=== PATIENT | female | born 1950 | race Caucasian/White ===

== ENCOUNTER 2023-01-13 10:38 | Outpatient (OUT) | payer MEDICARE, OTHER, SELFPAY ==
[2023-01-13 11:03] LABS: Hematocrit 34.3 % (36.0-48.0); Hemoglobin 10.5 g/dL (12.0-16.0); Mean Corpuscular HGB Conc 30.6 g/dL (29.9-35.2); Mean Corpuscular Hemoglobin 28.4 pg (26.7-34.0); Mean Corpuscular Volume 92.7 fL (81.0-99.0); Mean Platelet Volume 10.7 fL (9.5-13.5); Platelet Count 182 10^3/uL (150-450); White Blood Count 7.2 10^3/uL (4.0-11.0)
[2023-01-13 11:05] LABS: Bilirubin Urine NEGATIVE (NEGATIVE); Blood Urine TRACE-I (NEGATIVE); Clarity Urine CLEAR (CLEAR); Color Urine LT. YELLOW (YELLOW); Glucose Urine UA >=1000 mg/dL (NEGATIVE); Ketones Urine NEGATIVE (NEGATIVE); Leukocyte Esterase Urine LARGE (NEGATIVE); Nitrite Urine POSITIVE (NEGATIVE); Protein Urine NEGATIVE (NEG/TRACE); Specific Gravity Urine <=1.005 (1.005-1.025); Urobilinogen Urine 0.2 EU/dL (0.2-1.0); pH Urine 5.5 (5.0-9.0)
[2023-01-13 11:18] LABS: Creatinine Urine Random 23.68 mg/dL (20.00-300.00); Protein Creatinine Ratio Urine 0.79; Total Protein Urine Random 18.8 mg/dL (<=11.9)
[2023-01-13 11:24] LABS: Alanine Aminotransferase 26 U/L (14-59); Albumin Globulin Ratio 0.8; Albumin Level 3.8 g/dL (3.4-5.0); Alkaline Phosphatase 92 U/L (46-116); Anion Gap 10.1; Aspartate Amino Transferase 15 U/L (15-37); Bilirubin Total 0.2 mg/dL (0.2-1.0); Calcium 9.2 mg/dL (8.5-10.1); Carbon Dioxide 24.2 mmol/L (21.0-32.0); Chloride 105 mmol/L (98-107); Estimated GFR (African America 40 (>=60); Estimated GFR (Non-African Ame 33 (>=60); Globulin 4.6 g/dL; Glucose 207 mg/dL (74-106); Magnesium 2.3 mg/dL (1.8-2.4); Phosphorus 3.3 mg/dL (2.6-4.7); Potassium 5.3 mmol/L (3.5-5.1); Sodium 134 mmol/L (136-145); Total Protein 8.4 g/dL (6.4-8.2)
[2023-01-14 12:12] LABS: PTH, Intact 24 pg/mL (15-65)
== END 2023-01-13 10:39 | disposition home or self-care (01) ==
LOC: LAB 10:38
PROVIDERS: PCP Family Medicine; Visit Provider Internal Medicine Nephrology
DX: N18.31 Chronic kidney disease, stage 3a (principal); E11.9 Type 2 diabetes mellitus without complications; E53.8 Deficiency of other specified B group vitamins; E55.9 Vitamin D deficiency, unspecified; E21.3 Hyperparathyroidism, unspecified; E79.0 Hyperuricemia without signs of inflammatory arthritis and tophaceous disease
CPT/HCPCS: 36415; 80053; 81003; 82306; 82570; 82607; 82728; 82746; 83540; 83550; 83735; 83970; 84100; 84156; 84550; 85027

== ENCOUNTER 2023-03-02 12:56 | Outpatient (OUT) | payer MEDICARE, OTHER, SELFPAY ==
[2023-03-02 13:38] LABS: Potassium 6.2 mmol/L (3.5-5.1)
== END 2023-03-02 12:57 | disposition home or self-care (01) ==
LOC: LAB 12:57
PROVIDERS: PCP Family Medicine; Visit Provider Internal Medicine Nephrology
DX: N18.31 Chronic kidney disease, stage 3a (principal)
CPT/HCPCS: 36415; 84132

== ENCOUNTER 2023-05-27 07:57 | Outpatient (OUT) | payer MEDICARE, OTHER, SELFPAY ==
--- OUTSIDE RECORDS SUMMARY | 2023-05-27 08:02 | XMS_ITS | CCD ---
Author Organization [facility] Care Team Providers Care Research And Development Director Name Role Phone Loni Farmer Unavailable Rashid Tracy Jr. Unavailable Tabitha Rizzo Unavailable Baklissets, Aziz Unavailable LONI FARMER Admitting Unavailable LONI FARMER Attending Unavailable DR YARELY MCGUIRE Primary Care Unavailable SCALMOMO, LONI Consulting Unavailable BAKHOUS, AZIZ Admitting Unavailable BAKLISSETS, AZIZ Attending Unavailable DR YARELY MCGUIRE Primary Care Unavailable GABINO CORONADO Consulting Unavailable BAKHOUS, AZIZ Consulting Unavailable BAKHOUS, AZIZ Admitting Unavailable BAKHOUS, AZIZ Attending Unavailable DR YARELY MCGUIRE Primary Care Unavailable BAKHOUS, AZIZ Consulting Unavailable TAINA PARKER Attending Unavailable Yarely Mcguire Attending Unavailable Yarely Mcguire Primary Care Unavailable Yarely Mcguire Admitting Unavailable Allergies Allergy Classification Reported Allergen(s) Allergy Type Date of Onset Reaction(s) Facility (20 sources) Erythromycin Drug Allergy Unknown [facility] Other (20 sources) Penicillin G Drug Allergy 02-26-20 Unknown [facility] (2 sources) Erythromycin Drug Allergy 02-26-20 [facility] (2 sources) Penicillins Drug allergy (disorder) 04-29-19 [facility] (8 sources) metFORMIN Drug Allergy 02-26-20 Unknown [facility] (4 sources) Allergies Reconciled Propensity to adverse reactions Unknown [facility] Other (7 sources) Substance with penicillin structure and antibacterial mechanism of action (substance) Drug allergy Unknown [facility] Other (4 sources) patient allergy list reviewed by nurse or physicia Propensity to adverse reactions 04-06-19 Comment:Done [facility] Other (1 source) Erythromycin Drug Allergy 02-26-20 [facility] (1 source) metFORMIN Drug Allergy 02-26-20 [facility] (1 source) Penicillin Drug Allergy 02-26-20 [facility] (1 source) Penicillins Drug allergy (disorder) 02-26-20 [facility] Medications Current Medications Medication Drug Class(es) Dates Sig (Normalized) Sig (Original) atorvastatin 20 mg oral tablet (20 sources) HMG-CoA Reductase Inhibitor take 1 tablet by mouth once daily Atorvastatin Calcium 20 mg TAKE 1 TABLET BY MOUTH DAILY for 90 Active benzonatate 200 mg oral capsule (3 sources) Non-narcotic Antitussive Start: 02-25-2023 take 1 capsule by mouth every eight hours Benzonatate 200 MG 1 capsule Orally Three times a day for 10 day(s) Feb, Active cholecalciferol 0.025 mg oral tablet (3 sources) Vitamin D take 1 tablet by mouth every twenty-four hours Vitamin D 25 MCG (1000 UT) 1 tablet Orally Once a day Active dapagliflozin 5 mg oral tablet (15 sources) Sodium-Glucose Cotransporter 2 Inhibitor Start: 02-25-2022 take 1 tablet by mouth every twenty-four hours Farxiga 5 MG 1 tablet Orally Once a day for 30 day(s) Feb, Active empagliflozin 10 mg oral tablet (20 sources) Sodium-Glucose Cotransporter 2 Inhibitor Start: 08-21-2020 take 1 tablet by mouth every twenty-four hours Jardiance 10 MG 1 tablet Orally Once a day for 30 day(s) Aug, Active take 1 tablet by shwetha th every twenty-four hours JARDIANCE 25 mg 1 tablet orally daily fo r 90 days PAP- [employer]-- DENIED Active ferrous sulfate 325 mg oral tablet (4 sources) Start: 01-20-2023 take 1 tablet by mouth every twenty-four hours Ferrous Sulfate 325 (65 Fe) MG 1 tablet Orally once a day for 90 days Jan, Active FreeStyle Gill 2 [place] Systm - (20 sources) Start: 02-15-2020 FreeStyle Libr e 2 [place] Systm - as directed Feb, Active FreeStyle Gill 2 Sensor Systm - (13 sources) Start: 02-15-2020 FreeStyle Libr e 2 Sensor Systm - as directed Feb, Active 3 ml insulin degludec 100 unt/ml pen injector (20 sources) Insulin Analog inject 3 [IU] by subcutaneous injection once daily in the morning Tresiba FlexTouch 100 UNIT/ML 3 units Subcutaneous Once a day in the morning PAP- Ewa Nordisk Active inject 4 [IU] by sub cutaneous injection once daily in the morning Tresiba FlexTouch 100 UNIT/ML 4 units Subcutaneous Once a day in the morning PAP- Ewa Nordisk Active inject 8 [IU] by sub cutaneous injection once daily in the morning Tresiba FlexTouch 100 UNIT/ML 8 units Subcutaneous Once a day in the morning [facility] Active lisinopril 10 mg oral tablet (10 sources) Angiotensin Converting Enzyme Inhibitor Start: 07-22-2022 take 1 tablet by mouth every twenty-four hours Lisinopril 10 MG 1 tablet Orally Once a day July, Active 24 hr metFORMIN hydrochloride 500 mg extended release oral tablet (20 sources) Biguanide Start: 08-21-2020 take 2 tablets by mouth every twenty-four hours metFORMIN HCl ER 500 MG 2 tablets Orally Once a day for 30 day(s) Aug, Active metFORMIN HCl ER 500 MG 1 tablet daily Orally Once a day Active metFORMIN HCl ER 500 MG 1 tablet BID with breakfast and dinner Orally BID for 30 days Active Ozempic (1 MG/DOSE) 2 MG/1.5 ML (20 sources) Start: 08-21-2020 Ozempic (1 MG/ DOSE) 2 MG/1.5ML 1 mg Subcutaneous Once a week [facility] Zeer Aug, Active Ozempic (1 MG/DO SE) 2 MG/1.5ML 1 mg Subcutaneous Once a week [facility] Zeer Active 1 mg dose 1.5 ml semaglutide 1.34 mg/ml pen injector (7 sources) Start: 08-21-2020 Ozempic (1 MG/DOSE) 2 MG/1.5ML 1 mg Subcutaneous Once a week [facility] Zeer Aug, Active sulfamethoxazole 800 mg / trimethoprim 160 mg oral tablet (3 sources) Dihydrofolate Reductase Inhibitor Antibacterial, Sulfonamide Antimicrobial Start: 02-25-2023 take 1 tablet by mouth every twelve hours Bactrim DS 800-160 MG 1 tablet Orally Twice a day for 10 day(s) Feb, Active vitamin b12 0.1 mg oral tablet (10 sources) Vitamin B12 take 1 tablet by mouth every twenty-four hours Vitamin B12 100 MCG 1 tablet Orally daily Active take 1 tablet by shwetha th every twenty-four hours Vitamin B12 100 MCG 1 tablet Orally daily Active Vitamin B12 100 MCG (20 sources) take 1 tablet by shwetha th once daily Vitamin B12 100 MCG 1 tablet Orally daily Active Vitamin D 25 MCG (1000 UT) (15 sources) take 1 tablet by shwetha th once daily Vitamin D 25 MCG (1000 UT) 1 tablet Orally Once a day Active Problems Active Problems Problem Classification Problem Date Documented Date Episodic/Chronic Abdominal pain (4 sources) Left upper quadrant pain; Translations: [Left upper quadrant pain] Episodic Administrative/social admission (8 sources) Dietary counseling and surveillance; Translations: [Dietary counseling and surveillance Z71.3] Onset: 11-27-2020 Resolved: 09-24-2021 Episodic Biliary tract disease (4 sources) Cholelithiasis without obstruction; Translations: [Calculus of gallbladder without cholecystitis without obstruction] Episodic Calculus of urinary tract (1 source) Calculus of kidney; Translations: [CALCULUS OF KIDNEY] Onset: 04-27-2022 Episodic Chronic kidney disease (18 sources) Chronic kidney disease stage 3A ; Translations: [Chronic kidney disease, stage 3a] Chronic Deficiency and other anemia (4 sources) Anemia; Translations: [Anemia in chronic kidney disease] Chronic Deficiency and other anemia (1 source) Anemia in chronic kidney disease Chronic Diabetes mellitus with complications (20 sources) Hyperglycemia due to type 2 diabetes mellitus; Translations: [Type 2 diabetes mellitus with hyperglycemia] Onset: 07-23-2014 Resolved: 10-15-2021 Chronic Diabetes mellitus without complication (20 sources) Type 2 diabetes mellitus in nonobese; Translations: [Type 2 diabetes mellitus without complications] Onset: 04-27-2022 Chronic Diseases of white blood cells (4 sources) Monocytosis; Translations: [Monocytosis (symptomatic)] Onset: 10-27-2014 Chronic Disorders of lipid metabolism (20 sources) Hyperlipidemia; Translations: [Hyperlipidemia, unspecified] Onset: 07-22-2016 Resolved: 09-24-2021 Chronic Essential hypertension (20 sources) Hypertensive disorder; Translations: [Essential (primary) hypertension] Onset: 11-27-2020 Resolved: 09-24-2021 Chronic Fluid and electrolyte disorders (1 source) Hyperkalemia Episodic Genitourinary symptoms and ill-defined conditions (9 sources) Proteinuria, unspecified; Translations: [PROTEINURIA UNSPECIFIED] Onset: 03-06-2021 Resolved: 09-24-2021 Episodic Immunizations and screening for infectious disease (5 sources) Encounter for screening for other viral diseases; Translations: [Vaccination given] Onset: 09-07-2021 Resolved: 09-07-2021 Episodic Menopausal disorders (8 sources) Postmenopausal bleeding; Translations: [Postmenopausal bleeding] Onset: 04-06-2014 Chronic Nutritional deficiencies (20 sources) Vitamin D deficiency; Translations: [Vitamin D deficiency, unspecified] Onset: 11-27-2020 Resolved: 09-24-2021 Chronic Nutritional deficiencies (3 sources) Deficiency of other specified B group vitamins; Translations: [DEFICIENCY SPEC B GROUP VITAMINS] Onset: 07-19-2022 Episodic Other aftercare (20 sources) Long-term current use of insulin; Translations: [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 of insulin] Episodic Other aftercare (8 sources) intermediate (current) use of insulin; Translations: [intermediate current use of insulin Z79.4] Onset: 11-27-2020 Resolved: 09-24-2021 Episodic Other endocrine disorders (10 sources) Hyperparathyroidism; Translations: [Hyperparathyroidism, unspecified] Chronic Other endocrine disorders (1 source) Hyperparathyroidism, unspecified Chronic Other injuries and conditions due to external causes (4 sources) History of fall; Translations: [History of falling] Episodic Other liver diseases (20 sources) Steatosis of liver; Translations: [Fatty (change of) liver, not elsewhere classified] Chronic Other non-traumatic joint disorders (4 sources) Other specified joint disorders, right ankle and foot; Translations: [Other specified joint disorders, right ankle and foot] Episodic Other nutritional; endocrine; and metabolic disorders (20 sources) Obesity; Translations: [Obesity, unspecified] Chronic Other nutritional; endocrine; and metabolic disorders (4 sources) Hypercalcemia; Translations: [Hypercalcemia] Onset: 10-15-2017 Chronic Other nutritional; endocrine; and metabolic disorders (1 source) Hyperuricemia without signs of inflammatory arthritis and tophaceous disease Episodic Pancreatic disorders (not diabetes) (4 sources) Acute pancreatitis; Translations: [Biliary acute pancreatitis without necrosis or infection] Episodic Residual codes; unclassified (6 sources) Body mass index (BMI) 24.0-24.9, adult Onset: 06-16-2021 Resolved: 09-24-2021 Episodic Residual codes; unclassified (4 sources) Normal body mass index; Translations: [Body mass index (BMI) 24.0-24.9, adult] Episodic Residual codes; unclassified (4 sources) Postmenopausal state; Translations: [Asymptomatic menopausal state] Episodic Residual codes; unclassified (4 sources) Procedure not done; Translations: [Procedure and treatment not carried out because of patient's decision for unspecified reasons] Episodic Retinal detachments; defects; vascular occlusion; and retinopathy (20 sources) Retinal disorder; 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] Onset: 11-27-2020 Resolved: 09-24-2021 Chronic Urinary tract infections (1 source) Urinary tract infection, site not specified Episodic Past or Other Problems Problem Classification Problem Date Documented Date Episodic/Chronic Chronic kidney disease (8 sources) Chronic kidney disease; Translations: [CHRONIC KIDNEY DISEASE STAGE 3A] Onset: 04-22-2022 Other liver diseases (4 sources) Elevated levels of transaminase & lactic acid dehydrogenase; Translations: [Nonspecific elevation of levels of transaminase or lactic acid dehydrogenase (LDH)] Onset: 10-27-2014 Episodic Other nutritional; endocrine; and metabolic disorders (1 source) Body mass index (BMI) 26.0-26.9, adult; Translations: [BMI 26.0-26.9,adult Z68.26] Onset: 11-27-2020 Resolved: 11-27-2020 Episodic Other nutritional; endocrine; and metabolic disorders (1 source) Body mass index (BMI) 25.0-25.9, adult Onset: 03-06-2021 Resolved: 03-06-2021 Episodic Other screening for suspected conditions (not mental disorders or infectious disease) (4 sources) Mammography abnormal; Translations: [Unspecified abnormal mammogram] Onset: 04-11-2014 Episodic Results Test Name Value Interpretation Reference Range Facility A1C HEMOGLOBINon 12-14-2022 HbA1c (Bld) [Mass fraction] 6.3 % [facility] Other Glucose - FINGER STICKon Glucose [Mass/Vol] 133 mg/dL [facility] Other HbA1c (Bld) [Mass fraction]o n 12-14-2022 A1C HEMOGLOBIN [employer] Other A1C HEMOGLOBINon 09-09-2022 HbA1c (Bld) [Mass fraction] 6.5 % [facility] Other Glucose - FINGER STICKon Glucose [Mass/Vol] 107 mg/dL [facility] Other HbA1c (Bld) [Mass fraction]o n 09-09-2022 A1C HEMOGLOBIN [employer] Other PTH INTACTon 07-17-2022 PTH, Intact 68 pg/mL Critically high 15-65 [facility] Comment on above: Performed By: #### P THINT #### [facility] [address] [address] [address] Tim Moya HEMOGRAM AND PLATELon 2022 Hematocrit (Bld) [Volume fraction] 36.5 % Normal 36.0-48.0 [facility] Comment on above: Performed By: #### H H ####[facility] [address] [address]DrLinda Moya Hemoglobin (Bld) [Mass/Vol] 11.7 g/dL Critically low 12.0-16.0 [facility] Comment on above: Performed By: #### H H ####[facility] [address] [id number] Moya MCH (RBC) [Entitic mass] 28.3 pg Normal 26.7-34.0 [facility] Comment on above: Performed By: #### H H ####[facility] [address] [address]DrLinda Moya MCHC (RBC) [Mass/Vol] 32.1 g/dL Normal 29.9-35.2 [facility] Comment on above: Performed By: #### H H ####[facility] [address] [place], [place] [address]OjLinda Moya MCV (RBC) [Entitic vol] 88.2 fL Normal 81.0-99.0 [facility] Comment on above: Performed By: #### H H ####[facility] [address] [id number] Moya PLT 242 103/ul Normal 150-450 [facility] Comment on above: Performed By: #### H H ####[facility] [address] [id number] Moya RBC 4.14 106/ul Critically low 4.20-5.40 [facility] Comment on above: Performed By: #### H H ####[facility] [address] [id number] Moya WBC 9.2 103/ul Normal 4.0-11.0 [facility] Comment on above: Performed By: #### H H ####[facility] [address] [address]DrLinda Moya MAGNESIUMon 07-16-2022 Magnesium [Mass/Vol] 2.4 mg/dL Normal 1.8-2.4 [facility] Comment on above: Performed By: #### C MP, PHOS, URIC, MG #### [facility] [address] [place], [place] [address] Dr. Tim Moya PHOSPHORUSon 07-16-2022 Phosphate [Mass/Vol] 3.3 mg/dL Normal 2.6-4.7 [facility] Comment on above: Performed By: #### C MP, PHOS, URIC, MG ####[facility] [address] [id number] Moya PROF 14(COMP METB)on 023 Albumin [Mass/Vol] 3.9 g/dL Normal 3.4-5.0 [facility] Comment on above: Performed By: #### C MP, PHOS, URIC, MG ####[facility] [address] [id number]. Tim Moya Albumin/Globulin [Mass ratio] 0.8 {ratio} Normal [facility] Comment on above: Performed By: #### C MP, PHOS, URIC, MG ####[facility] [address] [address]Dr. Tim Moya ALP [Catalytic activity/Vol] 107 U/L Normal 46-116 [facility] Comment on above: Performed By: #### C MP, PHOS, URIC, MG ####[facility] [address] [address]Dr. Tim Moya ALT [Catalytic activity/Vol] 22 U/L Normal 14-59 [facility] Comment on above: Performed By: #### C MP, PHOS, URIC, MG ####[facility] [address] [address]Dr. Angelicavicki Moya Anion gap [Moles/Vol] 12.4 mmol/L Normal [facility] Comment on above: Performed By: #### C MP, PHOS, URIC, MG ####[facility] [address] [place], [place] [address]Dr. Tim Moya AST [Catalytic activity/Vol] 19 U/L Normal 15-37 [facility] Comment on above: Performed By: #### C MP, PHOS, URIC, MG ####[facility] [address] [address]Dr. Angelicavicki Moya Bilirubin [Mass/Vol] 0.2 mg/dL Normal 0.2-1.0 [facility] Comment on above: Performed By: #### C MP, PHOS, URIC, MG ####[facility] [address] [address]Dr. Tim Moya Calcium [Mass/Vol] 8.7 mg/dL Normal 8.5-10.1 [facility] Comment on above: Performed By: #### C MP, PHOS, URIC, MG ####[facility] [address] [address]Dr. Tim Moya Chloride [Moles/Vol] 108 mmol/L Critically high 98-107 [facility] Comment on above: Performed By: #### C MP, PHOS, URIC, MG ####[facility] [address] [address]Dr. Tim Moya CO2 [Moles/Vol] 26.1 mmol/L Normal 21.0-32.0 [facility] Comment on above: Performed By: #### C MP, PHOS, URIC, MG ####[facility] [address] [address]Dr. Tim Moya Creatinine [Mass/Vol] 1.21 mg/dL Critically high 0.55-1.02 [facility] Comment on above: Performed By: #### C MP, PHOS, URIC, MG ####[facility] [address] [address]Dr. Tim Moya EGFR-AF DUTCH 53 mL/min/1.73m2 Critically low >=60 [facility] Comment on above: Performed By: #### C MP, PHOS, URIC, MG ####[facility] [address] [place], [place] [address]Dr. Tim Moya EGFR-NON AF DUTCH 44 mL/min/1.73m2 Critically low >=60 [facility] Comment on above: Performed By: #### C MP, PHOS, URIC, MG ####[facility] [address] [address]Dr. Tim Moya Globulin (S) [Mass/Vol] 4.9 g/dL Normal [facility] Comment on above: Performed By: #### C MP, PHOS, URIC, MG ####[facility] [address] [address]Dr. Tim Moya Glucose [Mass/Vol] 94 mg/dL Normal 74-106 [facility] Comment on above: Performed By: #### C MP, PHOS, URIC, MG ####[facility] [address] [address]Dr. Tim Moya Potassium [Moles/Vol] 4.5 mmol/L Normal 3.5-5.1 [facility] Comment on above: Performed By: #### C MP, PHOS, URIC, MG ####[facility] [address] [address]Dr. Tim Moya Protein [Mass/Vol] 8.8 g/dL Critically high 6.4-8.2 [facility] Comment on above: Performed By: #### C MP, PHOS, URIC, MG ####[facility] [address] [address]Dr. Tim Moya Sodium [Moles/Vol] 142 mmol/L Normal 136-145 [facility] Comment on above: Performed By: #### C MP, PHOS, URIC, MG ####[facility] [address] [address]Dr. Tim Moya Urea nitrogen [Mass/Vol] 20.0 mg/dL Critically high 7.0-18.0 [facility] Comment on above: Performed By: #### C MP, PHOS, URIC, MG ####[facility] [address] [address]Dr. Tim Moya Urea nitrogen/Creatinin e [Mass ratio] 16.5 mg/mg Normal [facility] Comment on above: Performed By: #### C MP, PHOS, URIC, MG ####[facility] [address] [address]Dr. Tim Moya UA RANDOMon 07-16-2022 Bilirubin Ql (U) Negative Normal NEGATIVE [facility] Comment on above: Performed By: #### U A #### [facility] [address] [address] [address] Tim Moya Clarity (U) CLOUDY Abnormal CLEAR [facility] Comment on above: Performed By: #### U A #### [facility] [address] [address] [address] Tim Moya Color (U) YELLOW Normal YELLOW [facility] Comment on above: Performed By: #### U A #### [facility] [address] [address] [address] Tim Moya Glucose Ql (U) 500 mg/dl Abnormal NEGATIVE [facility] Comment on above: Performed By: #### U A #### [facility] [address] [address] [address] Tim Moya Hemoglobin Ql (U) TRACE Abnormal NEGATIVE [facility] Comment on above: Performed By: #### U A #### [facility] [address] [place] [address] Dr. Tim Moya Ketones Ql (U) Negative Normal NEGATIVE [facility] Comment on above: Performed By: #### U A #### [facility] [address] [place] [address] Dr. Tim Moya LEUKOCYTES MODERATE Abnormal NEGATIVE [facility] Comment on above: Performed By: #### U A #### [facility] [address] [place] [address] Dr. Tim Moya Nitrite Ql (U) Negative Normal NEGATIVE [facility] Comment on above: Performed By: #### U A #### [facility] [address] [place] [address] Dr. Tim Moya pH (U) 6.0 [pH] Normal 5-9 [facility] Comment on above: Performed By: #### U A #### [facility] [address] [place] [address] Dr. Tim Moya SPEC GRAVITY 1.010 Normal 1.005-<=1. 025 [facility] Comment on above: Performed By: #### U A #### [facility] [address] [place] [address] Dr. Tim Moya UA PROTEIN Negative Normal NEGATIVE/ TRACE [facility] Comment on above: Performed By: #### U A #### [facility] [address] [place] [address] Dr. Tim Moya Urobilinogen Qn (U) 0.2 {Michael'U}/dL Normal 0.2 - 1.0 [facility] Comment on above: Performed By: #### U A #### [facility] [address] [place] [address] Dr. Tim Moya URIC ACID SERUMon 07-16-2022 Urate [Mass/Vol] 6.6 mg/dL Critically high 2.6-6.0 [facility] Comment on above: Performed By: #### C MP, PHOS, URIC, MG ####[facility] [address] [address]Dr. Tim Moya URINE T PROTEIN CREAT RATIOo n 07-16-2022 Protein (U) [Mass/Vol] 25.1 mg/dL Critically high <=12.0 [facility] Comment on above: Performed By: #### U RTPCR #### [facility] [address] [address] [address] Tim Moya UR PROT CREAT RAT 0.72 Normal [facility] Comment on above: Performed By: #### U RTPCR #### [facility] [address] [address] [address] Tim Moya URINE CREAT 34.83 mg/dL Normal 20.00-300. 00 [facility] Comment on above: Performed By: #### U RTPCR #### [facility] [address] [address] [address] Tim Moya VITAMIN D 25 OHon 07-16-2022 VIT D 25-OH 31.0 ng/mL Normal [facility] Comment on above: Performed By: #### V ITAD #### [facility] [address] [address] [address] Tim Moya VIT D RANGES SEE BELOW Normal [facility] Comment on above: Result Comment: <20 ng/mL Vit D deficient 20 - <30 ng/mL Vit D insufficient 30 - 100 ng/mL Vit D sufficient >100 ng/mL Potential Toxicity Performed By: #### V ITAD #### [facility] [address] [address] [address] Tim Moya US KIDNEYSon 04-22-2022 US KIDNEYS EXAMINATION: US KIDN EYS HISTORY: Chronic kidney disease stage 3a , proteinuria COMPARISON: No relevant comparison available. TECHNIQUE: Ultrasound examination was performed of the kidneys and urinary bladder. FINDINGS: RIGHT KIDNEY: Nonobstructing 4 mm stone within mid body. No evidence of pelvocaliectasis or mass. Normal renal cortical parenchymal echogenicity. Color Doppler demonstrates blood flow within the kidney. Kidney: 10.3 x 4.6 x 4.7 cm. No significant cortical thinning. LEFT KIDNEY: Nonobstructing 5 mm stone within mid body. No evidence of pelvocaliectasis or mass. Normal renal cortical parenchymal echogenicity. Color Doppler demonstrates blood flow within the kidney. Kidney: 9.3 x 5.8 x 6.2 cm. No significant cortical thinning. BLADDER: No visible wall thickening, mass, or calculi. IMPRESSION: 1. Bilateral nonobstructing nephrolithiasis. 2. No appreciable mass, obstructive uropathy, or significant atrophy. Electronically authenticated by: GABINO CORONADO Date: 2022-04-22 09:43 Normal [facility] A1C HEMOGLOBINon 02-25-2022 HbA1c (Bld) [Mass fraction] 7.0 % [employer] Other Glucose - FINGER STICKon Glucose [Mass/Vol] 104 mg/dL [employer] Other HbA1c (Bld) [Mass fraction]o n 02-25-2022 A1C HEMOGLOBIN Located within [facility] [employer] Other INSULIN AUTOANTIBODIESon Insulin Antibodies <5.[address] [facility] Comment on above: Result Comment: This test is also known as insulin autoantibody or IAA. This test was developed and its performance characteristics determined by [employer]. It has not been cleared or approved by the Food and Drug Administration. Reference Range: <5.0 Negative > or = 5.0 Positive Performed By: #### I AA #### [facility] [address] [address] [address] Tim Moya GLUTAMIN ACID DECARBOXYLASE (MICHAEL)on 11-22-2021 MICHAEL-65 <5.0 Normal 0.0-5.0 [facility] Comment on above: Performed By: #### G AD #### [facility] [address] [place] [address] Dr. Tim Moya C-PEPTIDE, SERUMon 2 C-Peptide, Serum 2.1 ng/mL Normal 1.1-4.4 The [facility] Comment on above: Result Comment: C-Pe ptide reference interval is for fasting patients. Performed By: #### C PEPT #### [facility] [address] [place], [place] [address] Dr. Tim Moya VIT D 25-OH LABCORPon 2021 Vitamin D, 25-Hydroxy 24.5 ng/mL Critically low 30.0-100.0 [facility] Comment on above: Result Comment: Ileana min D deficiency has been defined by the [place] of [employer] and an Endocrine Society practice guideline as a level of serum 25-OH vitamin D less than 20 ng/mL (1,2). The Endocrine Society went on to further define vitamin D insufficiency as a level between 21 and 29 ng/mL (2). 1. IOM ([place] of Medicine). 2010. Dietary reference intakes for calcium and D. [place]: The National Academies Press. 2. Yessenia MF, Tavia BROWN, Jacinda PALM, et al. Evaluation, treatment, and prevention of vitamin D deficiency: an Endocrine Society clinical practice guideline. JCEM. 2010; 96(7):1911-30. Performed By: #### V ITADLC #### [facility] [address] [address] [address] Tim Moya PROF 14(COMP METB)on 022 Albumin [Mass/Vol] 3.6 g/dL Normal 3.4-5.0 [facility] Comment on above: Performed By: #### C MP ####[facility] [address] [id number] Moya Albumin/Globulin [Mass ratio] 0.8 {ratio} Normal [facility] Comment on above: Performed By: #### C MP ####[facility] [address] [place], [place] [address]Eg. Tim Moya ALP [Catalytic activity/Vol] 116 U/L Normal 46-116 [facility] Comment on above: Performed By: #### C MP ####[facility] [address] [place], [place] [address]Ki. Tim Moya ALT [Catalytic activity/Vol] 42 U/L Normal 14-59 [facility] Comment on above: Performed By: #### C MP ####[facility] [address] [id number]. Tim Moya Anion gap [Moles/Vol] 10.1 mmol/L Normal [facility] Comment on above: Performed By: #### C MP ####[facility] [address] [address]Dr. Tim Moya AST [Catalytic activity/Vol] 39 U/L Critically high 15-37 [facility] Comment on above: Performed By: #### C MP ####[facility] [address] [address]Dr. Tim Moya Bilirubin [Mass/Vol] 0.2 mg/dL Normal 0.2-1.0 [facility] Comment on above: Performed By: #### C MP ####[facility] [address] [address]Dr. Tim Moya Calcium [Mass/Vol] 9.0 mg/dL Normal 8.5-10.[address] [facility] Comment on above: Performed By: #### C MP ####[facility] [address] [place], [place] [address]Dr. Tim Moya Chloride [Moles/Vol] 108 mmol/L Critically high 98-107 [facility] Comment on above: Performed By: #### C MP ####[facility] [address] [place], [place] [address]Dr. Tim Moya CO2 [Moles/Vol] 27.0 mmol/L Normal 21.0-32.0 [facility] Comment on above: Performed By: #### C MP ####[facility] [address] [address]Dr. Tim Griffin Creatinine [Mass/Vol] 1.01 mg/dL Normal 0.55-1.02 [facility] Comment on above: Performed By: #### C MP ####[facility] [address] [place], [place] [address]Dr. Tim Griffin EGFR-AF DUTCH >60 Normal >=60 [facility] Comment on above: Performed By: #### C MP ####[facility] [address] [place], [place] [id number]. Tim Moya EGFR-NON AF DUTCH 54 mL/min/1.73m2 Critically low >=60 [facility] Comment on above: Performed By: #### C MP ####[facility] [address] [address]Dr. Tim Moya Globulin (S) [Mass/Vol] 4.4 g/dL Normal [facility] Comment on above: Performed By: #### C MP ####[facility] [address] [place], [place] [address]Dr. Tim Moya Glucose [Mass/Vol] 120 mg/dL Critically high 74-106 T [facility] Comment on above: Performed By: #### C MP ####[facility] [address] [place], [place] [address]Dr. Tim Moya Potassium [Moles/Vol] 4.1 mmol/L Normal 3.5-5.1 [facility] Comment on above: Performed By: #### C MP ####[facility] [address] [place], [place] [address]Dr. Tim Moya Protein [Mass/Vol] 8.0 g/dL Normal 6.4-8.[address] [facility] Comment on above: Performed By: #### C MP ####[facility] [address] [place], [place] [address]Dr. Tim Moya Sodium [Moles/Vol] 141 mmol/L Normal 136-[address] [facility] Comment on above: Performed By: #### C MP ####[facility] [address] [place], [place] [address]Dr. Tim Moya Urea nitrogen [Mass/Vol] 20.0 mg/dL Critically high 7.0-18.0 [facility] Comment on above: Performed By: #### C MP ####[facility] [address] [place], [place] [address]Dr. Tim Moya Urea nitrogen/Creatinin e [Mass ratio] 19.8 mg/mg Normal [facility] Comment on above: Performed By: #### C MP ####[facility] [address] [place], [place] [id number] Moya A1C HEMOGLOBINon 09-24-2021 HbA1c (Bld) [Mass fraction] 5.9 % [facility] Other Glucose - FINGER STICKon Glucose [Mass/Vol] 95 mg/dL [facility] Other HbA1c (Bld) [Mass fraction]o n 09-24-2021 A1C HEMOGLOBIN [employer] Other COVID Quick Testingon 2021 Result Negative [facility] Other A1C HEMOGLOBINon 06-16-2021 HbA1c (Bld) [Mass fraction] 6.3 % [facility] Other Glucose - FINGER STICKon Glucose [Mass/Vol] 99 mg/dL [facility] Other HbA1c (Bld) [Mass fraction]o n 06-16-2021 A1C HEMOGLOBIN [employer] Other A1C HEMOGLOBINon 03-06-2021 HbA1c (Bld) [Mass fraction] 5.9 % [facility] Other Glucose - FINGER STICKon Glucose [Mass/Vol] 109 mg/dL [facility] Other HbA1c (Bld) [Mass fraction]o n 03-06-2021 A1C HEMOGLOBIN [employer] Other Ambulatory Clinical Summaryo n 12-02-2020 Ambulatory Clinical Summary {[id number]}CD:6143 68 Normal [facility] General Surgery Office/Clini c Noteon 12-01-2020 General Surgery Office/Clinic Note Chief Complaint post operative follow up HPI Staff 23 day post operative follow up post colonoscopy and EGD with antrum biopsy. Continues with intermittent abdominal pain. This has not worsened or changed since last evaluation. History of Present Illness s/p EGD and colonoscopy for left abdominal pain, dyspepsia; evidence of antral gastritis; redundant colon; symptoms unchanged; bx negative for H pylori; no PPI treatment. Review of Systems ROS - Provider Constitutional: no fever, no sweats, no weight loss. Eyes: no glasses, no blurred vision, no visual loss. ENMT: no dentures, no hoarseness, no swallowing difficulties, no hearing loss, no ear infection(s), no nose bleeds. Cardiovascular: normal blood pressure, no chest pain, regular heartbeat, no heart murmur. Respiratory: no shortness of breath, no cough, no asthma, no wheezing. Gastrointestinal: no nausea, no vomiting, no diarrhea, no constipation, no blood in stool, mild change in bowel habits, mild abdominal pain, no hepatitis. Genitourinary: no kidney stones, no urine infection, no dysuria. Musculoskeletal: no pain, no weakness. Skin: no changing moles, no rash, no skin lumps. Neurologic: no seizures, no epilepsy, no headache. Psychiatric: no emotional or psychiatric problem. Heme/Lymph: no bleeding problems, no anemia, no blood clots, no transfusions. Allergy/Immunologic: no swollen lymph nodes/glands, no IV drug abuse. Other: Additional ROS info: Except as noted in the above Review of Systems and in the History of Present Illness, all other systems have been reviewed and are negative or noncontributory. Physical Exam Vitals & Measurements T: 36.5 ?C (Temporal Artery) Assessment/Plan 1. Abdominal pain, left upper quadrant (R10.12: Left upper quadrant pain) recommend trial of Protonix daily; high fiber diet and daily fiber supplement; call with problems/questions. 2. GERD (gastroesophageal reflux disease) (K21.9: Gastro-esophageal reflux disease without esophagitis) see # 1 Follow-up No qualifying data available Problem List/Past Medical History Ongoing Abdominal pain, left upper quadrant Acute biliary pancreatitis Asymptomatic cholelithiasis Change in bowel habits Diabetes GERD (gastroesophageal reflux disease) Hypercalcemia Hyperlipidemia LUQ pain Nausea & vomiting Historical No qualifying data Procedure/Surgical History Colonoscopy (11/06/2020), EGD - Esophagogastroduodenoscopy (11/06/2020), Breast biopsy and related procedures (2010). Medications atorvastatin 20 mg Tab, Oral, Daily metformin 500 mg ER Tab, Oral, Daily Ozempic 2 mg/1.5 mL (0.25 mg or 0.5 mg dose) subcutaneous solution, SubCutaneous, qWeek Tresiba FlexTouch, SubCutaneous, Daily Allergies erythromycin (Unknown) penicillin (Unknown) Social History Alcohol - Denies Alcohol Use, 10/18/2020 Substance Abuse - Denies Substance Abuse, 10/18/2020 Tobacco - Denies Tobacco Use, 10/17/2020 Never (less than 100 in lifetime) Tobacco Use:., 11/29/2020 Family History Parkinson disease: Sister. Primary malignant neoplasm of female breast: Sister. Primary malignant neoplasm of female genital organ: Sister. Prostate cancer: Mother. Stroke: Father. Immunizations Vaccine Date Status SARS-CoV-2 (COVID-19) mRNA-1273 vaccine 05/29/2020 Recorded SARS-CoV-2 (COVID-19) mRNA-1273 vaccine 05/02/2020 Recorded patient seen 11/29/20 [facility] Comment on above: Result Comment: Elec tronically Signed By: ANDREA PETTY, Rigo Edwards\Date and Time Signed: 12/01/20 21:10 EDT Ambulatory Clinical Summaryo n 11-29-2020 Ambulatory Clinical Summary {[id number]}CD:6143 68 [facility] A1C HEMOGLOBINon 11-27-2020 HbA1c (Bld) [Mass fraction] 6.7 % [facility] Other Glucose - FINGER STICKon Glucose [Mass/Vol] 102 mg/dL [facility] Other HbA1c (Bld) [Mass fraction]o n 11-27-2020 A1C HEMOGLOBIN [employer] Other Outside Colonoscopyon 2020 Outside Colonoscopy [id number]:127 [facility] Pathology Noteon 11-08-2020 Pathology Note [id number]:127 [facility] Lab Reportson 11-05-2020 Lab Reports [id number]:127 Normal [facility] October 23, 2020 YARELY MCGUIRE, [address] [place] [address] Re: CARI CHEN Date of : 1950 Thank you for your referral of Cari Chen who was seen on consultation on October 18, 2020, for left upper quadrant pain with nausea and vomiting. Testing has been planned for further evaluation. I have enclosed my consultation notes for your review. I will be happy to follow Cari should her symptoms persist. Sincerely, Rigo Egan MD General Surgery [facility] Consent for Procedure/Surger yon 10-21-2020 Consent for Procedure/Surgery [id number]:127 [facility] Immunization Recordson 10-21 Immunization Records [id number]#[id number]:127 [facility] Ambulatory Clinical Summaryo n 10-18-2020 Ambulatory Clinical Summary {[id number]}CD:6143 68 Normal [facility] General Surgery Office/Clini c Noteon 10-18-2020 General Surgery Office/Clinic Note HPI Staff New pt., referred by Dr. Mcguire for left upper quadrant pain with nausea and vomiting x 1mt. ?acute biliary pancreatitis . CT ABD 10/12/20, cholelithiasis , labs done History of Present Illness 70 yo female with h/o DMII, hyperlipidemia; referred for acute onset of Left upper quadrant abdominal pain, began overnight when she was sitting up watching TV; had episode of N/V and multiple bouts of watery diarrhea; pain described as sharp, then ache, sore to touch, some radiation around to flank; diarrhea resolved, but pain has been intermittent; with soreness to touch in Left upper quadrant; 1 more episode of N/V a week ago; normal cbc and lipase; ct scan of abd with evidence of large gallstone, no inflammation or ductal dilation; mild retroperitoneal inflammation; personally reviewed, no evidence of pancreatitis; no previous abdominal operations; remote colonoscopy 20 years ago; no h/o asa or NSAID use; no GERD or dysphagia; no wt loss, no blood in stools; intermittent loose stools. no fmhx of GI malignancy or IBD. Review of Systems PHQ Score Initial Depression Screen Score: 0 ROS - Provider Constitutional: no fever, no sweats, no weight loss. Eyes: no glasses, no blurred vision, no visual loss. ENMT: no dentures, no hoarseness, no swallowing difficulties, no hearing loss, no ear infection(s), no nose bleeds. Cardiovascular: normal blood pressure, no chest pain, regular heartbeat, no heart murmur. Respiratory: no shortness of breath, no cough, no asthma, no wheezing. Gastrointestinal: no nausea, no vomiting, no diarrhea, no constipation, no blood in stool, yes change in bowel habits, moderate abdominal pain, no hepatitis. Genitourinary: no kidney stones, no urine infection, no dysuria. Musculoskeletal: no pain, no weakness. Skin: no changing moles, no rash, no skin lumps. Neurologic: no seizures, no epilepsy, no headache. Psychiatric: no emotional or psychiatric problem. Heme/Lymph: no bleeding problems, no anemia, no blood clots, no transfusions. Allergy/Immunologic: no swollen lymph nodes/glands, no IV drug abuse. Other: Additional ROS info: Except as noted in the above Review of Systems and in the History of Present Illness, all other systems have been reviewed and are negative or noncontributory. Physical Exam Vitals & Measurements T: 36.2 ?C (Temporal Artery) HR: 68(Peripheral) RR: 16 BP: 120/62 SpO2: 98% HT: 162.56 cm HT: 162.6 cm WT: 71.21 kg WT: 157.0 kg BMI: 26.95 HEENT: normal conjunctiva, sclera clear, no scleral icterus, EOM intact, PERRLA, oral mucosa moist without lesions. Neck: trachea midline, no mass, symmetric, no thyromegaly or nodules, no adenopathy Respiratory: lungs CTA, respirations non labored. Cardiovascular: regular rate and rhythm, no murmur, no pedal edema or varicosities. Gastrointestinal: soft, non distended, mild tenderness, left upper quadrant, no peritoneal signs; no masses, no palpable hernias, diastasis recti no, no hepatosplenomegaly; normal bs Lymphatic: no cervical adenopathy, Musculoskeletal: normal gait, digits and nails without infection, nodes, cyanosis, clubbing. Skin: no rashes, no lesions, no ulcers, no subcutaneous nodules, induration. Psychiatric/Neuro: oriented to time, place, person, judgement normal, affect appropriate for age, insight intact, no focal deficits. Tests: labs reviewed, x-rays reviewed, review of old records completed, Discussed surgical options, risks, and possible complications with patient. Assessment/Plan 1. Abdominal pain, left upper quadrant (R10.12: Left upper quadrant pain) plan EGD and colonoscopy under anesthesia for further evaluation, informed consent obtained. 2. Change in bowel habits (R19.4: Change in bowel habit) see # 1 3. Nausea & vomiting (R11.2: Nausea with vomiting, unspecified) see # 1 Follow-up No qualifying data available Patient Education Upper Endoscopy, Adult Colonoscopy, Adult Problem List/Past Medical History Ongoing Abdominal pain, left upper quadrant Acute biliary pancreatitis Asymptomatic cholelithiasis Change in bowel habits Diabetes Hypercalcemia Hyperlipidemia LUQ pain Nausea & vomiting Historical No qualifying data Procedure/Surgical History Breast biopsy and related procedures (2010). Medications atorvastatin 20 mg Tab, Oral, Daily metformin 500 mg ER Tab, Oral, Daily Ozempic 2 mg/1.5 mL (0.25 mg or 0.5 mg dose) subcutaneous solution, SubCutaneous, qWeek Tresiba FlexTouch, SubCutaneous, Daily Allergies erythromycin (Unknown) penicillin (Unknown) Social History Alcohol - Denies Alcohol Use, 10/18/2020 Substance Abuse - Denies Substance Abuse, 10/18/2020 Tobacco - Denies Tobacco Use, 10/17/2020 Never (less than 100 in lifetime) Tobacco Use:., 10/18/2020 Family History Parkinson disease: Sister. Primary malignant neoplasm of female breast: Sister. Primary malignant neoplasm of female genital organ: Sister. Prostate cancer: Mother. Stroke: Fath (more content not included)... Normal [facility] Comment on above: Result Comment: Elec tronically Signed By: ANDREA PETTY, Rigo Edwards\Date and Time Signed: 10/18/20 13:50 EDT Physician Referralon 021 Physician Referral [id number]:127 Normal [facility] Vital Signs Date Time Vital Sign Value Performing Clinician Facility 02-25-2023 10:15-0500 Body height 162.56 cm [facility] 02-25-2023 10:15-0500 Body weight 71.93 kg [facility] 02-25-2023 10:15-0500 Diastolic blood pressure 73 mm[Hg] [facility] 02-25-2023 10:15-0500 Systolic blood pressure 120 mm[Hg] [facility] 01-26-2023 11:00-0500 Body height 162.56 cm [facility] 01-26-2023 11:00-0500 Body weight 71.3 kg [facility] 01-26-2023 11:00-0500 Diastolic blood pressure 63 mm[Hg] [facility] 01-26-2023 11:00-0500 Systolic blood pressure 130 mm[Hg] [facility] 01-20-2023 10:20-0500 Body height 162.56 cm [employer] Other [employer] [facility] [employer] Other 01-20-2023 10:20-0500 Body mass index (BMI) [Ratio] 27.5 kg/m2 [employer] Other [employer] Other 01-20-2023 10:20-0500 Body temperature 97.2 [degF] [employer] Other [employer] Other 01-20-2023 10:20-0500 Body weight 72.67 kg [employer] Other [facility] Other 01-20-2023 10:20-0500 Diastolic blood pressure 68 mm[Hg] [employer] Other [employer] Other 01-20-2023 10:20-0500 Respiratory rate 18 /min Homero Kurtz Other [employer] Other 01-20-2023 10:20-0500 SaO2% (BldA) [Mass fraction] 99 % [facility] Ellisons Other [employer] Other 01-20-2023 10:20-0500 Systolic blood pressure 111 mm[Hg] [employer] Other [employer] Other 12-14-2022 09:45-0400 Body height 162.56 cm Loni Scally Other [employer] Other 12-14-2022 09:45-0400 Diastolic blood pressure 67 mm[Hg] Loni Scally Other [employer] Other 12-14-2022 09:45-0400 Respiratory rate 18 /min Loni Scally Other [employer] Other 12-14-2022 09:45-0400 SaO2% (BldA) [Mass fraction] 99 % Loni Scally Other [employer] Other 12-14-2022 09:45-0400 Systolic blood pressure 108 mm[Hg] Loni Scally Other [employer] Other 09-09-2022 10:45-0400 Body height 162.56 cm Loni Scally Other [employer] Other 09-09-2022 10:45-0400 Body mass index (BMI) [Ratio] 26.48 kg/m2 Loni Scally Other [employer] Other 09-09-2022 10:45-0400 Body weight 69.99 kg Loni Scally Other [employer] Other 09-09-2022 10:45-0400 Diastolic blood pressure 68 mm[Hg] Loni Scally Other [employer] Other 09-09-2022 10:45-0400 Respiratory rate 18 /min Loni Scally Other [employer] Other 09-09-2022 10:45-0400 SaO2% (BldA) [Mass fraction] 97 % Loni Scally Other [employer] Other 09-09-2022 10:45-0400 Systolic blood pressure 112 mm[Hg] Loni Scally Other [employer] Other 05-12-2022 13:30-0500 Body height 162.56 cm Loni Scally Other [employer] Other 05-12-2022 13:30-0500 Body mass index (BMI) [Ratio] 26.47 kg/m2 Loni Scally Other [employer] Other 05-12-2022 13:30-0500 Body weight 69.95 kg Loni Scally Other [employer] Other 05-12-2022 13:30-0500 Diastolic blood pressure 74 mm[Hg] Loni Scally Other [employer] Other 05-12-2022 13:30-0500 Respiratory rate 18 /min Loni Scally Other [employer] Other 05-12-2022 13:30-0500 SaO2% (BldA) [Mass fraction] 100 % Loni Scally Other [employer] Other 05-12-2022 13:30-0500 Systolic blood pressure 122 mm[Hg] Loni Scally Other [employer] Other 02-25-2022 12:15-0500 Body height 162.56 cm Loni Scally Other [employer] Other 02-25-2022 12:15-0500 Body mass index (BMI) [Ratio] 26.35 kg/m2 Loni Scally Other [employer] Other 02-25-2022 12:15-0500 Body weight 69.63 kg Loni Scally Other [employer] Other 02-25-2022 12:15-0500 Diastolic blood pressure 66 mm[Hg] Loni Scally Other [employer] Other 02-25-2022 12:15-0500 Respiratory rate 18 /min Loni Scally Other [employer] Other 02-25-2022 12:15-0500 SaO2% (BldA) [Mass fraction] 100 % Loni Scally Other [employer] Other 02-25-2022 12:15-0500 Systolic blood pressure 136 mm[Hg] Loni Scally Other [employer] Other 01-07-2022 14:20-0400 Body height 162.56 cm Azzee Ellisons Other [employer] Other 01-07-2022 14:20-0400 Body mass index (BMI) [Ratio] 25.5 kg/m2 Azzee Ellisons Other [employer] Other 01-07-2022 14:20-0400 Body temperature 96.6 [degF] Homero Ellisons Other [employer] Other 01-07-2022 14:20-0400 Body weight 67.4 kg Homero Ellisons Other [employer] Other 01-07-2022 14:20-0400 Diastolic blood pressure 74 mm[Hg] Azzee Ellisons Other [employer] Other 01-07-2022 14:20-0400 Respiratory rate 18 /min Homero Ellisons Other [employer] Other 01-07-2022 14:20-0400 SaO2% (BldA) [Mass fraction] 99 % [employer] Other [employer] Other 01-07-2022 14:20-0400 Systolic blood pressure 125 mm[Hg] Aziz Bakhous Other [employer] Other 09-24-2021 10:15-0400 Body height 162.56 cm Loni Farmer Other [employer] Other 09-24-2021 10:15-0400 Body mass index (BMI) [Ratio] 24.27 kg/m2 Loni Scally Other [employer] Other 09-24-2021 10:15-0400 Body weight 64.14 kg Loni Scally Other [employer] Other 09-24-2021 10:15-0400 Diastolic blood pressure 66 mm[Hg] Loni Scally Other [employer] Other 09-24-2021 10:15-0400 Respiratory rate 18 /min Loni Scally Other [employer] Other 09-24-2021 10:15-0400 SaO2% (BldA) [Mass fraction] 100 % Loni Scally Other [facility] Other 09-24-2021 10:15-0400 Systolic blood pressure 111 mm[Hg] Loni Scally Other [facility] Other 06-16-2021 10:00-0400 Body height 162.56 cm Loni Scally Other [facility] Other 06-16-2021 10:00-0400 Body mass index (BMI) [Ratio] 24.58 kg/m2 Loni Scally Other [facility] 06-16-2021 10:00-0400 Body weight 64.96 kg Loni Scally Other [facility] 06-16-2021 10:00-0400 Diastolic blood pressure 68 mm[Hg] Loni Scally Other [facility] 06-16-2021 10:00-0400 Respiratory rate 18 /min Loni Scally Other [facility] 06-16-2021 10:00-0400 SaO2% (BldA) [Mass fraction] 100 % Loni Scally Other [facility] 06-16-2021 10:00-0400 Systolic blood pressure 126 mm[Hg] Loni Scally Other [facility] Other 03-06-2021 09:15-0500 Body height 162.56 cm Loni Scally Other [facility] 03-06-2021 09:15-0500 Body mass index (BMI) [Ratio] 25.52 kg/m2 Loni Scally Other [facility] 03-06-2021 09:15-0500 Body weight 67.45 kg Loni Scally Other [facility] 03-06-2021 09:15-0500 Diastolic blood pressure 83 mm[Hg] Loni Scally Other [facility] Other 03-06-2021 09:15-0500 Respiratory rate 18 /min Loni Scally Other [facility] Other 03-06-2021 09:15-0500 SaO2% (BldA) [Mass fraction] 100 % Loni Scally Other [facility] 03-06-2021 09:15-0500 Systolic blood pressure 138 mm[Hg] Loni Scally Other [facility] Other 11-27-2020 09:15-0400 Body height 162.56 cm Loni Scally Other [facility] 11-27-2020 09:15-0400 Body mass index (BMI) [Ratio] 26.38 kg/m2 Loni Scally Other [facility] 11-27-2020 09:15-0400 Body weight 69.72 kg Loni Scally Other [facility] 11-27-2020 09:15-0400 Diastolic blood pressure 76 mm[Hg] Loni Scally Other [facility] Other 11-27-2020 09:15-0400 Respiratory rate 18 /min Loni Scally Other [facility] 11-27-2020 09:15-0400 SaO2% (BldA) [Mass fraction] 99 % Loni Scally Other [facility] 11-27-2020 09:15-0400 Systolic blood pressure 129 mm[Hg] Loni Scally Other [facility] Other Encounters Encounter Date Encounter Type Care Provider Facility Start: 03-30-2023 End: 03-30-2023 ambulatory Loni Scally Other [facility] Other Start: 03-30-2023 Telephone encounter Lonikirk Brand[facility] Start: 03-02-2023 End: 03-02-2023 ambulatory Homero Kurtz Other [facility] Start: 03-02-2023 Telephone encounter Aziz Bakhous [facility] Start: 02-25-2023 End: 02-25-2023 ambulatory Aziz Bakhous Other [facility] Other Start: 02-25-2023 Telephone encounter Aziz Bakhous [facility] Start: 02-25-2023 End: 02-25-2023 Patient encounter procedure [facility] Work Phone: Start: 02-03-2023 End: 02-03-2023 ambulatory TAINA PARKER Not Available Start: 01-26-2023 End: 01-26-2023 Patient encounter procedure [facility] Work Phone: Start: 01-20-2023 End: 01-20-2023 ambulatory Aziz Bakhous Other [facility] Start: 01-20-2023 Office outpatient vi sit 25 minutes Aziz Bakhous [facility] Start: 01-07-2023 End: 01-07-2023 ambulatory Aziz Bakhous Other [facility] Start: 01-07-2023 Telephone encounter Aziz Bakhous [facility] Start: 12-14-2022 (DM) Diabetes [facility] Start: 12-14-2022 End: 12-15-2022 ambulatory Yarely Mcguire [facility] Start: 11-11-2022 End: 11-11-2022 ambulatory Loni Farmer Other [facility] Start: 11-11-2022 Telephone encounter Loni [facility] Start: 09-09-2022 (DM) Diabetes [facility] Start: 09-09-2022 End: 09-09-2022 ambulatory Loni Scally Other [facility] Start: 09-09-2022 Telephone encounter Loni Cathiely [facility] Start: 08-05-2022 End: 08-05-2022 ambulatory Loni Scally Other [facility] Other Start: 08-05-2022 Telephone encounter Loni Scally [facility] Start: 07-16-2022 End: 07-17-[address] [facility] Facility: Start: 05-22-2022 End: 05-22-2022 ambulatory Loni Scally Other [facility] Other Start: 05-22-2022 Telephone encounter Olni Cathiely [facility] Start: 05-12-2022 (DM) Diabetes Loni Scally [facility] Start: 05-12-2022 End: 05-12-2022 ambulatory Loni Scally Other [facility] Start: 05-08-2022 End: 05-08-2022 ambulatory Loni Scally Other [facility] Other Start: 05-08-2022 Telephone encounter Loni Cathiely [facility] Start: 05-07-2022 End: 05-07-2022 ambulatory Loni Scally Other [facility] Other Start: 05-07-2022 Telephone encounter Loni Cathiely [facility] Start: 04-22-2022 End: 04-23-2022 [facility] Start: 02-25-2022 (DM) Diabetes Loni Scally [facility] Start: 02-25-2022 End: 02-25-2022 ambulatory Loni Scally Other [facility] Start: 01-08-2022 End: 01-08-2022 ambulatory Loni Farmer Other [facility] Other Start: 01-08-2022 Telephone encounter Loni Hahn [facility] Start: 01-07-2022 End: 01-07-2022 ambulatory Azzee Ellisons Other [facility] Other Start: 01-07-2022 Office outpatient ne w 30 minutes Aziz Bakhous [facility] Start: 11-20-2021 End: 11-21-2021 ambulatory LONI MARLENY Facility: Start: 10-15-2021 End: 10-15-2021 ambulatory Loni Farmer Other [facility] Other Start: 10-15-2021 Nursing evaluation o f [facility] Start: 09-26-2021 End: 09-26-2021 ambulatory Loni Farmer Other [facility] Other Start: 09-26-2021 Telephone encounter Loni Hahn [facility] Start: 09-24-2021 (DM) [facility] Start: 09-24-2021 End: 09-24-2021 ambulatory Loni Marleny Other [facility] Start: 09-10-2021 End: 09-10-2021 ambulatory Loni Farmer Other [facility] Other Start: 09-10-2021 Telephone encounter Loni Hahn [facility] Start: 09-07-2021 End: 09-07-2021 ambulatory Tabitha Rizzo Other [facility] Other Start: 09-07-2021 Office outpatient vi sit 5 minutes Tabitha Rizzo [facility] Start: 06-24-2021 Adult health examination Loni Farmer Other [facility] Other Start: 06-18-2021 End: 06-18-2021 ambulatory Lonikirk Brandly Other [facility] Other Start: 06-18-2021 Telephone encounter Loni Cathiely [facility] Start: 06-16-2021 (DM) Diabetes Loni Scally [facility] Start: 06-16-2021 End: 06-16-2021 ambulatory Loni Scally Other [facility] Start: 06-16-2021 Telephone encounter Loni Cathiely [facility] Start: 04-21-2021 End: 04-21-2021 ambulatory Loni Scally Other [facility] Other Start: 04-21-2021 Telephone encounter Loni Cathiely [facility] Start: 03-26-2021 End: 03-26-2021 ambulatory Loni Scally Other [facility] Start: 03-26-2021 Telephone encounter Loni Cathiely [facility] Start: 03-06-2021 (DM) Diabetes Loni Scally [facility] Start: 03-06-2021 End: 03-06-2021 ambulatory Loni Scally Other [facility] Start: 12-04-2020 Telephone encounter [facility] Start: 11-27-2020 (DM) Diabetes Loni Scally [facility] Procedures Date Procedure Procedure Detail Performing Clinician Start: 07-25-2015 General examination of patient Loni Farmer Other Start: 04-06-2014 Screening mammography D walt Farmer Other Screening for malign ant neoplasm of breast Loni Farmer Other Immunizations Immunization Date Immunization Notes Care Provider Fa cili 01-22-2020 influenza virus vaccine, split virus (incl. purified surface antigen) Loni Farmer Other [facility] [employer] Other 01-22-2020 influenza virus vaccine, unspecified formulation [facility] 12-15-2018 influenza virus vaccine, split virus (incl. purified surface antigen) Loni Farmer Other [facility] [employer] Other 12-15-2018 influenza virus vaccine, unspecified formulation [facility] 12-15-2018 pneumococcal conjuga te vaccine, 13 valent Loni Farmer Other [facility] Payers Date Payer Category Payer Self-pay [id number] 1958 Medicare [id number] 2.1 [id number] 1958 Unknown [id number]. [id number] 1950 Unknown [id number] 1950 Unknown [id number] [id number] 1950 Unknown [id number] [id number] 1950 Unknown [id number] Unknown [id number] [id number] Social History Date Type Detail Facility Unknown if ever smoked [facility] Other Sex Assigned At Sex Assigned At Bir th [facility] Other Start: 1950 Sex Assigned At Female F [facility] Clinical Notes 10-18-2020 to 02-25-2023 Note Date & Type Note Facility 02-25-2023 Evaluation note Encounter Date Diagnosis Assessment Notes Feb, Chronic kidney disease, stage 3a (ICD-10 - N18.31) [facility] Other 11-15-2023 Evaluation note* Encounter Date Diagnosis Assessment Notes Treatment Notes Treatment Clinical Notes Jan, Chronic kidney disea se, stage 3a (ICD-10 - N18.31) Patient has CKD stage 3b from diabetic nephropathy.SCr increased < 30% with adding lisinopril Pro/Cr still < 1 g/g. Will continue lisinopril Patient at low risk for CKD progression given good control of blood pressure and diabetes I asked the patient to keep hemoglobin A1c below 7% and blood pressure below 130/80 to attenuate chronic kidney disease progression. I asked the patient to avoid NSAIDs and to keep herself well-hydrated Follow-up with the patient in 4 months Jan, Diabetic nephritis (ICD-10 - E11.21) Patient has been diabetic for more than 15 years. Patient has proteinuria. Protein to creatinine ratio 790 mg/g. On lisinopril 10 mg p.o. daily Diabetes seems well controlled. Last hemoglobin A1c below 7%. Patient working with diabetic clinic for blood glucose control Jan, Diabetes mellitus ty pe 2 in nonobese (ICD-10 - E11.9) Patient follows with Loni Farmer and diabetic clinic. Diabetes seems well controlled. On SGLT-2 inhibitor Jan, Vitamin B12 deficien cy (ICD-10 - E53.8) On VB12 supplement. Hgb dropped. Patient has iron deficiency. Will start iron supplement. Will check iron storage with VB12 tand folate levels Jan, Vitamin D deficiency (ICD-10 - E55.9) Continue VD supplement Jan, Hyperparathyroidism (ICD-10 - E21.3) PTH slightly elevated at 70Will continue to monitor iPTH level. no need for active VD Jan, Hyperuricemia (ICD-1 0 - E79.0) UA is slightly elevated . advised low animal protein diet Jan, Anemia in chronic ki dney disease (ICD-10 - D63.1) Hgb 10.5. No need ro GLORIA Jan, Hyperkalemia (ICD-10 - E87.5) K is 5.3. Patient was give a handout of high K food to avoid Jan, Urinary tract infect ion without hematuria, site unspecified (ICD-10 - N39.0) UA showing leukocytosis and + nitrite. No symptoms of UTI. I advised the patient to call my office or her PCP office is she starts to have UTI symptoms. [facility] Other 10-09-2023 Evaluation note* Encounter Date Diagnosis Assessment Notes Treatment Notes Treatment Clinical Notes Dec, Type 2 diabetes mellitus with hyperglycemia (ICD-10 - E11.65) ASSESSMENT: 1. Type 2 diabetes, A1c 6.3%, no meter, no blood glucose characterizations and no descriptions of low blood sugars 2. Continue taking Tresiba 4 u titrate to 3 u based on consistent BG less than 100. She should consider futher titration down if consistent readings under 100. (This was recommended last appt). She will continue Ozempic 1.0 mg subcu weekly. Will increase Farxiga to 10 mg via PAP_ _ unclear if will provide any glycemic control d/t GFR but will provide renal protection. mg p.o. daily. C-Peptide shows insulin production, antibodies neg. Reasonably titrate off of insulin if continued improvement in insulin sensitvity. RTC 3 mos. Dulcelexxl maintain surviellance of glycemia as this could revert to elevations as diabetes changes over time. She has notable weight loss since starting diabetic regime, which has helped significantly. She uses gill and benefits d/t concern for hypoglycemia unawareness. Lowest blood glucose patient can recollect is 80 and she was asymptomatic which is likely appropriate considering reasonable glycemia. It is noted that hypoglycemia unawareness can remit but no evidence anecdotally, we will continue to consider with characterization and CGM review in future. Encouraged labs when done for nephrology B12 at last check was above threshold,follow recommendations of NEPHROLOGY. We discussed AVOIDING NSAIDS. 3. Patient is alert, oriented and receptive to making changes or counseling. Notes: Seen for an assessment of current glucose pattern, changes in treatment plan, counseling and coordination of care related to diabetes, risks, and benefits of treatment, medications, side effects. Given handouts to reinforce concepts reviewed during counseling, see scanned notes. TOPICS REVIEWED: 1. Time was spent reviewing: a. Basic concepts of diabetes, progressive beta cell , concepts of basal/bolus/correctiv e insulin requirements. Basal: The goal is fasting blood glucose of 90-130mg. IF fasting blood glucose starts to run under 100mg 3x's/ week, decrease dose by 10%. Bolus: The goal is to hold the blood glucose level steady meal to meal. If pt. is going to have increased physical activity after a meal, decrease the schedule meal dose prior to the activity by 30-50%. If pt. skips a meal do not take this dose. Correction: The goal is to correct an elevated glucose back into the 100-150mg range b. Nutrition: Concepts of healthy diet, encouraged to decrease saturated fat in diet and increase non-starchy vegetables and fruits in diet. BMI: Pt. needs to select one small change to decrease caloric intake or increase physical activity to help decrease weight. c. Correct treatment of hypoglycemia, carry a glucose source at all times on your person, in vehicles, and at bedside. Can use glucose tablets/4, four ounces of pop or juice equal to 15 G of carbohydrate. Blood glucose should be 100 mg/dl or higher when driving. d. ADA glucose goals for age and medical complexity reviewed e. Patient questions addressed 2. Activity/exercise: Encouraged to start any form of physical activity. Start low level and increase slowly to a minimal goal of 150 minutes/week. Limit activity to what is allowed by other issues such as cardiac, pulmonary or orthopedic restrictions. 3. Standards of care: Reminded to have an annual dilated eye exam, A1C every 3 months, urine testing for microalbumin once/year, check feet daily and report any cuts or sores that do not appear to be healing. 4. Meter: Plan to check blood glucose: Please check blood glucose levels 4 times/day. Back to back meals reveal effectiveness of bolus dosing. The blood glucose data is used to determine insulin doses and confirm symptoms for hypoglycemia and hyperglcyemia. 5. [facility]. Contact office if any issues or concerns with patterns of hypoglycemia, hyperglycemia, or diabetes medication issues. 6. Prescriptions: PAP Farxiga 10 and EWA Tresiba and Ozempic Dec, Vitamin D deficiency (ICD-10 - E55.9) Learning About Vitamin D material was published to portal Dec, Dietary counseling and surveillance (ICD-10 - Z71.3) Learning About Healthy Weight material was published to portal Dec, Hyperlipidemia (ICD-10 - E78.5) Learning About High Cholesterol material was published to portal On Atrovasttin 20mg daily. 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 Discussed signal for worsening retinopathy, she feels retinopathy preceded Ozempic. She continues with retinal specalist [facility] and Dr Parker opthalmology Dec, Hypoglycemia unawareness associated with type 2 diabetes mellitus (ICD-10 - E11.649) Patient relying on continuous glucose monitoring to titrate insulin dosing and d/t relative unawareness of low blood sugars. Research shows that stamina with the current regime may fatigue, as would outcomes and CGM is equitable compaired to disease instability. 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 Dec, Microalbuminuria (ICD-10 - R80.9) Max JARDIANCE dose 25mg daily, good glycemic control and normal blood pressures. Refer to Nephrology for evaluation. January 2022 Dec, BMI 24.0-24.9, adult (ICD-10 - Z68.24) Dec, Other Weight stabl e weight stable at initial loss, this contributes to decrease insulin needs by decreasing insulin resistence. Keep up current efforts and dietary vigilance continued improvement with Ozempic, total weight loss approx 33 lbs since starting Ozempic [facility] Other 07-05-2023 Evaluation note* Encounter Date Diagnosis Assessment Notes Treatment Notes Treatment Clinical Notes Sep, Type 2 diabetes mellitus with hyperglycemia (ICD-10 - E11.65) ASSESSMENT: 1. Type 2 diabetes, A1c 6.5% 2. Taking Tresiba 4 u titrate to 3 u based on consistent BG less than 100. She should consider futher titration down if consistent readings under 100. (This was recommended last appt). She will continue Ozempic 1.0 mg subcu weekly. Will increase Farxiga to 10 mg via PAP-- unclear if will provide any glycemic control d/t GFR but will provide renal protection. mg p.o. daily. C-Peptide shows insulin production, antibodies neg. Reasonably titrate off of insulin if continued improvement in insulin sensitvity. RTC 3 mos. Dulceudl maintain surviellance of glycemia as this could revert to elevations as diabetes changes over time. She has notable weight loss since starting diabetic regime, which has helped significantly She uses gill and benefits d/t concern for hypoglycemia unawareness. Lowest blood glucose patient can recollect is 80 and she was asymptomatic which is likely appropriate considering reasonable glycemia B12 at last check was above threshold,follow recommendations of NEPHROLOGY. We discussed AVOIDING NSAIDS. 3. Patient is alert, oriented and receptive to making changes or counseling. Notes: Seen for an assessment of current glucose pattern, changes in treatment plan, counseling and coordination of care related to diabetes, risks, and benefits of treatment, medications, side effects. Given handouts to reinforce concepts reviewed during counseling, see scanned notes. TOPICS REVIEWED: 1. Time was spent reviewing: a. Basic concepts of diabetes, progressive beta cell , concepts of basal/bolus/correct joavn insulin requirements. Basal: The goal is fasting blood glucose of 90-130mg. IF fasting blood glucose starts to run under 100mg 3x's/ week, decrease dose by 10%. Bolus: The goal is to hold the blood glucose level steady meal to meal. If pt. is going to have increased physical activity after a meal, decrease the schedule meal dose prior to the activity by 30-50%. If pt. skips a meal do not take this dose. Correction: The goal is to correct an elevated glucose back into the 100-150mg range b. Nutrition: Concepts of healthy diet, encouraged to decrease saturated fat in diet and increase non-starchy vegetables and fruits in diet. BMI: Pt. needs to select one small change to decrease caloric intake or increase physical activity to help decrease weight. c. Correct treatment of hypoglycemia, carry a glucose source at all times on your person, in vehicles, and at bedside. Can use glucose tablets/4, four ounces of pop or juice equal to 15 G of carbohydrate. Blood glucose should be 100 mg/dl or higher when driving. d. ADA glucose goals for age and medical complexity reviewed e. Patient questions addressed 2. Activity/exercise: Encouraged to start any form of physical activity. Start low level and increase slowly to a minimal goal of 150 minutes/week. Limit activity to what is allowed by other issues such as cardiac, pulmonary or orthopedic restrictions. 3. Standards of care: Reminded to have an annual dilated eye exam, A1C every 3 months, urine testing for microalbumin once/year, check feet daily and report any cuts or sores that do not appear to be healing. 4. Meter: Plan to check blood glucose: Please check blood glucose levels 4 times/day. Back to back meals reveal effectiveness of bolus dosing. The blood glucose data is used to determine insulin doses and confirm symptoms for hypoglycemia and hyperglcyemia. 5. [facility]. Contact office if any issues or concerns with patterns of hypoglycemia, hyperglycemia, or diabetes medication issues. 6. Prescriptions: PAP Farxiga 10 and EWA Tresiba and Ozempic Sep, Vitamin D deficiency (ICD-10 - E55.9) Learning About Vitamin D material was published to portal Sep, Dietary counseling and surveillance (ICD-10 - Z71.3) Learning About Healthy Weight material was published to portal Sep, Hyperlipidemia (ICD-10 - E78.5) Learning About High Cholesterol material was published to portal On Atrovasttin 20mg daily. LDL at target Sep, HTN (hypertension) (ICD-10 - I10) High Blood Pressure: Care Instructions material was published to portal Well controlled, not on ACEi or ARB-- on and escalated Jardiance to 25 mg daily Sep, oncology nurse navigator current us e of insulin (ICD-10 - Z79.4) Sep, Retinopathy (ICD-10 - H35.00) Again discussed RETINOPATHY and labeling of Ozempic. Discussed signal for worsening retinopathy, she feels retinopathy preceded Ozempic. She continues with retinal specalist [facility] and Dr Parker opthalmology Sep, Hypoglycemia unawareness associated with type 2 diabetes mellitus (ICD-10 - E11.649) Patient relying on continuous glucose monitoring to titrate insulin dosing and d/t relative unawareness of low blood sugars. Research shows that stamina with the current regime may fatigue, as would outcomes and CGM is equitable compaired to disease instability. 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 Sep, Microalbuminuria (ICD-10 - R80.9) Max JARDIANCE dose 25mg daily, good glycemic control and normal blood pressures. Refer to Nephrology for evaluation. January 2022 Sep, BMI 24.0-24.9, adult (ICD-10 - Z68.24) Sep, Other Weight stabl e weight stable at initial loss, this contributes to decrease insulin needs by decreasing insulin resistence. Keep up current efforts and dietary vigilance continued improvement with Ozempic, total weight loss approx 33 lbs since starting Ozempic [facility] Other 03-07-2023 Evaluation note* Encounter Date Diagnosis Assessment Notes Treatment Notes Treatment Clinical Notes May, Type 2 diabetes mellitus with hyperglycemia (ICD-10 - E11.65) 4 weeks samples Jardiance tolerated, bridge to Farxiga PAP. ASSESSMENT: 1550 blood glucose 82 given 4 ozs juice. 1405 blood glucose 93. 1. Type 2 diabetes, predicted hemoglobin A1c 5.9% via gill 2. Improvement in glycemia. Some lows noted. We will decrease her Tresiba to 3 units at the same time of day, fasting sugars are under 103 of 7 days in a week she will decrease by 1 further unit. She has no need for prandial correction or carb coverage. She will continue Ozempic 1.0 mg subcu weekly and Farxiga 5 mg p.o. daily, could consider escalation to 10 mg p.o. daily.. She will return to clinic in 3 months for reassessment or call sooner if she is having any issues C-Peptide shows insulin production, antibodies neg. She uses gill and benefits d/t concern for hypoglycemia unawareness. Lowest blood glucose patient can recollect is 80 and she was asymptomatic which is likely appropriate considering reasonable glycemia B12 at last check was above threshold, encouraged B12 2-3 times per week due to metformin use, vitamin D encouraged minimum of 2000 her national units daily 3. Patient is alert, oriented and receptive to making changes or counseling. Notes: Seen for an assessment of current glucose pattern, changes in treatment plan, counseling and coordination of care related to diabetes, risks, and benefits of treatment, medications, side effects. Given handouts to reinforce concepts reviewed during counseling, see scanned notes. TOPICS REVIEWED: 1. Time was spent reviewing: a. Basic concepts of diabetes, progressive beta cell , concepts of basal/bolus/correc tive insulin requirements. Basal: The goal is fasting blood glucose of 90-130mg. IF fasting blood glucose starts to run under 100mg 3x's/ week, decrease dose by 10%. Bolus: The goal is to hold the blood glucose level steady meal to meal. If pt. is going to have increased physical activity after a meal, decrease the schedule meal dose prior to the activity by 30-50%. If pt. skips a meal do not take this dose. Correction: The goal is to correct an elevated glucose back into the 100-150mg range b. Nutrition: Concepts of healthy diet, encouraged to decrease saturated fat in diet and increase non-starchy vegetables and fruits in diet. BMI: Pt. needs to select one small change to decrease caloric intake or increase physical activity to help decrease weight. c. Correct treatment of hypoglycemia, carry a glucose source at all times on your person, in vehicles, and at bedside. Can use glucose tablets/4, four ounces of pop or juice equal to 15 G of carbohydrate. Blood glucose should be 100 mg/dl or higher when driving. d. ADA glucose goals for age and medical complexity reviewed e. Patient questions addressed 2. Activity/exercise: Encouraged to start any form of physical activity. Start low level and increase slowly to a minimal goal of 150 minutes/week. Limit activity to what is allowed by other issues such as cardiac, pulmonary or orthopedic restrictions. 3. Standards of care: Reminded to have an annual dilated eye exam, A1C every 3 months, urine testing for microalbumin once/year, check feet daily and report any cuts or sores that do not appear to be healing. 4. Meter: Plan to check blood glucose: Please check blood glucose levels 4 times/day. Back to back meals reveal effectiveness of bolus dosing. The blood glucose data is used to determine insulin doses and confirm symptoms for hypoglycemia and hyperglcyemia. 5. [facility] Contact office if any issues or concerns with patterns of hypoglycemia, hyperglycemia, or diabetes medication issues. 6. Prescriptions: None needed today 02/25/2022. May, Vitamin D deficiency (ICD-10 - E55.9) Learning About Vitamin D material was published to portal May, Dietary counseling and surveillance (ICD-10 - Z71.3) Learning About Healthy Weight material was published to portal May, Hyperlipidemia (ICD-10 - E78.5) Learning About High Cholesterol material was published to portal On Atrovasttin 20mg daily. LDL at target May, HTN (hypertension) (ICD-10 - I10) High Blood Pressure: Care Instructions material was published to portal Well controlled, not on ACEi or ARB-- on and escalated Jardiance to 25 mg daily May, intermediate current us e of insulin (ICD-10 - Z79.4) May, Retinopathy (ICD-10 - H35.00) Again discussed RETINOPATHY and labeling of Ozempic. Discussed signal for worsening retinopathy, she feels retinopathy preceded Ozempic. She continues with retinal specalist [facility] and Dr Parker opthalmology May, Hypoglycemia unawareness associated with type 2 diabetes mellitus (ICD-10 - E11.649) Patient relying on continuous glucose monitoring to titrate insulin dosing and d/t relative unawareness of low blood sugars. Research shows that stamina with the current regime may fatigue, as would outcomes and CGM is equitable compaired to disease instability. 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 May, Microalbuminuria (ICD-10 - R80.9) Max JARDIANCE dose 25mg daily, good glycemic control and normal blood pressures. Refer to Nephrology for evaluation. January 2022 May, BMI 24.0-24.9, adult (ICD-10 - Z68.24) May, Other Weight stabl e weight stable at initial loss, this contributes to decrease insulin needs by decreasing insulin resistence. Keep up current efforts and dietary vigilance continued improvement with Ozempic, total weight loss approx 33 lbs since starting Ozempic Shu[facility] Other 12-21-2022 Evaluation note* Encounter Date Diagnosis Assessment Notes Treatment Notes Treatment Clinical Notes Feb, Type 2 diabetes mellitus with hyperglycemia (ICD-10 - E11.65) 4 weeks samples Jardiance tolerated, bridge to Farxiga PAP. ASSESSMENT: 1. Uncontrolled, a Type 2 diabetes with A1c of 7.0_ _ Forgot Libre_ _ reporting BF levels AM fasting 107-117, highest in 150's_ _ unclear if consistent with A1c. She will bring for download when in town. [place] DOWNLOAD AND PRINT FOR GUSTAVO NO NEED TO SEE, pt will expect call from Gustavo S within 48 hours of download 2. Slight worsening glycemia, unable to characterize without blood glucose data. Tresiba currently at 4 units once daily, encouraged increase with parameters to further increase if consistently greater than 150/3 of 7 days. Contrary to this patient may decrease for consistently under 103 of 7 days in a week. She states understanding. I will have better characterization when I see her gill download. Tolerating Ozempic 1 mg. She is receiving patient assistance for this. We did discuss if issues with procurement she can reduce dose by half until supply issues are in better shape and reescalate to last tolerated dose. C-Peptide shows insulin production, antibodies neg. She will continue metformin 500 mg once daily, I have given her samples for 4 weeks of Jardiance to bridge. Sending Farxiga 5 mg to assess cost. If reasonable will fill prescription. If not will pursue patient assistance to see if she qualifies for this after dose toleration we will escalate Farxiga to 10 mg for kidney protection. She had a interim appointment with nephrology, they are doing kidney ultrasound and lab surveillance in 6 months. Recommendations avoid NSAIDs, BP and glycemic control. She uses gill and benefits d/t concern for hypoglycemia unawareness. Lowest blood glucose patient can recollect is 80 and she was asymptomatic which is likely appropriate considering reasonable glycemia B12 at last check was above threshold, encouraged B12 2-3 times per week due to metformin use, vitamin D encouraged minimum of 2000 her national units daily 3. Patient is alert, oriented and receptive to making changes or counseling. Notes: Seen for an assessment of current glucose pattern, changes in treatment plan, counseling and coordination of care related to diabetes, risks, and benefits of treatment, medications, side effects. Given handouts to reinforce concepts reviewed during counseling, see scanned notes. TOPICS REVIEWED: 1. Time was spent reviewing: a. Basic concepts of diabetes, progressive beta cell , concepts of basal/bolus/correcti ve insulin requirements. Basal: The goal is fasting blood glucose of 90-130mg. IF fasting blood glucose starts to run under 100mg 3x's/ week, decrease dose by 10%. Bolus: The goal is to hold the blood glucose level steady meal to meal. If pt. is going to have increased physical activity after a meal, decrease the schedule meal dose prior to the activity by 30-50%. If pt. skips a meal do not take this dose. Correction: The goal is to correct an elevated glucose back into the 100-150mg range b. Nutrition: Concepts of healthy diet, encouraged to decrease saturated fat in diet and increase non-starchy vegetables and fruits in diet. BMI: Pt. needs to select one small change to decrease caloric intake or increase physical activity to help decrease weight. c. Correct treatment of hypoglycemia, carry a glucose source at all times on your person, in vehicles, and at bedside. Can use glucose tablets/4, four ounces of pop or juice equal to 15 G of carbohydrate. Blood glucose should be 100 mg/dl or higher when driving. d. ADA glucose goals for age and medical complexity reviewed e. Patient questions addressed 2. Activity/exercise: Encouraged to start any form of physical activity. Start low level and increase slowly to a minimal goal of 150 minutes/week. Limit activity to what is allowed by other issues such as cardiac, pulmonary or orthopedic restrictions. 3. Standards of care: Reminded to have an annual dilated eye exam, A1C every 3 months, urine testing for microalbumin once/year, check feet daily and report any cuts or sores that do not appear to be healing. 4. Meter: Plan to check blood glucose: Please check blood glucose levels 4 times/day. Back to back meals reveal effectiveness of bolus dosing. The blood glucose data is used to determine insulin doses and confirm symptoms for hypoglycemia and hyperglcyemia. 5. [facility]. Contact office if any issues or concerns with patterns of hypoglycemia, hyperglycemia, or diabetes medication issues. 6. Prescriptions: None needed today 02/25/2022. Feb, Vitamin D deficiency (ICD-10 - E55.9) Learning About Vitamin D material was published to portal Feb, Dietary counseling and surveillance (ICD-10 - Z71.3) Learning About Healthy Weight material was published to portal Feb, Hyperlipidemia (ICD-10 - E78.5) Learning About High Cholesterol material was published to portal On Atrovasttin 20mg daily. 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 Discussed signal for worsening retinopathy, she feels retinopathy preceded Ozempic. She continues with retinal specalist [facility] and Dr Parker opthalmology Feb, Hypoglycemia unawareness associated with type 2 diabetes mellitus (ICD-10 - E11.649) Patient relying on continuous glucose monitoring to titrate insulin dosing and d/t relative unawareness of low blood sugars. Research shows that stamina with the current regime may fatigue, as would outcomes and CGM is equitable compaired to disease instability. 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 Feb, Microalbuminuria (ICD-10 - R80.9) Max JARDIANCE dose 25mg daily, good glycemic control and normal blood pressures. Refer to Nephrology for evaluation. January 2022 Feb, BMI 24.0-24.9, adult (ICD-10 - Z68.24) Feb, Other Weight stabl e weight stable at initial loss, this contributes to decrease insulin needs by decreasing insulin resistence. Keep up current efforts and dietary vigilance continued improvement with Ozempic, total weight loss approx 33 lbs since starting Ozempic [facility] Other 11-03-2022 Evaluation note* Encounter Date Diagnosis Assessment Notes Treatment Notes Treatment Clinical Notes Jan, Diabetes mellitus type 2 in nonobese (ICD-10 - E11.9) Shuame Other 11-02-2022 Evaluation note* Encounter Date Diagnosis Assessment Notes Treatment Notes Treatment Clinical Notes Jan, Chronic kidney disease, stage 3a (ICD-10 - N18.31) Patient has mild CKD from diabetic nephropathy. Last serum creatinine 1.1 mg deciliter and GFR 54. Patient has microalbuminuria Patient at low risk for CKD progression given good control of blood pressure and diabetes I asked the patient to keep hemoglobin A1c below 7% and blood pressure below 130/80 to attenuate chronic kidney disease progression. I asked the patient to avoid NSAIDs and to keep herself well-hydrated Follow-up with the patient in 6 months Jan, Microalbuminuria (ICD-10 - R80.9) Likely from diabetic nephropathy. Albumin to creatinine ratio 64 mg/g. No need for SOFIA or ARB given good control of blood pressure. I will continue to monitor proteinuria and add SOFIA or ARB if follow-up proteinuria more than 500 mg Jan, Diabetes mellitus type 2 in nonobese (ICD-10 - E11.9) Patient follows with Loni Farmer and diabetic clinic. Diabetes seems well controlled.t Jan, Vitamin B12 deficiency (ICD-10 - E53.8) Jan, Vitamin D deficiency (ICD-10 - E55.9) [facility] Other 08-10-2022 Evaluation note* Encounter Date Diagnosis Assessment Notes Treatment Notes Treatment Clinical Notes Oct, Type 2 diabetes mellitus with hyperglycemia (ICD-10 - E11.65) Cari came in today for Evaluation of her Gill CGM Report. EHr report showed 30 % usage. She was encouraged to scan more often. She has been scanning at breakfast and lunch but skipping dinner and bedtime. I asked her to make sure she scans before meals and at bedtime every day. HEr average BG was 112 for the last 2 weeks, 92% in range, 3% low and 5% high. She is currently taking Tresiba 6 units daily, this was reduced to 5 units daily, Metformin, Jardiance and Ozempic, which all stayed the same. 30 minutes were spent evaluating the patient's report and making medication changes by Kwadwo Elizabeth RN, [facility] [place][NOTE 2]. [facility] Other 07-20-2022 Evaluation note* Encounter Date Diagnosis Assessment Notes Treatment Notes Treatment Clinical Notes Sep, Type 2 diabetes mellitus with hyperglycemia (ICD-10 - E11.65) Sample x2 2 mg pens, doses 36 clicks dose 1 mg, sample Tresiba U100 2 pens secondary to PAP issue ASSESSMENT: 1. Uncontrolled, a Type 2 diabetes with A1c of 5.9%_ _ too many low blood sugars 2. Patient with questionable hypoglycemia unawareness. Will reduce Tresiba to 5 u daily with low threshold for reduction. GLP1RA for prandial control (Ozempic) Weight optimized with BMI of 24. BP controlled despite with microalbuminuria, persistent, on max Jardiance. Will continue. We discussed toleration of slightly higer A1c to mitagate low blood sugars. I reduce metformin to 500 mg twice daily due to GFR and low blood sugar. We once again discussed management of low blood sugar. We set reminders on her gill to encourage increased vigilance 3. Patient is alert, oriented and receptive to making changes or counseling. Notes: Seen for an assessment of current glucose pattern, changes in treatment plan, counseling and coordination of care related to diabetes, risks, and benefits of treatment, medications, side effects. Given handouts to reinforce concepts reviewed during counseling, see scanned notes. TOPICS REVIEWED: 1. Time was spent reviewing: a. Basic concepts of diabetes, progressive beta cell , concepts of basal/bolus/correc tive insulin requirements. Basal: The goal is fasting blood glucose of 90-130mg. IF fasting blood glucose starts to run under 100mg 3x's/ week, decrease dose by 10%. Bolus: The goal is to hold the blood glucose level steady meal to meal. If pt. is going to have increased physical activity after a meal, decrease the schedule meal dose prior to the activity by 30-50%. If pt. skips a meal do not take this dose. Correction: The goal is to correct an elevated glucose back into the 100-150mg range b. Nutrition: Concepts of healthy diet, encouraged to decrease saturated fat in diet and increase non-starchy vegetables and fruits in diet. BMI: Pt. needs to select one small change to decrease caloric intake or increase physical activity to help decrease weight. c. Correct treatment of hypoglycemia, carry a glucose source at all times on your person, in vehicles, and at bedside. Can use glucose tablets/4, four ounces of pop or juice equal to 15 G of carbohydrate. Blood glucose should be 100 mg/dl or higher when driving. d. ADA glucose goals for age and medical complexity reviewed e. Patient questions addressed 2. Activity/exercise: Encouraged to start any form of physical activity. Start low level and increase slowly to a minimal goal of 150 minutes/week. Limit activity to what is allowed by other issues such as cardiac, pulmonary or orthopedic restrictions. 3. Standards of care: Reminded to have an annual dilated eye exam, A1C every 3 months, urine testing for microalbumin once/year, check feet daily and report any cuts or sores that do not appear to be healing. 4. Meter: Plan to check blood glucose: Please check blood glucose levels 4 times/day. Back to back meals reveal effectiveness of bolus dosing. The blood glucose data is used to determine insulin doses and confirm symptoms for hypoglycemia and hyperglcyemia. 5. [facility]. Contact office if any issues or concerns with patterns of hypoglycemia, hyperglycemia, or diabetes medication issues. 6. Prescriptions: None needed today 09-24-21 Sep, Vitamin D deficiency (ICD-10 - E55.9) Learning About Vitamin D material was published to portal Sep, Dietary counseling and surveillance (ICD-10 - Z71.3) Learning About Healthy Weight material was published to portal Sep, Hyperlipidemia (ICD-10 - E78.5) Learning About High Cholesterol material was published to portal On Atrovasttin 20mg daily. LDL at target Sep, HTN (hypertension) (ICD-10 - I10) High Blood Pressure: Care Instructions material was published to portal Well controlled, not on ACEi or ARB-- on and escalated Jardiance to 25 mg daily Sep, intermediate current us e of insulin (ICD-10 - Z79.4) Sep, Retinopathy (ICD-10 - H35.00) Again discussed RETINOPATHY and labeling of Ozempic. Discussed signal for worsening retinopathy, she feels retinopathy preceded Ozempic, from time interval withn A1c was 12. She will have conversation with Dr Parker treating her retinopathy. She will continue Ozempic at this time and I feel this is reasonable. She is seeing specialist referred by Keith soon. 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 Research shows that stamina with the current regime may fatigue, as would outcomes and CGM is equitable compaired to disease instability. 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 Sep, Microalbuminuria (ICD-10 - R80.9) Max JARDIANCE dose 25mg daily, good glycemic control and normal blood pressures. Refer to Nephrology for evaluation Sep, BMI 24.0-24.9, adult (ICD-10 - Z68.24) Sep, Other Weight stabl e weight stable at initial loss, this contributes to decrease insulin needs by decreasing insulin resistence. Keep up current efforts and dietary vigilance continued improvement with Ozempic, total weight loss approx 33 lbs since starting Ozempic Shuame Other 07-03-2022 Evaluation note* Encounter Date Diagnosis Assessment Notes Treatment Notes Treatment Clinical Notes Sep, Encounter for screening for other viral diseases (ICD-10 - Z11.59) Shuame Other 04-11-2022 Evaluation note* Encounter Date Diagnosis Assessment Notes Treatment Notes Treatment Clinical Notes Jun, Type 2 diabetes mellitus with hyperglycemia (ICD-10 - E11.65) 4 weeks samples jardiance 25 mg. will pursue patient assistance renewal- Per Gustavo S patient was given 1 apple juice, peanut Butter and crackers for low BS reading , patient rechecked BS with her Gill it was 92, Gustavo S informed ASSESSMENT: 1. Uncontrolled, a Type 2 diabetes with A1c of 6.3% 2. A1C at goal, can tolerate up to 7% with hx hypoglycemia unawareness. Will trial increase jardiance to attempt further insulin reduction. She will continue Tresiba down to 7 u daily, we reviewed trends warranting decrease by 1 u. She can continue Ozempic at 1 mg dose daily, weight loss contributes to decreased insulin resistence. She will have discussion with retinal specialists re: concerns with GLP-1 contribution to retinopathy- without precipitious BG drops, and essential EUGLYCEMIA. We discussed toleration of slightly higer A1c to mitagate low blood sugars. She will continue Tresiba but reduce to 7 u per day. I believe with initation of Jardiance, continued weight loss and Ozempic, she can continue to reduce/ eliminate insulin. I have discouraged from daily titration of LA insulin, titration needs to be based on trend, ie 3/7 days per week BG below 100, can decrease by 1 u. SGLT2 to provide CV/ renal benefit and I believe for this and reduction of insulin needs is valuable avenue. 3. Patient is alert, oriented and receptive to making changes or counseling. Notes: Seen for an assessment of current glucose pattern, changes in treatment plan, counseling and coordination of care related to diabetes, risks, and benefits of treatment, medications, side effects. Given handouts to reinforce concepts reviewed during counseling, see scanned notes. TOPICS REVIEWED: 1. Time was spent reviewing: a. Basic concepts of diabetes, progressive beta cell , concepts of basal/bolus/correc tive insulin requirements. Basal: The goal is fasting blood glucose of 90-130mg. IF fasting blood glucose starts to run under 100mg 3x's/ week, decrease dose by 10%. Bolus: The goal is to hold the blood glucose level steady meal to meal. If pt. is going to have increased physical activity after a meal, decrease the schedule meal dose prior to the activity by 30-50%. If pt. skips a meal do not take this dose. Correction: The goal is to correct an elevated glucose back into the 100-150mg range b. Nutrition: Concepts of healthy diet, encouraged to decrease saturated fat in diet and increase non-starchy vegetables and fruits in diet. BMI: Pt. needs to select one small change to decrease caloric intake or increase physical activity to help decrease weight. c. Correct treatment of hypoglycemia, carry a glucose source at all times on your person, in vehicles, and at bedside. Can use glucose tablets/4, four ounces of pop or juice equal to 15 G of carbohydrate. Blood glucose should be 100 mg/dl or higher when driving. d. ADA glucose goals for age and medical complexity reviewed e. Patient questions addressed 2. Activity/exercise: Encouraged to start any form of physical activity. Start low level and increase slowly to a minimal goal of 150 minutes/week. Limit activity to what is allowed by other issues such as cardiac, pulmonary or orthopedic restrictions. 3. Standards of care: Reminded to have an annual dilated eye exam, A1C every 3 months, urine testing for microalbumin once/year, check feet daily and report any cuts or sores that do not appear to be healing. 4. Meter: Plan to check blood glucose: Please check blood glucose levels 4 times/day. Back to back meals reveal effectiveness of bolus dosing. The blood glucose data is used to determine insulin doses and confirm symptoms for hypoglycemia and hyperglcyemia. 5. [facility]. Contact office if any issues or concerns with patterns of hypoglycemia, hyperglycemia, or diabetes medication issues. 6. Prescriptions: None needed today 06-16-21 Jun, Vitamin D deficiency (ICD-10 - E55.9) Learning About Vitamin D material was published to portal Jun, Dietary counseling and surveillance (ICD-10 - Z71.3) Learning About Healthy Weight material was published to portal Jun, Hyperlipidemia (ICD-10 - E78.5) Learning About High Cholesterol material was published to portal On Atrovasttin 20mg daily. 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 Discussed signal for worsening retinopathy, she feels retinopathy preceded Ozempic, from time interval withn A1c was 12. She will have conversation with Dr Parker treating her retinopathy. She will continue Ozempic at this time and I feel this is reasonable. She is seeing specialist referred by Keith soon. 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 Research shows that stamina with the current regime may fatigue, as would outcomes and CGM is equitable compaired to disease instability. 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 Jun, Microalbuminuria (ICD-10 - R80.9) Sample increased JARDIANCE dose 25mg daily, reeval prior to next visit with [facility] and Metabolic panel Jun, BMI 24.0-24.9, adult (ICD-10 - Z68.24) Jun, Other continues wi th weight loss, this will continue to decrease insulin needs by decreasing insulin resistence. Keep up current efforts and dietary vigilance continued improvement with Ozempic, total weight loss33 lbs since starting Ozempic Shuame Other 01-19-2022 Evaluation note* Encounter Date Diagnosis Assessment Notes Treatment Notes Treatment Clinical Notes Mar, Type 2 diabetes mellitus with hyperglycemia (ICD-10 - E11.65) Shuame Other 12-30-2021 Evaluation note* Encounter Date Diagnosis Assessment Notes Treatment Notes Treatment Clinical Notes Feb, Type 2 diabetes mellitus with hyperglycemia (ICD-10 - E11.65) 4 weeks samples jardiance 25 mg. will pursue patient assistance renewal ASSESSMENT: 1. Uncontrolled, a Type 2 diabetes with A1c of 5.9% 2. A1C at goal, can tolerate up to 6.5 with hx hypoglycemia unawareness. Will trial increase jardiance to attempt further insulin reduction. She will continue Tresiba down to 7 u daily, we revieed trends warranting decrease by 1 u. She can continue Ozempic at 1 mg dose daily, weight loss contributes to decreased insulin resistence. She will have discussion with retinal specialists re: concerns with GLP-1 contribution to retinopathy- without precipitious BG drops, and essential EUGLYCEMIA. We discussed toleration of slighly higer A1c to mitagate low blood sugars. She will continue Tresiba but reduce to 7 u per day. I believe with initation of Jardiance, continued weight loss and Ozempic, she can continue to reduce/ eliminate insulin. I have discouraged from daily titration of LA insulin, titration needs to be based on trend, ie 3/7 days per week BG below 100, can decrease by 1 u. She will continue to manage prandial blood sugars. She is tolerating and should continue Metformin ER 500mg ii daily. She should continue Ozempic 1.0 mg weekly, could consider increasing when new dosing approved. SGLT2 to provide CV/ renal benefit and I believe for this and reduction of insulin needs is valuable avenue. 3. Patient is alert, oriented and receptive to making changes or counseling. Notes: Seen for an assessment of current glucose pattern, changes in treatment plan, counseling and coordination of care related to diabetes, risks, and benefits of treatment, medications, side effects. Given handouts to reinforce concepts reviewed during counseling, see scanned notes. TOPICS REVIEWED: 1. Time was spent reviewing: a. Basic concepts of diabetes, progressive beta cell , concepts of basal/bolus/correc tive insulin requirements. Basal: The goal is fasting blood glucose of 90-130mg. IF fasting blood glucose starts to run under 100mg 3x's/ week, decrease dose by 10%. Bolus: The goal is to hold the blood glucose level steady meal to meal. If pt. is going to have increased physical activity after a meal, decrease the schedule meal dose prior to the activity by 30-50%. If pt. skips a meal do not take this dose. Correction: The goal is to correct an elevated glucose back into the 100-150mg range b. Nutrition: Concepts of healthy diet, encouraged to decrease saturated fat in diet and increase non-starchy vegetables and fruits in diet. BMI: Pt. needs to select one small change to decrease caloric intake or increase physical activity to help decrease weight. c. Correct treatment of hypoglycemia, carry a glucose source at all times on your person, in vehicles, and at bedside. Can use glucose tablets/4, four ounces of pop or juice equal to 15 G of carbohydrate. Blood glucose should be 100 mg/dl or higher when driving. d. ADA glucose goals for age and medical complexity reviewed e. Patient questions addressed 2. Activity/exercise: Encouraged to start any form of physical activity. Start low level and increase slowly to a minimal goal of 150 minutes/week. Limit activity to what is allowed by other issues such as cardiac, pulmonary or orthopedic restrictions. 3. Standards of care: Reminded to have an annual dilated eye exam, A1C every 3 months, urine testing for microalbumin once/year, check feet daily and report any cuts or sores that do not appear to be healing. 4. Meter: Plan to check blood glucose: Please check blood glucose levels 4 times/day. Back to back meals reveal effectiveness of bolus dosing. The blood glucose data is used to determine insulin doses and confirm symptoms for hypoglycemia and hyperglcyemia. 5. [facility] Contact office if any issues or concerns with patterns of hypoglycemia, hyperglycemia, or diabetes medication issues. 6. Prescriptions: None needed at this time per patient 03-06-2021 Feb, Vitamin D deficiency (ICD-10 - E55.9) Learning About Vitamin D material was published to portal Feb, Dietary counseling and surveillance (ICD-10 - Z71.3) Learning About Healthy Weight material was published to portal Feb, Hyperlipidemia (ICD-10 - E78.5) Learning About High Cholesterol material was published to portal On Atrovasttin 20mg daily. LDL at target Feb, HTN (hypertension) (ICD-10 - I10) High Blood Pressure: Care Instructions material was published to portal Well controlled, not on ACEi or ARB-- COULD BE BENEFICIAL, on and escalated Jardiance to 25 mg daily Feb, oncology nurse navigator current us e of insulin (ICD-10 - Z79.4) Feb, Retinopathy (ICD-10 - H35.00) Again discussed RETINOPATHY and labeling of Ozempic. Discussed signal for worsening retinopathy, she feels retinopathy preceded Ozempic, from time interval withn A1c was 12. She will have conversation with Dr Parker treating her retinopathy. She will continue Ozempic at this time and I feel this is reasonable. She is seeing specialist referred by Keith soon. Feb, Hypoglycemia unawareness associated with type 2 diabetes mellitus (ICD-10 - E11.649) Patient relying on continuous glucose monitoring to titrate insulin dosing and d/t relative unawareness of low blood sugars. Research shows that stamina with the current regime may fatigue, as would outcomes and CGM is equitable compaired to disease instability. 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 Feb, BMI 25.0-25.9,adult (ICD-10 - Z68.25) continued improvement with Ozempic, total weight loss33 lbs since starting Ozempic Feb, Microalbuminuria (ICD-10 - R80.9) Sample increased JARDIANCE dose 25mg daily, reeval prior to next visit with [facility] and Metabolic panel Feb, Other continues wi th weight loss, this will continue to decrease insulin needs by decreasing insulin resistence. Keep up current efforts and dietary vigilance Shuame Other 09-22-2021 Evaluation note* Encounter Date Diagnosis Assessment Notes Treatment Notes Treatment Clinical Notes Nov, Type 2 diabetes mellitus with hyperglycemia (ICD-10 - E11.65) ASSESSMENT: 1. Uncontrolled, a Type 2 diabetes with A1c of 6.7% 2. Jardiance cost prohibitive, will initiate BI patient assistance (forms mailed to patient) Blood glucose levels have improved, yet concerns for hypoglycemia unawareness. , According to meter download [id number]: Active 74%, Ave glucose 105, GMI 5.8% Variability 22.9%. Greater than 250 0%, 181-250 1%, 70-180 97%, 54-69 1%, below 54 0%. We discussed toleration of slighly higer A1c to mitagate low blood sugars. She will continue Tresiba but reduce to 7 u per day. I believe with initation of Jardiance, continued weight loss and Ozempic, she can continue to reduce/ eliminate insulin. I have discouraged from daily titration of LA insulin, titration needs to be based on trend, ie 3/7 days per week BG below 100, can decrease by 1 u. She will continue to manage prandial blood sugars. She is tolerating and should continue Metformin ER 500mg ii daily. She should continue Ozempic 1.0 mg weekly, could consider increasing when new dosing approved. We will pursue SGLT2 coverage through patient assistance, this will provide CV/ renal benefit and I believe for this and reduction of insulin needs is valuable avenue. 3. Patient is alert, oriented and receptive to making changes or counseling. Notes: Seen for an assessment of current glucose pattern, changes in treatment plan, counseling and coordination of care related to diabetes, risks, and benefits of treatment, medications, side effects. Given handouts to reinforce concepts reviewed during counseling, see scanned notes. TOPICS REVIEWED: 1. Time was spent reviewing: a. Basic concepts of diabetes, progressive beta cell , concepts of basal/bolus/correc tive insulin requirements. Basal: The goal is fasting blood glucose of 90-130mg. IF fasting blood glucose starts to run under 100mg 3x's/ week, decrease dose by 10%. Bolus: The goal is to hold the blood glucose level steady meal to meal. If pt. is going to have increased physical activity after a meal, decrease the schedule meal dose prior to the activity by 30-50%. If pt. skips a meal do not take this dose. Correction: The goal is to correct an elevated glucose back into the 100-150mg range b. Nutrition: Concepts of healthy diet, encouraged to decrease saturated fat in diet and increase non-starchy vegetables and fruits in diet. BMI: Pt. needs to select one small change to decrease caloric intake or increase physical activity to help decrease weight. c. Correct treatment of hypoglycemia, carry a glucose source at all times on your person, in vehicles, and at bedside. Can use glucose tablets/4, four ounces of pop or juice equal to 15 G of carbohydrate. Blood glucose should be 100 mg/dl or higher when driving. d. ADA glucose goals for age and medical complexity reviewed e. Patient questions addressed 2. Activity/exercise: Encouraged to start any form of physical activity. Start low level and increase slowly to a minimal goal of 150 minutes/week. Limit activity to what is allowed by other issues such as cardiac, pulmonary or orthopedic restrictions. 3. Standards of care: Reminded to have an annual dilated eye exam, A1C every 3 months, urine testing for microalbumin once/year, check feet daily and report any cuts or sores that do not appear to be healing. 4. Meter: Plan to check blood glucose: Please check blood glucose levels 4 times/day. Back to back meals reveal effectiveness of bolus dosing. The blood glucose data is used to determine insulin doses and confirm symptoms for hypoglycemia and hyperglcyemia. 5. [facility]. Contact office if any issues or concerns with patterns of hypoglycemia, hyperglycemia, or diabetes medication issues. 6. Prescriptions: None needed at this time per patient Nov, Vitamin D deficiency (ICD-10 - E55.9) Learning About Vitamin D material was published to portal Nov, Dietary counseling and surveillance (ICD-10 - Z71.3) Learning About Healthy Weight material was published to portal Nov, Hyperlipidemia (ICD-10 - E78.5) Learning About High Cholesterol material was published to portal On Atrovasttin 20mg daily. LDL at target Nov, HTN (hypertension) (ICD-10 - I10) High Blood Pressure: Care Instructions material was published to portal Well controlled, not on ACEi or ARB-- COULD BE BENEFICIAL, Caution if Jardiance, and with hx of baseline low BP. 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 Keep up current efforts and dietary vigilance Nov, Retinopathy (ICD-10 - H35.00) Discussed RETINOPATHY and labeling of Ozempic. Discussed signal for worsening retinopathy, she feels retinopathy preceded Ozempic, from time interval withn A1c was 12. She will have conversation with Dr Parker treating her retinopathy. She will continue Ozempic at this time and I feel this is reasonable Nov, Hypoglycemia unawareness associated with type 2 diabetes mellitus (ICD-10 - E11.649) Patient relying on continuous glucose monitoring to titrate insulin dosing and d/t relative unawareness of low blood sugars. Research shows that stamina with the current regime may fatigue, as would outcomes and CGM is equitable compaired to disease instability. 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 Shuame Other 08-13-2021 NoteGastroenterology Upper Endoscopy, Adult Upper endoscopy is a procedure to look inside the upper GI (gastrointestinal) tract. The upper GI tract is made up of: ? The part of the body that moves food from your mouth to your stomach (esophagus). ? The stomach. ? The first part of your small intestine (duodenum). This procedure is also called esophagogastroduodenoscopy (EGD) or gastroscopy. In this procedure, your health care provider passes a thin, flexible tube (endoscope) through your mouth and down your esophagus into your stomach. A small camera is attached to the end of the tube. Images from the camera appear on a monitor in the exam room. During this procedure, your health care provider may also remove a small piece of tissue to be sent to a lab and examined under a microscope (biopsy). Your health care provider may do an upper endoscopy to diagnose cancers of the upper GI tract. You may also have this procedure to find the cause of other conditions, such as: ? Stomach pain. ? Heartburn. ? Pain or problems when swallowing. ? Nausea and vomiting. ? Stomach bleeding. ? Stomach ulcers. Tell a health care provider about: ? Any allergies you have. ? All medicines you are taking, including vitamins, herbs, eye drops, creams, and mlua-xvn-yrotvtl medicines. ? Any problems you or family members have had with anesthetic medicines. ? Any blood disorders you have. ? Any surgeries you have had. ? Any medical conditions you have. ? Whether you are or may be . What are the risks? Generally, this is a safe procedure. However, problems may occur, including: ? Infection. ? Bleeding. ? Allergic reactions to medicines. ? A tear or hole (perforation) in the esophagus, stomach, or duodenum. What happens before the procedure? Staying hydrated Follow instructions from your health care provider about hydration, which may include: ? Up to 2 hours before the procedure ? you may continue to drink clear liquids, such as water, clear fruit juice, black coffee, and plain tea. Eating and drinking restrictions Follow instructions from your health care provider about eating and drinking, which may include: ? 8 hours before the procedure ? stop eating heavy meals or foods, such as meat, fried foods, or fatty foods. ? 6 hours before the procedure ? stop eating light meals or foods, such as toast or cereal. ? 6 hours before the procedure ? stop drinking milk or drinks that contain milk. ? 2 hours before the procedure ? stop drinking clear liquids. Medicines Ask your health care provider about: ? Changing or stopping your regular medicines. This is especially important if you are taking diabetes medicines or blood thinners. ? Taking medicines such as aspirin and ibuprofen. These medicines can thin your blood. Do not take these medicines unless your health care provider tells you to take them. ? Taking ejlx-ohq-bhglmvm medicines, vitamins, herbs, and supplements. General instructions ? Plan to have someone take you home from the hospital or clinic. ? If you will be going home right after the procedure, plan to have someone with you for 24 hours. ? Ask your health care provider what steps will be taken to help prevent infection. What happens during the procedure? ? An IV will be inserted into one of your veins. ? You may be given one or more of the following: ? A medicine to help you relax (sedative). ? A medicine to numb the throat (local anesthetic). ? You will lie on your left side on an exam table. ? Your health care provider will pass the endoscope through your mouth and down your esophagus. ? Your health care provider will use the scope to check the inside of your esophagus, stomach, and duodenum. Biopsies may be taken. ? The endoscope will be removed. The procedure may vary among health care providers and hospitals. What happens after the procedure? ? Your blood pressure, heart rate, breathing rate, and blood oxygen level will be monitored until you leave the hospital or clinic. ? Do not drive for 24 hours if you were given a sedative during your procedure. ? When your throat is no longer numb, you may be given some fluids to drink. ? It is up to you to get the results of your procedure. Ask your health care provider, or the department that is doing the procedure, when your results will be ready. Summary ? Upper endoscopy is a procedure to look inside the upper GI tract. ? During the procedure, an IV will be inserted into one of your veins. You may be given a medicine to help you relax. ? A medicine will be used to numb your throat. ? The endoscope will be passed through your mouth and down your esophagus. This information is not intended to replace advice given to you by your health care provider. Make sure you discuss any questions you have with your health care provider. Document Released: 02/19/2001 [employer] (more content not included)...[facility] HospitalEvaluation noteNo InformationNortAdvanced Surgical Hospital Informous Other Evaluation noteNo assessment information available [facility] Work Phone: History general Narrative - Reported* Type Description Date Medical History type II diabetes Medical History Retinopathy Surgical History liver biopsy 2003 Surgical History Needle biopsy benign breast lum p 1997 Surgical History D&C Surgical History colonoscopy Hospitalization History See above Hospitalization History [facility] Other History general Narrative - Reported* Type Description Date Medical History type II diabetes Medical History Retinopathy- Diabeti c Macular Edema and Moderate Nonproliferative Diabetic Retinopathy-- [facility] and Dr. Parker Surgical History liver biopsy 2003 Surgical History Needle biopsy benign breast lum p 1997 Surgical History D&C Surgical History colonoscopy Hospitalization History See above Hospitalization History [facility] [employer] Other History general Narrative - Reported* Type Description Date Medical History type II diabetes Medical History Retinopathy- Diabeti c Macular Edema and Moderate Nonproliferative Diabetic Retinopathy-- [facility] and Dr. Parker Surgical History liver biopsy 2003 Surgical History Needle biopsy benign breast lum p 1997 Surgical History D&C Surgical History colonoscopy Surgical History cataract surg. left eye 023 Hospitalization History See above Hospitalization History [facility] [employer] Other History general Narrative - Reported* Type Description Date Medical History type II diabetes Medical History Retinopathy- Diabeti c Macular Edema and Moderate Nonproliferative Diabetic Retinopathy-- [facility] and Dr. Parker Surgical History liver biopsy 2003 Surgical History Needle biopsy benign breast lum p 1997 Surgical History D&C Surgical History colonoscopy Surgical History cataract surg. left eye 023 Surgical History cataract surg. right eye 3 Hospitalization History See above Hospitalization History [facility] Other [facility] general Narrative - Reported* Type Description Date Medical History type II diabetes Medical History Retinopathy- Diabeti c Macular Edema and Moderate Nonproliferative Diabetic Retinopathy-- [facility] and Dr. Parker Medical History Anemia Surgical History liver biopsy 2003 Surgical History Needle biopsy benign breast lum p 1997 Surgical History D&C Surgical History colonoscopy Surgical History cataract surg. left eye 023 Surgical History cataract surg. right eye 3 Hospitalization History See above Hospitalization History [facility] Other Summary Purpose Family History No Family History Records Found Relationship Condition Age at Onset Recorded Date/T vimal brother Diabetes mellitus Unknown father Unknown History of stroke Unknown Not Specified Family history of pancreatic cancer Unkn own Unknown Malignant neoplasm Unknown sister Malignant neoplasm Unknown Advance Directives No Advanced Directives Records Found Advance Directive Response Recorded Date/ Time Advance Directives No February 1:14pm Reason for Referral Reason DUPLICATE persiste nt microalbuminuria, GFR below 60 with reasonable glycemic control. On Jardiance Diagnosis 1 Type 2 diabetes kj itus with hyperglycemia (E11.65) Referral Organization [facility] Referring Provider First Name Loni Referring Provider Last Name Marleny Referring Provider Specialty Nurse Pract itioner Referred Organization [facility] Nephrology Referred Provider More Sylvester Referred Address [address] ,[place], [place],[address] Referred Provider Specialty Nephrology Referral Priority Routine General Notes Artino, Loni 09/06 12:00:46 PM >Per Chasidy Maher send this to Radha Argueat and she will call the patient to schedule Loni Burns 09/25/2021 12:07:04 PM >Sent to the above Radha Argueta 09/26/2021 10:58:29 AM >received today, sent P2P Bernard Arguetaya 09/26/2021 12:00:45 PM >duplicate. closing Reason 01/07/2022 Referra l sent *Dr. Sylvester please: persistent microalbuminuria, normal BP, max SGLT2i Diagnosis 1 Microalbuminuria (R8 0.9) Diagnosis 2 Type 2 diabetes kj itus with hyperglycemia (E11.65) Referral Organization [facility] Referring Provider First Name Loni Referring Provider Last Name Marleny Referring Provider Specialty Nurse Pract itioner Referred Organization [facility] Referred Address [address] ,[place], [place],[address] Referred Provider Specialty Nephrology Referral Priority Routine Referral Appointment Date 2022-01-07 General Notes Loni Burns 09/06 12:00:46 PM >Per Chasidy Maher send this to Radha Argueta and she will call the patient to schedule Loni Burns 09/25/2021 12:07:04 PM >Sent to the ab Bernard Arguetaya 09/26/2021 12:00:26 PM >pt scheduled Chief Complaint and Reason for Visit Chief Complaint Wellness Head Cold, Covid Negative Additional Source Comments INFORMATION SOURCE (unrecogn ized section and content) DATE CREATED AUTHOR 12/02/2020 [facility] DATE CREATED AUTHOR AUTHOR'S ORGANIZ ATION 07/20/2022 [facility] DATE CREATED AUTHOR AUTHOR'S ORGANIZ ATION 02/05/2023 [facility] EPIC DATE CREATED AUTHOR AUTHOR'S ORGANIZ ATION 04/24/2023 [facility] REASON FOR VISIT (unrecogniz ed section and content) DM f/up Dr Tracy transfer, Type 2 IDDMDLC-PATIENT ASSIST NEEDLES, TRESIBA, OZEMPICDM 3 month follow up, DM f/up Dr Tracy transfer, Type 2 IDDMhold DS Jardiance SamplesDS Metformin refillDS [employer] [place]/ Jardiance IncreaseDCS Ewa pap medsDM 3 month follow up, Type 2 IDDM, Will need new Rx written for the increase of Jardiance 25 mg and will fax to Patient Assistance @ [phone] {06-16-21} SE TECOVID TEST FOR TRAVEL, [facility] COVID voluntary/travelDCS Ewa pap medsDM 3 month follow up, Type 2 IDDMCall assist with alarmsLibre download, review logs/medsRENAL MICROALBUMINERIA W/TYPE 2 DIABETESRx for PAP BI/ JardianceNephrology Office NotesDM 3 month follow up, DM 8 week follow up, Type 2 IDDM, Gill 2, FCCC Visit Codes, C-PEP, antibodies, FCCC Visit CodesDS PAP MedicationsDCS PAP3 mos f/u, DM 3 month follow up, DM 8 week follow up, Type 2 IDDM, Gill 2, FCCC Visit Codes, C-PEP, antibodies, FCCC Visit CodesDS RefillDS Ewa PAP meds arrivedDM 3 month f/u, Type 2 IDDM, Gill 2, C-PEP, antibodiesDS Increase Farxiga doseDS PAP Meds3 month Follow up, Type 2 IDDM, Gill 2, C-PEP, antibodiesREFILLRENAL 6 month Follow upClinicalCritical Lab WorkDS PAP Care Teams (unrecognized sec tion and content) Team Status: Active Member Role Status Dates Yarely Mcguire MD Primary Care Provider Active Team Status: Inactive Member Role Status Dates Yarely Mcguire MD Attending Provider Active St art: January 26, 2023 End: January 26, 2023 Team Status: Inactive Member Role Status Dates Yarely Mcguire MD Attending Provider Active St art: February 25, 2023 End: February 25, 2023 Goals (unrecognized section and content) Goals may be documented in a n alternate section FOR RECORDS PERTAINING TO PATIENTS WHO ARE OR HAVE BEEN ENROLLED IN A CHEMICAL DEPENDENCY/SUBSTANCEABUSE PROGRAM, SOME INFORMATION MAY BE OMITTED. This clinical summary was aggregated from multiple sources. Caution should be exercised in using it in the provision of clinical care. This summary normalizes information from multiple sources, and as a consequence, information in this document may materially change the coding, format and clinical context of patient data. In addition, data may be omitted in some cases. CLINICAL DECISIONS SHOULD BE BASED ON THE PRIMARY CLINICAL RECORDS. [facility] [employer] [facility]. provides no warranty or guarantee of the accuracy or completeness of information in this document.
[2023-05-27 13:27] LABS: Cholesterol 176 mg/dL (<=200); HDL Cholesterol 59 mg/dL (40-60); Triglycerides 153 mg/dL (<=150); VLDL CHOLESTEROL 30.6 mg/dL
== END 2023-05-27 07:58 | disposition home or self-care (01) ==
LOC: LAB 07:59
PROVIDERS: PCP Family Medicine
DX: E11.65 Type 2 diabetes mellitus with hyperglycemia (principal); N18.31 Chronic kidney disease, stage 3a
CPT/HCPCS: 36415; 80061

== ENCOUNTER 2023-05-27 08:01 | Outpatient (OUT) | payer MEDICARE, OTHER, SELFPAY ==
--- OUTSIDE RECORDS SUMMARY | 2023-05-27 08:05 | XMS_ITS | CCD ---
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 Name Role Phone Loni Farmer Unavailable Rashid [...] Facility (20 sources) Erythromycin Drug Allergy Unknown FX Aligned Other (20 sources) Penicillin G Drug Allergy 02-26-20 Unknown [facility] (2 sources) Erythromycin Drug Allergy 02-26-20 [facility] (2 sources) Penicillins Drug allergy (disorder) 04-29-19 [facility] (8 sources) metFORMIN Drug Allergy 02-26-20 Unknown [facility] (4 sources) Allergies Reconciled Propensity to adverse reactions Unknown FX Aligned Other (7 sources) Substance with penicillin structure and antibacterial mechanism of action (substance) Drug allergy Unknown [facility] Aligned Other (4 sources) patient allergy list reviewed by nurse or physicia Propensity to adverse reactions 04-06-19 Comment:Done FX Aligned Other (1 source) Erythromycin Drug Allergy 02-26-20 [facility] (1 source) metFORMIN Drug Allergy 02-26-20 [facility] (1 source) Penicillin Drug Allergy 02-26-20 [facility] (1 source) Penicillins Drug allergy (disorder) 02-26-20 [facility] Medications Current Medications Medication Drug Class(es) [...] 90 days Jan, Active FreeStyle Gill [facility] [place] [employer] - (20 sources) Start: 02-15-2020 FreeStyle Libr e 2 [place] [employer] - as directed Feb, Active FreeStyle [...] Subcutaneous Once a day in the morning [facility] Active lisinopril 10 mg oral tablet [...] 1 mg Subcutaneous Once a week [facility] [employer] Aug, Active Ozempic (1 MG/DO SE) 2 MG/1.5ML 1 mg Subcutaneous Once a week [facility] [employer] Active 1 mg dose 1.5 ml semaglutide 1.34 mg/ml pen injector (7 sources) Start: 08-21-2020 Ozempic (1 MG/DOSE) 2 MG/1.5ML 1 mg Subcutaneous Once a week [facility] [employer] Aug, Active sulfamethoxazole 800 mg / trimethoprim [...] sources) Long-term current use of insulin; 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] Episodic Other aftercare (8 sources) jail (current) use of insulin; Translations: [jail current use of insulin Z79.4] Onset: 11-27-2020 [...] 12-14-2022 HbA1c (Bld) [Mass fraction] 6.3 % [employer] Aligned Other Glucose - FINGER STICKon Glucose [Mass/Vol] 133 mg/dL [employer] Other HbA1c (Bld) [Mass fraction]o n 12-14-2022 A1C HEMOGLOBIN [employer] Other A1C HEMOGLOBINon 09-09-2022 HbA1c (Bld) [Mass fraction] 6.5 % [employer] Other Glucose - FINGER STICKon Glucose [Mass/Vol] 107 mg/dL [employer] Other HbA1c (Bld) [Mass fraction]o n 09-09-2022 A1C HEMOGLOBIN [employer] Other PTH INTACTon 07-17-2022 PTH, Intact 68 pg/mL Critically high 15-65 [facility] Comment on above: Performed By: #### P THINT #### [facility] [address] [address] [address] Tim Moya HEMOGRAM AND PLATELon 2022 Hematocrit (Bld) [Volume fraction] 36.5 % Normal 36.0-48.0 [facility] Comment on above: Performed By: #### H H ####[facility] [address] [address]DrLinda Moya Hemoglobin (Bld) [Mass/Vol] 11.7 g/dL Critically low 12.0-16.0 [facility] Comment on above: Performed By: #### H H ####[facility] [address] [id number] Moya MCH (RBC) [Entitic mass] 28.3 pg Normal 26.7-34.0 [facility] Comment on above: Performed By: #### H H ####[facility] [address] [address]DrLinda Moya MCHC (RBC) [Mass/Vol] 32.1 g/dL Normal 29.9-35.2 [facility] Comment on above: Performed By: #### H H ####[facility] [address] [place], [place] [address]DwLinda Moya MCV (RBC) [Entitic vol] 88.2 fL Normal 81.0-99.0 [facility] Comment on above: Performed By: #### H H ####[facility] [address] [id number] Moya PLT 242 103/ul Normal 150-450 [facility] Comment on above: Performed By: #### H H ####[facility] [address] [id number] Moya RBC 4.14 106/ul Critically low 4.20-5.40 [facility] Comment on above: Performed By: #### H H ####[facility] [address] [id number] Moya WBC 9.2 103/ul Normal 4.0-11.0 [facility] Comment on above: Performed By: #### H H ####[facility] [address] [address]DrLinda Moya MAGNESIUMon 07-16-2022 Magnesium [Mass/Vol] 2.4 mg/dL Normal 1.8-2.4 [facility] Comment on above: Performed By: #### C MP, PHOS, URIC, MG #### [facility] [address] [place], [place] [address] Dr. Tim Moya PHOSPHORUSon 07-16-2022 Phosphate [Mass/Vol] 3.3 mg/dL Normal 2.6-4.7 [facility] Comment on above: Performed By: #### C MP, PHOS, URIC, MG ####[facility] [address] [id number] Moya PROF 14(COMP METB)on 023 Albumin [Mass/Vol] 3.9 g/dL Normal 3.4-5.0 [facility] Comment on above: Performed By: #### C MP, PHOS, URIC, MG ####[facility] [address] [id number]. Tim Moya Albumin/Globulin [Mass ratio] 0.8 {ratio} Normal [facility] Comment on above: Performed By: #### C MP, PHOS, URIC, MG ####[facility] [address] [address]Dr. Tim Moya ALP [Catalytic activity/Vol] 107 U/L Normal 46-116 [facility] Comment on above: Performed By: #### C MP, PHOS, URIC, MG ####[facility] [address] [address]Dr. Tim Moya ALT [Catalytic activity/Vol] 22 U/L Normal 14-59 [facility] Comment on above: Performed By: #### C MP, PHOS, URIC, MG ####[facility] [address] [address]Dr. Angelicavicki Moya Anion gap [Moles/Vol] 12.4 mmol/L Normal [facility] Comment on above: Performed By: #### C MP, PHOS, URIC, MG ####[facility] [address] [place], [place] [address]Dr. Tim Moya AST [Catalytic activity/Vol] 19 U/L Normal 15-37 [facility] Comment on above: Performed By: #### C MP, PHOS, URIC, MG ####[facility] [address] [address]Dr. Angelicavicki Moya Bilirubin [Mass/Vol] 0.2 mg/dL Normal 0.2-1.0 [facility] Comment on above: Performed By: #### C MP, PHOS, URIC, MG ####[facility] [address] [address]Dr. Tim Moya Calcium [Mass/Vol] 8.7 mg/dL Normal 8.5-10.1 [facility] Comment on above: Performed By: #### C MP, PHOS, URIC, MG ####[facility] [address] [address]Dr. Tim Moya Chloride [Moles/Vol] 108 mmol/L Critically high 98-107 [facility] Comment on above: Performed By: #### C MP, PHOS, URIC, MG ####[facility] [address] [address]Dr. Tim Moya CO2 [Moles/Vol] 26.1 mmol/L Normal 21.0-32.0 [facility] Comment on above: Performed By: #### C MP, PHOS, URIC, MG ####[facility] [address] [address]Dr. Tim Moya Creatinine [Mass/Vol] 1.21 mg/dL Critically high 0.55-1.02 [facility] Comment on above: Performed By: #### C MP, PHOS, URIC, MG ####[facility] [address] [address]Dr. Tim Moya EGFR-AF CHINESE 53 mL/min/1.73m2 Critically low >=60 [facility] Comment on above: Performed By: #### C MP, PHOS, URIC, MG ####[facility] [address] [place], [place] [address]Dr. Tim Moya EGFR-NON AF CHINESE 44 mL/min/1.73m2 Critically low >=60 [facility] Comment on above: Performed By: #### C MP, PHOS, URIC, MG ####[facility] [address] [address]Dr. Tim Moya Globulin (S) [Mass/Vol] 4.9 g/dL Normal [facility] Comment on above: Performed By: #### C MP, PHOS, URIC, MG ####[facility] [address] [address]Dr. Tim Moya Glucose [Mass/Vol] 94 mg/dL Normal 74-106 [facility] Comment on above: Performed By: #### C MP, PHOS, URIC, MG ####[facility] [address] [address]Dr. Tim Moya Potassium [Moles/Vol] 4.5 mmol/L Normal 3.5-5.1 [facility] Comment on above: Performed By: #### C MP, PHOS, URIC, MG ####[facility] [address] [address]Dr. Tim Moya Protein [Mass/Vol] 8.8 g/dL Critically high 6.4-8.2 [facility] Comment on above: Performed By: #### C MP, PHOS, URIC, MG ####[facility] [address] [address]Dr. Tim Moya Sodium [Moles/Vol] 142 mmol/L Normal 136-145 [facility] Comment on above: Performed By: #### C MP, PHOS, URIC, MG ####[facility] [address] [address]Dr. Tim Moya Urea nitrogen [Mass/Vol] 20.0 mg/dL Critically high 7.0-18.0 [facility] Comment on above: Performed By: #### C MP, PHOS, URIC, MG ####[facility] [address] [address]Dr. Tim Moya Urea nitrogen/Creatinin e [Mass ratio] 16.5 mg/mg Normal [facility] Comment on above: Performed By: #### C MP, PHOS, URIC, MG ####[facility] [address] [address]Dr. Tim Moya UA RANDOMon 07-16-2022 Bilirubin Ql (U) Negative Normal NEGATIVE [facility] Comment on above: Performed By: #### U A #### [facility] [address] [address] [address] Tim Moya Clarity (U) CLOUDY Abnormal CLEAR [facility] Comment on above: Performed By: #### U A #### [facility] [address] [address] [address] Tim Moya Color (U) YELLOW Normal YELLOW [facility] Comment on above: Performed By: #### U A #### [facility] [address] [address] [address] Tim Moya Glucose Ql (U) 500 mg/dl Abnormal NEGATIVE [facility] Comment on above: Performed By: #### U A #### [facility] [address] [address] [address] Tim Moya Hemoglobin Ql (U) TRACE Abnormal NEGATIVE [facility] Comment on above: Performed By: #### U A #### [facility] [address] [place] [address] Dr. Tim Moya Ketones Ql (U) Negative Normal NEGATIVE [facility] Comment on above: Performed By: #### U A #### [facility] [address] [place] [address] Dr. Tim Moya LEUKOCYTES MODERATE Abnormal NEGATIVE [facility] Comment on above: Performed By: #### U A #### [facility] [address] [place] [address] Dr. Tim Moya Nitrite Ql (U) Negative Normal NEGATIVE [facility] Comment on above: Performed By: #### U A #### [facility] [address] [place] [address] Dr. Tim Moya pH (U) 6.0 [pH] Normal 5-9 [facility] Comment on above: Performed By: #### U A #### [facility] [address] [place] [address] Dr. Tim Moya SPEC GRAVITY 1.010 Normal 1.005-<=1. 025 [facility] Comment on above: Performed By: #### U A #### [facility] [address] [place] [address] Dr. Tim Moya UA PROTEIN Negative Normal NEGATIVE/ TRACE [facility] Comment on above: Performed By: #### U A #### [facility] [address] [place] [address] Dr. Tim Moya Urobilinogen Qn (U) 0.2 {Michael'U}/dL Normal 0.2 - 1.0 [facility] Comment on above: Performed By: #### U A #### [facility] [address] [place] [address] Dr. Tim Moya URIC ACID SERUMon 07-16-2022 Urate [Mass/Vol] 6.6 mg/dL Critically high 2.6-6.0 [facility] Comment on above: Performed By: #### C MP, PHOS, URIC, MG ####[facility] [address] [address]Dr. Tim Moya URINE T PROTEIN CREAT RATIOo n 07-16-2022 Protein (U) [Mass/Vol] 25.1 mg/dL Critically high <=12.0 [facility] Comment on above: Performed By: #### U RTPCR #### [facility] [address] [address] [address] Tim Moya UR PROT CREAT RAT 0.72 Normal [facility] Comment on above: Performed By: #### U RTPCR #### [facility] [address] [address] [address] Tim Moya URINE CREAT 34.83 mg/dL Normal 20.00-300. 00 [facility] Comment on above: Performed By: #### U RTPCR #### [facility] [address] [address] [address] Tim Moya VITAMIN D 25 OHon 07-16-2022 VIT D 25-OH 31.0 ng/mL Normal [facility] Comment on above: Performed By: #### V ITAD #### [facility] [address] [address] [address] Tim Moya VIT D RANGES SEE BELOW Normal [facility] Comment on above: Result Comment: <20 ng/mL Vit D deficient 20 - <30 ng/mL Vit D insufficient 30 - 100 ng/mL Vit D sufficient >100 ng/mL Potential Toxicity Performed By: #### V ITAD #### [facility] [address] [address] [address] Tim Moya US KIDNEYSon 04-22-2022 US [...] by: GABINO CORONADO Date: 2022-04-22 09:43 Normal [facility] A1C HEMOGLOBINon 02-25-2022 HbA1c (Bld) [Mass fraction] 7.0 % FX Aligned Other Glucose - FINGER STICKon Glucose [Mass/Vol] 104 mg/dL FX Aligned Other HbA1c (Bld) [Mass fraction]o n 02-25-[address] [facility] [employer] Other INSULIN AUTOANTIBODIESon Insulin Antibodies <5.0 Normal The [facility] Comment on above: Result Comment: This test is also known as insulin autoantibody or IAA. This test was developed and its performance characteristics determined by [employer]. It has not been cleared or approved by the Food and Drug Administration. Reference Range: <5.0 Negative > or = 5.0 Positive Performed By: #### I AA #### [facility] [address] [address] [address] Tim Moya GLUTAMIN ACID DECARBOXYLASE (MICHAEL)on 11-22-2021 MICHAEL-65 <5.0 Normal 0.0-5.0 [facility] Comment on above: Performed By: #### G AD #### [facility] [address] [place] [address] Dr. Tim Moya C-PEPTIDE, SERUMon 2 C-Peptide, Serum 2.1 ng/mL Normal 1.1-4.4 [facility] Comment on above: Result Comment: C-Pe ptide reference interval is for fasting patients. Performed By: #### C PEPT #### [facility] [address], [place] [address] Dr. Tim Moya VIT D 25-OH LABCORPon 2021 Vitamin D, 25-Hydroxy 24.5 ng/mL Critically low 30.0-100.0 [facility] Comment on above: Result Comment: Ileana min D deficiency has been defined by the [place] of Medicine and an Endocrine Society practice guideline as a level of serum 25-OH vitamin D less than 20 ng/mL (1,2). The Endocrine Society went on to further define vitamin D insufficiency as a level between 21 and 29 ng/mL (2). 1. IOM ([place] of Medicine). 2010. Dietary reference intakes for calcium and D. [place]: The National Academies Press. 2. Yessenia MF, Tavia BROWN, Jacinda PALM, et al. Evaluation, treatment, and prevention of vitamin D deficiency: an Endocrine Society clinical practice guideline. JCEM. 2010; 96(7):1911-30. Performed By: #### V ITADLC #### [facility] [address] [address] [address] Tim Moya PROF 14(COMP METB)on 022 Albumin [Mass/Vol] 3.6 g/dL Normal 3.4-5.0 [facility] Comment on above: Performed By: #### C MP ####[facility] [address] [id number] Moya Albumin/Globulin [Mass ratio] 0.8 {ratio} Normal [facility] Comment on above: Performed By: #### C MP ####[facility] [address] [place], [place] [address]Ff. Tim Moya ALP [Catalytic activity/Vol] 116 U/L Normal 46-116 [facility] Comment on above: Performed By: #### C MP ####[facility] [address] [place], [place] [address]Mh. Tim Moya ALT [Catalytic activity/Vol] 42 U/L Normal 14-59 [facility] Comment on above: Performed By: #### C MP ####[facility] [address] [address]Dr. Tim Moya Anion gap [Moles/Vol] 10.1 mmol/L Normal [facility] Comment on above: Performed By: #### C MP ####[facility] [address] [address]Dr. Tim Moya AST [Catalytic activity/Vol] 39 U/L Critically high 15-37 [facility] Comment on above: Performed By: #### C MP ####[facility] [address] [address]Dr. Tim Moya Bilirubin [Mass/Vol] 0.2 mg/dL Normal 0.2-1.0 [facility] Comment on above: Performed By: #### C MP ####[facility] [address] [address]Dr. Tim Moya Calcium [Mass/Vol] 9.0 mg/dL Normal 8.5-10.1 The [facility] Comment on above: Performed By: #### C MP ####[facility] [address] [place], [place] [address]Dr. Tim Moya Chloride [Moles/Vol] 108 mmol/L Critically high 98-107 [facility] Comment on above: Performed By: #### C MP ####[facility] [address] [place], [place] [address]Dr. Tim Moya CO2 [Moles/Vol] 27.0 mmol/L Normal 21.0-32.0 [facility] Comment on above: Performed By: #### C MP ####[facility] [address] [address]Dr. Tim Griffin Creatinine [Mass/Vol] 1.01 mg/dL Normal 0.55-1.02 [facility] Comment on above: Performed By: #### C MP ####[facility] [address] [place], [place] [address]Dr. Tim Griffin EGFR-AF CHINESE >60 Normal >=60 [facility] Comment on above: Performed By: #### C MP ####[facility] [address] [place], [place] [address]Dr. Tim Moya EGFR-NON AF CHINESE 54 mL/min/1.73m2 Critically low >=60 [facility] Comment on above: Performed By: #### C MP ####[facility] [address] [address]Dr. Tim Moya Globulin (S) [Mass/Vol] 4.4 g/dL Normal [facility] Comment on above: Performed By: #### C MP ####[facility] [address] [place], [place] [address]Dr. Tim Moya Glucose [Mass/Vol] 120 mg/dL Critically high 74-106 T [facility] Comment on above: Performed By: #### C MP ####[facility] [address] [place], [place] [address]Dr. Tim Moya Potassium [Moles/Vol] 4.1 mmol/L Normal 3.5-5.1 [facility] Comment on above: Performed By: #### C MP ####[facility] [address] [place], [place] [address]Dr. Tim Moya Protein [Mass/Vol] 8.0 g/dL Normal 6.4-8.2 The [facility] Comment on above: Performed By: #### C MP ####[facility] [address] [place], [place] [address]Dr. Tim Moya Sodium [Moles/Vol] 141 mmol/L Normal 136-145 The [facility] Comment on above: Performed By: #### C MP ####[facility] [address] [place], [place] [address]Dr. Tim Moya Urea nitrogen [Mass/Vol] 20.0 mg/dL Critically high 7.0-18.0 [facility] Comment on above: Performed By: #### C MP ####[facility] [address] [place], [place] [address]Dr. Tim Moya Urea nitrogen/Creatinin e [Mass ratio] 19.8 mg/mg Normal [facility] Comment on above: Performed By: #### C MP ####[facility] [address] [place], [place] [address]DrLinda Moya A1C HEMOGLOBINon 09-24-2021 HbA1c (Bld) [Mass fraction] 5.9 % [employer] Other Glucose - FINGER STICKon Glucose [Mass/Vol] 95 mg/dL [employer] Other HbA1c (Bld) [Mass fraction]o n 09-24-2021 A1C HEMOGLOBIN [employer] Other COVID Quick Testingon 2021 Result Negative [employer] Other A1C HEMOGLOBINon 06-16-2021 HbA1c (Bld) [Mass fraction] 6.3 % [employer] Al[employer] Other Glucose - FINGER STICKon Glucose [Mass/Vol] 99 mg/dL [employer] Other HbA1c (Bld) [Mass fraction]o n 06-16-2021 A1C HEMOGLOBIN [employer] Other A1C HEMOGLOBINon 03-06-2021 HbA1c (Bld) [Mass fraction] 5.9 % [employer] Al[employer] Other Glucose - FINGER STICKon Glucose [Mass/Vol] 109 mg/dL [employer] Other HbA1c (Bld) [Mass fraction]o n 03-06-2021 A1C HEMOGLOBIN [employer] Other Ambulatory Clinical Summaryo n 12-02-2020 Ambulatory Clinical Summary {[id number]}CD:6143 68 Normal [facility] General Surgery Office/Clini c Noteon 12-01-2020 General [...] mRNA-1273 vaccine 05/02/2020 Recorded patient seen 11/29/20 [facility] Comment on above: Result Comment: Elec tronically Signed By: ANDREA PETTY, Rigo Edwards\Date and Time Signed: 12/01/20 21:10 EDT Ambulatory Clinical Summaryo n 11-29-2020 Ambulatory Clinical Summary {[id number]}CD:6143 68 [facility] A1C HEMOGLOBINon 11-27-2020 HbA1c (Bld) [Mass fraction] 6.7 % [employer] Other Glucose - FINGER STICKon Glucose [Mass/Vol] 102 mg/dL [employer] Other HbA1c (Bld) [Mass fraction]o n 11-27-2020 A1C HEMOGLOBIN [employer] Other Outside Colonoscopyon 2020 Outside Colonoscopy [id number]:127 [facility] Pathology Noteon 11-08-2020 Pathology Note [id number]#1.00CD:127 [facility] Lab Reportson 11-05-2020 Lab Reports [id number]#1.00CD:127 Normal [facility] October 23, 2020 YARELY MCGUIRE, [facility] [place] [address] Re: CARI CHEN Date of : 1950 [...] persist. Sincerely, Rigo Egan MD General Surgery [facility] Consent for Procedure/Surger yon 10-21-2020 Consent for Procedure/Surgery [id number]#1.00CD:127 [facility] Immunization Recordson 10-21 Immunization Records [id number]#1.00CD:127 [facility] Ambulatory Clinical Summaryo n 10-18-2020 Ambulatory Clinical Summary {[id number]}CD:6143 68 Normal [facility] General Surgery Office/Clini c Noteon 10-18-2020 General [...] Stroke: Fath (more content not included)... Normal [facility] Comment on above: Result Comment: Elec tronically Signed By: ANDREA PETTY, Rigo Edwards\Date and Time Signed: 10/18/20 13:50 EDT Physician Referralon 021 Physician Referral [id number]:127 Normal [facility] Vital Signs Date Time Vital Sign Value Performing Clinician Facility 02-25-2023 10:15-0500 Body height 162.56 cm [facility] 02-25-2023 10:15-0500 Body weight 71.93 kg [facility] 02-25-2023 10:15-0500 Diastolic blood pressure 73 mm[Hg] [facility] 02-25-2023 10:15-0500 Systolic blood pressure 120 mm[Hg] [facility] 01-26-2023 11:00-0500 Body height 162.56 cm [facility] 01-26-2023 11:00-0500 Body weight 71.3 kg [facility] 01-26-2023 11:00-0500 Diastolic blood pressure 63 mm[Hg] [facility] 01-26-2023 11:00-0500 Systolic blood pressure 130 mm[Hg] [facility] 01-20-2023 10:20-0500 Body height 162.56 cm [facility] [employer] Other [employer] [facility] [employer] Other 01-20-2023 10:20-0500 Body mass index (BMI) [Ratio] 27.5 kg/m2 [employer] Other [employer] Other 01-20-2023 10:20-0500 Body temperature 97.2 [degF] [employer] Other [employer] Other 01-20-2023 10:20-0500 Body weight 72.67 kg [employer] Other [employer] Other 01-20-2023 10:20-0500 Diastolic blood pressure 68 mm[Hg] [employer] Other [employer] Other 01-20-2023 10:20-0500 Respiratory rate 18 /min [facility] [employer] Other [employer] Other 01-20-2023 10:20-0500 SaO2% (BldA) [Mass fraction] 99 % [employer] Other [employer] Other 01-20-2023 10:20-0500 Systolic blood pressure 111 mm[Hg] [employer] Other [employer] Other 12-14-2022 09:45-0400 Body height 162.56 cm Loni Scally Other [employer] Other 12-14-2022 09:45-0400 Diastolic blood pressure 67 mm[Hg] Loni Scally Other [employer] Other 12-14-2022 09:45-0400 Respiratory rate 18 /min Loni Scally Other [employer] Other 12-14-2022 09:45-0400 SaO2% (BldA) [Mass fraction] 99 % Loni Scally Other [facility] Other 12-14-2022 09:45-0400 Systolic blood pressure 108 mm[Hg] Loni Scally Other [facility] Other 09-09-2022 10:45-0400 Body height 162.56 cm Loni Scally Other [facility] Other 09-09-2022 10:45-0400 Body mass index (BMI) [Ratio] 26.48 kg/m2 Loni Scally Other [facility] Other 09-09-2022 10:45-0400 Body weight 69.99 kg Loni Scally Other [facility] Other 09-09-2022 10:45-0400 Diastolic blood pressure 68 mm[Hg] Loni Scally Other [facility] Other 09-09-2022 10:45-0400 Respiratory rate 18 /min Loni Scally Other [facility] Other 09-09-2022 10:45-0400 SaO2% (BldA) [Mass fraction] 97 % Loni Scally Other [facility] Other 09-09-2022 10:45-0400 Systolic blood pressure 112 mm[Hg] Loni Scally Other [facility] Other 05-12-2022 13:30-0500 Body height 162.56 cm Loni Scally Other [facility] Other 05-12-2022 13:30-0500 Body mass index (BMI) [Ratio] 26.47 kg/m2 Loni Scally Other [facility] Other 05-12-2022 13:30-0500 Body weight 69.95 kg Loni Scally Other [facility] Other 05-12-2022 13:30-0500 Diastolic blood pressure 74 mm[Hg] Loni Scally Other [facility] Other 05-12-2022 13:30-0500 Respiratory rate 18 /min Loni Scally Other [facility] Other 05-12-2022 13:30-0500 SaO2% (BldA) [Mass fraction] 100 % Loni Scally Other [facility] Other 05-12-2022 13:30-0500 Systolic blood pressure 122 mm[Hg] Loni Scally Other [facility] Other 02-25-2022 12:15-0500 Body height 162.56 cm Loni Scally Other [facility] Other 02-25-2022 12:15-0500 Body mass index (BMI) [Ratio] 26.35 kg/m2 Loni Scally Other [facility] Other 02-25-2022 12:15-0500 Body weight 69.63 kg Loni Scally Other [facility] Other 02-25-2022 12:15-0500 Diastolic blood pressure 66 mm[Hg] Loni Scally Other [facility] Other 02-25-2022 12:15-0500 Respiratory rate 18 /min Loni Scally Other [facility] Other 02-25-2022 12:15-0500 SaO2% (BldA) [Mass fraction] 100 % Loni Scally Other [facility] Other 02-25-2022 12:15-0500 Systolic blood pressure 136 mm[Hg] Loni Scally Other [facility] Other 01-07-2022 14:20-0400 Body height 162.56 cm Azzee Ellisons Other [facility] Other 01-07-2022 14:20-0400 Body mass index (BMI) [Ratio] 25.5 kg/m2 Azzee Ellisons Other [facility] Other 01-07-2022 14:20-0400 Body temperature 96.6 [degF] Homero Ellisons Other [facility] Other 01-07-2022 14:20-0400 Body weight 67.4 kg Homero Ellisons Other [facility] Other 01-07-2022 14:20-0400 Diastolic blood pressure 74 mm[Hg] Azzee Ellisons Other [facility] Other 01-07-2022 14:20-0400 Respiratory rate 18 /min Homero Ellisons Other [facility] Other 01-07-2022 14:20-0400 SaO2% (BldA) [Mass fraction] 99 % Homero Ellisons Other [facility] Other 01-07-2022 14:20-0400 Systolic blood pressure 125 mm[Hg] Aziz Bakhous Other [facility] Other 09-24-2021 10:15-0400 Body height 162.56 cm Loni Farmer Other [facility] Other 09-24-2021 10:15-0400 Body mass index (BMI) [Ratio] 24.27 kg/m2 Loni Scally Other [facility] Other 09-24-2021 10:15-0400 Body weight 64.14 kg Loni Scally Other [facility] Other 09-24-2021 10:15-0400 Diastolic blood pressure 66 mm[Hg] Loni Scally Other [facility] Other 09-24-2021 10:15-0400 Respiratory rate 18 /min Loni Scally Other [facility] Other 09-24-2021 10:15-0400 SaO2% (BldA) [Mass fraction] 100 % Loni Scally Other [facility] Other 09-24-2021 10:15-0400 Systolic blood pressure 111 mm[Hg] Loni Scally Other [facility] Other 06-16-2021 10:00-0400 Body height 162.56 cm Loni Scally Other [facility] Other 06-16-2021 10:00-0400 Body mass index (BMI) [Ratio] 24.58 kg/m2 Loni Scally Other [facility] Other 06-16-2021 10:00-0400 Body weight 64.96 kg Loni Scally Other [facility] Other 06-16-2021 10:00-0400 Diastolic blood pressure 68 mm[Hg] Loni Scally Other [facility] Other 06-16-2021 10:00-0400 Respiratory rate 18 /min Loni Scally Other [facility] Other 06-16-2021 10:00-0400 SaO2% (BldA) [Mass fraction] 100 % Loni Scally Other [facility] Other 06-16-2021 10:00-0400 Systolic blood pressure 126 mm[Hg] Loni Scally Other [facility] Other 03-06-2021 09:15-0500 Body height 162.56 cm Loni Scally Other [facility] Other 03-06-2021 09:15-0500 Body mass index (BMI) [Ratio] 25.52 kg/m2 Loni Scally Other [facility] Other 03-06-2021 09:15-0500 Body weight 67.45 kg Loni Scally Other [facility] Other 03-06-2021 09:15-0500 Diastolic blood pressure 83 mm[Hg] Loni Scally Other [facility] Other 03-06-2021 09:15-0500 Respiratory rate 18 /min Loni Scally Other [facility] Other 03-06-2021 09:15-0500 SaO2% (BldA) [Mass fraction] 100 % Loni Scally Other [facility] Other 03-06-2021 09:15-0500 Systolic blood pressure 138 mm[Hg] Loni Scally Other [facility] Other 11-27-2020 09:15-0400 Body height 162.56 cm Loni Scally Other [facility] Other 11-27-2020 09:15-0400 Body mass index (BMI) [Ratio] 26.38 kg/m2 Loni Scally Other [facility] Other 11-27-2020 09:15-0400 Body weight 69.72 kg Loni Scally Other [facility] Other 11-27-2020 09:15-0400 Diastolic blood pressure 76 mm[Hg] Loni Scally Other [facility] Other 11-27-2020 09:15-0400 Respiratory rate 18 /min Loni Scally Other [facility] Other 11-27-2020 09:15-0400 SaO2% (BldA) [Mass fraction] 99 % Loni Scally Other [facility] Other 11-27-2020 09:15-0400 Systolic blood pressure 129 mm[Hg] Loni Scally Other [facility] Other Encounters Encounter Date Encounter Type Care Provider Facility Start: 03-30-2023 End: 03-30-2023 ambulatory Loni Scally Other [facility] Other Start: 03-30-2023 Telephone encounter Lon[facility]irk Brand[facility] Start: 03-02-2023 End: 03-02-2023 ambulatory Homero Kurtz Other [facility] Other Start: 03-02-2023 Telephone encounter Aziz Bakhous [facility] Start: 02-25-2023 End: 02-25-2023 ambulatory Aziz Bakhous Other [facility] Other Start: 02-25-2023 Telephone encounter Aziz Bakhous [facility] Start: 02-25-2023 End: 02-25-2023 Patient encounter procedure [facility] [place] Work Phone: Start: 02-03-2023 End: 02-03-2023 ambulatory TAINA PARKER Not Available Start: 01-26-2023 End: 01-26-2023 Patient encounter procedure [facility] [place] Work Phone: Start: 01-20-2023 End: 01-20-2023 ambulatory Aziz Bakhous Other [facility] Other Start: 01-20-2023 Office outpatient vi sit 25 minutes Aziz Bakhous [facility] Start: 01-07-2023 End: 01-07-2023 ambulatory Aziz Bakhous Other [facility] Other Start: 01-07-2023 Telephone encounter Aziz Bakhous [facility] Start: 12-14-2022 (DM) Diabetes Loni [facility] Start: 12-14-2022 End: 12-15-2022 ambulatory Yarely Mcguire [facility] Other Start: 11-11-2022 End: 11-11-2022 ambulatory Loni Farmer Other [facility] Other Start: 11-11-2022 Telephone encounter Loni ma[facility] Start: 09-09-2022 (DM) Diabetes L[facility] Start: 09-09-2022 End: 09-09-2022 ambulatory Loni Scally Other [facility] Other Start: 09-09-2022 Telephone encounter Loni Cathiely [facility] Start: 08-05-2022 End: 08-05-2022 ambulatory Loni Scally Other [facility] Other Start: 08-05-2022 Telephone encounter Loni Scally [facility] Start: 07-16-2022 End: 07-17-2022 ambulatory [facility] Facility: Start: 05-22-2022 End: 05-22-2022 ambulatory Loni Scally Other [facility] Other Start: 05-22-2022 Telephone encounter Loni Cathiely [facility] Start: 05-12-2022 (DM) Diabetes Loni Scally [facility] Start: 05-12-2022 End: 05-12-2022 ambulatory Loni Scally Other [facility] Other Start: 05-08-2022 End: 05-08-2022 ambulatory Loni Scally Other [facility] Other Start: 05-08-2022 Telephone encounter Loni Cathiely [facility] Start: 05-07-2022 End: 05-07-2022 ambulatory Loni Scally Other [facility] Other Start: 05-07-2022 Telephone encounter Loni Cathiely [facility] Start: 04-22-2022 End: 04-23-2022 ambulatory [facility] Facility:[facility] Start: 02-25-2022 (DM) Diabetes Loni Scally [facility] Start: 02-25-2022 End: 02-25-2022 ambulatory Loni Scally Other [facility] Other Start: 01-08-2022 End: 01-08-2022 ambulatory Loni Farmer Other [facility] Other Start: 01-08-2022 Telephone encounter Loni Hahn [facility] Start: 01-07-2022 End: 01-07-2022 ambulatory Azzee Ellisons Other [facility] Other Start: 01-07-2022 Office outpatient ne w 30 minutes Aziz Bakhous [facility] Start: 11-20-2021 End: 11-21-2021 ambulatory LONI MARLENY Facility: Start: 10-15-2021 End: 10-15-2021 ambulatory Loni Farmer Other [facility] Other Start: 10-15-2021 Nursing evaluation o f [facility] Start: 09-26-2021 End: 09-26-2021 ambulatory Loni Farmer Other [facility] Other Start: 09-26-2021 Telephone encounter Loni Hahn [facility] Start: 09-24-2021 (DM) [facility] Start: 09-24-2021 End: 09-24-2021 ambulatory Loni Marleny Other [facility] Other Start: 09-10-2021 End: 09-10-2021 ambulatory Loni Farmer Other [facility] Other Start: 09-10-2021 Telephone encounter Loni Hahn [facility] Start: 09-07-2021 End: 09-07-2021 ambulatory Tabitha Rizzo Other [facility] Other Start: 09-07-2021 Office outpatient vi sit 5 minutes Tabitha Rizzo [facility] Start: 06-24-2021 Adult health examination Loni Farmer Other [facility] Other Start: 06-18-2021 End: 06-18-2021 ambulatory Lonikirk Brandly Other [facility] Other Start: 06-18-2021 Telephone encounter Loni Cathiely [facility] Start: 06-16-2021 (DM) Diabetes Loni Scally [facility] Start: 06-16-2021 End: 06-16-2021 ambulatory Loni Scally Other [facility] Other Start: 06-16-2021 Telephone encounter Loni Cathiely [facility] Start: 04-21-2021 End: 04-21-2021 ambulatory Loni Scally Other [facility] Other Start: 04-21-2021 Telephone encounter Loni Cathiely [facility] Start: 03-26-2021 End: 03-26-2021 ambulatory Loni Scally Other [facility] Other Start: 03-26-2021 Telephone encounter Loni Cathiely [facility] Start: 03-06-2021 (DM) Diabetes Loni Scally [facility] Start: 03-06-2021 End: 03-06-2021 ambulatory Loni Scally Other [facility] Other Start: 12-04-2020 Telephone encounter Rashid Sterling [...] (incl. purified surface antigen) Loni Farmer Other [place] [employer] Other 01-22-2020 influenza virus vaccine, unspecified formulation [facility] 12-15-2018 influenza virus vaccine, split virus (incl. purified surface antigen) Loni Farmer Other [facility] [employer] Other 12-15-2018 influenza virus vaccine, unspecified formulation [facility] 12-15-2018 pneumococcal conjuga te vaccine, 13 valent Loni Farmer Other [facility] Payers Date Payer Category Payer Self-pay [id number] 1958 Medicare [id number] 2.1 [id number] 1958 Unknown [id number]. [id number] 1950 Unknown [id number] 1950 Unknown [id number] [id number] 1950 Unknown [id number] [id number] 1950 Unknown [id number] Unknown [id number] [id number] Social History Date Type Detail Facility Unknown if ever smoked [facility] Other Sex Assigned At Sex Assigned At Bir th [facility] Other Start: 1950 Sex Assigned At Female F [facility] Clinical Notes 10-18-2020 to 02-25-2023 Note Date & Type Note Facility 02-25-2023 Evaluation note Encounter Date Diagnosis Assessment Notes Feb, Chronic kidney disease, stage 3a (ICD-10 - N18.31) [facility] Other 11-15-2023 Evaluation note* Encounter Date Diagnosis [...] is she starts to have UTI symptoms. 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 [facility] Other 07-20-2022 Evaluation note* Encounter Date Diagnosis [...] escalated Jardiance to 25 mg daily Sep, jail current us e of insulin (ICD-10 - [...] compaired to disease instability. 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 , According to meter download [id number]: Active 74%, Ave glucose 105, GMI 5.8% [...] with hx of baseline low BP. 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 [facility] Other 08-13-2021 NoteGastroenterology Upper Endoscopy, Adult Upper [...] including vitamins, herbs, eye drops, creams, and [id number] medicines. ? Any problems you or family [...] tells you to take them. ? Taking [id number] medicines, vitamins, herbs, and supplements. General instructions [...] Document Released: 02/19/2001 [employer] (more content not included)...[facility] noteNo InformationNortLower [facility] [employer] Other Evaluation noteNo assessment information available [facility] Work Phone: History general Narrative - Reported* Type Description Date Medical History type II diabetes Medical History Retinopathy Surgical History liver biopsy 2003 Surgical History Needle biopsy benign breast lum p 1997 Surgical History D&C Surgical History colonoscopy Hospitalization History See above Hospitalization History [facility] [employer] Other History general Narrative - Reported* Type Description Date Medical History type II diabetes Medical History Retinopathy- Diabeti c Macular Edema and Moderate Nonproliferative Diabetic Retinopathy-- [facility] and Dr. Parker Surgical History liver biopsy 2003 Surgical History Needle biopsy benign breast lum p 1997 Surgical History D&C Surgical History colonoscopy Hospitalization History See above Hospitalization History [facility] [employer] Other History general Narrative - Reported* Type Description Date Medical History type II diabetes Medical History Retinopathy- Diabeti c Macular Edema and Moderate Nonproliferative Diabetic Retinopathy-- [facility] and Dr. Parker Surgical History liver biopsy 2003 Surgical History Needle biopsy benign breast lum p 1997 Surgical History D&C Surgical History colonoscopy Surgical History cataract surg. left eye 023 Hospitalization History See above Hospitalization History [facility] [employer] Other History general Narrative - Reported* Type [...] 3 Hospitalization History See above Hospitalization History [facility] Other [facility] general Narrative - Reported* Type Description Date [...] 3 Hospitalization History See above Hospitalization History [facility] Other Summary Purpose Family History No Family [...] kj itus with hyperglycemia (E11.65) Referral Organization [facility] Referring Provider First Name Loni Referring Provider Last Name Marleny Referring Provider Specialty Nurse Pract itioner Referred Organization [facility] Nephrology Referred Provider More Sylvester Referred Address [address] ,[place], [place],[address] Referred Provider Specialty Nephrology Referral Priority Routine [...] kj itus with hyperglycemia (E11.65) Referral Organization [facility] Referring Provider First Name Loni Referring Provider Last Name Marleny Referring Provider Specialty Nurse Pract itioner Referred Organization [facility] Referred Address [address] ,[place], [place],[address] Referred Provider Specialty Nephrology Referral Priority Routine Referral Appointment Date 2022-01-07 General Notes Loni Burns 09/06 12:00:46 PM >Per Chasidy Maher send this to Radha Argueta and she will call the patient to schedule Loin Burns 09/25/2021 12:07:04 PM >Sent to the ab Bernard Arguetaya 09/26/2021 12:00:26 PM >pt scheduled Chief Complaint and Reason for Visit Chief Complaint Wellness Head Cold, Covid Negative Additional Source Comments INFORMATION SOURCE (unrecogn ized section and content) DATE CREATED AUTHOR 12/02/2020 [facility] DATE CREATED AUTHOR AUTHOR'S ORGANIZ ATION 07/20/2022 [facility] DATE CREATED AUTHOR AUTHOR'S ORGANIZ ATION 02/05/2023 [facility] EPIC DATE CREATED AUTHOR AUTHOR'S ORGANIZ ATION 04/24/2023 [facility] REASON FOR VISIT (unrecogniz ed section and [...] and will fax to Patient Assistance @ [phone] {06-16-21} SE TECOVID TEST FOR TRAVEL, [facility] [...] BE BASED ON THE PRIMARY CLINICAL RECORDS. [facility] [employer] [facility]. provides no warranty or guarantee of the accuracy or completeness of information in this document.
[2023-05-27 08:23] LABS: Bilirubin Urine NEGATIVE (NEGATIVE); Blood Urine NEGATIVE (NEGATIVE); Clarity Urine CLEAR (CLEAR); Color Urine LT. YELLOW (YELLOW); Glucose Urine UA >=1000 mg/dL (NEGATIVE); Ketones Urine NEGATIVE (NEGATIVE); Leukocyte Esterase Urine NEGATIVE (NEGATIVE); Nitrite Urine NEGATIVE (NEGATIVE); Protein Urine NEGATIVE (NEG/TRACE); Urobilinogen Urine 0.2 EU/dL (0.2-1.0); pH Urine 5.5 (5.0-9.0)
[2023-05-27 08:27] LABS: Hematocrit 38.7 % (36.0-48.0); Hemoglobin 11.9 g/dL (12.0-16.0); Mean Corpuscular HGB Conc 30.7 g/dL (29.9-35.2); Mean Corpuscular Hemoglobin 27.9 pg (26.7-34.0); Mean Corpuscular Volume 90.8 fL (81.0-99.0); Mean Platelet Volume 10.6 fL (9.5-13.5); Platelet Count 188 10^3/uL (150-450); Red Blood Count 4.26 10^6/uL (4.20-5.40); Red Cell Distribution Width 12.7 % (11.0-15.0); White Blood Count 8.6 10^3/uL (4.0-11.0)
[2023-05-27 10:01] LABS: Creatinine Urine Random 73.96 mg/dL (20.00-300.00); Protein Creatinine Ratio Urine 0.22; Total Protein Urine Random 16.2 mg/dL (<=11.9)
[2023-05-27 11:08] LABS: Alanine Aminotransferase 21 U/L (14-59); Albumin Globulin Ratio 0.9; Albumin Level 4.1 g/dL (3.4-5.0); Alkaline Phosphatase 102 U/L (46-116); Anion Gap 15.8; Aspartate Amino Transferase 20 U/L (15-37); BUN Creatinine Ratio 15.4; Bilirubin Total 0.3 mg/dL (0.2-1.0); Calcium 9.6 mg/dL (8.5-10.1); Carbon Dioxide 26.2 mmol/L (21.0-32.0); Chloride 104 mmol/L (98-107); Estimated GFR (African America 49 (>=60); Estimated GFR (Non-African Ame 40 (>=60); Globulin 4.5 g/dL; Glucose 107 mg/dL (74-106); Magnesium 2.1 mg/dL (1.8-2.4); Phosphorus 4.2 mg/dL (2.6-4.7); Sodium 142 mmol/L (136-145); Total Protein 8.6 g/dL (6.4-8.2); Uric Acid 6.9 mg/dL (2.6-6.0)
[2023-05-27 11:15] LABS: Percent Iron Saturation 16.7 %
[2023-05-28 14:10] LABS: PTH, Intact 31 pg/mL (15-65)
== END 2023-05-27 08:02 | disposition home or self-care (01) ==
LOC: LAB 08:02
PROVIDERS: PCP Family Medicine; Visit Provider Internal Medicine Nephrology
DX: E11.65 Type 2 diabetes mellitus with hyperglycemia (principal); N18.31 Chronic kidney disease, stage 3a; E11.21 Type 2 diabetes mellitus with diabetic nephropathy; E53.8 Deficiency of other specified B group vitamins; E55.9 Vitamin D deficiency, unspecified; E21.3 Hyperparathyroidism, unspecified; E79.0 Hyperuricemia without signs of inflammatory arthritis and tophaceous disease; D63.1 Anemia in chronic kidney disease; E87.5 Hyperkalemia
CPT/HCPCS: 36415; 80053; 80061; 81003; 82306; 82570; 82607; 82728; 82746; 83540; 83550; 83735; 83970; 84100; 84156; 84550; 85027

== ENCOUNTER 2023-07-23 15:06 | Emergency (ER) | payer MEDICARE, OTHER, SELFPAY ==
[2023-07-23 15:12] VITALS: BP 156/73; PULSE 74; TEMP 36.6; O2SAT 100; BMI 25.7
--- NOTE | 2023-07-23 15:18 | XR_ITS ---
The [address] [address] Patient Name: LIBIA CHEN MRN: [id number] date: 1950 Sex: F Assigned Patient Location: ER Current Patient Location: Accession/Order Number: [id number] Exam Date: 07/23/2023 15:50 Report Date: 07/23/2023 17:07 At the request of: PETRONA LUJAN Procedure: XR elbow RT min 3V EXAM: XR elbow RT min 3V HISTORY: The patient is a 72-year-old female, pain COMPARISON: None. FINDINGS: The right elbow is radiographically negative with no evidence of fracture, dislocation, fat pad elevation, or other osseous or articular abnormalities. No radiopaque foreign bodies are seen. XR/XR elbow RT min 3V IMPRESSION: Negative. Electronically authenticated by: MICHAEL HAY Date: 07/23/2023 17:07
[2023-07-23] MEDS: SODIUM CHLORIDE 0.9% IRRIG SOLUTION 1,000 ML BOTTLE 1000 ML IRR (15:28)
[2023-07-23] MEDS: IBUPROFEN 600 MG TABLET PO (15:28)
--- NOTE | 2023-07-23 15:47 | ED.WOUNDLAC1 ---
HPI - Wound/Laceration General Chief Complaint: Wound/Laceration Stated Complaint: Laceration/Puncture Right Arm Time Seen by Provider: 07/23/23 15:08 Source: patient Mode of arrival: walk-in Limitations: no limitations History of Present Illness HPI narrative: Patient is a 72-year-old female history of diabetes To the ER with concerns of large skin tear to the right lateral elbow. Patient states she was walking and tripped near the curb landing on her right elbow scraping her skin. Patient denies any significant joint pain, she is unsure of her last tetanus but declines a tetanus update today. Patient reports discomfort to the skin burning sensation from her injury, bleeding controlled on arrival. She denies any head or neck injury. Patient is not on any blood thinning medications. Extremity Location: Right: elbow Place: Reports home Patient tetanus UTD: No (Patient unsure of last tetanus but declines update today) Context: Reports accidental Treatments prior to arrival: Reports bandage Related Data Home Medications ?Medication ?Instructions ?Recorded ?Confirmed atorvastatin 20 mg tablet 20 mg PO DAILY 07/23/23 07/23/23 lisinopril 10 mg tablet 10 mg PO DAILY 07/23/23 07/23/23 metformin 500 mg tablet 500 mg PO DAILY 07/23/23 07/23/23 Previous Rx's ?Medication ?Instructions ?Recorded doxycycline hyclate 100 mg capsule 100 mg PO BID 5 days #10 caps 07/23/23 Allergies Allergy/AdvReac Type Severity Reaction Status Date / Time erythromycin base AdvReac Mild Verified 07/23/23 15:12 Penicillins AdvReac Mild Verified 07/23/23 15:12 Review of Systems ROS Constitutional Denies: fever or chills Eyes Denies: change in vision Ears, nose, mouth, and throat Denies: throat pain or neck pain Cardiovascular Denies: chest pain or palpitations Respiratory Denies: shortness of breath or cough Gastrointestinal Denies: abdominal pain, nausea or vomiting Musculoskeletal Reports: extremity pain (Right lateral elbow); Denies: back pain or neck pain Integumentary/Breast Reports: other (Skin tear); Denies: rash Neurological Denies: headache Psychiatric Denies: anxiety Hematologic/Lymphatic Denies: easy bruising Allergic/Immunologic Denies: hives Exam Narrative Exam Narrative: Nurses notes and vital signs reviewed and patient is not hypoxic. General: The patient appears well and in no apparent distress. Patient is resting comfortably on cart. Skin: Warm, dry, no pallor noted.Large skin tear lateral elbow overlying Proximal forearm and radial head, just distal to the lateral epicondyle. There is a smaller skin tear over the olecranon, minimal weeping, no active arterial bleeding. Slight debris noted with skin tear folded on itself. Head: Normocephalic, atraumatic Neck: Supple, trachea mid-line, no tenderness, no lymphadenopathy, no midline neck tenderness. Eye: Pupils are equal, round and reactive to light, EOMI Ears, Nose, Mouth, and Throat: TM are clear, normal light reflex, no hemotympanum oral mucosa is moist, no posterior oropharynx erythema or hypertrophy, uvula is mid-line Cardiovascular: Regular Rate and Rhythm Respiratory: Patient is in no distress, no accessory muscle use, lungs are clear to auscultation, no wheezing, rales or rhonchi. Chest Wall: no tenderness Back: non-tender, no CVA tenderness, No midline thoracic or lumbar tenderness. Musculoskeletal: normal ROM, Some soreness noted with and pronation and supination, patient with patient has near full flexion and extension of the elbow joint. She denies any numbness tingling or paresthesia into the distal extremity. No pain to the shoulder joint. No pain to the wrist joint, no snuffbox tenderness.Upper extremity and bilateral lower extremities unremarkable. Neurological: A&O x4 Psychiatric: Cooperative Constitutional Vital Signs, click to edit/add: Last Vital Signs Temp 97.8 F 07/23/23 15:12 Pulse 74 07/23/23 15:12 Resp 18 07/23/23 15:12 BP 156/73 H 07/23/23 15:12 Pulse Ox 100 07/23/23 15:12 O2 Del Method Room Air 07/23/23 15:12 Course Vital Signs Vital signs: Vital Signs Temperature 97.8 F 07/23/23 15:12 Pulse Rate 74 07/23/23 15:12 Respiratory Rate 18 07/23/23 15:12 Blood Pressure 156/73 H 07/23/23 15:12 Pulse Oximetry 100 07/23/23 15:12 Oxygen Delivery Method Room Air 07/23/23 15:12 Temperature 97.8 F 07/23/23 15:12 Pulse Rate 74 07/23/23 15:12 Respiratory Rate 18 07/23/23 15:12 Blood Pressure 156/73 H 07/23/23 15:12 Pulse Oximetry 100 07/23/23 15:12 Oxygen Delivery Method Room Air 07/23/23 15:12 MDM - Wound/Laceration MDM Narrative Medical decision making narrative: Patient declined tetanus, she is unsure of her last vaccine but states she does not want to risk having a reaction. Patient concerned about the possibility of infection as she is diabetic. She was given 1 dose of Motrin here for pain but with her kidney disease recommend she use Tylenol at home. We discussed doxycycline twice a day for 5 days as she is penicillin allergic. Patient will need wound recheck in 3 to 4 days given large skin tear. The wound was irrigated extensively with normal saline, Hibiclens brush and manual debriding of visible foreign bodies removed, the skin was gently unfolded and reapplied with great approximation and secured with Steri-Strips. Nonadherent dressing applied with Nilesh wrap and gauze over top. Patient neurovascular intact status post procedure. X-ray performed, no obvious fracture, radiologist report pending. Patient will wear a arm sling for the next couple days to limit excessive use. We discussed no lifting pushing or pulling with the right arm. Sling applied by rn, neurovasc intact s/p application. HEP for shoulder/ hand/ wrist discussed.. mayy start more elbow motion in 3-4 days The patient is to followup with primary care physician in next 3-5 days for wound recheck. or to return to the emergency department should any of the signs or symptoms worsen or new symptoms develop. Patient had questions answered. The patient agrees with the following Diagnosis and Treatment plan and the patient will be discharged home. Discharge Plan Discharge Stand Alone Forms: Portal Instructions Chief Complaint: Wound/Laceration Clinical Impression: Skin tear of elbow without complication, Contusion of elbow, right Patient Disposition: Home, Self-Care Time of Disposition Decision: 15:48 Condition: Good Prescriptions / Home Meds: New doxycycline hyclate 100 mg capsule 100 mg PO BID 5 Days Qty: 10 0RF No Action atorvastatin 20 mg tablet 20 mg PO DAILY lisinopril 10 mg tablet 10 mg PO DAILY metformin 500 mg tablet 500 mg PO DAILY Print Language: Kiswahili Instructions: Laceration (ED) Additional Instructions: Recommend appt with PCP in 3-4 days for wound recheck - Let Steri strips fall off on there own - Doxycycline 100mg for 5 days with food - Sling for 2-3 days. No lifting loading or pushing. -Ice 20 mins on and 20 mins off for 1 hour 3 times a day. elevate hand high than elbow and elbow higher than heart while laying seated. - May do dressing change in 24-48 hours. ( dry gauze pad) - No Dishes, no Laundry, No mowing. - Avoid Repetitive use of right elbow. - Maintain motion at hand/ wrist and shoulder - in 3-4 days can work on elbow range of motion. ( tetanus not updated per patient request) Referrals: Yarely Lindsay MD [Primary Care Provider] - 1 week Discharge Date/Time: 07/23/23 16:03
== END 2023-07-23 16:03 | disposition home or self-care (01) ==
PROVIDERS: Emergency Provider Emergency Medicine; PCP Family Medicine
DX: S51.011A Laceration without foreign body of right elbow, initial encounter (principal); S50.01XA Contusion of right elbow, initial encounter; W10.1XXA Fall (on)(from) sidewalk curb, initial encounter; E11.9 Type 2 diabetes mellitus without complications; Z79.84 Long term (current) use of oral hypoglycemic drugs; Z79.899 Other long term (current) drug therapy
CPT/HCPCS: 73080; 99284

== ENCOUNTER 2023-12-21 16:11 | Outpatient (OUT) | payer MEDICARE, OTHER, SELFPAY ==
--- OUTSIDE RECORDS SUMMARY | 2023-12-21 16:27 | XMS_ITS | CCD ---
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 Unavailable [phone] Tabitha Rizzo Unavailable Tessie Aziz Unavailable LONI FARMER Admitting Unavailable LONI FARMER Attending Unavailable DR YARELY MCGURIE Primary Care Unavailable SCALDIONICIO LONI Consulting Unavailable BAKHOUS, AZIZ Admitting Unavailable BAKHOUS, AZIZ Attending Unavailable DR YARELY MCGUIRE Primary Care Unavailable GABINO CORONADO Consulting Unavailable BAKHOUS, AZIZ Consulting Unavailable BAKHOUS, AZIZ Admitting Unavailable BAKLISSETS, KIAIZ Attending Unavailable DR YARELY MCGUIRE Primary Care Unavailable JESSICAS, AZIZ Consulting Unavailable Yarely Mcguire Attending Unavailable Yarely Mcguire Primary Care Unavailable Yarely Mcguire Admitting Unavailable CHERI PARKER Attending Unavailable CHERI PARKER Attending Unavailable Allergies Allergy Classification Reported Allergen(s) Allergy Type Date of Onset Reaction(s) Facility (20 sources) Erythromycin Drug Allergy Unknown [facility] Other (20 sources) Penicillin G Drug Allergy 02-26-20 Unknown, Convulsions [facility] (4 sources) Erythromycin Drug Allergy 02-26-20 Rash [facility] (4 sources) Penicillins Drug allergy (disorder) 04-29-19 Convulsions [facility] Repository (9 sources) metFORMIN Drug Allergy 02-26-20 Unknown, Diarrhea [facility] (4 sources) Allergies Reconciled Propensity to adverse reactions Unknown [facility] Other (7 sources) Substance with penicillin structure and antibacterial mechanism of action (substance) Drug allergy Unknown [facility] Other (4 sources) patient allergy list reviewed by nurse or physicia Propensity to adverse reactions 04-06-19 Comment:Done [facility] Other (1 source) Erythromycin Drug Allergy 02-26-20 [facility] Repository (1 source) metFORMIN Drug Allergy 02-26-20 [facility] (1 source) Penicillin Drug Allergy 02-26-20 [facility] (1 source) Penicillins Drug allergy (disorder) 02-26-20 [facility] Medications Current Medications Medication Drug Class(es) Dates Sig (Normalized) Sig (Original) atorvastatin 20 mg oral tablet (20 sources) HMG-CoA Reductase Inhibitor Start: 05-12-2023 take 20 mg by mouth once daily Atorvastatin Active 20 MG PO Daily May 12, 2023 1:00am take 1 tablet by mouth once alem y Atorvastatin Calcium 20 mg TAKE 1 TABLET BY MOUTH DAILY for 90 Active benzonatate 200 mg oral capsule (3 sources) Non-narcotic Antitussive Start: 02-25-2023 take 1 capsule by mouth every eight hours Benzonatate 200 MG 1 capsule Orally Three times a day for 10 day(s) Feb, Active Cholecalciferol (5 sources) Vitamin D Start: 05-12-2023 take 1 tablet by mouth once daily cholecalciferol (vitamin D3) Active 1 TAB PO Daily May 12, 2023 1:00am take 1 tablet by shwetha th every twenty-four hours Vitamin D 25 MCG (1000 UT) 1 tablet Orally Once a day Active dapagliflozin 10 mg oral tablet (19 sources) Sodium-Glucose Cotransporter 2 Inhibitor Start: 05-12-2023 take 1 tablet by mouth once daily Dapagliflozin Propanediol (Farxiga) 10 mg tablet Active 10 MG PO Daily May 12, 2023 1:00am Start: 05-12-2023 End: 05-12-2023 take 1 tablet by mouth once daily Dapagliflozin Propanediol (Farxiga) 5 mg tablet Discontinued 5 MG PO Daily May 12, 2023 1:00am May 12, 2023 4:55pm Start: 02-25-2022 take 1 tablet by shwetha th every twenty-four hours Farxiga 5 MG 1 [...] Active ferrous sulfate 325 mg oral tablet (6 sources) Start: 05-12-2023 take 325 mg by mouth once daily Ferrous Sulfate Active 325 MG PO Daily May 12, 2023 1:00am Start: 01-20-2023 take 1 tablet by shwetha th every twenty-four hours Ferrous Sulfate 325 (65 Fe) MG 1 tablet Orally once a day for 90 days Jan, Active Flash Glucose Scanning Penn (Freestyle Gill 2 Penn) [facility] (1 source) Start: 10-25-2023 Flash Glucose Scanning Penn (Freestyle Gill 2 Penn) [facility] Active 0 .ROUTE October 25, 2023 12:00am As directed Flash Glucose Sensor (Freestyle Gill 2 Sensor) kit (1 source) Start: 10-25-2023 Flash Glucose Sensor (Freestyle Gill 2 Sensor) kit Active 0 .ROUTE October 25, 2023 12:00am As directed FreeStyle Gill 2 Penn Systm - (20 sources) Start: 02-15-2020 FreeStyle Libr e 2 Penn Systm - as directed Feb, Active FreeStyle [...] Once a day in the morning PAP- CureDM Active latanoprost 0.05 mg/ml ophthalmic solution (2 sources) Prostaglandin Analog Start: 05-12-[address] Active DROPS OPHTHALMIC May 12, 2023 1:00am lisinopril 10 mg oral tablet (14 sources) Angiotensin Converting Enzyme Inhibitor Start: 10-25-2023 take 10 mg by mouth once daily Lisinopril Active 10 MG PO Daily October 25, 2023 2:28pm Start: 07-12-2023 End: 10-25-2023 take 1 tablet by mouth once daily Lisinopril Discontinued 0 .ROUTE .COMPLEX July 12, 2023 4:18pm October 25, 2023 2:30pm TAKE 1 TABLET BY MOUTH EVERY DAY FOR 90 DAYS Start: 05-12-2023 End: 07-12-2023 take 10 mg by mouth once daily Lisinopril Discontinued 10 MG PO Daily May 12, 2023 1:00am July 12, 2023 4:19pm Start: 07-22-2022 take 1 tablet by shwetha every twenty-four hours Lisinopril 10 MG 1 tablet Orally Once a day July, Active 24 hr metFORMIN hydrochloride 500 mg extended release oral tablet (20 sources) Biguanide Start: 05-12-2023 End: 10-12-2023 take 500 mg by mouth once daily Metformin Active 500 MG PO Daily October 12, 2023 5:01pm Start: 08-21-2020 take 2 tablets by mo [facility] every twenty-four hours metFORMIN HCl ER 500 [...] MG/1.5ML 1 mg Subcutaneous Once a week PAP- Ewa Nordisk Aug, Active Ozempic (1 MG/DO SE) 2 MG/1.5ML 1 mg Subcutaneous Once a week PAP- EasyPost Nordisk Active 1 mg dose 1.5 ml semaglutide 1.34 mg/ml pen injector (9 sources) Start: 05-12-2023 inject 1 mg by subcutaneous injection every week Semaglutide (Ozempic) 1 mg/dose (2 mg/1.5 mL) pen injector Active 1 MG SUBCUT Once a week May 12, 2023 1:00am Start: 08-21-2020 Ozempic (1 MG/ DOSE) 2 MG/1.5ML 1 mg Subcutaneous Once a week PAP- Ewa Nordisk Aug, Active sulfamethoxazole 800 mg / trimethoprim 160 mg oral tablet (3 sources) Dihydrofolate Reductase Inhibitor Antibacterial, Sulfonamide Antimicrobial Start: 02-25-2023 take 1 tablet by mouth every twelve hours Bactrim DS 800-160 MG 1 tablet Orally Twice a day for 10 day(s) Feb, Active vitamin b12 0.1 mg oral tablet (12 sources) Vitamin B12 Start: 05-12-2023 take 100 ug by mouth once daily Cyanocobalamin (Vitamin B-12) Active 100 MCG PO Daily May 12, 2023 1:00am take 1 tablet by shwetha th every [...] 1 tablet Orally Once a day Active Completed/Discontinued Medications Medication Drug Class(es) Dates Sig (Normalized) Sig (Original) Insulin Degludec (Tresiba Flextouch U-100) 100 unit/mL (3 mL) insulin pen (2 sources) Start: 05-12-2023 End: 06-01-2023 inject 3 [IU] by subcutaneous injection once daily Insulin Degludec (Tresiba Flextouch U-100) 100 unit/mL (3 mL) insulin pen Discontinued 3 UNIT SUBCUT Daily May 12, 2023 1:00am June 01, 2023 9:22am Problems Active Problems Problem Classification Problem Date Documented Date Episodic/Chronic Abdominal pain (4 sources) Left upper quadrant pain; Translations: [Left upper quadrant pain] Episodic Administrative/social admission (12 sources) Dietary counseling and surveillance; Translations: [Patient encounter status] Onset: 11-27-2020 Resolved: 09-24-2021 Episodic Biliary tract disease (4 sources) Cholelithiasis without obstruction; Translations: [Calculus of gallbladder without cholecystitis without obstruction] Episodic Calculus of urinary tract (1 source) Calculus of kidney; Translations: [CALCULUS OF KIDNEY] Onset: 04-27-2022 Episodic Chronic kidney disease (20 sources) Chronic kidney disease stage 3A ; Translations: [Chronic kidney disease, stage 3a] 05-31-2023 Chronic Deficiency and other anemia (4 sources) [...] Resolved: 09-24-2021 Chronic Fluid and electrolyte disorders (4 sources) Hyperkalemia; Translations: [Hyperkalemia] Episodic Genitourinary symptoms and ill-defined conditions (11 sources) Proteinuria, unspecified; Translations: [Microalbuminuria] Onset: 03-06-2021 Resolved: 09-24-2021 Episodic Glaucoma (2 sources) Glaucoma; Translations: [Unspecified glaucoma] 05-12-2023 Chronic Immunizations and screening for infectious disease (5 sources) Encounter for screening for other viral diseases; Translations: [Vaccination given] Onset: 09-07-2021 Resolved: 09-07-2021 Episodic Menopausal disorders (8 sources) Postmenopausal bleeding; Translations: [Postmenopausal bleeding] Onset: 04-06-2014 Chronic Nutritional deficiencies (20 sources) Vitamin D deficiency; Translations: [Vitamin D deficiency, unspecified] Onset: 11-27-2020 Resolved: 09-24-2021 Chronic Nutritional deficiencies (6 sources) Deficiency of other specified B group vitamins; Translations: [Cobalamin deficiency] Onset: 07-19-2022 Episodic Other aftercare (20 sources) Long-term current use of insulin; Translations: [rn long term care (current) use of insulin] 05-12-2023 Episodic Other aftercare (10 sources) senior living (current) use of insulin; Translations: [Long-term (current) use of insulin] Onset: 11-27-2020 Resolved: 09-24-2021 Episodic Other endocrine disorders (12 sources) Hyperparathyroidism; Translations: [Hyperparathyroidism, unspecified] 05-31-2023 Chronic Other endocrine disorders (2 sources) Hyperparathyroidism, unspecified; Translations: [Hyperparathyroidism, unspecified] Chronic Other injuries and conditions due to [...] Chronic Other nutritional; endocrine; and metabolic disorders (2 sources) Hyperuricemia without signs of inflammatory arthritis and tophaceous disease; Translations: [Other abnormal blood chemistry] Episodic Other nutritional; endocrine; and metabolic disorders (2 sources) Hyperuricemia; Translations: [Hyperuricemia without signs of inflammatory arthritis and tophaceous disease] 05-31-2023 Episodic Pancreatic disorders (not diabetes) (4 sources) [...] of patient's decision for unspecified reasons] Episodic Residual codes; unclassified (2 sources) Body mass index 20-24 - normal; Translations: [Body mass index (BMI) 24.0-24.9, adult] 05-12-2023 Episodic Retinal detachments; defects; vascular occlusion; and [...] Test Name Value Interpretation Reference Range Facility Automated urine specific gra vity by refractometryon 05-27-2023 Specific gravity Refractometry automated (U) [Rel density] 1.020 1.005-1.02 5 [facility] Bilirubin Auto test strip (U ) [Mass/Vol]on 05-27-2023 Bilirubin (U) [Mass/Vol] Negative NEGATIVE [facility] Cholesterol in LDL Calc [Mas s/Vol]on 05-27-2023 Cholesterol in LDL [Mass/Vol] 87.0 mg/dL [facility] Comment on above: <100 mg/dl [id number] 0-129 mg/dl NEAR OR ABOVE [id number] mg/dl BORDERLINE [id number] mg/dl HIGH>190 mg/dl VERY HIGH Cholesterol in VLDL Calc [Ma ss/Vol]on 05-27-2023 Cholesterol in VLDL [Mass/Vol] 30.6 mg/dL [facility] Color Auto (U)on 05-27-2023 Color (U) LT. YELLOW YELLOW [facility] Erythrocyte distribution wid th Auto (RBC) [Ratio]on 05-27-2023 Erythrocyte distribution width (RBC) [Ratio] 12.7 % 11.0-15.0 [facility] Estimated glomerular filtrat ion rate (GFR) non- Americanon 05-27-2023 GFR/1.73 sq M.predicted among non-blacks MDRD (S/P/Bld) [Vol rate/Area] 40 mL/min/{1.73_m2} >=60 [facility] Globulin Calc (S) [Mass/Vol] on 05-27-2023 Globulin (S) [Mass/Vol] 4.5 g/dL [facility] Hematocrit Auto (Bld) [Volum e fraction]on 05-27-2023 Hematocrit (Bld) [Volume fraction] 38.7 % 36.0-48.0 [facility] Hemoglobin [Mass/volume] in Bloodon 05-27-2023 Hemoglobin (Bld) [Mass/Vol] 11.9 g/dL 12.0-16.0 [facility] Iron binding capacity [Mass/ volume] in Serum or Plasmaon 05-27-2023 Iron binding capacity [Mass/Vol] 384.0 ug/dL 250.0-450. 0 [facility] Iron saturation [Mass Fracti on] in Serum or Plasmaon 05-27-2023 Iron saturation [Mass fraction] 16.7 % [facility] Ketones Auto test strip (U) [Mass/Vol]on 05-27-2023 Ketones (U) [Mass/Vol] Negative NEGATIVE [facility] Laboratory - Chemistry and C hemistry - challengeon 05-27-2023 Albumin [Mass/Vol] 4.1 g/dL 3.4-5.0 [facility] ALP [Catalytic activity/Vol] 102 U/L 46-116 [facility] ALT [Catalytic activity/Vol] 21 U/L 14-59 [facility] AST [Catalytic activity/Vol] 20 U/L 15-37 [facility] Bilirubin [Mass/Vol] 0.3 mg/dL 0.2-1.0 [facility] Calcium [Mass/Vol] 9.6 mg/dL 8.5-10.1 [facility] Chloride [Moles/Vol] 104 mmol/L 98-107 [facility] Cholesterol [Mass/Vol] 176 mg/dL <=200 [facility] Cholesterol in HDL [Mass/Vol] 59 mg/dL 40-60 [facility] Comment on above: > or =60 mg/dl - LOW CARDIOVASCULAR RISK<40 mg/dl - HIGH CARDIOVASCULAR RISK CO2 [Moles/Vol] 26.2 mmol/L 21.0-32.0 [facility] Cobalamin (Vitamin B12) [Mass/Vol] 5763.0 pg/mL 193.0-986. 0 [facility] Creatinine [Mass/Vol] 1.30 mg/dL 0.55-1.02 [facility] Ferritin [Mass/Vol] 101.0 ng/mL 8.0-252.0 [facility] GFR/1.73 sq M.predicted MDRD (S/P/Bld) [Vol rate/Area] 49 mL/min/{1.73_m2} >=60 [facility] Glucose [Mass/Vol] 107 mg/dL 74-106 [facility] Iron [Mass/Vol] 64.0 ug/dL 50.0-170.0 [facility] Magnesium [Mass/Vol] 2.1 mg/dL 1.8-2.4 [facility] Potassium [Moles/Vol] 4.0 mmol/L 3.5-5.1 [facility] Protein [Mass/Vol] 8.6 g/dL 6.4-8.2 [facility] Sodium [Moles/Vol] 142 mmol/L 136-145 [facility] Triglyceride [Mass/Vol] 153 mg/dL <=150 [facility] Urate [Mass/Vol] 6.9 mg/dL 2.6-6.0 [facility] Urea nitrogen [Mass/Vol] 20.0 mg/dL 7.0-18.0 [facility] Urea nitrogen/Creatinin e [Mass ratio] 15.4 mg/mg [facility] Laboratory - Urinalysison Protein (U) [Mass/Vol] 16.2 mg/dL <=11.9 [facility] Leukocytes [#/volume] correc anabelle for nucleated erythrocytes in Blood by Automated counon 05-27-2023 WBC corrected for nucl RBC Auto (Bld) [#/Vol] 8.6 10 3/uL 4.0-11.0 [facility] MCH Auto (RBC) [Entitic mass ]on 05-27-2023 MCH (RBC) [Entitic mass] 27.9 pg 26.7-34.0 [facility] MCHC Auto (RBC) [Mass/Vol]on 05-27-2023 MCHC (RBC) [Mass/Vol] 30.7 g/dL 29.9-35.2 [facility] MCV Auto (RBC) [Entitic vol] on 05-27-2023 MCV (RBC) [Entitic vol] 90.8 fL 81.0-99.0 [facility] No Panel Informationon 05-26 25-Hydroxy Vitamin D Total 57.6 ng/mL [facility] Comment on above: <20 ng/mL Vit D defi cient20-<30 ng/mL Vit D wbbwnzvrfruy03-255 ng/mL Vit D sufficient>100 ng/mL Potential Toxicity Folate 15.70 ng/mL 8.60-58.90 [facility] Parathyroid Hormone (Intact) 31 pg/mL 15-65 [facility] Comment on above: Performed at: [address] [id number] Director: Aric Leone PhD, Phone: [phone] Phosphorus Level 4.2 mg/dL 2.6-4.7 [facility] Urine Random Creatinine 73.96 mg/dL 20.00-300. 00 [facility] Platelet mean volume Auto (B ld) [Entitic vol]on 05-27-2023 Platelet mean volume (Bld) [Entitic vol] 10.6 fL 9.5-13.5 [facility] Platelets Auto (Bld) [#/Vol] on 05-27-2023 Platelets (Bld) [#/Vol] 188 10 3/uL 150-450 [facility] Protein Auto test strip (U) [Mass/Vol]on 05-27-2023 Protein (U) [Mass/Vol] Negative NEG/TRACE [facility] RBC Auto (Bld) [#/Vol]on RBC (Bld) [#/Vol] 4.26 10 6/uL 4.20-5.40 [facility] Serum or plasma albumin/glob ulin mass ratioon 05-27-2023 Albumin/Globulin [Mass ratio] 0.9 {ratio} [facility] Serum or plasma anion gap de terminationon 05-27-2023 Anion gap [Moles/Vol] 15.8 mmol/L [facility] Serum or plasma total choles terol/high density lipoprotein (HDL) cholesterol mass mikey 05-27-2023 Cholesterol.total/ Cholesterol in HDL [Mass ratio] 3.0 {ratio} [facility] Comment on above: 3.3 - 4.4 LOW RISK4. 4 - 7.1 AVERAGE RISK7.1 - 11.0 MODERATE RISK>11.0 HIGH RISK Specific gravity Auto test s trip (U) [Rel density]on 05-27-2023 Specific gravity (U) [Rel density] CLEAR CLEAR [facility] Urine glucose measurement by test strip (mass/volume)on 05-27-2023 Glucose Test strip (U) [Mass/Vol] >=1000 mg/dL NEGATIVE [facility] Urine hemoglobin detection b y automated test stripon 05-27-2023 Hemoglobin Auto test strip Ql (U) Negative NEGATIVE [facility] Urine nitrite detection by a utomated test stripon 05-27-2023 Nitrite Auto test strip Ql (U) Negative NEGATIVE [facility] Urine protein/creatinine rat ioon 05-27-2023 Protein/Creatinine (U) [Ratio] 0.22 [facility] Urobilinogen Auto test strip (U) [Mass/Vol]on 05-27-2023 Urobilinogen Qn (U) 0.2 {Michael'U}/dL 0.2-1.0 [facility] pH Auto test strip (U)on pH (U) 5.5 [pH] 5.0-9.0 [facility] HbA1c HPLC (Bld) [Mass fract ion]on 05-12-2023 HbA1c (Bld) [Mass fraction] 6.2 % [facility] No Panel Informationon 05-11 Bedside Glucose 122 [facility] A1C HEMOGLOBINon 12-14-2022 HbA1c (Bld) [Mass fraction] 6.3 % [facility] Other Glucose - FINGER STICKon Glucose [Mass/Vol] 133 mg/dL [facility] Other HbA1c (Bld) [Mass fraction]o n 12-14-2022 A1C HEMOGLOBIN [facility] Other A1C HEMOGLOBINon 09-09-2022 HbA1c (Bld) [Mass fraction] 6.5 % [facility] Other Glucose - FINGER STICKon Glucose [Mass/Vol] 107 mg/dL [facility] Other HbA1c (Bld) [Mass fraction]o n 09-09-2022 A1C HEMOGLOBIN [facility] Other PTH INTACTon 07-17-2022 PTH, Intact 68 pg/mL Critically high 15-65 [facility] Comment on above: Performed By: #### P THINT #### [facility] [address], [place] [address] Dr. Tim Moya HEMOGRAM AND PLATELon 2022 Hematocrit (Bld) [Volume fraction] 36.5 % Normal 36.0-48.0 [facility] Comment on above: Performed By: #### H H ####[facility] [address] [place], [place] [address]IoDr. Tim Moya Hemoglobin (Bld) [Mass/Vol] 11.7 g/dL Critically low 12.0-16.0 [facility] Comment on above: Performed By: #### H H ####[facility] [address] [place] [address]Dr. Tim Moya MCH (RBC) [Entitic mass] 28.3 pg Normal 26.7-34.0 [facility] Comment on above: Performed By: #### H H ####[facility] [address] [place] [address]Dr. Tim Moya MCHC (RBC) [Mass/Vol] 32.1 g/dL Normal 29.9-35.2 [facility] Comment on above: Performed By: #### H H ####[facility] [address] [place] [address]Dr. Tim Moya MCV (RBC) [Entitic vol] 88.2 fL Normal 81.0-99.0 [facility] Comment on above: Performed By: #### H H ####[facility] [address] [place] [address]Dr. Tim Moya PLT 242 103/ul Normal 150-450 [facility] Comment on above: Performed By: #### H H ####[facility] [address] [place] [address]Dr. iTm Moya RBC 4.14 106/ul Critically low 4.20-5.40 [facility] Comment on above: Performed By: #### H H ####[facility] [address] [place] [address]Dr. Tim Moya WBC 9.2 103/ul Normal 4.0-11.0 [facility] Comment on above: Performed By: #### H H ####[facility] [address] [place] [address]Dr. Tim Moya MAGNESIUMon 07-16-2022 Magnesium [Mass/Vol] 2.4 mg/dL Normal 1.8-2.4 [facility] Comment on above: Performed By: #### C MP, PHOS, URIC, MG #### [facility] [address] [place] [address] [address] Tim Moya PHOSPHORUSon 07-16-2022 Phosphate [Mass/Vol] 3.3 mg/dL Normal 2.6-4.7 [facility] Comment on above: Performed By: #### C MP, PHOS, URIC, MG ####[facility] [address] [place] [address]Dr. Tim Moya PROF 14(COMP METB)on 023 Albumin [Mass/Vol] 3.9 g/dL Normal 3.4-5.0 [facility] Comment on above: Performed By: #### C MP, PHOS, URIC, MG ####[facility] [address] [place] [address]Dr. Tim Moya Albumin/Globulin [Mass ratio] 0.8 {ratio} Normal [facility] Comment on above: Performed By: #### C MP, PHOS, URIC, MG ####[facility] [address] [place] [address]Dr. Tim Moya ALP [Catalytic activity/Vol] 107 U/L Normal 46-116 [facility] Comment on above: Performed By: #### C MP, PHOS, URIC, MG ####[facility] [address] [place], [place] [address]Dr. Tim Moya ALT [Catalytic activity/Vol] 22 U/L Normal 14-59 [facility] Comment on above: Performed By: #### C MP, PHOS, URIC, MG ####[facility] [address] [place] [address]Dr. Tim Moya Anion gap [Moles/Vol] 12.4 mmol/L Normal [facility] Comment on above: Performed By: #### C MP, PHOS, URIC, MG ####[facility] [address] [place] [address]Dr. Tim Moya AST [Catalytic activity/Vol] 19 U/L Normal 15-37 [facility] Comment on above: Performed By: #### C MP, PHOS, URIC, MG ####[facility] [address] [place] [address]Dr. Tim Moya Bilirubin [Mass/Vol] 0.2 mg/dL Normal 0.2-1.0 [facility] Comment on above: Performed By: #### C MP, PHOS, URIC, MG ####[facility] [address] [place] [address]Dr. Tim Moya Calcium [Mass/Vol] 8.7 mg/dL Normal 8.5-10.1 [facility] Comment on above: Performed By: #### C MP, PHOS, URIC, MG ####[facility] [address] [place] [address]Dr. Tim Moya Chloride [Moles/Vol] 108 mmol/L Critically high 98-107 [facility] Comment on above: Performed By: #### C MP, PHOS, URIC, MG ####[facility] [address] [place] [address]Dr. Tim Moya CO2 [Moles/Vol] 26.1 mmol/L Normal 21.0-32.0 [facility] Comment on above: Performed By: #### C MP, PHOS, URIC, MG ####[facility] [address] [place] [address]Dr. Tim Moya Creatinine [Mass/Vol] 1.21 mg/dL Critically high 0.55-1.02 [facility] Comment on above: Performed By: #### C MP, PHOS, URIC, MG ####[facility] [address] [place] [address]Dr. Tim Moya EGFR-AF EQUATORIAL GUINEAN 53 mL/min/1.73m2 Critically low >=60 [facility] Comment on above: Performed By: #### C MP, PHOS, URIC, MG ####[facility] [address] [place] [address]Dr. Tim Moya EGFR-NON AF EQUATORIAL GUINEAN 44 mL/min/1.73m2 Critically low >=60 [facility] Comment on above: Performed By: #### C MP, PHOS, URIC, MG ####[facility] [address] [place] [address]Dr. Tim Moya Globulin (S) [Mass/Vol] 4.9 g/dL Normal [facility] Comment on above: Performed By: #### C MP, PHOS, URIC, MG ####[facility] [address] [place] [address]Dr. Tim Moya Glucose [Mass/Vol] 94 mg/dL Normal 74-106 [facility] [facility] Comment on above: Performed By: #### C MP, PHOS, URIC, MG ####[facility] [address] [address]Dr. Tim Moya Potassium [Moles/Vol] 4.5 mmol/L Normal 3.5-5.1 [facility] Comment on above: Performed By: #### C MP, PHOS, URIC, MG ####[facility] [address] [place] [address]Dr. Tim Moya Protein [Mass/Vol] 8.8 g/dL Critically high 6.4-8.2 [facility] Comment on above: Performed By: #### C MP, PHOS, URIC, MG ####[facility] [address] [place] [address]Dr. Tim Moya Sodium [Moles/Vol] 142 mmol/L Normal 136-145 [facility] Comment on above: Performed By: #### C MP, PHOS, URIC, MG ####[facility] [address] [place] [address]Dr. Tim Moya Urea nitrogen [Mass/Vol] 20.0 mg/dL Critically high 7.0-18.0 [facility] Comment on above: Performed By: #### C MP, PHOS, URIC, MG ####[facility] [address] [place] [address]Dr. Tim Moya Urea nitrogen/Creatinin e [Mass ratio] 16.5 mg/mg Normal [facility] Comment on above: Performed By: #### C MP, PHOS, URIC, MG ####[facility] [address] [place] [address]Dr. Tim Moya UA RANDOMon 07-16-2022 Bilirubin Ql (U) Negative Normal NEGATIVE [facility] Comment on above: Performed By: #### U A #### [facility] [address] [place] [address] Dr. Tim Moya Clarity (U) CLOUDY Abnormal CLEAR [facility] Comment on above: Performed By: #### U A #### [facility] [address] [place] [address] Dr. Tim Moya Color (U) YELLOW Normal YELLOW [facility] Comment on above: Performed By: #### U A #### [facility] [address] [place] [address] Dr. Tim Moya Glucose Ql (U) 500 mg/dl Abnormal NEGATIVE [facility] Comment on above: Performed By: #### U A #### [facility] [address] [place] [address] Dr. Tim Moya Hemoglobin Ql (U) TRACE Abnormal NEGATIVE [facility] Comment on above: Performed By: #### U A #### [facility] [address] [place] [address] Dr. Tim Moya Ketones Ql (U) Negative Normal NEGATIVE [facility] Comment on above: Performed By: #### U A #### [facility] [address] [place] [address] Dr. Tim Moya LEUKOCYTES MODERATE Abnormal NEGATIVE [facility] Comment on above: Performed By: #### U A #### [facility] [address] [place] [address] Dr. Tim Moya Nitrite Ql (U) Negative Normal NEGATIVE [facility] Comment on above: Performed By: #### U A #### [facility] [address] [place] [address] Dr. Tim Moya pH (U) 6.0 [pH] Normal 5-9 [facility] Comment on above: Performed By: #### U A #### [facility] [address] [place] [address] Dr. Tim Moya SPEC GRAVITY 1.010 Normal 1.005-<=1. 025 [facility] Comment on above: Performed By: #### U A #### [facility] [address] [address] [address] Tim Moya UA PROTEIN Negative Normal NEGATIVE/ TRACE [facility] Comment on above: Performed By: #### U A #### [facility] [address] [address] [address] Tim Moya Urobilinogen Qn (U) 0.2 {Michael'U}/dL Normal 0.2 - 1.0 [facility] Comment on above: Performed By: #### U A #### [facility] [address] [address] [address] Tim Moya URIC ACID SERUMon 07-16-2022 Urate [Mass/Vol] 6.6 mg/dL Critically high 2.6-6.0 [facility] Comment on above: Performed By: #### C MP, PHOS, URIC, MG ####[facility] [address] [place] [address]Dr. Tim Moya URINE T PROTEIN CREAT RATIOo n 07-16-2022 Protein (U) [Mass/Vol] 25.1 mg/dL Critically high <=12.0 [facility] Comment on above: Performed By: #### U RTPCR #### [facility] [address] [place] [address] Dr. Tim Moya UR PROT CREAT RAT 0.72 Normal [facility] Comment on above: Performed By: #### U RTPCR #### [facility] [address] [place] [address] Dr. Tim Moya URINE CREAT 34.83 mg/dL Normal 20.00-300. 00 [facility] Comment on above: Performed By: #### U RTPCR #### [facility] [address] [place] [address] Dr. Tim Moya VITAMIN D 25 OHon 07-16-2022 VIT D 25-OH 31.0 ng/mL Normal [facility] Comment on above: Performed By: #### V ITAD #### [facility] [address] [place] [address] Dr. Tim Moya VIT D RANGES SEE BELOW Normal [facility] Comment on above: Result Comment: <20 ng/mL Vit D deficient 20 - <30 ng/mL Vit D insufficient 30 - 100 ng/mL Vit D sufficient >100 ng/mL Potential Toxicity Performed By: #### V ITAD #### [facility] [address] [address] [address] Tim Moya KIDNEYSon 04-22-2022 US KIDNEYS EXAMINATION: US KIDTravis EYMaggy HISTORY: Chronic kidney disease stage 3a , [...] by: GABINO CORONADO Date: 2022-04-22 09:43 Normal [facility] A1C HEMOGLOBINon 02-25-2022 HbA1c (Bld) [Mass fraction] 7.0 % [employer] Other Glucose - FINGER STICKon Glucose [Mass/Vol] 104 mg/dL [employer] Other HbA1c (Bld) [Mass fraction]o n 02-25-2022 A1C HEMOGLOBIN [employer] Other INSULIN AUTOANTIBODIESon Insulin Antibodies <5.0 Normal [facility] Comment on above: Result Comment: This test is also known as insulin autoantibody or IAA. This test was developed and its performance characteristics determined by [employer]. It has not been cleared or approved by the Food and Drug Administration. Reference Range: <5.0 Negative > or = 5.0 Positive Performed By: #### I AA #### [facility] [address] [address] [address] Tim Moya GLUTAMIN ACID DECARBOXYLASE (MICHAEL)on 11-22-2021 MICHAEL-65 <5.0 Normal 0.0-5.0 [facility] Comment on above: Performed By: #### G AD #### [facility] [address] [address] [address] Tim Moya C-PEPTIDE, SERUMon C-Peptide, Serum 2.1 ng/mL Normal 1.1-4.4 [facility] Comment on above: Result Comment: C-Pe ptide reference interval is for fasting patients. Performed By: #### C PEPT #### [facility] [address] [address] [address] Tim Moya VIT D 25-OH LABCORPon 2021 Vitamin D, 25-Hydroxy 24.5 ng/mL Critically low 30.0-100.0 [facility] Comment on above: Result Comment: Ileana min D deficiency has been defined by the [place] of Medicine and an Endocrine Society practice guideline as a level of serum 25-OH vitamin D less than 20 ng/mL (1,2). The Endocrine Society went on to further define vitamin D insufficiency as a level between 21 and 29 ng/mL (2). 1. IOM ([place] of Medicine). 2010. Dietary reference intakes for calcium and D. [place]: The National Academies Press. 2. Yessenia MF, Tavia NC, Jacinda PALM, et al. Evaluation, treatment, and prevention of vitamin D deficiency: an Endocrine Society clinical practice guideline. JCEM. 2010; 96(7):1911-30. Performed By: #### V ITADLC #### [facility] [address] [address] [address] Tim Moya PROF 14(COMP METB)on 022 Albumin [Mass/Vol] 3.6 g/dL Normal 3.4-5.0 [facility] Comment on above: Performed By: #### C MP ####[facility] [address] [place] [address]Dr. Tim Moya Albumin/Globulin [Mass ratio] 0.8 {ratio} Normal [facility] Comment on above: Performed By: #### C MP ####[facility] [address] [place] [address]Dr. Tim Moya ALP [Catalytic activity/Vol] 116 U/L Normal 46-116 [facility] Comment on above: Performed By: #### C MP ####[facility] [address] [place], [place] [address]Dr. Tim Moya ALT [Catalytic activity/Vol] 42 U/L Normal 14-59 [facility] Comment on above: Performed By: #### C MP ####[facility] [address] [place], [place] [address]Dr. Tim Moya Anion gap [Moles/Vol] 10.1 mmol/L Normal [facility] Comment on above: Performed By: #### C MP ####[facility] [address] [place], [place] [address]Dr. Tim Moya AST [Catalytic activity/Vol] 39 U/L Critically high 15-37 [facility] Comment on above: Performed By: #### C MP ####[facility] [address] [place], [place] [address]Dr. Tim Moya Bilirubin [Mass/Vol] 0.2 mg/dL Normal 0.2-1.0 [facility] Comment on above: Performed By: #### C MP ####[facility] [address] [place], [place] [address]Dr. Tim Moya Calcium [Mass/Vol] 9.0 mg/dL Normal 8.5-10.1 [facility] Comment on above: Performed By: #### C MP ####[facility] [address] [place], [place] [address]Dr. Tim Moya Chloride [Moles/Vol] 108 mmol/L Critically high 98-107 [facility] Comment on above: Performed By: #### C MP ####[facility] [address] [place], [place] [address]Dr. Tim Moya CO2 [Moles/Vol] 27.0 mmol/L Normal 21.0-32.0 [facility] Comment on above: Performed By: #### C MP ####[facility] [address] [place], [place] [address]Dr. Tim Moya Creatinine [Mass/Vol] 1.01 mg/dL Normal 0.55-1.02 [facility] Comment on above: Performed By: #### C MP ####[facility] [address] [place], [place] [address]Dr. Tim Moya EGFR-AF EQUATORIAL GUINEAN >60 Normal >=60 [facility] Comment on above: Performed By: #### C MP ####[facility] [address] [place], [place] [address]Dr. Tim Moya EGFR-NON AF EQUATORIAL GUINEAN 54 mL/min/1.73m2 Critically low >=60 [facility] Comment on above: Performed By: #### C MP ####[facility] [address] [place], [place] [address]Dr. Tim Moya Globulin (S) [Mass/Vol] 4.4 g/dL Normal [facility] Comment on above: Performed By: #### C MP ####[facility] [address] [place], [place] [address]Dr. Tim Moya Glucose [Mass/Vol] 120 mg/dL Critically high 74-106 [facility] Comment on above: Performed By: #### C MP ####[facility] [address] [place], [place] [address]Dr. Tim Moya Potassium [Moles/Vol] 4.1 mmol/L Normal 3.5-5.1 [facility] Comment on above: Performed By: #### C MP ####[facility] [address] [place], [place] [address]Dr. Tim Moya Protein [Mass/Vol] 8.0 g/dL Normal 6.4-8.2 [facility] Comment on above: Performed By: #### C MP ####[facility] [address] [place], [place] [address]Dr. Tim Moya Sodium [Moles/Vol] 141 mmol/L Normal 136-145 [facility] Comment on above: Performed By: #### C MP ####[facility] [address] [place] [id number]. Tim Moya Urea nitrogen [Mass/Vol] 20.0 mg/dL Critically high 7.0-18.0 [facility] Comment on above: Performed By: #### C MP ####[facility] [address] [place] [id number]. Tim Moya Urea nitrogen/Creatinin e [Mass ratio] 19.8 mg/mg Normal [facility] Comment on above: Performed By: #### C MP ####[facility] [address] [place], [place] [address]Aw. Tim Moya A1C HEMOGLOBINon 09-24-2021 HbA1c (Bld) [Mass fraction] 5.9 % [employer] Other Glucose - FINGER STICKon Glucose [Mass/Vol] 95 mg/dL [employer] Other HbA1c (Bld) [Mass fraction]o n 09-24-2021 A1C HEMOGLOBIN [employer] Other COVID Quick Testingon 2021 Result Negative [employer] Other A1C HEMOGLOBINon 06-16-2021 HbA1c (Bld) [Mass fraction] 6.3 % [employer] Other Glucose - FINGER STICKon Glucose [Mass/Vol] 99 mg/dL [employer] Other HbA1c (Bld) [Mass fraction]o n 06-16-2021 A1C HEMOGLOBIN [employer] Other A1C HEMOGLOBINon 03-06-2021 HbA1c (Bld) [Mass fraction] 5.9 % [employer] Other Glucose - FINGER STICKon Glucose [Mass/Vol] 109 mg/dL [employer] Other HbA1c (Bld) [Mass fraction]o n 03-06-2021 A1C HEMOGLOBIN [employer] Other Ambulatory Clinical Summaryo n 12-02-2020 Ambulatory Clinical Summary {[id number]}CD:6143 68 Normal [facility] General Surgery Office/Clini c Noteon 12-01-2020 [...] mRNA-1273 vaccine 05/02/2020 Recorded patient seen 11/29/20 [facility] Comment on above: Result Comment: Elec tronically Signed By: ANDREA PETTY, Rigo Edwards\Date and Time Signed: 12/01/20 21:10 EDT Ambulatory Clinical Summaryo n 11-29-2020 Ambulatory Clinical Summary {[id number]}CD:6143 68 Normal [facility] A1C HEMOGLOBINon 11-27-2020 HbA1c (Bld) [Mass fraction] 6.7 % [place] [employer] Other Glucose - FINGER STICKon Glucose [Mass/Vol] 102 mg/dL [facility] [employer] Other HbA1c (Bld) [Mass fraction]o n 11-27-[address] [facility] [employer] Other Outside Colonoscopyon 2020 Outside Colonoscopy [id number]:127 [facility] Pathology Noteon 11-08-2020 Pathology Note [id number]:127 [facility] Lab Reportson 11-05-2020 Lab Reports [id number]:127 [facility] October 23, 2020 YARELY MCGUIRE, [address] [place] [address] Re: CARI CHEN Date of : 1950 [...] persist. Sincerely, Rigo Egan MD General Surgery [facility] Consent for Procedure/Surger yon 10-21-2020 Consent for Procedure/Surgery [id number]:127 [facility] Immunization Recordson 10-21 Immunization Records [id number]:127 [facility] Ambulatory Clinical Summaryo n 10-18-2020 Ambulatory Clinical Summary {[id number]}CD:6143 68 Normal [facility] General Surgery Office/Clini c Noteon 10-18-2020 [...] Stroke: Fath (more content not included)... Normal [facility] Comment on above: Result Comment: Elec tronically Signed By: ANDREA PETTY, Rigo Edwards\Date and Time Signed: 10/18/20 13:50 EDT Physician Referralon 021 Physician Referral [id number]:127 Normal [facility] Vital Signs Date Time Vital Sign Value Performing Clinician Facility 10-25-2023 14:13-0400 Body height 162.[address] [facility] 10-25-2023 14:13-0400 Body mass index (BMI) [Ratio] 28.8 kg/m2 [facility] 10-25-2023 14:13-0400 Body weight 76.[address] [facility] 10-25-2023 14:13-0400 Diastolic blood pressure 70 mm[Hg] [facility] 10-25-2023 14:13-0400 Heart rate 63 /min [facility] 10-25-2023 14:13-0400 Respiratory rate 18 /min [facility] 10-25-2023 14:13-0400 SaO2% (BldA) [Mass fraction] 98 % [facility] 10-25-2023 14:13-0400 Systolic blood pressure 117 mm[Hg] [facility] 06-01-2023 09:19-0400 Body height 162.[address] [facility] 06-01-2023 09:19-0400 Body mass index (BMI) [Ratio] 27.4 kg/m2 [facility] 06-01-2023 09:19-0400 Body temperature 97.4 [degF] [facility] 06-01-2023 09:19-0400 Body weight 72.[address] [facility] 06-01-2023 09:19-0400 Diastolic blood pressure 67 mm[Hg] [facility] 06-01-2023 09:19-0400 Heart rate 71 /min [facility] 06-01-2023 09:19-0400 Respiratory rate 16 /min [facility] 06-01-2023 09:19-0400 SaO2% (BldA) [Mass fraction] 98 % [facility] 06-01-2023 09:19-0400 Systolic blood pressure 126 mm[Hg] [facility] 05-12-2023 15:34-0500 Body height 162.[address] [facility] 05-12-2023 15:34-0500 Body mass index (BMI) [Ratio] 28.2 kg/m2 [facility] 05-12-2023 15:34-0500 Body weight 74.[address] [facility] 05-12-2023 15:34-0500 Diastolic blood pressure 73 mm[Hg] [facility] 05-12-2023 15:34-0500 Heart rate 68 /min [facility] 05-12-2023 15:34-0500 Respiratory rate 16 /min [facility] 05-12-2023 15:34-0500 SaO2% (BldA) [Mass fraction] 99 % [facility] 05-12-2023 15:34-0500 Systolic blood pressure 123 mm[Hg] [facility] 02-25-2023 10:15-0500 Body height 162.[address] [facility] 02-25-2023 10:15-0500 Body weight 71.[address] [facility] 02-25-2023 10:15-0500 Diastolic blood pressure 73 mm[Hg] [facility] 02-25-2023 10:15-0500 Systolic blood pressure 120 mm[Hg] [facility] 01-26-2023 11:00-0500 Body height 162.[address] [facility] 01-26-2023 11:00-0500 Body weight 71.[address] [facility] 01-26-2023 11:00-0500 Diastolic blood pressure 63 mm[Hg] [facility] 01-26-2023 11:00-0500 Systolic blood pressure 130 mm[Hg] [facility] 01-20-2023 10:20-0500 Body height 162.56 cm Azzee Ellisons Other [facility] [facility] [employer] Other 01-20-2023 10:20-0500 Body mass index (BMI) [Ratio] 27.5 kg/m2 Aziz Bakhous Other [employer] Other 01-20-2023 10:20-0500 Body temperature 97.2 [degF] Azzee Ellisons Other [employer] Other 01-20-2023 10:20-0500 Body weight 72.67 kg Aziz Bakhous Other [employer] Other 01-20-2023 10:20-0500 Diastolic blood pressure 68 mm[Hg] Aziz Baklissets Other [employer] Other 01-20-2023 10:20-0500 Respiratory rate 18 /min Aziz Bakhous Other [employer] Other 01-20-2023 10:20-0500 SaO2% (BldA) [Mass fraction] 99 % Aziz Bakhous Other [employer] Other 01-20-2023 10:20-0500 Systolic blood pressure 111 mm[Hg] Aziz Bakhous Other [employer] Other 12-14-2022 09:45-0400 Body height 162.56 cm Loni Scally Other [employer] Other 12-14-2022 09:45-0400 Diastolic blood pressure 67 mm[Hg] Loni Scally Other [employer] Other 12-14-2022 09:45-0400 Respiratory rate 18 /min Loni Scally Other [employer] Other 12-14-2022 09:45-0400 SaO2% (BldA) [Mass fraction] 99 % Loni Scally Other [employer] Other 12-14-2022 09:45-0400 Systolic blood pressure 108 mm[Hg] Loni Scally Other [employer] Other 09-09-2022 10:45-0400 Body height 162.56 cm Loni Scally Other [employer] Other 09-09-2022 10:45-0400 Body mass index (BMI) [Ratio] 26.48 kg/m2 Loni Scally Other [employer] Other 09-09-2022 10:45-0400 Body weight 69.99 kg Loni Scally Other [employer] Other 09-09-2022 10:45-0400 Diastolic blood pressure 68 mm[Hg] Loni Scally Other [employer] Other 09-09-2022 10:45-0400 Respiratory rate 18 /min Loni Scally Other [employer] Other 09-09-2022 10:45-0400 SaO2% (BldA) [Mass fraction] 97 % Loni Scally Other [employer] Other 09-09-2022 10:45-0400 Systolic blood pressure 112 mm[Hg] Loni Scally Other [employer] Other 05-12-2022 13:30-0500 Body height 162.56 cm Loni Scally Other [employer] Other 05-12-2022 13:30-0500 Body mass index (BMI) [Ratio] 26.47 kg/m2 Loni Scally Other [employer] Other 05-12-2022 13:30-0500 Body weight 69.95 kg Loni Scally Other [employer] Other 05-12-2022 13:30-0500 Diastolic blood pressure 74 mm[Hg] Loni Scally Other [employer] Other 05-12-2022 13:30-0500 Respiratory rate 18 /min Loni Scally Other [employer] Other 05-12-2022 13:30-0500 SaO2% (BldA) [Mass fraction] 100 % Loni Scally Other [employer] Other 05-12-2022 13:30-0500 Systolic blood pressure 122 mm[Hg] Loni Scally Other [employer] Other 02-25-2022 12:15-0500 Body height 162.56 cm Loni Scally Other [employer] Other 02-25-2022 12:15-0500 Body mass index (BMI) [Ratio] 26.35 kg/m2 Loni Scally Other [employer] Other 02-25-2022 12:15-0500 Body weight 69.63 kg Loni Scally Other [employer] Other 02-25-2022 12:15-0500 Diastolic blood pressure 66 mm[Hg] Loni Scally Other [employer] Other 02-25-2022 12:15-0500 Respiratory rate 18 /min Loni Scally Other [employer] Other 02-25-2022 12:15-0500 SaO2% (BldA) [Mass fraction] 100 % Loni Scally Other [employer] Other 02-25-2022 12:15-0500 Systolic blood pressure 136 mm[Hg] Loni Scally Other [employer] Other 01-07-2022 14:20-0400 Body height 162.56 cm Sypher[employer] Sebacia Other [employer] Other 01-07-2022 14:20-0400 Body mass index (BMI) [Ratio] 25.5 kg/m2 [email or web address] Other [employer] Other 01-07-2022 14:20-0400 Body temperature 96.6 [degF] [email or web address] Other [employer] Other 01-07-2022 14:20-0400 Body weight 67.4 kg Azzee Ellisons Other [employer] Other 01-07-2022 14:20-0400 Diastolic blood pressure 74 mm[Hg] Azzee Baklissets Other [employer] Other 01-07-2022 14:20-0400 Respiratory rate 18 /min Homero Ellisons Other [employer] Other 01-07-2022 14:20-0400 SaO2% (BldA) [Mass fraction] 99 % Homero Ellisons Other [employer] Other 01-07-2022 14:20-0400 Systolic blood pressure 125 mm[Hg] Homero Ellisons Other [employer] Other 09-24-2021 10:15-0400 Body height 162.56 cm Loni Scally Other [employer] Other 09-24-2021 10:15-0400 Body mass index (BMI) [Ratio] 24.27 kg/m2 Loni Scally Other [employer] Other 09-24-2021 10:15-0400 Body weight 64.14 kg Loni Scally Other [employer] Other 09-24-2021 10:15-0400 Diastolic blood pressure 66 mm[Hg] Loni Scally Other [employer] Other 09-24-2021 10:15-0400 Respiratory rate 18 /min Loni Scally Other [employer] Other 09-24-2021 10:15-0400 SaO2% (BldA) [Mass fraction] 100 % Loni Scally Other [employer] Other 09-24-2021 10:15-0400 Systolic blood pressure 111 mm[Hg] Loni Scally Other [employer] Other 06-16-2021 10:00-0400 Body height 162.56 cm Loni Scally Other [employer] Other 06-16-2021 10:00-0400 Body mass index (BMI) [Ratio] 24.58 kg/m2 Loni Scally Other [employer] Other 06-16-2021 10:00-0400 Body weight 64.96 kg Loni Scally Other [employer] Other 06-16-2021 10:00-0400 Diastolic blood pressure 68 mm[Hg] Loni Scally Other [employer] Other 06-16-2021 10:00-0400 Respiratory rate 18 /min Loni Scally Other [employer] Other 06-16-2021 10:00-0400 SaO2% (BldA) [Mass fraction] 100 % Loni Scally Other [employer] Other 06-16-2021 10:00-0400 Systolic blood pressure 126 mm[Hg] Loni Scally Other [employer] Other 03-06-2021 09:15-0500 Body height 162.56 cm Loni Scally Other [employer] Other 03-06-2021 09:15-0500 Body mass index (BMI) [Ratio] 25.52 kg/m2 Loni Scally Other [employer] Other 03-06-2021 09:15-0500 Body weight 67.45 kg Loni Scally Other [employer] Other 03-06-2021 09:15-0500 Diastolic blood pressure 83 mm[Hg] Loni Scally Other [employer] Other 03-06-2021 09:15-0500 Respiratory rate 18 /min Loni Scally Other [employer] Other 03-06-2021 09:15-0500 SaO2% (BldA) [Mass fraction] 100 % Loni Scally Other [employer] Other 03-06-2021 09:15-0500 Systolic blood pressure 138 mm[Hg] Loni Scally Other [employer] Other 11-27-2020 09:15-0400 Body height 162.56 cm Loni Scally Other [employer] Other 11-27-2020 09:15-0400 Body mass index (BMI) [Ratio] 26.38 kg/m2 Loni Scally Other [employer] Other 11-27-2020 09:15-0400 Body weight 69.72 kg Loni Scally Other [employer] Other 11-27-2020 09:15-0400 Diastolic blood pressure 76 mm[Hg] Loni Farmer Other [employer] Other 11-27-2020 09:15-0400 Respiratory rate 18 /min Loni Farmer Other [employer] Other 11-27-2020 09:15-0400 SaO2% (BldA) [Mass fraction] 99 % Loni Farmer Other [employer] Other 11-27-2020 09:15-0400 Systolic blood pressure 129 mm[Hg] Loni Farmer Other [employer] Other Encounters Encounter Date Encounter Type Care Provider Facility Start: 10-25-2023 End: 10-25-2023 ambulatory [facility] Work Phone: Start: 10-25-2023 End: 10-25-2023 Patient encounter procedure Formerly [facility] Physician [facility] Work Phone: Start: 08-04-2023 End: 08-04-2023 ambulatory CHERI PARKER Not Available Start: 06-01-2023 End: 06-01-2023 ambulatory [facility] Work Phone: Start: 06-01-2023 End: 06-01-2023 Patient encounter procedure Formerly [facility] Physician [facility] Nephrology Work Phone: Start: 05-27-2023 Non-patient / Non-visit Formerly [facility] Physician [facility] Professional [employer] Work Phone: Start: 05-12-2023 End: 05-12-2023 Patient encounter procedure Formerly [facility] Physician [facility] Work Phone: Start: 03-30-2023 End: 03-30-2023 ambulatory Loni Farmer Other [employer] Other Start: 03-30-2023 Telephone encounter Loni Branddionicio [facility] Start: 03-02-2023 End: 03-02-2023 ambulatory Aziz Bakhous Other [employer] Other Start: 03-02-2023 Telephone encounter Aziz Bakhous [facility] Start: 02-25-2023 End: 02-25-2023 ambulatory Aziz Bakhous Other [employer] Other Start: 02-25-2023 Telephone encounter Aziz Bakhous [facility] Start: 02-25-2023 End: 02-25-2023 Patient encounter procedure [facility] Work Phone: Start: 02-03-2023 End: 02-03-2023 ambulatory CHERI PARKER Not Available Start: 01-26-2023 End: 01-26-2023 Patient encounter procedure [facility] Work Phone: Start: 01-20-2023 End: 01-20-2023 ambulatory Aziz Bakhous Other [employer] Other Start: 01-20-2023 Office outpatient vi sit 25 minutes Aziz Bakhous [facility] Start: 01-07-2023 End: 01-07-2023 ambulatory Aziz Bakhous Other [employer] Other Start: 01-07-2023 Telephone encounter Aziz Bakhous [facility] Start: 12-14-2022 (DM) Diabetes [facility] Start: 12-14-2022 End: 12-15-2022 ambulatory Yarely Mcguire [employer] Other Start: 11-11-2022 End: 11-11-2022 ambulatory Loni Farmer Other [employer] Other Start: 11-11-2022 Telephone encounter Loni Cathiely [facility] Start: 09-09-2022 (DM) Diabetes Loni Scally [facility] Start: 09-09-2022 End: 09-09-2022 ambulatory Loni Scally Other [employer] Other Start: 09-09-2022 Telephone encounter Loni Scally [facility] Start: 08-05-2022 End: 08-05-2022 ambulatory Loni Scally Other [employer] Other Start: 08-05-2022 Telephone encounter Loni Scally [facility] Start: 07-16-2022 End: 07-17-2022 ambulatory [facility] Facility: Start: 05-22-2022 End: 05-22-2022 ambulatory Loni Scally Other [employer] Other Start: 05-22-2022 Telephone encounter Loni Scally [facility] Start: 05-12-2022 (DM) Diabetes Loni Scally [facility] Start: 05-12-2022 End: 05-12-2022 ambulatory Loni Scally Other [employer] Other Start: 05-08-2022 End: 05-08-2022 ambulatory Loni Scally Other [employer] Other Start: 05-08-2022 Telephone encounter Loni Cathiely [facility] Start: 05-07-2022 End: 05-07-2022 ambulatory Loni Scally Other [employer] Other Start: 05-07-2022 Telephone encounter Loni Scally [facility] Start: 04-22-2022 End: 04-23-2022 ambulatory AZIZ BAKHOUS Facility:[facility] Start: 02-25-2022 (DM) Diabetes [facility] Start: 02-25-2022 End: 02-25-2022 ambulatory Loni Cathiely Other [employer] Other Start: 01-08-2022 End: 01-08-2022 ambulatory Loni Farmer Other [employer] Other Start: 01-08-2022 Telephone encounter Loni Farmer [facility] Start: 01-07-2022 End: 01-07-2022 ambulatory Aziz Bakhous Other [employer] Other Start: 01-07-2022 Office outpatient ne w 30 minutes [facility] Start: 11-20-2021 End: 11-21-2021 ambulatory LONI CATHIELY Facility:[facility] Start: 10-15-2021 End: 10-15-2021 ambulatory Lonikirk Brandly Other [employer] Other Start: 10-15-2021 Nursing evaluation o f patient and report Loni [facility] Start: 09-26-2021 End: 09-26-2021 ambulatory Loni Farmer Other [employer] Other Start: 09-26-2021 Telephone encounter Loni Farmer [facility] Start: 09-24-2021 (DM) Diabetes Loni [facility] Start: 09-24-2021 End: 09-24-2021 ambulatory Loni Cathiely Other [employer] Other Start: 09-10-2021 End: 09-10-2021 ambulatory Loni Brandly Other [employer] Other Start: 09-10-2021 Telephone encounter Lonikirk [facility] Start: 09-07-2021 End: 09-07-2021 ambulatory Tabitha So Other [employer] Other Start: 09-07-2021 Office outpatient vi sit 5 minutes Tabitha Rizzo [facility] Start: 06-24-2021 Adult health examination Loni Farmer Other [employer] Other Start: 06-18-2021 End: 06-18-2021 ambulatory Loni Cathiely Other [employer] Other Start: 06-18-2021 Telephone encounter [facility] Start: 06-16-2021 (DM) Diabetes Loni Scally [facility] Start: 06-16-2021 End: 06-16-2021 ambulatory Loni Cathiely Other [employer] Other Start: 06-16-2021 Telephone encounter Loni Deirdre [facility] Start: 04-21-2021 End: 04-21-2021 ambulatory Loni Cathiely Other [employer] Other Start: 04-21-2021 Telephone encounter Loni Cathiely [facility] Start: 03-26-2021 End: 03-26-2021 ambulatory Loni Scally Other [employer] Other Start: 03-26-2021 Telephone encounter Loni Cathiely [facility] Start: 03-06-2021 (DM) Diabetes Loni Scally [facility] Start: 03-06-2021 End: 03-06-2021 ambulatory Loni Scally Other [facility] [employer] Other Start: 12-04-2020 Telephone encounter Rashid jason [facility] Start: 11-27-2020 (DM) Diabetes Loni Berrios [facility] Procedures Date Procedure Procedure Detail Performing Clinician Start: 07-25-2015 General examination of patient Loni Farmer Other Start: 04-06-2014 Screening mammography D walt Farmer Other Screening for malign ant neoplasm of breast Loni Farmer Other Plan of Treatment Date Care Activity Detail Author Renal function 2000 panel - Serum or Plasma [facility] Immunizations Immunization Date Immunization Notes Care Provider Fa cility 01-22-2020 influenza virus vaccine, split virus (incl. purified surface antigen) Loni Farmer Other [facility] [employer] Other 01-22-2020 influenza virus vaccine, unspecified formulation [facility] 12-15-2018 influenza virus vaccine, split virus (incl. purified surface antigen) Loni Farmer Other [facility] [facility] Other 12-15-2018 influenza virus vaccine, unspecified formulation [facility] 12-15-2018 pneumococcal conjuga te vaccine, 13 valent Loni Farmer Other [facility] Payers Date Payer Category Payer Self-pay [id number] 1958 Medicare [id number] [id number] [id number] 1958 Unknown [id number]. [id number] 1950 Unknown [id number] 2.16.84 [id number] 1950 Unknown [id number] 2.16.84 [id number] 1950 Unknown [id number] 2.16.84 [id number] 1950 Unknown [id number] 2.16.84 [id number] 1950 Unknown [id number] Unknown [id number] 2.16.8 [id number] Social History Date Type Detail Facility Unknown if ever smoked [place] [employer] Other Sex Assigned At Sex Assigned At Bir th [employer] Other Start: 1950 Sex Assigned At Female F [facility] Start: 06-01-2023 Tobacco smoking status NHIS Never smoked tobacco (finding) [facility] Clinical Notes 10-18-2020 to 10-25-2023 Note Date & Type Note Facility 10-25-2023 Chief complaint+Reason for visit Narrative Reason for Visit Chronic kidney disea se, stage 3a Dietary counseling and surveillance HTN (hypertension) Hyperlipidemia Hypoglycemia associated with diabetes rn long term care current use of insulin Retinopathy Type 2 diabetes mellitus with hyperglycemia Vitamin D deficiency [facility] Work Phone: 1(724) 374-971808-19-2024 Evaluation note* Diagnosis Onset Date Resolution Status Chronic kidney disease, stage 3a acute Dietary counseling and surveillance acute HTN (hypertension) acute Hyperlipidemia acute Hypoglycemia associated with diabetes acute rn long term care current use of insulin acute Retinopathy acute Type 2 diabetes mellitus with hyperglycemia acute Vitamin D deficiency acute [facility] Work Phone: 1(910) 492-264803-26-2024 Evaluation note* Diagnosis Onset Date Resolution Status Chronic kidney disease, stage 3a acute Dietary counseling and surveillance acute HTN (hypertension) acute Hyperlipidemia acute Hypoglycemia associated with diabetes acute rn long term care current use of insulin acute Retinopathy acute Type 2 diabetes mellitus with hyperglycemia acute Vitamin D deficiency acute Anemia in chronic kidney disease acute Chronic kidney disease, stage 3b acute Diabetes mellitus type 2 in nonobese acute Diabetic nephritis acute Hyperkalemia acute Hyperparathyroidism acute Hyperuricemia acute Vitamin B12 deficiency acute Vitamin D deficiency acute [facility] Work Phone: 1(129) 588-867812-21-2023 Evaluation note* Encounter Date Diagnosis Assessment Notes Treatment Notes Treatment Clinical Notes Feb, Chronic kidney disease, stage 3a (ICD-10 - N18.31) [facility] [employer] Other 11-15-2023 Evaluation note* Encounter Date Diagnosis [...] is she starts to have UTI symptoms. [employer] Other 10-09-2023 Evaluation note* Encounter Date Diagnosis [...] improvement in insulin sensitvity. RTC 3 mos. Shoudl maintain surviellance of glycemia as this could [...] escalated Jardiance to 25 mg daily Dec, rn long term care current use of insulin (ICD-10 - Z79.4) [...] compaired to disease instability. 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 RTC 3 mos. Caroline maintain surviellance of glycemia as this could [...] escalated Jardiance to 25 mg daily Sep, senior living current us e of insulin (ICD-10 - [...] compaired to disease instability. 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 LDL at target Feb, HTN (hypertension) (ICD-10 - I10) High Blood Pressure: Care Instructions material was published to portal Well controlled, not on ACEi or ARB-- on and escalated Jardiance to 25 mg daily Feb, senior living current us e of insulin (ICD-10 - [...] compaired to disease instability. 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 [employer] Other 07-20-2022 Evaluation note* Encounter Date Diagnosis [...] escalated Jardiance to 25 mg daily Sep, senior living current us e of insulin (ICD-10 - [...] compaired to disease instability. 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 , According to meter download [id number]: Active 74%, Ave glucose 105, GMI 5.8% [...] with hx of baseline low BP. Nov, rn long term care current use of insulin (ICD-10 - Z79.4) [...] compaired to disease instability. 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 [employer] Other 08-13-2021 NoteGastroenterology Upper Endoscopy, Adult Upper [...] including vitamins, herbs, eye drops, creams, and hflf-ybi-rilftnc medicines. ? Any problems you or family [...] tells you to take them. ? Taking anit-axy-hsmolhw medicines, vitamins, herbs, and supplements. General instructions [...] Document Released: 02/19/2001 [employer] (more content not included)...[facility] CenterEvaluation noteNo InformationNort[facility] hospital [employer] Other Evaluation noteNo assessment information available [facility] Work Phone: [facility] Narrative - Reported* Type Description Date Medical History type II diabetes Medical History Retinopathy Surgical History liver biopsy 2004 Surgical History Needle biopsy benign breast lum p 1998 Surgical History D&C Surgical History colonoscopy Hospitalization History See above Hospitalization History [facility] [employer] Other [facility] Narrative - Reported* Type Description Date Medical History type II diabetes Medical History Retinopathy- Diabeti c Macular Edema and Moderate Nonproliferative Diabetic Retinopathy-- [facility] and Dr. Parker Surgical History liver biopsy 2003 Surgical History Needle biopsy benign breast lum p 1997 Surgical History D&C Surgical History colonoscopy Hospitalization History See above Hospitalization History [facility] [employer] Other [facility] Narrative - Reported* Type Description Date Medical History type II diabetes Medical History Retinopathy- Diabeti c Macular Edema and Moderate Nonproliferative Diabetic Retinopathy-- [facility] and Dr. Parker Surgical History liver biopsy 2003 Surgical History Needle biopsy benign breast lum p 1997 Surgical History D&C Surgical History colonoscopy Surgical History cataract surg. left eye 2 023 Hospitalization History See above Hospitalization History [employer] Other [facility] Narrative - Reported* Type Description Date [...] 3 Hospitalization History See above Hospitalization History [employer] Other [facility] Narrative - Reported* Type Description Date [...] 3 Hospitalization History See above Hospitalization History [facility] [employer] Other Summary Purpose Family History Relationship Condition Age at Onset Recorded Date/T vimal brother Diabetes mellitus Unknown father Unknown History of stroke Unknown Not Specified Family history of pancreatic cancer Unkn own Unknown Malignant neoplasm Unknown sister Malignant neoplasm Unknown Relationship Condition Age at Onset Recorded Date/T vimal brother Diabetes mellitus Unknown father Unknown History of stroke Unknown Not Specified Family history of pancreatic cancer Unkn own Unknown Malignant neoplasm Unknown sister Malignant neoplasm Unknown Malignant neoplasm of breast Unknown Malignant neoplasm of cervix Unknown Relationship Condition Age at Onset Recorded Date/T vimal brother Diabetes mellitus Unknown father Unknown History of stroke Unknown mother Family history of pancreatic cancer Unkno wn Unknown Malignant neoplasm Unknown sister Malignant neoplasm Unknown Malignant neoplasm of breast Unknown Malignant neoplasm of cervix Unknown Parkinson's disease Unknown Advance Directives Advance Directive Response Recorded Date/ Time Advance Directives No February 1:14pm Advance Directive Response Recorded Date/ Time Advance Directives No February 2:14pm Reason for Referral Reason DUPLICATE persiste nt microalbuminuria, GFR below 60 with reasonable glycemic control. On Jardiance Diagnosis 1 Type 2 diabetes kj itus with hyperglycemia (E11.65) Referral Organization [facility] Referring Provider First Name Loin Referring Provider Last Name Deirdre Referring Provider Specialty Nurse Pract itioner Referred Organization [facility] Referred Provider More Sylvester Referred Address [address] ,[place],[address] Referred Provider Specialty Nephrology Referral Priority Routine General Notes Grant Loni 09/06 12:00:46 PM >Per Chasidy Maher send this to Radha Argueta and she will call the patient to schedule Loni Burns 09/25/2021 12:07:04 PM >Sent to the above Radha Argueta 09/26/2021 10:58:29 AM >received today, sent P2P Radha Argueta 09/26/2021 12:00:45 PM >duplicate. closing Reason 01/07/2022 Referra l sent *Dr. Sylvester please: persistent microalbuminuria, normal BP, max SGLT2i Diagnosis 1 Microalbuminuria (R8 0.9) Diagnosis 2 Type 2 diabetes kj itus with hyperglycemia (E11.65) Referral Organization [facility] Referring Provider First Name Loni Referring Provider Last Name Deirdre Referring Provider Specialty Nurse Pract itioner Referred Organization [facility] Nephrology Referred Address [address] ,[place],[address] Referred Provider Specialty Nephrology Referral Priority Routine Referral Appointment Date 2022-01-07 General Notes Loni Burns 09/06 12:00:46 PM >Per Chasidy Maher send this to Radha Argueta and she will call the patient to schedule Loni Burns 09/25/2021 12:07:04 PM >Sent to the ab Radha Argueta 09/26/2021 12:00:26 PM >pt scheduled Chief Complaint and Reason for Visit Chief Complaint Wellness Head Cold, Covid Negative Chief Complaint METER 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 4 month Follow up Reason for Visit Chronic kidney disea se, stage 3a Dietary counseling and surveillance HTN (hypertension) Hyperlipidemia Hypoglycemia associated with diabetes rn long term care current use of insulin Retinopathy Type 2 diabetes mellitus with hyperglycemia Vitamin D deficiency Anemia in chronic kidney disease Chronic kidney disease, stage 3b Diabetes mellitus type 2 in nonobese Diabetic nephritis Hyperkalemia Hyperparathyroidism Hyperuricemia Vitamin B12 deficiency Vitamin D deficiency Additional Source Comments INFORMATION SOURCE (unrecogn ized section and content) DATE CREATED AUTHOR 12/02/2020 [facility] DATE CREATED AUTHOR AUTHOR'S ORGANIZ ATION 07/20/2022 [facility] DATE CREATED AUTHOR AUTHOR'S ORGANIZ ATION 04/24/2023 [facility] DATE CREATED AUTHOR AUTHOR'S ORGANIZ ATION 08/05/2023 [facility] EPIC REASON FOR VISIT (unrecogniz ed section and [...] Jardiance 25 mg and will fax to [facility] Patient Assistance @ [phone] {06-16-21} SE TECOVID TEST FOR TRAVEL, [facility] [...] Active St art: January 26, 2023 End: November 21st, 2023 Team Status: Inactive Member Role Status Dates Yarely Mcguire MD Attending Provider Active St art: February 25, 2023 End: February 25, 2023 Team Status: Inactive Member Role Status Dates Yarely Mcguire MD Primary Care Provider Active Start: May 12, 2023 End: May 12, 2023 Loni Farmer APRN Attending Provider Active Start: May 12, 2023 End: May 12, 2023 Team Status: Active Member Role Status Dates Yarely Mcguire MD Primary Care Provider Active Start: May 27, 2023 Homero Kurtz MD Attending Provider Active Star t: May 27, 2023 Team Status: Inactive Member Role Status Dates Yarely Mcguire MD Primary Care Provider Active Start: June 01, 2023 End: June 01, 2023 Homero Kurtz MD Attending Provider Active Star t: June 01, 2023 End: June 01, 2023 Team Status: Inactive Member Role Status Dates Yarely Mcguire MD Primary Care Provider Active Start: October 25, 2023 End: October 25, 2023 Loni Farmer APRN Attending Provider Active Start: October 25, 2023 End: October 25, 2023 Goals (unrecognized section and content) [...] BE BASED ON THE PRIMARY CLINICAL RECORDS. [employer] [facility]. provides no warranty or guarantee of the accuracy or completeness of information in this document.
[2023-12-21 16:50] LABS: Hematocrit 32.1 % (36.0-48.0); Hemoglobin 10.1 g/dL (12.0-16.0); Mean Corpuscular HGB Conc 31.5 g/dL (29.9-35.2); Mean Corpuscular Hemoglobin 28.9 pg (26.7-34.0); Mean Platelet Volume 10.6 fL (9.5-13.5); Platelet Count 200 10^3/uL (150-450); Red Blood Count 3.49 10^6/uL (4.20-5.40); Red Cell Distribution Width 13.2 % (11.0-15.0); White Blood Count 8.8 10^3/uL (4.0-11.0)
[2023-12-21 17:14] LABS: Albumin Level 3.7 g/dL (3.4-5.0); BUN Creatinine Ratio 19.3; Calcium 8.9 mg/dL (8.5-10.1); Chloride 108 mmol/L (98-107); Estimated GFR (African America 37 (>=60 mL/min/1.73m^2); Estimated GFR (Non-African Ame 30 (>=60 mL/min/1.73m^2); Glucose 197 mg/dL (74-106); Phosphorus 3.1 mg/dL (2.6-4.7); Potassium 4.5 mmol/L (3.5-5.1); Sodium 142 mmol/L (136-145); Uric Acid 6.8 mg/dL (2.6-6.0)
[2023-12-21 17:19] LABS: Bilirubin Urine NEGATIVE (NEGATIVE); Blood Urine NEGATIVE (NEGATIVE); Clarity Urine CLEAR (CLEAR); Color Urine LT. YELLOW (YELLOW); Glucose Urine UA >=1000 mg/dL (NEGATIVE); Ketones Urine NEGATIVE (NEGATIVE); Leukocyte Esterase Urine SMALL (NEGATIVE); Nitrite Urine NEGATIVE (NEGATIVE); Protein Urine NEGATIVE (NEG/TRACE); Specific Gravity Urine 1.015 (1.005-1.025); Urobilinogen Urine 0.2 EU/dL (0.2-1.0); pH Urine 5.5 (5.0-9.0)
[2023-12-21 17:22] LABS: Creatinine Urine Random 47.66 mg/dL (20.00-300.00); Microalbum Creatinine Ratio Ur 37.7 mg/g (0.0-29.9); Microalbumin Urine Random 1.8 mg/dL (<=30.0); Protein Creatinine Ratio Urine 0.23; Total Protein Urine Random 11.2 mg/dL (<=11.9)
[2023-12-21 17:23] LABS: Anion Gap 16.2; Carbon Dioxide 22.3 mmol/L (21.0-32.0)
[2023-12-23 05:08] LABS: Vitamin B12 >2000 pg/mL (232-1245)
[2023-12-23 11:10] LABS: PTH, Intact 50 pg/mL (15-65)
== END 2023-12-21 16:12 | disposition home or self-care (01) ==
LOC: LAB 16:16
PROVIDERS: PCP Family Medicine; Visit Provider Internal Medicine Nephrology
DX: N18.32 Chronic kidney disease, stage 3b (principal); E87.5 Hyperkalemia; E79.0 Hyperuricemia without signs of inflammatory arthritis and tophaceous disease; E21.3 Hyperparathyroidism, unspecified; E11.21 Type 2 diabetes mellitus with diabetic nephropathy
CPT/HCPCS: 36415; 80069; 81003; 82043; 82570; 82607; 82728; 82746; 83540; 83550; 83735; 83970; 84156; 84550; 85027

== ENCOUNTER 2024-05-02 12:29 | Outpatient (OUT) | payer MEDICARE, OTHER, SELFPAY ==
--- OUTSIDE RECORDS SUMMARY | 2024-05-02 12:49 | XMS_ITS | CCD ---
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 Unavailable Tabitha Rizzo Unavailable Bakdeniss, Aziz Unavailable LONI FARMER Admitting Unavailable LONI FARMER Attending Unavailable DR NATHAN MCGUIRE Primary Care Unavailable LONI FARMER Consulting Unavailable BAKHOUS, AZIZ Admitting Unavailable BAKHOUS AZIZ Attending Unavailable DR NATHAN MCGUIRE Primary Care Unavailable GABINO CORONADO Consulting Unavailable BAKHOUS, AZIZ Consulting Unavailable BAKHOUS, AZIZ Admitting Unavailable BAKHOUS, AZIZ Attending Unavailable DR NATHAN MCGUIRE Primary Care Unavailable BAKHOUS, AZIZ Consulting Unavailable Rashid Tracy MD Primary Care Provider CHERI PARKER Attending Unavailable CHERI PARKER Attending Unavailable FLIP CARCAMO Attending Unavailable Nathan Mcguire MD Primary Care Provider Agnes De Oliveira DO Attending Provider Agnes De Olievira Attending Unavailable Agnes De Oliveira Admitting Unavailable Nathan Mcguire Primary Care Unavailable Allergies Allergy Classification Reported Allergen(s) Allergy Type Date of Onset Reaction(s) Facility (20 sources) Erythromycin Drug Allergy 08-06-19 23 Unknown [facility] Work Phone: (20 sources) Penicillin G Drug Allergy 02-26-20 23 Unknown, Convulsions [facility] (6 sources) Erythromycin Drug Allergy 02-26-20 Rash [facility] Repository (6 sources) Penicillins Drug allergy (disorder) 02-22-20 21 Convulsions [facility] Repository (9 sources) metFORMIN Drug Allergy 02-26-20 23 Unknown, Diarrhea [facility] (4 sources) Allergies Reconciled Propensity to adverse reactions Unknown [facility] Other (7 sources) Substance with penicillin structure and antibacterial mechanism of action (substance) Drug allergy Unknown [facility] Other (4 sources) patient allergy list reviewed by nurse or physicia Propensity to adverse reactions 04-06-19 Comment:Done [facility] Other (5 sources) Penicillins Drug Intolerance 08-06-19 23 Unknown [facility] (1 source) Erythromycin Drug Allergy 04-05-[address] [facility] Repository (1 source) Penicillins Drug allergy (disorder) 04-05-[address] [facility] Medications Current Medications Medication Drug Class(es) Dates Sig (Normalized) Sig (Original) atorvastatin 20 mg oral tablet (20 sources) HMG-CoA Reductase Inhibitor Start: 12-28-2023 take 1 tablet by mouth once daily Atorvastatin 20 mg tablet Active 20 MG PO Daily December 28, 2023 2:19pm Start: 11-24-2023 End: 12-28-2023 take 1 tablet by mouth once daily Atorvastatin 20 mg tablet Discontinued 0 .ROUTE .COMPLEX 90 November 24, 2023 12:38pm December 28, 2023 2:20pm TAKE 1 TABLET BY MOUTH EVERY DAY Start: 05-21-2022 End: 11-24-2023 take 1 tablet by mouth once daily Atorvastatin 20 mg tablet Discontinued 20 MG PO Daily May 12, 2023 12:00am November 24, 2023 12:38pm benzonatate 200 mg oral capsule (3 sources) Non-narcotic Antitussive Start: 02-25-2023 take 1 capsule by mouth every eight hours Benzonatate 200 MG 1 capsule Orally Three times a day for 10 day(s) Feb, Active cholecalciferol 0.05 mg oral capsule (8 sources) Vitamin D Start: 04-05-2024 take 1 capsule by mouth once daily Cholecalciferol (Vitamin D3) (Vitamin D3) 50 mcg (2,000 unit) capsule Active 50 MCG PO Daily April 05, 2024 12:00am Start: 05-12-2023 End: 04-05-2024 take 1 tablet by mouth once daily cholecalciferol (vitamin D3) Discontinued 1 TAB PO Daily May 12, 2023 12:00am April 05, 2024 11:13am Start: 05-12-2023 take 1 tablet by shwetha th once daily cholecalciferol (vitamin D3) Active 1 TAB PO Daily May 12, 2023 1:00am take 1 tablet by shwetha th every twenty-four hours Vitamin D 25 MCG (1000 UT) 1 tablet Orally Once a day Active dapagliflozin 10 mg oral tablet (20 sources) Sodium-Glucose Cotransporter 2 Inhibitor Start: 05-12-2023 take 1 tablet by mouth once daily Dapagliflozin Propanediol (Farxiga) 10 mg tablet Active 10 MG PO Daily May 12, 2023 12:00am Start: 05-12-2023 End: 05-12-2023 take 1 tablet by mouth once daily Dapagliflozin Propanediol (Farxiga) 5 mg tablet Discontinued 5 MG PO Daily May 12, 2023 12:00am May 12, 2023 3:55pm Start: 02-25-2022 take 1 tablet by shwetha th every twenty-four hours Farxiga 5 MG 1 tablet Orally Once a day for 30 day(s) Feb, Active dorzolamide 20 mg/ml / timolol 5 mg/ml ophthalmic solution (5 sources) Carbonic Anhydrase Inhibitor, beta-Adrenergic Juan Jose Start: 07-08-2022 End: 02-11-2024 take 1 drop(s) into the eye(s) twice daily dorzolamide-timolol (Cosopt) 22.3-6.8 MG/ML ophthalmic solution APPLY 1 DROP INTO LEFT EYE TWICE A DAY 07/08/2022 02/11/2024 Discontinued empagliflozin 10 mg oral tablet (20 sources) [...] Active ferrous sulfate 325 mg oral tablet (13 sources) Start: 01-20-2023 take 1 tablet by mouth once daily Ferrous Sulfate 325 mg (65 mg iron) tablet Active 325 MG PO Daily May 12, 2023 12:00am Flash Glucose Scanning [place] (Freestyle Elana 2 [place]) misc (3 sources) Start: 10-25-2023 Flash Glucose Scanning [place] (Freestyle Elana 2 [place]) misc Active 0 .Route October 24, 2023 11:00pm As directed Start: 10-25-2023 Flash Glucose Scanning [place] (Freestyle Elana 2 [place]) misc Active 0 .ROUTE October 25, 2023 12:00am As directed Flash Glucose Sensor (Freest yle Elana 2 Sensor) kit (3 sources) Start: 10-25-2023 Flash Glucose Sensor (Freestyle Elana 2 Sensor) kit Active 0 .Route October 24, 2023 11:00pm As directed Start: 10-25-2023 Flash Glucose Sensor (Freestyle Elana 2 Sensor) kit Active 0 .ROUTE October 25, 2023 12:00am As directed FreeStyle Elana 2 [place] Systm - (20 sources) Start: 02-15-2020 FreeStyle Libr e 2 [place] Systm - as directed Feb, Active FreeStyle Elana 2 Sensor Systm - (13 sources) Start: [...] in the morning PAP- Ewa Nordisk Active ketorolac tromethamine 5 mg/ml ophthalmic solution (5 sources) Nonsteroidal Anti-inflammatory Drug, Cyclooxygenase Inhibitor Start: 07-15-2022 End: 02-11-2024 take 1 drop(s) into the eye(s) twice daily ketorolac (Acular) 0.5 % ophthalmic solution INSTILL 1 DROP VIA OPTHALMIC ROUTE TWICE A DAY DIRECTED FOR 30 DAYS 07/15/2022 02/11/2024 Discontinued latanoprost 0.05 mg/ml ophthalmic solution (17 sources) Prostaglandin Analog Start: 02-07-2024 take 1 drop(s) into the eye(s) once daily Latanoprost 0.005 % drops Active 1 DROPS EYE-BOTH Daily February 07, 2024 11:43am Start: 10-29-2023 take 1 drop(s) into the eye(s) at bedtime latanoprost (Xalatan) 0.005 % ophthalmic solution 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, mild stage (CMS/HCC) INSTILL 1 DROP INTO BOTH EYES AT BEDTIME 2.5 mL 5 10/29/2023 Active Start: 05-12-2023 Latanoprost Ac tive DROPS OPHTHALMIC May 12, 2023 1:00am Start: 11-02-2022 End: 02-07-2024 Latanoprost 0.005 % drops Discontinued DROPS OPHTHALMIC May 12, 2023 12:00am February 07, 2024 11:44am Start: 07-08-2022 End: 02-11-2024 take 1 drop(s) into the eye(s) at bedtime latanoprost (Xalatan) 0.005 % ophthalmic solution APPLY 1 DROP INTO BOTH EYES AT BEDTIME 07/08/2022 02/11/2024 Discontinued lisinopril 10 mg oral tablet (20 sources) Angiotensin Converting Enzyme Inhibitor Start: 03-13-2024 take 1 tablet by mouth once daily Lisinopril 10 mg tablet Active 10 MG PO Daily March 13, 2024 10:27am Start: 01-03-2024 End: 03-13-2024 take 1 tablet by mouth once daily Lisinopril 10 mg tablet Discontinued 0 .ROUTE .COMPLEX January 03, 2024 9:00am March 13, 2024 10:28am TAKE 1 TABLET BY MOUTH EVERY DAY FOR 90 DAYS Start: 10-25-2023 End: 01-03-2024 take 1 tablet by mouth once daily Lisinopril 10 mg tablet Discontinued 10 MG PO Daily October 25, 2023 1:28pm January 03, 2024 9:01am Start: 07-12-2023 End: 10-25-2023 take 1 tablet by mouth once daily Lisinopril 10 mg tablet Discontinued 0 .ROUTE .COMPLEX 90 July 12, 2023 3:18pm October 25, 2023 1:30pm TAKE 1 TABLET BY MOUTH EVERY DAY FOR 90 DAYS Start: 07-22-2022 End: 07-12-2023 take 1 tablet by mouth once daily Lisinopril 10 mg tablet Discontinued 10 MG PO Daily May 12, 2023 12:00am July 12, 2023 3:19pm ofloxacin 3 mg/ml ophthalmic solution (5 sources) Quinolone Antimicrobial Start: 07-15-2022 End: 02-11-2024 take 1 drop(s) into the eye(s) three times daily ofloxacin (Ocuflox) 0.3 % ophthalmic solution INSTILL 1 DROP INTO AFFECTED EYE THREE TIMES A DAY DIRECTED FOR 30 DAYS 07/15/2022 02/11/2024 Discontinued Ozempic (1 MG/DOSE) 2 MG/1.5ML (20 sources) Start: 08-21-2020 Ozempic (1 MG/DOSE) 2 MG/1.5ML 1 mg Subcutaneous Once a week [employer] Aug, Active Ozempic (1 MG/DO SE) 2 MG/1.5ML 1 mg Subcutaneous Once a week [employer] Active prednisoLONE acetate 10 mg/ml ophthalmic suspension (5 sources) Corticosteroid Start: 07-15-2022 End: 02-11-2024 take 1 drop(s) into the eye(s) four times daily prednisoLONE acetate (Pred-Forte) 1 % ophthalmic suspension INSTILL 1 DROP INTO AFFECTED EYE FOUR TIMES A DAY DIRECTED FOR 30 DAYS 07/15/2022 02/11/2024 Discontinued 1 mg dose 1.5 ml semaglutide 1.34 mg/ml pen injector (10 sources) Start: 05-12-2023 inject 1 mg by subcutaneous injection every week Semaglutide Active 1 MG SUBCUT Once a week May 12, 2023 1:00am Start: 08-21-2020 Ozempic (1 MG/ DOSE) 2 MG/1.5ML 1 mg Subcutaneous Once a week [employer] Aug, Active Semaglutide 1 mg/dose (2 mg/1.5 mL) pen injector (2 sources) Start: 02-07-2024 inject 1 mg by subcutaneous injection every week Semaglutide 1 mg/dose (2 mg/1.5 mL) pen injector Active 1 MG SUBCUT Once a week February 07, 2024 12:10pm Start: 05-12-2023 End: 02-07-2024 inject 1 mg by subcutaneous injection every week Semaglutide 1 mg/dose (2 mg/1.5 mL) pen injector Discontinued 1 MG SUBCUT Once a week May 12, 2023 12:00am February 07, 2024 12:15pm sulfamethoxazole 800 mg / trimethoprim 160 mg oral tablet (3 sources) Dihydrofolate Reductase Inhibitor Antibacterial, Sulfonamide Antimicrobial Start: 02-25-2023 take 1 tablet by mouth every twelve hours Bactrim DS 800-160 MG 1 tablet Orally Twice a day for 10 day(s) Feb, Active vitamin b12 0.1 mg oral tablet (16 sources) Vitamin B12 Start: 12-28-2023 Cyanocobalamin (Vitamin B-12) 100 mcg tablet Active 100 MCG PO Every 48 hours December 28, 2023 2:38pm Start: 05-12-2023 End: 12-28-2023 take 1 tablet by mouth once daily Cyanocobalamin (Vitamin B-12) 100 mcg tablet Discontinued 100 MCG PO Daily May 12, 2023 12:00am December 28, 2023 2:38pm take 1 tablet by shwetha th every [...] U-100) 100 unit/mL (3 mL) insulin pen (4 sources) Start: 05-12-2023 End: 06-01-2023 inject 3 [IU] by subcutaneous injection once daily Insulin Degludec (Tresiba Flextouch U-100) 100 unit/mL (3 mL) insulin pen Discontinued 3 UNIT SUBCUT Daily May 12, 2023 12:00am June 01, 2023 8:22am Start: 05-12-2023 End: 06-01-2023 inject 3 [IU] by subcutaneous injection once daily Insulin Degludec (Tresiba Flextouch U-100) 100 unit/mL (3 mL) insulin pen Discontinued 3 UNIT SUBCUT Daily May 12, 2023 1:00am June 01, 2023 9:22am 24 hr metFORMIN hydrochloride 500 mg extended release oral tablet (20 sources) Biguanide Start: 05-12-2023 End: 10-12-2023 take 1 tablet by mouth once daily Metformin 500 mg tablet extended release 24 hr Discontinued 500 MG PO Daily July 06, 2023 7:52am October 12, 2023 4:03pm Start: 07-29-2022 take 1 tablet by shwetha every twenty-four hours in the morning metFORMIN XR (Glucophage-XR) 500 MG 24 hr tablet Take 500 mg by mouth in the morning. 07/29/2022 Active Start: 08-21-2020 take 2 tablets by mo [facility] every twenty-four hours metFORMIN HCl ER 500 MG 2 tablets Orally Once a day for 30 day(s) Aug, Active metFORMIN HCl ER 500 MG 1 tablet daily Orally Once a day Active metFORMIN HCl ER 500 MG 1 tablet BID with breakfast and dinner Orally BID for 30 days Active Problems Active Problems Problem Classification Problem Date Documented Da te Episodic/Chronic Abdominal pain (4 sources) Left upper quadrant pain; Translations: [Left upper quadrant pain] Episodic Administrative/social admission (16 sources) Dietary counseling and surveillance; Translations: [Patient encounter status] Onset: 11-27-2020 Resolved: 09-24-2021 Episodic Biliary tract disease (4 sources) Cholelithiasis without obstruction; Translations: [Calculus of gallbladder without cholecystitis without obstruction] Episodic Calculus of urinary tract (1 source) Calculus of kidney; Translations: [CALCULUS OF KIDNEY] Onset: 04-27-2022 Episodic Cataract (16 sources) Artificial lens present; Translations: [Presence of intraocular lens] Onset: 08-05-2022 Resolved: 02-03-2023 08-26-2022 Chronic Chronic kidney disease (20 sources) Chronic kidney [...] Resolved: 09-24-2021 Chronic Fluid and electrolyte disorders (7 sources) Hyperkalemia; Translations: [Hyperkalemia] Episodic Genitourinary symptoms and ill-defined conditions (13 sources) Proteinuria, unspecified; Translations: [Microalbuminuria] Onset: 03-06-2021 Resolved: 09-24-2021 Episodic Glaucoma (11 sources) Glaucoma; Translations: [Unspecified glaucoma] Onset: 02-03-2023 05-12-2023 Chronic Immunizations and screening for infectious disease (5 sources) Encounter for screening for other viral diseases; Translations: [Vaccination given] Onset: 09-07-2021 Resolved: 09-07-2021 Episodic Menopausal disorders (8 sources) Postmenopausal bleeding; Translations: [Postmenopausal bleeding] Onset: 04-06-2014 Chronic Nutritional deficiencies (20 sources) Vitamin D deficiency; Translations: [Vitamin D deficiency, unspecified] Onset: 11-27-2020 Resolved: 09-24-2021 Chronic Nutritional deficiencies (9 sources) Deficiency of other specified B group vitamins; Translations: [Cobalamin deficiency] Onset: 07-19-2022 Episodic Other aftercare (20 sources) Long-term current use of insulin; Translations: [senior care (current) use of insulin] 05-12-2023 Episodic Other aftercare (12 sources) [employer]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; Translations: [Long-term (current) use of insulin] Onset: 11-27-2020 Resolved: 09-24-2021 Episodic Other and unspecified benign neoplasm (2 sources) Benign tumor of soft tissue of back; Translations: [Other benign neoplasm of skin of trunk] 01-11-2024 Episodic Other endocrine disorders (14 sources) Hyperparathyroidism; Translations: [Hyperparathyroidism , unspecified] 05-31-2023 Chronic Other endocrine disorders (3 sources) Hyperparathyroidism, unspecified; Translations: [Hyperparathyroidism , unspecified] Chronic Other eye disorders (6 sources) Dry eyes; Translations: [Dry eye syndrome of bilateral lacrimal glands] Onset: 02-03-2023 02-03-2023 Episodic Other gastrointestinal disorders (1 source) Diarrhea; Translations: [Diarrhea, unspecified] 03-07-2024 Episodic Other gastrointestinal disorders (1 source) Diarrhea, unspecified; Translations: [Diarrhea] 03-07-2024 Episodic Other injuries and conditions due to external [...] Chronic Other nutritional; endocrine; and metabolic disorders (3 sources) Hyperuricemia without signs of inflammatory arthritis and tophaceous disease; Translations: [Other abnormal blood chemistry] Episodic Other nutritional; endocrine; and metabolic disorders (4 sources) Hyperuricemia; Translations: [Hyperuricemia without signs of inflammatory arthritis and tophaceous disease] 05-31-2023 Episodic Other screening for suspected conditions (not mental disorders or infectious disease) (7 sources) Mammography abnormal; Translations: [Unspecified abnormal mammogram] Onset: 04-11-2014 03-07-2024 Episodic Other skin disorders (2 sources) Seborrheic keratosis; Translations: [Other seborrheic keratosis] 01-11-2024 Episodic Pancreatic disorders (not diabetes) (4 sources) [...] for unspecified reasons] Episodic Residual codes; unclassified (4 sources) Body mass index 20-24 - normal; [...] 25.0-25.9, adult Onset: 03-06-2021 Resolved: 03-06-2021 Episodic Results Test Name Value Interpretation Reference Range Facility Glucose Glucometer (BldC) [M ass/Vol]Ordered By: Agnes De Oliveira on 04-20-2024 Glucose [Mass/Vol] Capillary blood gluc ose measurement by glucometer (mass/volume) [facility] Comment on above: Random Glucose Refer ence Range is dependent on time and content of last meal. Glucose of more than 200 mg/dL in a nonstressed, ambulatory subject supports the diagnosis of Diabetes Mellitus. Glucose Poct Glucometerson 0 04-20-2024 Glucose [Mass/Vol] 166 mg/dL Normal [facility] Comment on above: Result Comment: [place] om Glucose Reference Range is dependent on time and content of last meal. Glucose of more than 200 mg/dL in a nonstressed, ambulatory subject supports the diagnosis of Diabetes Mellitus. PERFORMED BY: [facility] [address] [place] [address] PATHOLOGIST CHIROPRACTIC TEACHER SHASHI DIAS M.D. Performed By: #### G AMOS #### Point of Care testing , Adam 04-20-2024 L -------- -------- Specimen: [id number] Received: 04/20/24 Status: LAVERNE Piyush Num: [id number] Spec Type: Surgical Subm Dr: Agnes De Oliveira DO Tissues: A Colon Biopsy (SIGMOID COLON POLYP) Procedures: HE/2, Gross/Micro L4 -------- Age/ Patient Sex Location Account Attending Physician -------- Libia Chen 73/F [id number] Agnes De Oliveira, DO -------- SPEC NUM: [id number] RECD: 04/20/24 STATUS: LAVERNE PICKETT NUM: [id number] [place]: 04/20/[address] [facility] [address]: Agnes De Oliveira DO ENTERED: 04/20/[address]: LEANN TYPE: Surgical DEPT: S ENTERED BY: [id number] RECV BY: [id number] ORDERED: HE/2, Gross/Micro L4 ORDERED: HE/2, Gross/Micro L4 Pathological Diagnosis Sigmoid polyp: ? Polypoid fragment of colonic mucosa with surface hyperplastic changes ? No adenomatous changes are identified Clinical Information Diarrhea Gross Description Part A is received in formalin labeled with the patients name, date of , and sigmoid polyp is a nogueira-song, focally erythematous, friable, 0.3 cm in greatest dimension polypoid fragment. The specimen is entirely submitted in a single cassette. (1, ns, [id number] A) CPT Codes 29119 -------- -------- Specimen: [id number] Received: 04/20/24 Status: LAVERNE Pickett Num: [id number] Spec Type: Surgical Subm Dr: Agnes De Oliveira, DO Tissues: A Colon Biopsy (SIGMOID COLON POLYP) Procedures: HE/2, Gross/Micro L4 -------- Patient: Libia Chen [id number] (Continued) -------- Signed (signature on file) Lemuel Sims MD 04/21/24947 Normal [facility] Ophthalmic OCT panelon 02-10 [facility] Right Eye Images reviewed and comparison made to baseline, Images reviewed. To assess optic nerve function and for use in future follow-up. Reliability: good and adequate. Left Eye Images reviewed and comparison made to baseline, Images reviewed. To assess optic nerve function and for use in future follow-up. Reliability: good and adequate. Notes Nerve fiber layer (NFL) thinning mild both eyes (OU). Stable. No changes to treatment [facility] Radiology Study observation (narrative) [facility] Optical coherence tomography study reporton 02-11-2024 [facility] Radiology Study observation (narrative) [facility] HbA1c HPLC (Bld) [Mass fract ion]on 02-07-2024 HbA1c (Bld) [Mass fraction] Hemoglobin A1c/Hemoglobin.total in Blood by HPLC [facility] No Panel Informationon 02-06 Bedside Glucose [address] [facility] Erythrocyte distribution wid th Auto (RBC) [Ratio]on 12-21-2023 Erythrocyte distribution width (RBC) [Ratio] 13.2 % 11.0-15.[address] [facility] Estimated glomerular filtrat ion rate (GFR) non- Americanon 12-21-2023 GFR/1.73 sq M.predicted among non-blacks MDRD (S/P/Bld) [Vol rate/Area] 30 mL/min/{1.73_m2} Low >=60 mL/min/1.[address] [facility] Hematocrit Auto (Bld) [Volum e fraction]on 12-21-2023 Hematocrit (Bld) [Volume fraction] 32.1 % Low 36.0-48.[address] [facility] Hemoglobin [Mass/volume] in Bloodon 12-21-2023 Hemoglobin (Bld) [Mass/Vol] 10.1 g/dL Low 12.0-16.[address] [facility] Iron binding capacity [Mass/ volume] in Serum or Plasmaon 12-21-2023 Iron binding capacity [Mass/Vol] 316.0 ug/dL 250.0-450. [address] [facility] Iron saturation [Mass Fracti on] in Serum or Plasmaon 12-21-2023 Iron saturation [Mass fraction] 25.0 % [facility] Laboratory - Chemistry and C hemistry - challengeon 12-21-2023 Albumin [Mass/Vol] 3.7 g/dL 3.4-5.0 [facility] Calcium [Mass/Vol] 8.9 mg/dL 8.5-10.1 [facility] Chloride [Moles/Vol] 108 mmol/L High 98-[address] [facility] CO2 [Moles/Vol] 22.3 mmol/L 21.0-32.0 [facility] Creatinine [Mass/Vol] 1.66 mg/dL High 0.55-1.[address] [facility] Ferritin [Mass/Vol] 216.0 ng/mL 8.0-252.[address] [facility] GFR/1.73 sq M.predicted MDRD (S/P/Bld) [Vol rate/Area] 37 mL/min/{1.73_m2} Low >=60 mL/min/1.[address] [facility] Glucose [Mass/Vol] 197 mg/dL High 74-106 [facility] Iron [Mass/Vol] 79.0 ug/dL 50.0-170.[address] [facility] Magnesium [Mass/Vol] 2.0 mg/dL 1.8-2.[address] [facility] Potassium [Moles/Vol] 4.5 mmol/L 3.5-5.[address] [facility] Sodium [Moles/Vol] 142 mmol/L 136-145 [facility] Urate [Mass/Vol] 6.8 mg/dL High 2.6-6.0 [facility] Urea nitrogen [Mass/Vol] 32.0 mg/dL High 7.0-18.[address] [facility] Urea nitrogen/Creatinin e [Mass ratio] 19.3 mg/mg [facility] Bilirubin Ql (U) Negative NEGATIVE [facility] Glucose (U) [Mass/Vol] mg/dL Abnormal NEGATIVE [facility] Ketones Ql (U) Negative NEGATIVE [facility] pH (U) 5.5 [pH] 5.0-9.[address] [facility] Specific gravity (U) [Rel density] 1.015 1.005-1.[address] [facility] Urobilinogen Qn (U) 0.2 {Michael'U}/dL 0.2-1.[address] [facility] Laboratory - Specimen inform ationon 12-21-2023 Appearance (U) CLEAR CLEAR [facility] Color (U) LT. YELLOW YELLOW [facility] Laboratory - Urinalysison Leukocyte esterase Test strip Ql (U) SMALL Abnormal NEGATIVE [facility] Nitrite Ql (U) Negative NEGATIVE [facility] Protein (U) [Mass/Vol] 11.2 mg/dL <=11.[address] [facility] Protein Ql (U) Negative NEG/TRACE [facility] Leukocytes [#/volume] correc anabelle for nucleated erythrocytes in Blood by Automated counon 12-21-2023 WBC corrected for nucl RBC Auto (Bld) [#/Vol] 8.8 10 3/uL 4.0-11.[address] [facility] MCH Auto (RBC) [Entitic mass ]on 12-21-2023 MCH (RBC) [Entitic mass] 28.9 pg 26.7-34.[address] [facility] MCHC Auto (RBC) [Mass/Vol]on 12-21-2023 MCHC (RBC) [Mass/Vol] 31.5 g/dL 29.9-35.[address] [facility] MCV Auto (RBC) [Entitic vol] on 12-21-2023 MCV (RBC) [Entitic vol] 92.0 fL 81.0-99.[address] [facility] Microalbumin [Mass/volume] i n Urineon 12-21-2023 Albumin DL <= 20 mg/L (U) [Mass/Vol] 1.8 mg/dL <=30.[address] [facility] No Panel Informationon 12-20 Folate 15.90 ng/mL 8.60-58.[address] [facility] Parathyroid Hormone (Intact) 50 pg/mL [address] [facility] Comment on above: Performed at: [facility] [place], [place] [id number] Director: Aric Leone PhD, Phone: [phone] Phosphorus Level 3.1 mg/dL 2.6-4.7 [facility] Vitamin B12 Level >2000 pg/mL Abnormal [id number] [facility] Comment on above: Performed at: [facility] [place], [place] [id number] Director: Aric Leone PhD, Phone: [phone] Urine Occult Blood Negative NEGATIVE [facility] Urine Random Creatinine 47.66 mg/dL 20.00-300. [address] [facility] Platelet mean volume Auto (B ld) [Entitic vol]on 12-21-2023 Platelet mean volume (Bld) [Entitic vol] 10.6 fL 9.5-13.[address] [facility] Platelets Auto (Bld) [#/Vol] on 12-21-2023 Platelets (Bld) [#/Vol] 200 10 3/uL 150-[address] [facility] RBC Auto (Bld) [#/Vol]on RBC (Bld) [#/Vol] 3.49 10 6/uL Low 4.20-5.40 [facility] Serum or plasma anion gap de terminationon 12-21-2023 Anion gap [Moles/Vol] 16.2 mmol/L [facility] Urine microalbumin/creatinin e mass ratioon 12-21-2023 Albumin/Creatinine DL <= 20 mg/L (U) [Mass ratio] 37.7 mg/g High 0.0-29.9 [facility] Comment on above: NO MICROALBUMINURIA 0-29 MG/GCLINICAL MICROALBUMINURIA 30-300 MG/GMACROALBUMINURIA >300 MG/G Urine protein/creatinine rat ioon 12-21-2023 Protein/Creatinine (U) [Ratio] 0.[address] [facility] HbA1c HPLC (Bld) [Mass fract ion]on 10-25-2023 HbA1c (Bld) [Mass fraction] 7.0 % [facility] No Panel Informationon 10-24 Bedside Glucose [address] [facility] Automated urine specific gra vity by refractometryon 05-27-2023 Specific gravity Refractometry automated (U) [Rel density] 1.020 1.005-1.[address] [facility] Bilirubin Auto test strip (U ) [Mass/Vol]on 05-27-2023 Bilirubin (U) [Mass/Vol] Negative NEGATIVE [facility] Cholesterol in LDL Calc [Mas s/Vol]on 05-27-2023 Cholesterol in LDL [Mass/Vol] 87.0 mg/dL [facility] Comment on above: <100 mg/dl [id number] 0-129 mg/dl NEAR OR ABOVE PAVEBQU046-055 mg/dl BORDERLINE QVIB958-568 mg/dl HIGH>190 mg/dl VERY HIGH Cholesterol in VLDL Calc [Ma ss/Vol]on 05-27-2023 Cholesterol in VLDL [Mass/Vol] 30.6 mg/dL [facility] Color Auto (U)on 05-27-2023 Color (U) LT. YELLOW YELLOW [facility] Erythrocyte distribution wid th Auto (RBC) [Ratio]on 05-27-2023 Erythrocyte distribution width (RBC) [Ratio] 12.7 % 11.0-15.[address] [facility] Estimated glomerular filtrat ion rate (GFR) non- Americanon 05-27-2023 GFR/1.73 sq M.predicted among non-blacks MDRD (S/P/Bld) [Vol rate/Area] 40 mL/min/{1.73_m2} >=[address] [facility] Globulin Calc (S) [Mass/Vol] on 05-27-2023 Globulin (S) [Mass/Vol] 4.5 g/dL [facility] Hematocrit Auto (Bld) [Volum e fraction]on 05-27-2023 Hematocrit (Bld) [Volume fraction] 38.7 % 36.0-48.[address] [facility] Hemoglobin [Mass/volume] in Bloodon 05-27-2023 Hemoglobin (Bld) [Mass/Vol] 11.9 g/dL 12.0-16.[address] [facility] Iron binding capacity [Mass/ volume] in Serum or Plasmaon 05-27-2023 Iron binding capacity [Mass/Vol] 384.0 ug/dL 250.0-450. [address] [facility] Iron saturation [Mass Fracti on] in Serum or Plasmaon 05-27-2023 Iron saturation [Mass fraction] 16.7 % [facility] Ketones Auto test strip (U) [Mass/Vol]on 05-27-2023 Ketones (U) [Mass/Vol] Negative NEGATIVE [facility] Laboratory - Chemistry and C hemistry - challengeon 05-27-2023 Albumin [Mass/Vol] 4.1 g/dL 3.4-5.0 [facility] ALP [Catalytic activity/Vol] 102 U/L 46-[address] [facility] ALT [Catalytic activity/Vol] 21 U/L 14-[address] [facility] AST [Catalytic activity/Vol] 20 U/L 15-[address] [facility] Bilirubin [Mass/Vol] 0.3 mg/dL 0.2-1.[address] [facility] Calcium [Mass/Vol] 9.6 mg/dL 8.5-10.1 [facility] Chloride [Moles/Vol] 104 mmol/L 98-[address] [facility] Cholesterol [Mass/Vol] 176 mg/dL <=[address] [facility] Cholesterol in HDL [Mass/Vol] 59 mg/dL 40-[address] [facility] Comment on above: > or =60 mg/dl - LOW CARDIOVASCULAR RISK<40 mg/dl - HIGH CARDIOVASCULAR RISK CO2 [Moles/Vol] 26.2 mmol/L 21.0-32.0 [facility] Cobalamin (Vitamin B12) [Mass/Vol] 5763.0 pg/mL 193.0-986. [address] [facility] Creatinine [Mass/Vol] 1.30 mg/dL 0.55-1.[address] [facility] Ferritin [Mass/Vol] 101.0 ng/mL 8.0-252.[address] [facility] GFR/1.73 sq M.predicted MDRD (S/P/Bld) [Vol rate/Area] 49 mL/min/{1.73_m2} >=[address] [facility] Glucose [Mass/Vol] 107 mg/dL 74-106 [facility] Iron [Mass/Vol] 64.0 ug/dL 50.0-170.[address] [facility] Magnesium [Mass/Vol] 2.1 mg/dL 1.8-2.[address] [facility] Potassium [Moles/Vol] 4.0 mmol/L 3.5-5.[address] [facility] Protein [Mass/Vol] 8.6 g/dL 6.4-8.2 [facility] Sodium [Moles/Vol] 142 mmol/L 136-145 [facility] Triglyceride [Mass/Vol] 153 mg/dL <=[address] [facility] Urate [Mass/Vol] 6.9 mg/dL 2.6-6.0 [facility] Urea nitrogen [Mass/Vol] 20.0 mg/dL 7.0-18.[address] [facility] Urea nitrogen/Creatinin e [Mass ratio] 15.4 mg/mg [facility] Laboratory - Urinalysison Protein (U) [Mass/Vol] 16.2 mg/dL <=11.[address] [facility] Leukocytes [#/volume] correc anabelle for nucleated erythrocytes in Blood by Automated counon 05-27-2023 WBC corrected for nucl RBC Auto (Bld) [#/Vol] 8.6 10 3/uL 4.0-11.[address] [facility] MCH Auto (RBC) [Entitic mass ]on 05-27-2023 MCH (RBC) [Entitic mass] 27.9 pg 26.7-34.[address] [facility] MCHC Auto (RBC) [Mass/Vol]on 05-27-2023 MCHC (RBC) [Mass/Vol] 30.7 g/dL 29.9-35.[address] [facility] MCV Auto (RBC) [Entitic vol] on 05-27-2023 MCV (RBC) [Entitic vol] 90.8 fL 81.0-99.[address] [facility] No Panel Informationon 05-26 25-Hydroxy Vitamin D Total 57.6 ng/mL [facility] Comment on above: <20 ng/mL Vit D defi cient20-<30 ng/mL Vit D dexguogcaktn03-997 ng/mL Vit D sufficient>100 ng/mL Potential Toxicity Folate 15.70 ng/mL 8.60-58.[address] [facility] Parathyroid Hormone (Intact) 31 pg/mL 15-[address] [facility] Comment on above: Performed at: - [employer] [address] [id number] Director: Aric Leone PhD, Phone: [phone] Phosphorus Level 4.2 mg/dL 2.6-4.7 [facility] Urine Random Creatinine 73.96 mg/dL 20.00-300. [address] [facility] Platelet mean volume Auto (B ld) [Entitic vol]on 05-27-2023 Platelet mean volume (Bld) [Entitic vol] 10.6 fL 9.5-13.[address] [facility] Platelets Auto (Bld) [#/Vol] on 05-27-2023 Platelets (Bld) [#/Vol] 188 10 3/uL 150-[address] [facility] Protein Auto test strip (U) [Mass/Vol]on 05-27-2023 Protein (U) [Mass/Vol] Negative NEG/TRACE [facility] RBC Auto (Bld) [#/Vol]on RBC (Bld) [#/Vol] 4.26 10 6/uL 4.20-5.40 [facility] Serum or plasma albumin/glob ulin mass ratioon 05-27-2023 Albumin/Globulin [Mass ratio] 0.9 {ratio} [facility] Serum or plasma anion gap de terminationon 05-27-2023 Anion gap [Moles/Vol] 15.8 mmol/L [facility] Serum or plasma total choles terol/high density lipoprotein (HDL) cholesterol mass mikey 05-27-2023 Cholesterol.total/ Cholesterol in HDL [Mass ratio] 3.0 {ratio} [facility] Comment on above: 3.3 - 4.4 LOW RISK4. 4 - 7.1 AVERAGE RISK7.1 - 11.0 MODERATE RISK>11.0 HIGH RISK Specific gravity Auto test s trip (U) [Rel density]on 05-27-2023 Specific gravity (U) [Rel density] CLEAR CLEAR [facility] Urine glucose measurement by test strip (mass/volume)on 05-27-2023 Glucose Test strip (U) [Mass/Vol] >=1000 mg/dL NEGATIVE [facility] Urine hemoglobin detection b y automated test stripon 05-27-2023 Hemoglobin Auto test strip Ql (U) Negative NEGATIVE [facility] Urine nitrite detection by a utomated test stripon 05-27-2023 Nitrite Auto test strip Ql (U) Negative NEGATIVE [facility] Urine protein/creatinine rat ioon 05-27-2023 Protein/Creatinine (U) [Ratio] 0.[address] [facility] Urobilinogen Auto test strip (U) [Mass/Vol]on 05-27-2023 Urobilinogen Qn (U) 0.2 {Michael'U}/dL 0.2-1.[address] [facility] pH Auto test strip (U)on pH (U) 5.5 [pH] 5.0-9.[address] [facility] HbA1c HPLC (Bld) [Mass fract ion]on 05-12-2023 HbA1c (Bld) [Mass fraction] 6.2 % [facility] No Panel Informationon 05-11 Bedside Glucose [address] [facility] A1C HEMOGLOBINon 12-14-2022 HbA1c (Bld) [Mass fraction] 6.3 % [facility] Other Glucose - FINGER STICKon Glucose [Mass/Vol] 133 mg/dL [facility] Other HbA1c (Bld) [Mass fraction]o n 12-14-2022 A1C HEMOGLOBIN [facility] Other A1C HEMOGLOBINon 09-09-2022 HbA1c (Bld) [Mass fraction] 6.5 % [facility] Other Glucose - FINGER STICKon Glucose [Mass/Vol] 107 mg/dL [facility] Other HbA1c (Bld) [Mass fraction]o n 09-09-2022 A1C HEMOGLOBIN [facility] Other PTH INTACTon 07-17-2022 PTH, Intact 68 pg/mL Critically high 15-65 [facility] Comment on above: Performed By: #### P THINT #### [facility] [address] [address] [address] Tim Moya HEMOGRAM AND PLATELon 2022 Hematocrit (Bld) [Volume fraction] 36.5 % Normal 36.0-48.0 [facility] Comment on above: Performed By: #### H H ####[facility] [address] [id number]. Tim Moya Hemoglobin (Bld) [Mass/Vol] 11.7 g/dL Critically low 12.0-16.0 [facility] Comment on above: Performed By: #### H H ####[facility] [address] [place] [id number]. Tim Moya MCH (RBC) [Entitic mass] 28.3 pg Normal 26.7-34.0 [facility] Comment on above: Performed By: #### H H ####[facility] [address] [place] [id number]. Tim Moya MCHC (RBC) [Mass/Vol] 32.1 g/dL Normal 29.9-35.2 [facility] Comment on above: Performed By: #### H H ####[facility] [address] [place] [id number] Moya MCV (RBC) [Entitic vol] 88.2 fL Normal 81.0-99.0 [facility] Comment on above: Performed By: #### H H ####[facility] [address] [place] [id number]. Tim Moya PLT 242 103/ul Normal 150-450 [facility] Comment on above: Performed By: #### H H ####[facility] [address] [address]DrLinda Moya RBC 4.14 106/ul Critically low 4.20-5.40 [facility] Comment on above: Performed By: #### H H ####[facility] [address] [address]DrLinda Moya WBC 9.2 103/ul Normal 4.0-11.0 [facility] Comment on above: Performed By: #### H H ####[facility] [address] [address]DrLinda Moya MAGNESIUMon 07-16-2022 Magnesium [Mass/Vol] 2.4 mg/dL Normal 1.8-2.4 [facility] Comment on above: Performed By: #### C MP, PHOS, URIC, MG #### [facility] [address] [place], [place] [address] Dr. Tim Moya PHOSPHORUSon 07-16-2022 Phosphate [Mass/Vol] 3.3 mg/dL Normal 2.6-4.7 [facility] Comment on above: Performed By: #### C MP, PHOS, URIC, MG ####[facility] [address] [address]DrLinda Moya PROF 14(COMP METB)on 023 Albumin [Mass/Vol] 3.9 g/dL Normal 3.4-5.0 [facility] Comment on above: Performed By: #### C MP, PHOS, URIC, MG ####[facility] [address] [address]Dr. Tim Moya Albumin/Globulin [Mass ratio] 0.8 {ratio} Normal [facility] Comment on above: Performed By: #### C MP, PHOS, URIC, MG ####[facility] [address] [address]Dr. Tim Moya ALP [Catalytic activity/Vol] 107 U/L Normal 46-116 [facility] Comment on above: Performed By: #### C MP, PHOS, URIC, MG ####[facility] [address] [address]Dr. Tim Moya ALT [Catalytic activity/Vol] 22 U/L Normal 14-59 [facility] Comment on above: Performed By: #### C MP, PHOS, URIC, MG ####[facility] [address] [address]Dr. Tim Moya Anion gap [Moles/Vol] 12.4 mmol/L Normal [facility] Comment on above: Performed By: #### C MP, PHOS, URIC, MG ####[facility] [address] [address]Dr. Tim Moya AST [Catalytic activity/Vol] 19 U/L Normal 15-37 [facility] Comment on above: Performed By: #### C MP, PHOS, URIC, MG ####[facility] [address] [address]Dr. Tim Moya Bilirubin [Mass/Vol] 0.2 mg/dL Normal 0.2-1.0 [facility] Comment on above: Performed By: #### C MP, PHOS, URIC, MG ####[facility] [address] [address]Dr. Tim Moya Calcium [Mass/Vol] 8.7 mg/dL Normal 8.5-10.1 [facility] Comment on above: Performed By: #### C MP, PHOS, URIC, MG ####[facility] [address] [address]Dr. Tim Moya Chloride [Moles/Vol] 108 mmol/L Critically high 98-107 [facility] Comment on above: Performed By: #### C MP, PHOS, URIC, MG ####[facility] [address] [address]Dr. Tim Moya CO2 [Moles/Vol] 26.1 mmol/L Normal 21.0-32.0 [facility] Comment on above: Performed By: #### C MP, PHOS, URIC, MG ####[facility] [address] [address]Dr. Tim Moya Creatinine [Mass/Vol] 1.21 mg/dL Critically high 0.55-1.02 [facility] Comment on above: Performed By: #### C MP, PHOS, URIC, MG ####[facility] [address] [place], [place] [address]Dr. Tim Moya EGFR-AF SAUDI ARABIAN 53 mL/min/1.73m2 Critically low >=60 [facility] Comment on above: Performed By: #### C MP, PHOS, URIC, MG ####[facility] [address] [place], [place] [address]Dr. Tim Moya EGFR-NON AF SAUDI ARABIAN 44 mL/min/1.73m2 Critically low >=60 [facility] Comment on above: Performed By: #### C MP, PHOS, URIC, MG ####[facility] [address] [address]Dr. Tim Moya Globulin (S) [Mass/Vol] 4.9 g/dL Normal [facility] Comment on above: Performed By: #### C MP, PHOS, URIC, MG ####[facility] [address] [address]Dr. Tim Moya Glucose [Mass/Vol] 94 mg/dL Normal 74-106 [facility] Comment on above: Performed By: #### C MP, PHOS, URIC, MG ####[facility] [address] [address]Dr. Tim Moya Potassium [Moles/Vol] 4.5 mmol/L Normal 3.5-5.1 [facility] Comment on above: Performed By: #### C MP, PHOS, URIC, MG ####[facility] [address] [address]Dr. Tim Moya Protein [Mass/Vol] 8.8 g/dL Critically high 6.4-8.2 [facility] Comment on above: Performed By: #### C MP, PHOS, URIC, MG ####[facility] [address] [address]Dr. Tim Moya Sodium [Moles/Vol] 142 mmol/L Normal 136-145 [facility] Comment on above: Performed By: #### C MP, PHOS, URIC, MG ####[facility] [address] [address]Dr. Tim Moya Urea nitrogen [Mass/Vol] 20.0 mg/dL Critically high 7.0-18.0 [facility] Comment on above: Performed By: #### C MP, PHOS, URIC, MG ####[facility] [address] [address]Dr. Tim Moya Urea nitrogen/Creatinin e [Mass ratio] 16.5 mg/mg Normal [facility] Comment on above: Performed By: #### C MP, PHOS, URIC, MG ####[facility] [address] [place] [address]Dr. Tim Moya UA RANDOMon 07-16-2022 Bilirubin Ql (U) Negative Normal NEGATIVE [facility] Comment on above: Performed By: #### U A #### [facility] [address] [address] [address] Tim Moya Clarity (U) CLOUDY Abnormal CLEAR [facility] Comment on above: Performed By: #### U A #### [facility] [address] [address] [address] Tim Moya Color (U) YELLOW Normal YELLOW [facility] Comment on above: Performed By: #### U A #### [facility] [address] [place] [address] Dr. Tim Moya Glucose Ql (U) 500 mg/dl Abnormal NEGATIVE [facility] Comment on above: Performed By: #### U A #### [facility] [address] [place] [address] Dr. Tim Moya Hemoglobin Ql (U) TRACE Abnormal NEGATIVE [facility] Comment on above: Performed By: #### U A #### [facility] [address] [place] [address] Dr. Tim Moya Ketones Ql (U) Negative Normal NEGATIVE [facility] Comment on above: Performed By: #### U A #### [facility] [address] [place] [address] Dr. Tim Moya LEUKOCYTES MODERATE Abnormal NEGATIVE [facility] Comment on above: Performed By: #### U A #### [facility] [address] [place] [address] Dr. Tim Moya Nitrite Ql (U) Negative Normal NEGATIVE [facility] Comment on above: Performed By: #### U A #### [facility] [address] [place] [address] Dr. Tim Moya pH (U) 6.0 [pH] Normal 5-9 [facility] Comment on above: Performed By: #### U A #### [facility] [address] [place] [address] Dr. Tim Moya SPEC GRAVITY 1.010 Normal 1.005-<=1. 025 [facility] Comment on above: Performed By: #### U A #### [facility] [address] [place] [address] Dr. Tim Moya UA PROTEIN Negative Normal NEGATIVE/ TRACE [facility] Comment on above: Performed By: #### U A #### [facility] [address] [place] [address] Dr. Tim Moya Urobilinogen Qn (U) 0.2 {Michael'U}/dL Normal 0.2 - 1.0 [facility] Comment on above: Performed By: #### U A #### [facility] [address] [address] [address] Tim Moya URIC ACID SERUMon 07-16-2022 Urate [Mass/Vol] 6.6 mg/dL Critically high 2.6-6.0 [facility] Comment on above: Performed By: #### C MP, PHOS, URIC, MG ####[facility] [address] [address]Dr. Tim Moya URINE T PROTEIN CREAT RATIOo n 07-16-2022 Protein (U) [Mass/Vol] 25.1 mg/dL Critically high <=12.0 [facility] Comment on above: Performed By: #### U RTPCR #### [facility] [address] [place] [address] Dr. Tim Moya UR PROT CREAT RAT 0.72 Normal [facility] Comment on above: Performed By: #### U RTPCR #### [facility] [address] [place] [address] Dr. Tim Moya URINE CREAT 34.83 mg/dL Normal 20.00-300. 00 [facility] Comment on above: Performed By: #### U RTPCR #### [facility] [address] [place] [address] Dr. Tim Moya VITAMIN D 25 OHon 07-16-2022 VIT D 25-OH 31.0 ng/mL Normal [facility] Comment on above: Performed By: #### V ITAD #### [facility] [address] [place] [address] Dr. Tim Moya VIT D RANGES SEE BELOW Normal [facility] Comment on above: Result Comment: <20 ng/mL Vit D deficient 20 - <30 ng/mL Vit D insufficient 30 - 100 ng/mL Vit D sufficient >100 ng/mL Potential Toxicity Performed By: #### V ITAD #### [facility] [address] [place] [address] Dr. Tim Moya US KIDNEYSon 04-22-2022 US KIDNEYS EXAMINATION: US TALAT KRAUSE HISTORY: Chronic kidney disease stage 3a , [...] by: GABINO CORONADO Date: 2022-04-22 09:43 Normal [facility] A1C HEMOGLOBINon 02-25-2022 HbA1c (Bld) [Mass fraction] 7.0 % [facility] Other Glucose - FINGER STICKon Glucose [Mass/Vol] 104 mg/dL [facility] Other HbA1c (Bld) [Mass fraction]o n 02-25-2022 A1C HEMOGLOBIN [facility] [employer] Other INSULIN AUTOANTIBODIESon Insulin Antibodies <5.0 Normal [facility] Comment on above: Result Comment: This test is also known as insulin autoantibody or IAA. This test was developed and its performance characteristics determined by [employer]. It has not been cleared or approved by the Food and Drug Administration. Reference Range: <5.0 Negative > or = 5.0 Positive Performed By: #### I AA #### [facility] [address] [place] [address] Dr. Tim Moya GLUTAMIN ACID DECARBOXYLASE (MICHAEL)on 11-22-2021 MICHAEL-65 <5.0 Normal 0.0-5.0 [facility] Comment on above: Performed By: #### G AD #### [facility] [address] [place] [address] Dr. Tim Moya C-PEPTIDE, SERUMon 2 C-Peptide, Serum 2.1 ng/mL Normal 1.1-4.4 [facility] Comment on above: Result Comment: C-Pe ptide reference interval is for fasting patients. Performed By: #### C PEPT #### [facility] [address] [address] [address] Tim Moya VIT D 25-OH LABCORPon 2021 Vitamin D, 25-Hydroxy 24.5 ng/mL Critically low 30.0-100.0 [facility] Comment on above: Result Comment: Ileana min D deficiency has been defined by the [place] of [employer] and an Endocrine Society practice guideline as a level of serum 25-OH vitamin D less than 20 ng/mL (1,2). The Endocrine Society went on to further define vitamin D insufficiency as a level between 21 and 29 ng/mL (2). 1. IOM ([place] of Medicine). 2010. Dietary reference intakes for calcium and D. [place]: The National Academies Press. 2. Yessenia MF, Tavia NC, Jacinda PALM, et al. Evaluation, treatment, and prevention of vitamin D deficiency: an Endocrine Society clinical practice guideline. JCEM. 2010; 96(7):1911-30. Performed By: #### V ITADLC #### [facility] [address] [address] [address] Tim Moya PROF 14(COMP METB)on 022 Albumin [Mass/Vol] 3.6 g/dL Normal 3.4-5.0 [facility] Comment on above: Performed By: #### C MP ####[facility] [address] [place], [place] [address]AuLinda Moya Albumin/Globulin [Mass ratio] 0.8 {ratio} Normal [facility] Comment on above: Performed By: #### C MP ####[facility] [address] [place], [place] [address]GkLinda Moya ALP [Catalytic activity/Vol] 116 U/L Normal 46-116 [facility] Comment on above: Performed By: #### C MP ####[facility] [address] [id number]. Tim Moya ALT [Catalytic activity/Vol] 42 U/L Normal 14-59 [facility] Comment on above: Performed By: #### C MP ####[facility] [address] [address]Dr. Tim Moya Anion gap [Moles/Vol] 10.1 mmol/L Normal [facility] Comment on above: Performed By: #### C MP ####[facility] [address] [place] [address]Dr. Tim Moya AST [Catalytic activity/Vol] 39 U/L Critically high 15-37 [facility] Comment on above: Performed By: #### C MP ####[facility] [address] [place], [place] [address]Dr. Tim Moya Bilirubin [Mass/Vol] 0.2 mg/dL Normal 0.2-1.0 [facility] Comment on above: Performed By: #### C MP ####[facility] [address] [place], [place] [address]Dr. Tim Moya Calcium [Mass/Vol] 9.0 mg/dL Normal 8.5-10.1 [facility] Comment on above: Performed By: #### C MP ####[facility] [address] [place], [place] [address]Dr. Tim Moya Chloride [Moles/Vol] 108 mmol/L Critically high 98-107 [facility] Comment on above: Performed By: #### C MP ####[facility] [address] [place], [place] [address]Dr. Tim Moya CO2 [Moles/Vol] 27.0 mmol/L Normal 21.0-32.0 [facility] Comment on above: Performed By: #### C MP ####[facility] [address] [place], [place] [address]Dr. iTm Moya Creatinine [Mass/Vol] 1.01 mg/dL Normal 0.55-1.02 [facility] Comment on above: Performed By: #### C MP ####[facility] [address] [place] [id number]. Tim Moya EGFR-AF SAUDI ARABIAN >60 Normal >=60 [facility] Comment on above: Performed By: #### C MP ####[facility] [address] [place] [address]Dr. Tim Moya EGFR-NON AF SAUDI ARABIAN 54 mL/min/1.73m2 Critically low >=60 [facility] Comment on above: Performed By: #### C MP ####[facility] [address] [place] [address]Dr. Tim Moya Globulin (S) [Mass/Vol] 4.4 g/dL Normal [facility] Comment on above: Performed By: #### C MP ####[facility] [address] [place], [place] [address]Dr. Tim Moya Glucose [Mass/Vol] 120 mg/dL Critically high 74-106 [facility] Comment on above: Performed By: #### C MP ####[facility] [address] [place] [address]Dr. Tim Griffin Potassium [Moles/Vol] 4.1 mmol/L Normal 3.5-5.1 [facility] [facility] Comment on above: Performed By: #### C MP ####[facility] [address] [place], [place] [address]Dr. Tim Moya Protein [Mass/Vol] 8.0 g/dL Normal 6.4-8.2 [facility] Comment on above: Performed By: #### C MP ####[facility] [address] [address]Dr. Tim Moya Sodium [Moles/Vol] 141 mmol/L Normal 136-145 [facility] Comment on above: Performed By: #### C MP ####[facility] [address] [place], [place] [address]Dr. Tim Moya Urea nitrogen [Mass/Vol] 20.0 mg/dL Critically high 7.0-18.0 [facility] Comment on above: Performed By: #### C MP ####[facility] [address] [place], [place] [address]Dr. Tim Moya Urea nitrogen/Creatinin e [Mass ratio] 19.8 mg/mg Normal [facility] Comment on above: Performed By: #### C ####[facility] [address] [place], [place] [address]Nm. Tim Moya A1C HEMOGLOBINon 09-24-2021 HbA1c (Bld) [Mass fraction] 5.9 % [facility] Other Glucose - FINGER STICKon Glucose [Mass/Vol] 95 mg/dL [facility] Other HbA1c (Bld) [Mass fraction]o n 09-24-2021 A1C HEMOGLOBIN Enable Injections Other COVID Quick Testingon 2021 Result Negative [facility] Other A1C HEMOGLOBINon 06-16-2021 HbA1c (Bld) [Mass fraction] 6.3 % [facility] Other Glucose - FINGER STICKon Glucose [Mass/Vol] 99 mg/dL [facility] Other HbA1c (Bld) [Mass fraction]o n 06-16-2021 A1C HEMOGLOBIN [facility] Other A1C HEMOGLOBINon 03-06-2021 HbA1c (Bld) [Mass fraction] 5.9 % [facility] Other Glucose - FINGER STICKon Glucose [Mass/Vol] 109 mg/dL [facility] Other HbA1c (Bld) [Mass fraction]o n 03-06-2021 A1C HEMOGLOBIN Enable Injections Other Ambulatory Clinical Summaryo n 12-02-2020 Ambulatory Clinical Summary {[id number]}CD:6143 68 Normal [facility] General Surgery Office/Clini c Noteon 12-01-2020 [...] mRNA-1273 vaccine 05/02/2020 Recorded patient seen 11/29/20 [facility] Comment on above: Result Comment: Elec tronically Signed By: ANDREA PETTY, Rigo Edwards\Date and Time Signed: 12/01/20 21:10 EDT Ambulatory Clinical Summaryo n 11-29-2020 Ambulatory Clinical Summary {[id number]}CD:6143 68 Normal [facility] A1C HEMOGLOBINon 11-27-2020 HbA1c (Bld) [Mass fraction] 6.7 % [facility] Other Glucose - FINGER STICKon Glucose [Mass/Vol] 102 mg/dL [facility] Other HbA1c (Bld) [Mass fraction]o n 11-27-2020 A1C HEMOGLOBIN Enable Injections Other Outside Colonoscopyon 2020 Outside Colonoscopy [id number]#[id number]:127 [facility] Pathology Noteon 11-08-2020 Pathology Note [id number]#1.00CD:127 [facility] Lab Reportson 11-05-2020 Lab Reports [id number]#[id number]:127 [facility] October 23, 2020 NATHAN MCGUIRE, [address] [place] [id number] Re: LIBIA CHEN Date of : 1950 Thank you for your referral of Libia Chen who was seen on consultation on October 18, 2020, for left upper quadrant pain with nausea and vomiting. Testing has been planned for further evaluation. I have enclosed my consultation notes for your review. I will be happy to follow Libia should her symptoms persist. Sincerely, Rigo Egan MD General Surgery [facility] Consent for Procedure/Surger yon 10-21-2020 Consent for Procedure/Surgery [id number]#[id number]:127 [facility] Immunization Recordson 10-21 Immunization Records [id number]#[id number]:127 [facility] Ambulatory Clinical Summaryo n 10-18-2020 Ambulatory Clinical Summary {[id number]}CD:6143 68 [facility] General Surgery Office/Clini c Noteon 10-18-2020 [...] Stroke: Fath (more content not included)... Normal [facility] Comment on above: Result Comment: Elec tronically Signed By: ANDREA PETTY, Rigo Edwards\Date and Time Signed: 10/18/20 13:50 EDT Physician Referralon 021 Physician Referral [id number]#[id number]:127 Normal [facility] Vital Signs Date Time Vital Sign Value Performing Clinician Facility 04-20-2024 10:05-0500 Diastolic blood pressure 58 mm[Hg] Nathan Mcguire MD Work Phone: [facility] 04-20-2024 10:05-0500 Heart rate 63 /min Nathan Mcguire MD Work Phone: [facility] 04-20-2024 10:05-0500 Respiratory rate 16 /min Nathan Mcguire MD Work Phone: [facility] 04-20-2024 10:05-0500 SaO2% (BldA) [Mass fraction] 100 % Nathan Mcguire MD Work Phone: [facility] 04-20-2024 10:05-0500 Systolic blood pressure 108 mm[Hg] Nathan Mcguire MD Work Phone: [facility] 04-20-2024 08:14-0500 Body height 162.56 cm Nathan Mcguire MD Work Phone: [facility] 04-20-2024 08:14-0500 Body weight 77.11 kg Nathan Mcguire MD Work Phone: [facility] 03-07-2024 10:18-0500 Body height 162.56 cm Nathan Mcguire MD Work Phone: [facility] 03-07-2024 10:18-0500 Body mass index (BMI) [Ratio] 29.7 kg/m2 Nathan Mcguire MD Work Phone: [facility] 03-07-2024 10:18-0500 Body weight 78.47 kg Nathan Mcguire MD Work Phone: [facility] 03-07-2024 10:18-0500 Diastolic blood pressure 62 mm[Hg] Nathan Mcguire MD Work Phone: [facility] 03-07-2024 10:18-0500 Heart rate 69 /min Nathan Mcguire MD Work Phone: [facility] 03-07-2024 10:18-0500 Systolic blood pressure 103 mm[Hg] Nathan Mcguire MD Work Phone: [facility] 02-07-2024 11:37-0500 Body height 162.56 cm Nathan Mcguire MD Work Phone: [facility] 02-07-2024 11:37-0500 Body mass index (BMI) [Ratio] 29.5 kg/m2 Nathan Mcguire MD Work Phone: [facility] 02-07-2024 11:37-0500 Body weight 78.18 kg Nathan Mcguire MD Work Phone: [facility] 02-07-2024 11:37-0500 Diastolic blood pressure 69 mm[Hg] Nathan Mcguire MD Work Phone: [facility] 02-07-2024 11:37-0500 Heart rate 66 /min Nathan Mcguire MD Work Phone: [facility] 02-07-2024 11:37-0500 Respiratory rate 18 /min Nathan Mcguire MD Work Phone: [facility] 02-07-2024 11:37-0500 SaO2% (BldA) [Mass fraction] 100 % Nathan Mcguire MD Work Phone: [facility] 02-07-2024 11:37-0500 Systolic blood pressure 120 mm[Hg] Nathan Mcguire MD Work Phone: [facility] 12-28-2023 11:36-0400 Body height 162.56 cm [facility] 12-28-2023 11:36-0400 Body mass index (BMI) [Ratio] 29.7 kg/m2 [facility] 12-28-2023 11:36-0400 Body temperature 97.7 [degF] [facility] 12-28-2023 11:36-0400 Body weight 78.64 kg [facility] 12-28-2023 11:36-0400 Diastolic blood pressure 68 mm[Hg] [facility] 12-28-2023 11:36-0400 Heart rate 78 /min [facility] 12-28-2023 11:36-0400 Respiratory rate 16 /min [facility] 12-28-2023 11:36-0400 SaO2% (BldA) [Mass fraction] 98 % [facility] 12-28-2023 11:36-0400 Systolic blood pressure 128 mm[Hg] [facility] 10-25-2023 14:13-0400 Body height 162.56 cm [facility] 10-25-2023 14:13-0400 Body mass index (BMI) [Ratio] 28.8 kg/m2 [facility] 10-25-2023 14:13-0400 Body weight 76.26 kg [facility] 10-25-2023 14:13-0400 Diastolic blood pressure 70 mm[Hg] [facility] 10-25-2023 14:13-0400 Heart rate 63 /min [facility] 10-25-2023 14:13-0400 Respiratory rate 18 /min [facility] 10-25-2023 14:13-0400 SaO2% (BldA) [Mass fraction] 98 % [facility] 10-25-2023 14:13-0400 Systolic blood pressure 117 mm[Hg] [facility] 06-01-2023 09:19-0400 Body height 162.56 cm [facility] 06-01-2023 09:19-0400 Body mass index (BMI) [Ratio] 27.4 kg/m2 [facility] 06-01-2023 09:19-0400 Body temperature 97.4 [degF] [facility] 06-01-2023 09:19-0400 Body weight 72.63 kg [facility] 06-01-2023 09:19-0400 Diastolic blood pressure 67 mm[Hg] [facility] 06-01-2023 09:19-0400 Heart rate 71 /min [facility] 06-01-2023 09:19-0400 Respiratory rate 16 /min [facility] 06-01-2023 09:19-0400 SaO2% (BldA) [Mass fraction] 98 % [facility] 06-01-2023 09:19-0400 Systolic blood pressure 126 mm[Hg] [facility] 05-12-2023 15:34-0500 Body height 162.56 cm [facility] 05-12-2023 15:34-0500 Body mass index (BMI) [Ratio] 28.2 kg/m2 [facility] 05-12-2023 15:34-0500 Body weight 74.61 kg [facility] 05-12-2023 15:34-0500 Diastolic blood pressure 73 mm[Hg] [facility] 05-12-2023 15:34-0500 Heart rate 68 /min [facility] 05-12-2023 15:34-0500 Respiratory rate 16 /min [facility] 05-12-2023 15:34-0500 SaO2% (BldA) [Mass fraction] 99 % [facility] 05-12-2023 15:34-0500 Systolic blood pressure 123 mm[Hg] [facility] 02-25-2023 10:15-0500 Body height 162.56 cm [facility] 02-25-2023 10:15-0500 Body weight 71.93 kg [facility] 02-25-2023 10:15-0500 Diastolic blood pressure 73 mm[Hg] [facility] 02-25-2023 10:15-0500 Systolic blood pressure 120 mm[Hg] [facility] 01-26-2023 11:00-0500 Body height 162.56 cm [facility] 01-26-2023 11:00-0500 Body weight 71.3 kg [facility] 01-26-2023 11:00-0500 Diastolic blood pressure 63 mm[Hg] [facility] 01-26-2023 11:00-0500 Systolic blood pressure 130 mm[Hg] [facility] 01-20-2023 10:20-0500 Body height 162.56 cm Azzee Ellisons Other [facility] Other 01-20-2023 10:20-0500 Body mass index (BMI) [Ratio] 27.5 kg/m2 Azzee Ellisons Other [facility] Other 01-20-2023 10:20-0500 Body temperature 97.2 [degF] Homero Ellisons Other [facility] Other 01-20-2023 10:20-0500 Body weight 72.67 kg Homero Ellisons Other [facility] Other 01-20-2023 10:20-0500 Diastolic blood pressure 68 mm[Hg] Azzee Ellisons Other [facility] Other 01-20-2023 10:20-0500 Respiratory rate 18 /min Homero Ellisons Other [facility] Other 01-20-2023 10:20-0500 SaO2% (BldA) [Mass fraction] 99 % Azzee Ellisons Other [facility] Other 01-20-2023 10:20-0500 Systolic blood pressure 111 mm[Hg] Aziz Bakhous Other [facility] Other 12-14-2022 09:45-0400 Body height 162.56 cm Loni Farmer Other [facility] Other 12-14-2022 09:45-0400 Diastolic blood pressure 67 mm[Hg] Loni Scally Other [facility] Other 12-14-2022 09:45-0400 Respiratory rate 18 /min Loni Scally Other [facility] Other 12-14-2022 09:45-0400 SaO2% (BldA) [Mass fraction] 99 % Loni Scally Other [facility] Other 12-14-2022 09:45-0400 Systolic blood pressure 108 mm[Hg] Loni Scally Other [facility] Other 09-09-2022 10:45-0400 Body height 162.56 cm Loni Scally Other [facility] Other 09-09-2022 10:45-0400 Body mass index (BMI) [Ratio] 26.48 kg/m2 Loni Scally Other [facility] Other 09-09-2022 10:45-0400 Body weight 69.99 kg Loni Scally Other [facility] Other 09-09-2022 10:45-0400 Diastolic blood pressure 68 mm[Hg] Loni Scally Other [facility] Other 09-09-2022 10:45-0400 Respiratory rate 18 /min Loni Scally Other [facility] Other 09-09-2022 10:45-0400 SaO2% (BldA) [Mass fraction] 97 % Loni Scally Other [facility] Other 09-09-2022 10:45-0400 Systolic blood pressure 112 mm[Hg] Loni Scally Other [facility] Other 05-12-2022 13:30-0500 Body height 162.56 cm Loni Scally Other [facility] Other 05-12-2022 13:30-0500 Body mass index (BMI) [Ratio] 26.47 kg/m2 Loni Scally Other [facility] Other 05-12-2022 13:30-0500 Body weight 69.95 kg Loni Scally Other [facility] Other 05-12-2022 13:30-0500 Diastolic blood pressure 74 mm[Hg] Loni Scally Other [facility] Other 05-12-2022 13:30-0500 Respiratory rate 18 /min Loni Scally Other [facility] Other 05-12-2022 13:30-0500 SaO2% (BldA) [Mass fraction] 100 % Loni Scally Other [facility] Other 05-12-2022 13:30-0500 Systolic blood pressure 122 mm[Hg] Loni Scally Other [facility] Other 02-25-2022 12:15-0500 Body height 162.56 cm Loni Scally Other [facility] Other 02-25-2022 12:15-0500 Body mass index (BMI) [Ratio] 26.35 kg/m2 Loni Scally Other [facility] Other 02-25-2022 12:15-0500 Body weight 69.63 kg Loni Scally Other [facility] Other 02-25-2022 12:15-0500 Diastolic blood pressure 66 mm[Hg] Loni Scally Other [facility] Other 02-25-2022 12:15-0500 Respiratory rate 18 /min Loni Scally Other [facility] Other 02-25-2022 12:15-0500 SaO2% (BldA) [Mass fraction] 100 % Loni Scally Other [facility] Other 02-25-2022 12:15-0500 Systolic blood pressure 136 mm[Hg] Loni Scally Other [facility] Other 01-07-2022 14:20-0400 Body height 162.56 cm Adezezee Wardrobe Housekeeper Other [facility] Other 01-07-2022 14:20-0400 Body mass index (BMI) [Ratio] 25.5 kg/m2 Adezezee [employer] Housekeeper Other [facility] Other 01-07-2022 14:20-0400 Body temperature 96.6 [degF] Adezezee [employer] Housekeeper Other [facility] Other 01-07-2022 14:20-0400 Body weight 67.4 kg Adezezee [employer] Housekeeper Other [facility] Other 01-07-2022 14:20-0400 Diastolic blood pressure 74 mm[Hg] Azzee Ellisons Other [facility] Other 01-07-2022 14:20-0400 Respiratory rate 18 /min Azzee Ellisons Other [facility] Other 01-07-2022 14:20-0400 SaO2% (BldA) [Mass fraction] 99 % Homero Ellisons Other [facility] Other 01-07-2022 14:20-0400 Systolic blood pressure 125 mm[Hg] Pierreiz Terras Other [facility] Other 09-24-2021 10:15-0400 Body height 162.56 cm Loni Scally Other [facility] Other 09-24-2021 10:15-0400 Body mass index (BMI) [Ratio] 24.27 kg/m2 Loni Scally Other [facility] Other 09-24-2021 10:15-0400 Body weight 64.14 kg Loni Scally Other [facility] Other 09-24-2021 10:15-0400 Diastolic blood pressure 66 mm[Hg] Loni Scally Other [facility] Other 09-24-2021 10:15-0400 Respiratory rate 18 /min Loni Scally Other [facility] Other 09-24-2021 10:15-0400 SaO2% (BldA) [Mass fraction] 100 % Loni Scally Other [facility] Other 09-24-2021 10:15-0400 Systolic blood pressure 111 mm[Hg] Loni Scally Other [facility] Other 06-16-2021 10:00-0400 Body height 162.56 cm Loni Scally Other [facility] Other 06-16-2021 10:00-0400 Body mass index (BMI) [Ratio] 24.58 kg/m2 Loni Scally Other [facility] Other 06-16-2021 10:00-0400 Body weight 64.96 kg Loni Scally Other [facility] Other 06-16-2021 10:00-0400 Diastolic blood pressure 68 mm[Hg] Loni Scally Other [facility] Other 06-16-2021 10:00-0400 Respiratory rate 18 /min Loni Scally Other [facility] Other 06-16-2021 10:00-0400 SaO2% (BldA) [Mass fraction] 100 % Loni Scally Other [facility] Other 06-16-2021 10:00-0400 Systolic blood pressure 126 mm[Hg] Loni Scally Other [facility] Other 03-06-2021 09:15-0500 Body height 162.56 cm Loni Scally Other [facility] Other 03-06-2021 09:15-0500 Body mass index (BMI) [Ratio] 25.52 kg/m2 Loni Scally Other [facility] Other 03-06-2021 09:15-0500 Body weight 67.45 kg Loni Scally Other [facility] Other 03-06-2021 09:15-0500 Diastolic blood pressure 83 mm[Hg] Loni Scally Other [facility] Other 03-06-2021 09:15-0500 Respiratory rate 18 /min Loni Scally Other [facility] Other 03-06-2021 09:15-0500 SaO2% (BldA) [Mass fraction] 100 % Loni Scally Other [facility] Other 03-06-2021 09:15-0500 Systolic blood pressure 138 mm[Hg] Loni Scally Other [facility] Other 11-27-2020 09:15-0400 Body height 162.56 cm Loni Scally Other [facility] Other 11-27-2020 09:15-0400 Body mass index (BMI) [Ratio] 26.38 kg/m2 Loni Scally Other [facility] Other 11-27-2020 09:15-0400 Body weight 69.72 kg Loni Scally Other [facility] Other 11-27-2020 09:15-0400 Diastolic blood pressure 76 mm[Hg] Loni Scally Other [facility] Other 11-27-2020 09:15-0400 Respiratory rate 18 /min Loni Farmer Other [facility] Other 11-27-2020 09:15-0400 SaO2% (BldA) [Mass fraction] 99 % Loni Farmer Other [facility] Other 11-27-2020 09:15-0400 Systolic blood pressure 129 mm[Hg] Loni Farmer Other [facility] Other Encounters Encounter Date Encounter Type Care Provider Facility Start: 04-20-2024 Non-patient / Non-visit Nathan Mcguire MD Work Phone: [facility] Physician [facility] Work Phone: Start: 04-20-2024 End: 04-20-2024 Admission to same day surgery center Nathan Mcguire MD Work Phone: [facility] Work Phone: Start: 04-20-2024 End: 04-20-2024 ambulatory Nathan Mcguire MD Work Phone: [facility] Work Phone: Start: 03-07-2024 End: 03-07-2024 Patient encounter procedure Nathan Mcguire MD Work Phone: [facility] Physician [facility] Work Phone: Start: 02-07-2024 End: 02-07-2024 Patient encounter procedure Nathan Mcguire MD Work Phone: [facility] Physician [facility] Work Phone: Start: 01-11-2024 End: 01-11-2024 Bamboo flowsheet Flip Carcamo [employer]ERSON[employer] WORKER Work Phone: [facility] Start: 01-11-2024 End: 01-11-2024 Bamboo flowsheet Flip Carcamo [employer]ERSONNEL WORKER Work Phone: [facility] Start: 01-11-2024 End: 01-11-2024 Office outpatient new 30 minutes Flip Carcamo [employer] PERSONNEL WORKER Work Phone: [facility] Comment on above: Seborrheic keratosis (Primary Dx); Dilated pore of Ace of back Start: 01-11-2024 End: 01-11-2024 ambulatory FLIP CARCAMO Not Available Start: 12-28-2023 End: 12-28-[address] 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 Work Phone: Start: 10-25-2023 End: 10-25-2023 Patient encounter procedure [facility] Physician [facility] Work Phone: Start: 08-04-2023 End: 08-04-2023 ambulatory CHERI PARKER Not Available Start: 06-01-2023 End: 06-01-[address] [facility] Work Phone: Start: 06-01-2023 End: 06-01-2023 Patient encounter procedure [facility] Physician [facility] Work Phone: Start: 05-27-2023 Non-patient / Non-visit [facility] Physician [facility] Work Phone: Start: 05-12-2023 End: 05-12-2023 Patient encounter procedure [facility] Physician [facility] Work Phone: Start: 03-30-2023 End: 03-30-2023 ambulatory Loni Farmer Other [facility] Other Start: 03-30-2023 Telephone encounter Loni Scaldionicio [facility] Start: 03-02-2023 End: 03-02-2023 ambulatory Aziz Bakhous Other [facility] Other Start: 03-02-2023 Telephone encounter Aziz Bakhous [facility] Start: 02-25-2023 End: 02-25-2023 ambulatory Aziz Bakhous Other [facility] Other Start: 02-25-2023 Telephone encounter Aziz Bakhous [facility] Start: 02-25-2023 End: 02-25-2023 Patient encounter procedure [facility] Work Phone: Start: 02-03-2023 End: 02-03-2023 ambulatory CHERI PARKER Not Available Start: 01-26-2023 End: 01-26-2023 Patient encounter procedure [facility] Work Phone: Start: 01-20-2023 End: 01-20-2023 ambulatory Aziz Bakhous Other [facility] Other Start: 01-20-2023 Office outpatient vi sit 25 minutes Aziz Bakhous [facility] Start: 01-07-2023 End: 01-07-2023 ambulatory Aziz Bakhous Other [facility] Other Start: 01-07-2023 Telephone encounter Aziz Bakhous [facility] Start: 12-14-2022 (DM) Diabetes Loni Branddionicio [facility] Start: 12-14-2022 End: 12-14-2022 ambulatory Loni Scally Other [facility] Other Start: 11-11-2022 End: 11-11-2022 ambulatory Loni Scally Other [facility] Other Start: 11-11-2022 Telephone encounter Loni Scally [facility] Start: 09-09-2022 (DM) Diabetes Loni Scally [facility] Start: 09-09-2022 End: 09-09-2022 ambulatory Loni Scally Other [facility] Other Start: 09-09-2022 Telephone encounter Loni Cathiely [facility] Start: 08-05-2022 End: 08-05-2022 ambulatory Loni Scally Other [facility] Other Start: 08-05-2022 Telephone encounter Loni Deirdre [facility] Start: 07-16-2022 End: 07-17-2022 ambulatory HOMERO HEALYHOUS Facility:[facility] Start: 05-22-2022 End: 05-22-2022 ambulatory Loni Scally Other [facility] Other Start: 05-22-2022 Telephone encounter Loni Cathiely [facility] Start: 05-12-2022 (DM) Diabetes Loni Scally [facility] Start: 05-12-2022 End: 05-12-2022 ambulatory Loni Scally Other [facility] Other Start: 05-08-2022 End: 05-08-2022 ambulatory Loni Scally Other [facility] Other Start: 05-08-2022 Telephone encounter Loni Scally [facility] Start: 05-07-2022 End: 05-07-2022 ambulatory Loni Farmer Other [facility] Other Start: 05-07-2022 Telephone encounter [facility] Start: 04-22-2022 End: 04-23-2022 ambulatory [facility] Facility:[facility] Start: 02-25-2022 (DM) Diabetes Loni Deirdre [facility] Start: 02-25-2022 End: 02-25-2022 ambulatory Loni Farmer Other [facility] Other Start: 01-08-2022 End: 01-08-2022 ambulatory Loni Farmer Other [facility] Other Start: 01-08-2022 Telephone encounter Loni [facility] Start: 01-07-2022 End: 01-07-2022 ambulatory [facility] Other [facility] Other Start: 01-07-2022 Office outpatient ne w [address] [facility] Start: 11-20-2021 End: 11-21-2021 ambulatory LONI FARMER Facility:[facility] Start: 10-15-2021 End: 10-15-2021 ambulatory Loni Farmer Other [facility] Other Start: 10-15-2021 Nursing evaluation o f patient and report Loni [facility] Start: 09-26-2021 End: 09-26-2021 ambulatory Loni Farmer Other [facility] Other Start: 09-26-2021 Telephone encounter Loni [facility] Start: 09-24-2021 (DM) Diabetes Loni Scally [facility] Start: 09-24-2021 End: 09-24-2021 ambulatory Loni Scally Other [facility] Other Start: 09-10-2021 End: 09-10-2021 ambulatory Loni Scally Other [facility] Other Start: 09-10-2021 Telephone encounter Loni Cathiely [facility] Start: 09-07-2021 End: 09-07-2021 ambulatory Tabitha Rizzo Other [facility] Other Start: 09-07-2021 Office outpatient vi sit 5 minutes Tabitha Rizzo [facility] Start: 06-24-2021 Adult health examination Lonikirk Brandly Other [facility] Other Start: 06-18-2021 End: 06-18-2021 ambulatory Loni Scally Other [facility] Other Start: 06-18-2021 Telephone encounter Loni Cathiely [facility] Start: 06-16-2021 (DM) Diabetes Loni Scally [facility] Start: 06-16-2021 End: 06-16-2021 ambulatory Loni Scally Other [facility] Other Start: 06-16-2021 Telephone encounter Loni Scally [facility] Start: 04-21-2021 End: 04-21-2021 ambulatory Loni Scally Other [facility] Other Start: 04-21-2021 Telephone encounter Loni Scally [facility] Start: 03-26-2021 End: 03-26-2021 ambulatory Loni Scally Other [facility] Other Start: 03-26-2021 Telephone encounter Loni [facility] Start: 03-06-2021 (DM) Diabetes Loni [facility] Start: 03-06-2021 End: 03-06-2021 ambulatory Loni Farmer Other [facility] Other Start: 12-04-2020 Telephone encounter Rashid jason [facility] Start: 11-27-2020 (DM) Diabetes Loni [facility] Procedures Date Procedure Procedure Detail Performing Clinician Start: 04-20-2024 Colonoscopy Nathan Mcguire MD Work Phone: Start: 02-11-2024 End: 02-11-2024 Computerized ophthalmic imaging optic nerve Cheri Parker DO Work Phone: Start: 02-11-2024 End: 02-11-2024 Oph medical xm&eval comprhnsv estab pt 1/> 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 (CMS/HCC) Cheri Parker DO Work Phone: Comment on above: Moderate nonproliferative diabetic retin opathy of both eyes with macular edema associated with type 1 diabetes mellitus (CMS/HCC) (Primary Dx); 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 Start: 03-07-2024 Patient referral [facility] Work Phone: Start: 02-11-2024 End: 02-11-2024 Patient encounter procedure 02/11/2024 9:00 AM EST Office Visit [facility] [address] [place] [id number] Cheri Parker DO [address] [place] [address] [facility] Start: 01-11-2024 End: 01-11-2024 Patient encounter procedure 01/11/2024 9:55 AM EST Office Visit [facility] [address] [place] [phone] Flip Carcamo APRN-PUPIL PERSONNEL WORKER [address] [place] [address] Arrived [facility] Comment on above: Arrived Start: 11-07-2023 Influenza vaccination Influenza Vacc ine (#1) [facility] Start: 12-16-2019 Pneumococcal Vaccine : 65+ Years (2 of 2 - PPSV23 or PCV20) Pneumococcal Vaccine: 65+ Years (2 of 2 - PPSV23 or PCV20) [facility] Start: 1991 Screening for malign ant neoplasm of breast Mammogram [facility] Start: 1950 Screening for malign ant neoplasm of colon [facility] Immunofixation for Urine [facility] Patient Education Colon polyps [facility]osis [facility] Work Phone: Patient referral [facility] Work Phone: Renal function 1999 panel - Serum or Plasma [facility] Renal function 1999 panel - Serum or Plasma [facility] Immunizations Immunization Date Immunization Notes Care Provider Fa cility 01-11-2023 influenza virus vaccine, unspecified formulation Cheri Parker DO Work Phone: [facility] 01-22-2020 influenza virus vaccine, split virus (incl. purified surface antigen) Loni Farmer Other [facility] [employer] Other 01-22-2020 influenza virus vaccine, unspecified formulation [facility] 12-15-2018 influenza virus vaccine, split virus (incl. purified surface antigen) Loni Farmer Other [facility] [employer] Other 12-15-2018 influenza virus vaccine, unspecified formulation [facility] 12-15-2018 pneumococcal conjuga te vaccine, 13 valent Loni Farmer Other [facility] Payers Date Payer Category Payer Self-pay [id number] 2021 Private Health Insurance [employer] [place] [id number] 2016 Medicare MEDICARE [id number] 1959 Medicare [id number] 1959 Unknown [id number] 1950 Unknown [id number] [id number] 1950 Unknown [id number] 593 1950 Unknown [id number] 593 1950 Unknown [id number] 1259 1950 Unknown [id number] 1259 1950 Unknown [id number] 1259 Unknown [id number] Social History Date Type Detail Facility Unknown if ever smoked [facility] Other Start: 09-30-2022 End: 08-04-2023 Sex Assigned At [facility] [employer] Other Start: 1950 Sex Assigned At Female F [facility] Start: 06-01-2023 End: 04-20-2024 Tobacco smoking status NHIS Never smoked tobacco (finding) [facility] Start: 08-05-2022 Tobacco use and exposure Smokeless tobacco non-user [facility] Start: 09-30-2022 End: 08-04-2023 History of Social function [facility] Start: 1950 Sex assigned at Not on file [facility] Start: 04-20-2024 Sex Female (finding) [facility] Goals Date Patient Goal Desired Activity /State Clinical Notes 10-18-2020 to 04-20-2024 Cheri Parker, DO - 02/11/2024 9:00 AM EST Note Date & Type Note Facility 04-20-2024 Procedure note [facility] 04-20-2024 History and physi delbert note [facility] 02-11-2024 Note Right Eye Quality was good. Scan locations included subfoveal. Progression has worsened. Findings include abnormal foveal contour, intraretinal fluid. Left Eye Quality was good. Scan locations included subfoveal. Progression has worsened. Findings include abnormal foveal contour, intraretinal fluid, subretinal fluid. [facility] 02-11-2024 History of Presen t illness Narrative Images from the original note were not included. 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 Stressed the importance of strong glucose control. Advised of importance of at least yearly dilated examinations, but to contact us immediately for any problems or concerns. Cont management with Dr. Light. Has had good success with Ozurdex in the past however experienced intraocular pressure (IOP) spikes. - status post (s/p) Focal laser both eyes (OU) 01/2024 - Now transitioned to Eylea HD - 8 wk interval both eyes (OU). 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 Patient must report any side effects that may develop. Patient must report any change in systemic medications as they may interact or interfere with their glaucoma medications. Patient will be dilated at least on an annual basis for optic nerve evaluation and will likely have an automated visual field examination at least once a year. It was explained to the patient that they might require additional treatment for intraocular pressure control such as laser therapy or surgical intervention. - Cont Latanoprost both eyes (OU) at bedtime. Bilateral posterior capsular opacification - PCO OU: (Posterior Capsule Opacification) Can be observed without intervention if PCO is not visually significant. Nd:YAG laser capsulotomy may be considered if impairment of vision rises to a level that dose not meet the patient's functional needs or interferes with activities of daily living. Risks, benefits and alternatives to the procedure will be reviewed. If the patient has undergone Nd:YAG laser capsulotomy, they are to notify their drainman promptly if they have a significant change in symptoms, such as flashes of light (photopsia), an increase in floaters, loss of visual field or decrease in visual acuity. Dry eyes - Dry Eyes OU -- Environmental changes to minimize dryness and exposure and the use of artificial tears were recommended. documented in this encounter [facility] 02-07-2024 Evaluation note Diagnosis Onset Date Resolution Diabetic macular edema acute De cember 2023 11:31am Dietary counseling and surveillance acute February 06 11:31am HTN (hypertension) acute Decemb er 2023 11:31am Hyperlipidemia acute February 062023 11:31am senior care current use of insulin acute February 06 11:31am Nonproliferative diabetic retinopathy acute February 06 11:31am Type 2 diabetes mellitus with hyperglycemia acute February 07, 2024 11:31am Vitamin D deficiency acute Dece mb2023 11:31am Diarrhea acute March 07, 2024 10:07am Screening for colon cancer acute March 07, 024 10:07am [facility] Work Phone: 1(492) 916-265011-05-2024 History of Present illness Narrative* 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 General Exam: alert, oriented to person, place, and time, normal affect, well appearing Unaccompanied A focused exam completed based on patient reported problems, see below: 1. Seborrheic keratosis Chest (Upper Torso, Anterior) Stuck on verrucous, variably pigmented papules and plaques. Patient was counseled regarding these benign growths. Removal is normally not necessary, but they may be removed if they are symptomatic or for cosmetic reasons. 2. Dilated pore of Ace of back Neck - Posterior Enlarged pore. Counseling and reassurance given. No treatment necessary. Extracted using acne comedone extractor. Next Visit: prn for any new/changing lesions [id number] Evaluation note* Diagnosis Onset Date Resolution Status Chronic kidney disease, stage 3a acute Dietary counseling and surveillance acute HTN (hypertension) acute Hyperlipidemia acute Hypoglycemia associated with diabetes acute senior care current use of insulin acute Retinopathy acute Type 2 diabetes mellitus with hyperglycemia acute Vitamin D deficiency acute Anemia in chronic kidney disease acute Chronic kidney disease, stage 3b acute Diabetes mellitus type 2 in nonobese acute Diabetic nephritis acute Hyperkalemia acute Hyperparathyroidism acute Hyperuricemia acute Vitamin B12 deficiency acute Vitamin D deficiency acute [facility] Work Phone: 1(310) 963-561208-19-2024 Chief complaint+Reason for visit Narrative * Chief Complaint DMN f/u / meter Reason for Visit Chronic kidney disea se, stage 3a Dietary counseling and surveillance HTN (hypertension) Hyperlipidemia Hypoglycemia associated with diabetes 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 Retinopathy Type 2 diabetes mellitus with hyperglycemia Vitamin D deficiency [facility] Work Phone: 1(276) 633-376008-19-2024 Evaluation note* Diagnosis Onset Date Resolution Status Chronic kidney disease, stage 3a acute Dietary counseling and surveillance acute HTN (hypertension) acute Hyperlipidemia acute Hypoglycemia associated with diabetes acute 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 acute Retinopathy acute Type 2 diabetes mellitus with hyperglycemia acute Vitamin D deficiency acute [facility] Work Phone: 1(371) 741-225403-26-2024 Evaluation note* Diagnosis Onset Date Resolution Status Chronic kidney disease, stage 3a acute Dietary counseling and surveillance acute HTN (hypertension) acute Hyperlipidemia acute Hypoglycemia associated with diabetes acute senior care current use of insulin acute Retinopathy acute Type 2 diabetes mellitus with hyperglycemia acute Vitamin D deficiency acute Anemia in chronic kidney disease acute Chronic kidney disease, stage 3b acute Diabetes mellitus type 2 in nonobese acute Diabetic nephritis acute Hyperkalemia acute Hyperparathyroidism acute Hyperuricemia acute Vitamin B12 deficiency acute Vitamin D deficiency acute [facility] Work Phone: 1(220) 746-358812-21-2023 Evaluation note* Encounter Date Diagnosis Assessment Notes Treatment Notes Treatment Clinical Notes Feb, Chronic kidney disease, stage 3a (ICD-10 - N18.31) [facility] Other 11-15-2023 Evaluation note* Encounter Date Diagnosis [...] is she starts to have UTI symptoms. [facility] Other 10-09-2023 Evaluation note* Encounter Date Diagnosis [...] regime, which has helped significantly. She uses elana and benefits d/t concern for hypoglycemia unawareness. [...] escalated Jardiance to 25 mg daily Dec, senior care current use of insulin (ICD-10 - [...] compaired to disease instability. 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 [...] Jardiance to 25 mg daily Sep, senior care current us e of insulin (ICD-10 [...] compaired to disease instability. 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 ASSESSMENT: 1550 blood glucose 82 given 4 ozs juice. 1405 blood glucose 93. 1. Type 2 diabetes, predicted hemoglobin A1c 5.9% via elana 2. Improvement in glycemia. Some lows noted. [...] shows insulin production, antibodies neg. She uses elana and benefits d/t concern for hypoglycemia unawareness. 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 ASSESSMENT: 1. Uncontrolled, a Type 2 [...] unable to characterize without blood glucose data. Madiba currently at 4 units once daily, encouraged increase with parameters to further increase if consistently greater than 150/3 of 7 days. Contrary to this patient may decrease for consistently under 103 of 7 days in a week. She states understanding. I will have better characterization when I see her elana download. Tolerating Ozempic 1 mg. She is [...] NSAIDs, BP and glycemic control. She uses elana and benefits d/t concern for hypoglycemia unawareness. 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 [...] loss approx 33 lbs since starting Ozempic [facility] Other 11-03-2022 Evaluation note* Encounter Date Diagnosis Assessment Notes Treatment Notes Treatment Clinical Notes Jan, Diabetes mellitus type 2 in nonobese (ICD-10 - E11.9) [facility] Other 11-02-2022 Evaluation note* Encounter Date Diagnosis [...] Jan, Vitamin D deficiency (ICD-10 - E55.9) [facility] Other 08-10-2022 Evaluation note* Encounter Date Diagnosis Assessment Notes Treatment Notes Treatment Clinical Notes Oct, Type 2 diabetes mellitus with hyperglycemia (ICD-10 - E11.65) Libia came in today for Evaluation of her Elana CGM Report. EHr report showed 30 % [...] making medication changes by Kwadwo Elizabeth RN, [facility]. [facility] Other 07-20-2022 Evaluation note* Encounter Date Diagnosis [...] blood sugar. We set reminders on her elana to encourage increased vigilance 3. 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 Research shows that stamina with the current regime may fatigue, as would outcomes and CGM is equitable compaired to disease instability. 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 , According to meter download LIBRE2 [id number]: Active 74%, Ave glucose 105, GMI 5.8% [...] with hx of baseline low BP. 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 [facility] Other 08-13-2021 NoteGastroenterology Upper Endoscopy, Adult Upper [...] including vitamins, herbs, eye drops, creams, and hcnr-jkr-rvmvmlh medicines. ? Any problems you or family [...] tells you to take them. ? Taking pill-zsd-rjzaewj medicines, vitamins, herbs, and supplements. 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 Note Date/Time April 20, 2024 9:03am [facility] [address] [place] [address] Gastroenterology H&P Signed Patient: Libia Chen MR#: [id number] : 1950 Acct:[id number] Age/Sex: 73 / F Adm Date: 5 Loc: Room: Type: [facility] Attending Dr: Agnes De Oliveira DO Copies to: Agnes De Oliveira, DO Nathan Mcguire MD~ Date of Service: 04/20/2024 HISTORY & PHYSICAL: Patient's history with special attention to the cardiovascular, pulmonary systems and the current problem was reviewed with the patient immediately prior to the procedure. Present medications and doses reviewed in the EMR. Allergies and pertinent laboratory tests were also reviewedat this time in the EMR. The physical examination, as below, was then performed. Indication, assessment and HPI: 73-year-old female who presents for screening colonoscopy. Last colonoscopy greater than 10 years ago. Family history of GI malignancy? No PHYSICAL EXAMINATION General appearance: cooperative, NAD Skin: No jaundice, no rash or lesions Head: NCAT Eyes: Anicteric Neck: Supple Lungs: Normal respiratory effort, no use of accessory muscles Abdomen: Soft, nondistended Neuro: No focal deficits, Ox3. REVIEW OF SYSTEMS Constitutional: Denies malaise, fevers Cardiovascular: Denies chest pain, palpitations Respiratory: Denies shortness of breath, wheezing Gastrointestinal: As per HPI Genitourinary: Denies dysuria, polyuria Musculoskeletal: Denies joint swelling, joint stiffness Neurological: Denies confusion, numbness, tingling Endocrine: Denies fatigue Written informed consent obtained from the patient. Risks (including but not limited to perforation, infection, bloating, bleeding, need for emergent surgeryand loss of life), benefits and alternatives explained and questions answered. The patient verbalized understanding. Based on history patient is an appropriate candidate for the procedure. Agnes De Oliveira DO Present medication and doses reviewed in the EMR Documented By: Agnes De Oliveira DO 04/20/24 0902 Signed By: <Electronically signed by Agnes De Oliveira DO> 04/20/24 0903 [facility] Work Phone: Hisubpg general Narrative - Reported* Type Description Date Medical History type II diabetes Medical History Retinopathy Surgical History liver biopsy 2003 Surgical History Needle biopsy benign breast lum p 1997 Surgical History D&C Surgical History colonoscopy Hospitalization History See above Hospitalization History [facility] Other History general Narrative - Reported* Type Description Date Medical History type II diabetes Medical History Retinopathy- Diabeti c Macular Edema and Moderate Nonproliferative Diabetic Retinopathy-- [facility] and Dr. Parker Surgical History liver biopsy 2003 Surgical History Needle biopsy benign breast lum p 1997 Surgical History D&C Surgical History colonoscopy Hospitalization History See above Hospitalization History [facility] Other History general Narrative - Reported* Type Description Date Medical History type II diabetes Medical History Retinopathy- Diabeti c Macular Edema and Moderate Nonproliferative Diabetic Retinopathy-- [facility] and Dr. Parker Surgical History liver biopsy 2004 Surgical History Needle biopsy benign breast lum p 1997 Surgical History D&C Surgical History colonoscopy Surgical History cataract surg. left eye 023 Hospitalization History See above Hospitalization History [facility] Other History general Narrative - Reported* Type Description Date Medical History type II diabetes Medical History Retinopathy- Diabeti c Macular Edema and Moderate Nonproliferative Diabetic Retinopathy-- [facility] and Dr. Parekr Surgical History liver biopsy 2003 Surgical History Needle biopsy benign breast lum p 1997 Surgical History D&C Surgical History colonoscopy Surgical History cataract surg. left eye 023 Surgical History cataract surg. right eye 3 Hospitalization History See above Hospitalization History [facility] Other History general Narrative - Reported* Type [...] 3 Hospitalization History See above Hospitalization History [facility] Other Summary Purpose Family History No Family [...] cervix Unknown Parkinson's disease Unknown Advance Directives No Advanced Directives Records Found Advance Directive Response Recorded Date/ Time Advance Directives No February 1:14pm Advance Directive Response Recorded Date/ Time Advance Directives No February 2:14pm Reason for Referral Reason DUPLICATE persiste nt microalbuminuria, GFR below 60 with reasonable glycemic control. On Jardiance Diagnosis 1 Type 2 diabetes kj itus with hyperglycemia (E11.65) Referral Organization [facility] Referring Provider First Name [facility] Referring Provider Last Name [facility] Referring Provider Specialty Nurse Pract itioner Referred Organization [facility] Nephrology Referred Provider More Sylvester Referred Address [address] ,[place],[address] Referred Provider Specialty Nephrology Referral Priority Routine General Notes Grant Loni 09/06 12:00:46 PM >Per Chasidy Maher send this to Radha Argueta and she will call the patient to schedule Artangelica Loni 09/25/2021 12:07:04 PM >Sent to the above Radha Argueta 09/26/2021 10:58:29 AM >received today, sent P2P Radha Argueta 09/26/2021 12:00:45 PM >duplicate. closing Reason 01/07/2022 Referra l sent *Dr. Sylvester please: persistent microalbuminuria, normal BP, max SGLT2i Diagnosis 1 Microalbuminuria (R8 0.9) Diagnosis 2 Type 2 diabetes kj itus with hyperglycemia (E11.65) Referral Organization [facility] Referring Provider First Name Loni Referring Provider Last Name [facility] Referring Provider Specialty Nurse Pract itioner Referred Organization [facility] Nephrology Referred Address [address] [place],[address] Referred Provider Specialty Nephrology Referral Priority Routine Referral Appointment Date 2022-01-07 General Notes Grant Loni 09/06 12:00:46 PM >Per Chasidy Maher send this to Radha Argueta and she will call the patient to schedule Artangelica Loni 09/25/2021 12:07:04 PM >Sent to the ab Radha Argueta 09/26/2021 12:00:26 PM >pt scheduled Chief Complaint and Reason for Visit Chief Complaint Wellness Head Cold, Covid Negative Chief Complaint METER RENAL 4 month Follow up Reason for Visit Chronic kidney disea se, stage 3a Dietary counseling and surveillance HTN (hypertension) Hyperlipidemia Hypoglycemia associated with diabetes senior care current use of insulin Retinopathy Type 2 diabetes mellitus with hyperglycemia Vitamin D deficiency Anemia in chronic kidney disease Chronic kidney disease, stage 3b Diabetes mellitus type 2 in nonobese Diabetic nephritis Hyperkalemia Hyperparathyroidism Hyperuricemia Vitamin B12 deficiency Vitamin D deficiency Chief Complaint DMN f/u / meter RENAL 6 MONTH F/U Reason for Visit Chronic kidney disea se, stage 3a Dietary counseling and surveillance HTN (hypertension) Hyperlipidemia Hypoglycemia associated with diabetes 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 Retinopathy Type 2 diabetes mellitus with hyperglycemia Vitamin D deficiency Anemia in chronic kidney disease Chronic kidney disease, stage 3b Diabetes mellitus type 2 in nonobese Diabetic nephritis Hyperkalemia Hyperparathyroidism Hyperuricemia Vitamin B12 deficiency Vitamin D deficiency Chief Complaint Admit Date DMN f/u February 07, 2024 1 1:31am diarrhea March 07, 2024 10:07am Diarrhea April 20, 2024 8:01am Diarrhea April 20, 2024 9:03am Reason for Visit Admit Date Diabetic macular edema February 06 11:31am Dietary counseling and surveillance Dece mber 2023 11:31am HTN (hypertension) February 07, 2024 1 1:31am Hyperlipidemia February 07, 2024 1 1:31am senior care current use of insulin Decembe r 2023 11:31am Nonproliferative diabetic retinopathy De cember 2023 11:31am Type 2 diabetes mellitus with hyperglyce aysha February 07, 2024 11:31am Vitamin D deficiency February 07, 2024 11:31am Diarrhea March 07, 2024 10:07am Screening for colon cancer February 10:07am Additional Source Comments INFORMATION SOURCE (unrecogn ized section and content) DATE CREATED AUTHOR 12/02/2020 [facility] DATE CREATED AUTHOR AUTHOR'S ORGANIZ ATION 07/20/2022 [facility] DATE CREATED AUTHOR AUTHOR'S ORGANIZ ATION 01/12/2024 [facility] DATE CREATED AUTHOR AUTHOR'S ORGANIZ ATION 04/29/2024 [facility] REASON FOR VISIT (unrecogniz ed section and content) Reason Comments Suspicious Skin Lesion Reason Comments Retinopathy Glaucoma Reason Comments Med Refill Care Teams (unrecognized sec tion and content) Team Status: Active Member Role Status Dates Nathan Mcguire MD Primary Care Provider Active Team Status: Inactive Member Role Status Dates Nathan Mcguire MD Attending Provider Active St art: January 26, 2023 End: January 26, 2023 Team Status: Inactive Member Role Status Dates Nathan Mcguire MD Attending Provider Active St art: February 25, 2023 End: February 25, 2023 Team Status: Inactive Member Role Status Dates Nathan Mcguire MD Primary Care Provider Active Start: May 12, 2023 End: May 12, 2023 Loni Farmer APRN Attending Provider Active Start: May 12, 2023 End: May 12, 2023 Team Status: Active Member Role Status Dates Nathan Mcguire MD Primary Care Provider Active Start: May 27, 2023 Homero Kurtz MD Attending Provider Active Star t: May 27, 2023 Team Status: Inactive Member Role Status Dates Nathan Mcguire MD Primary Care Provider Active Start: June 01, 2023 End: June 01, 2023 Homero Kurtz MD Attending Provider Active Star t: June 01, 2023 End: June 01, 2023 Team Status: Inactive Member Role Status Dates Nathan Mcguire MD Primary Care Provider Active Start: October 25, 2023 End: October 25, 2023 Loni Farmer APRN Attending Provider Active Start: October 25, 2023 End: October 25, 2023 Team Status: Active Member Role Status Dates Nathan Mcguire MD Primary Care Provider Active Start: December 21, 2023 Homero Kurtz MD Attending Provider Active Star t: December 21, 2023 Team Status: Inactive Member Role Status Dates Nathan Mcguire MD Primary Care Provider Active Start: December 28, 2023 End: December 28, 2023 Homero Kurtz MD Attending Provider Active Star t: December 28, 2023 End: December 28, 2023 Heating Fixture Tender Relationship Specialty Start Date End Date Rashid Tracy MD [address] [place] [id number] PCP - General 08/05/22 Heating Fixture Tender Relationship Specialty Start Date End Date Rashid Tracy MD [address] [place] [address] PCP - General 08/05/22 Heating Fixture Tender Relationship Specialty Start Date End Date Rashid Tracy MD [address] [place] [address] PCP - General 08/05/22 Heating Fixture Tender Relationship Specialty Start Date End Date Rashid Tracy MD [address] [place] [address] PCP - General 08/05/22 Team Status: Inactive Member Role Status Dates Nathan Mcguire MD Primary Care Provider Active Start: February 07, 2024 End: February 07, 2024 Loni Farmer APRN Attending Provider Active Start: February 07, 2024 End: February 07, 2024 Team Status: Inactive Member Role Status Dates Nathan Mcguire MD Primary Care Provide r, Attending Provider Active Start: March 07, 2024 End: March 07, 2024 Team Status: Inactive Member Role Status Dates Nathan Mcguire MD Primary Care Provider Active Start: April 20, 2024 End: April 20, 2024 Agnes De Oliveira DO Attending Provider Active St art: April 20, 2024 End: April 20, 2024 Team Status: Active Member Role Status Dates Nathan Mcguire MD Primary Care Provider Active Start: April 20, 2024 Agnes De Oliveira DO Attending Provider, Other Provider Active Start: April 20, 2024 Goals (unrecognized section and content) Goals may [...] BE BASED ON THE PRIMARY CLINICAL RECORDS. [facility] provides no warranty or guarantee of the accuracy or completeness of information in this document.
[2024-05-02 13:35] LABS: Chol HDL Ratio 3.1; Cholesterol 185 mg/dL (<=200); HDL Cholesterol 59 mg/dL (40-60); Triglycerides 201 mg/dL (<=150); VLDL CHOLESTEROL 40.2 mg/dL
== END 2024-05-02 12:30 | disposition home or self-care (01) ==
LOC: LAB 12:29
PROVIDERS: PCP Family Medicine; Visit Provider Nurse Practitioner Family
DX: N18.31 Chronic kidney disease, stage 3a (principal); E78.5 Hyperlipidemia, unspecified
CPT/HCPCS: 36415; 80061

== ENCOUNTER 2024-05-02 12:30 | Outpatient (OUT) | payer MEDICARE, OTHER, SELFPAY ==
[2024-05-02 13:26] LABS: Hemoglobin 11.4 g/dL (12.0-16.0); Mean Corpuscular HGB Conc 32.6 g/dL (29.9-35.2); Mean Corpuscular Hemoglobin 28.6 pg (26.7-34.0); Mean Corpuscular Volume 87.7 fL (81.0-99.0); Mean Platelet Volume 11.4 fL (9.5-13.5); Platelet Count 183 10^3/uL (150-450); Red Blood Count 3.99 10^6/uL (4.20-5.40); White Blood Count 8.4 10^3/uL (4.0-11.0)
[2024-05-02 13:33] LABS: Anion Gap 14.9; BUN Creatinine Ratio 20.4; Calcium 9.3 mg/dL (8.5-10.1); Carbon Dioxide 22.1 mmol/L (21.0-32.0); Chloride 106 mmol/L (98-107); Estimated GFR (African America 39 (>=60 mL/min/1.73m^2); Estimated GFR (Non-African Ame 32 (>=60 mL/min/1.73m^2); Glucose 129 mg/dL (74-106); Phosphorus 3.5 mg/dL (2.6-4.7); Sodium 138 mmol/L (136-145)
[2024-05-03 04:07] LABS: Vitamin B12 1270 pg/mL (232-1245)
== END 2024-05-02 12:31 | disposition home or self-care (01) ==
LOC: LAB 12:30
PROVIDERS: PCP Family Medicine; Visit Provider Internal Medicine Nephrology
DX: E78.5 Hyperlipidemia, unspecified (principal); N18.32 Chronic kidney disease, stage 3b; D63.1 Anemia in chronic kidney disease; E87.5 Hyperkalemia; E79.0 Hyperuricemia without signs of inflammatory arthritis and tophaceous disease; E21.3 Hyperparathyroidism, unspecified; E11.21 Type 2 diabetes mellitus with diabetic nephropathy; N18.31 Chronic kidney disease, stage 3a
CPT/HCPCS: 36415; 80061; 80069; 82607; 82746; 82784; 83735; 84155; 84156; 84165; 84166; 85027; 86334; 86335

== ENCOUNTER 2024-06-05 16:30 | Observation (INO) | payer MEDICARE, OTHER, SELFPAY ==
[2024-06-05] VITALS (15 sets, daily range): BP systolic 141–172; BP diastolic 59–86; PULSE 77–94; TEMP 36.6–37.1; O2SAT 96–100; BMI 28.4
--- NOTE | 2024-06-05 16:55 | ED.ABDPAIN1 ---
HPI - Abdominal Pain General Chief Complaint: Nausea/Vomiting/Diarrhea Stated Complaint: VOMITTING WEAKNESS Time Seen by Provider: 06/05/24 16:45 Source: patient Mode of arrival: walk-in Limitations: no limitations History of Present Illness HPI narrative: 73 year old female presents to the ED for N/V/D. Onset was yesterday. Denies fever, chills, urinary sx, abd pain, CP, SOB. Four hours prior to the onset she took her first 2 mg dose of Ozempic; she had previously been taking 1 mg. Also reports recent ill contacts; concern for influenza. Denies cough, congestion, sore throat. Related Data Home Medications ?Medication ?Instructions ?Recorded ?Confirmed atorvastatin 20 mg tablet 20 mg PO DAILY 07/23/23 06/05/24 lisinopril 10 mg tablet 10 mg PO DAILY 07/23/23 06/05/24 metformin 500 mg tablet 500 mg PO DAILY 07/23/23 06/05/24 dapagliflozin propanediol 5 mg 5 mg PO DAILY 06/05/24 06/05/24 tablet (Farxiga) latanoprost 0.005 % eye drops 1 drp ophthalmic (eye) DAILY 06/05/24 06/05/24 semaglutide 2 mg/dose (8 mg/3 mL) 2 mg subcut QWEEK 06/05/24 06/05/24 subcutaneous pen injector (Ozempic) Allergies Allergy/AdvReac Type Severity Reaction Status Date / Time erythromycin base AdvReac Mild Verified 07/23/23 15:12 Penicillins AdvReac Mild Verified 07/23/23 15:12 Review of Systems ROS Constitutional Denies: fever or chills Ears, nose, mouth, and throat Denies: throat pain or neck pain Cardiovascular Denies: chest pain, palpitations or lightheadedness Respiratory Denies: shortness of breath or cough Gastrointestinal Reports: nausea, vomiting and diarrhea; Denies: abdominal pain Genitourinary Denies: painful urination, urinary frequency, urinary urgency or blood in urine Musculoskeletal Denies: back pain or neck pain Neurological Denies: headache or dizziness [facility] Medical History (Updated 06/05/24 @ 20:49 by Fang Mckenzie RN) Stage 3 chronic kidney disease ?N18.30 - Chronic kidney disease, stage 3 unspecified (ICD-10) Type 2 diabetes mellitus ?E11.9 - Type 2 diabetes mellitus without complications (ICD-10) Social History Little interest or pleasure in doing things: not at all Feeling down, depressed, or hopeless: not at all Exam Constitutional Vital Signs, click to edit/add: Last Vital Signs Temp 98.8 F 06/05/24 16:33 Pulse 85 06/05/24 20:00 Resp 15 06/05/24 20:00 BP 157/78 H 06/05/24 20:00 Pulse Ox 97 06/05/24 20:00 O2 Del Method Room Air 06/05/24 16:33 Common normals: no apparent distress and oriented x3 General appearance: cooperative HENMT Common normals: moist oral mucous membranes Eye Common normals: conjunctivae normal and no scleral icterus Neck & C-Spine Common normals: supple Chest Chest: symmetrical chest wall rise Respiratory Common normals: normal respiratory effort and clear to auscultation bilaterally Effort & inspection: able to speak in complete sentences and symmetric chest movement Cardio Common normals: regular rate and regular rhythm GI Common normals: Normal to inspection, nondistended, normoactive bowel sounds present, soft to palpation and non-tender Neuro Common normals: oriented x3 and moves all extremities Sensorium/orientation: awake and alert Course Vital Signs Vital signs: Vital Signs Temperature 98.8 F 06/05/24 16:33 Pulse Rate 94 H 06/05/24 16:33 Respiratory Rate 18 06/05/24 16:33 Blood Pressure 167/70 H 06/05/24 16:33 Pulse Oximetry 97 06/05/24 16:33 Oxygen Delivery Method Room Air 06/05/24 16:33 Temperature 98.8 F 06/05/24 16:33 Pulse Rate 85 06/05/24 20:00 Respiratory Rate 15 06/05/24 20:00 Blood Pressure 157/78 H 06/05/24 20:00 Pulse Oximetry 97 06/05/24 20:00 Oxygen Delivery Method Room Air 06/05/24 16:33 MDM - Abdominal Pain MDM Narrative Medical decision making narrative: The patient was given medication with improvement in her symptoms. She was tolerating ice chips. Her potassium was 5.8. She was given IV insulin, IV fluids, and IV dextrose with little improvement; repeat was 5.7. She has hx hyperkalemia. Lokelma was then ordered. She will be admitted for further evaluation and treatment. I spoke with SHOBHA Elias who accepted the patient for admission on behalf of Dr. Morales. A complete and detailed handoff report was given. Differential Diagnosis Differential diagnosis: Likely abdominal pain, gastroenteritis and other (influenza, medication side effects) Medical Records Attestation: I reviewed the patient's medical records. Lab Data Attestation: I reviewed the patient's lab results. Labs: Lab Results 06/05/24 06/05/24 Range/Units 17:11 20:02 WBC 10.1 (4.0-11.0) 10^3/uL RBC 4.26 (4.20-5.40) 10^6/uL Hgb 12.0 (12.0-16.0) g/dL Hct 37.9 (36.0-48.0) % MCV 89.0 (81.0-99.0) fL MCH 28.2 (26.7-34.0) pg MCHC 31.7 (29.9-35.2) g/dL RDW 13.1 (11.0-15.0) % Plt Count 187 (150-450) 10^3/uL MPV 11.8 (9.5-13.5) fL Seg Neuts % (Manual) 71.0 (43.0-75.0) Lymphocytes % (Manual) 16.0 L (20.5-60.0) % Monocytes % (Manual) 13.0 H (1.7-12.0) % Eosinophils % (Manual) 0.0 L (0.9-7.0) % Basophils % (Manual) 0.0 L (0.2-2.0) % Neutrophils # (Manual) 7.17 H (1.4-6.5) 10^3/uL Lymphocytes # (Manual) 1.61 (1.20-3.80) 10^3/uL Monocytes # (Manual) 1.31 H (0.30-0.80) 10^3/uL Eosinophils # (Manual) 0.00 (0.00-0.70) 10^3/uL Basophils # (Manual) 0.00 (0.00-0.10) 10^3/uL Sodium 142 (136-145) mmol/L Potassium 5.8 H 5.7 H (3.5-5.1) mmol/L Chloride 106 (98-107) mmol/L Carbon Dioxide 19.6 L (21.0-32.0) mmol/L Anion Gap 22.2 BUN 46.0 H (7.0-18.0) mg/dL Creatinine 1.70 H (0.55-1.02) mg/dL Est GFR ( Amer) 36 L (>=60 mL/min/1.73m^2) Est GFR (Non-Af Amer) 30 L (>=60 mL/min/1.73m^2) BUN/Creatinine Ratio 27.1 Glucose 149 H (74-106) mg/dL Calcium 10.1 (8.5-10.1) mg/dL Total Bilirubin 0.4 (0.2-1.0) mg/dL AST 22 (15-37) U/L ALT 19 (14-59) U/L Alkaline Phosphatase 102 (46-116) U/L Total Protein 9.1 H (6.4-8.2) g/dL Albumin 4.3 (3.4-5.0) g/dL Globulin 4.8 g/dL Albumin/Globulin Ratio 0.9 Lipase 86.0 H (16.0-77.0) U/L Influenza Type A Ag Negative Influenza Type B Ag Negative ECG Data Attestation: ?I have reviewed the pertinent ECG results. (EKG was reviewed by the attending physician. It showed sinus rhythm at a rate of 86. No STEMI.) Interpretation: Measurements Intervals [place] Rate: 86 P: 47 [place]: 160 QRS: 58 QRSD: 82 T: 61 QT: 354 QTc: 397 Interpretive Statements 1100 Sinus rhythm 8102 Low QRS voltage in chest leads 9120 atypical ECG No previous ECG available for comparison Critical Care Time Critical Care Time Critical Care Time: Yes Total Critical Care Time: 35 Attestation: Due to the high probability of sudden and clinically significant deterioration in the patient's condition she required the highest level of my preparedness to intervene urgently. I provided critical care time including documentation time, medication orders and management, reevaluation, vital sign assessment, ordering and reviewing of lab tests, and admission orders. Discharge Plan Discharge Chief Complaint: Nausea/Vomiting/Diarrhea Clinical Impression: Nausea vomiting and diarrhea, Acute hyperkalemia Patient Disposition: Admitted as Observation Time of Disposition Decision: 21:17 Condition: Good
[2024-06-05] MEDS: 0.9 % SODIUM CHLORIDE 1,000 ML 1000 ML IV (17:20)
[2024-06-05] MEDS: ONDANSETRON PF 4 MG/2 ML VIAL IV (17:21)
[2024-06-05 17:30] LABS: Hematocrit 37.9 % (36.0-48.0); Mean Corpuscular HGB Conc 31.7 g/dL (29.9-35.2); Mean Corpuscular Hemoglobin 28.2 pg (26.7-34.0); Mean Platelet Volume 11.8 fL (9.5-13.5); Platelet Count 187 10^3/uL (150-450); Red Blood Count 4.26 10^6/uL (4.20-5.40); Red Cell Distribution Width 13.1 % (11.0-15.0); White Blood Count 10.1 10^3/uL (4.0-11.0)
[2024-06-05 17:40] LABS: Influenza Virus A Antigen Negative; Influenza Virus B Antigen Negative; Internal Control Within Normal Limits
[2024-06-05 17:54] LABS: Alanine Aminotransferase 19 U/L (14-59); Albumin Globulin Ratio 0.9; Albumin Level 4.3 g/dL (3.4-5.0); Alkaline Phosphatase 102 U/L (46-116); Anion Gap 22.2; Aspartate Amino Transferase 22 U/L (15-37); BUN Creatinine Ratio 27.1; Bilirubin Total 0.4 mg/dL (0.2-1.0); Calcium 10.1 mg/dL (8.5-10.1); Carbon Dioxide 19.6 mmol/L (21.0-32.0); Chloride 106 mmol/L (98-107); Estimated GFR (African America 36 (>=60 mL/min/1.73m^2); Estimated GFR (Non-African Ame 30 (>=60 mL/min/1.73m^2); Globulin 4.8 g/dL; Glucose 149 mg/dL (74-106); Potassium 5.8 mmol/L (3.5-5.1); Sodium 142 mmol/L (136-145); Total Protein 9.1 g/dL (6.4-8.2)
[2024-06-05 17:57] LABS: Lymphocytes Absolute Manual 1.61 10^3/uL (1.20-3.80); Monocytes Absolute Manual 1.31 10^3/uL (0.30-0.80); Segmented Neut Absolute Manual 7.17 10^3/uL (1.4-6.5)
--- NOTE | 2024-06-05 18:00 | ECG_ITS ---
The [facility] Test Date: 2024-06-05 Pat Name: LIBIA CHEN Department: Room: - Gender: Female [employer]: : 1950 Requested By: [id number] Order Number: [id number] Reading MD: CHRISTIANO ROSAS M.D. Measurements Intervals [place] Rate: 86 P: 47 ID: [id number] QRS: 58 QRSD: 82 T: 61 QT: 354 QTc: 397 Interpretive Statements 1100 Sinus rhythm 8102 Low QRS voltage in chest leads Abnromal ECG No previous ECG available for comparison Electronically Signed On 06-05-2024 20:31:53 EDT by CHRISTIANO ROSAS M.D.
[2024-06-05] MEDS: INSULIN REGULAR, HUMAN (100 UNIT/ML) 10 ML MDV 10 UNIT IV (18:16)
[2024-06-05] MEDS: DEXTROSE 50 %-WATER 25 GM/50 ML SYRINGE IV (18:16)
[2024-06-05 20:24] LABS: Potassium 5.7 mmol/L (3.5-5.1)
[2024-06-05] MEDS: SODIUM ZIRCONIUM CYCLOSILICATE 10 GM POWD.PACK PO (20:43)
[2024-06-05] MEDS: 0.9 % SODIUM CHLORIDE 1,000 ML 125 ML IV (20:44)
--- OUTSIDE RECORDS SUMMARY | 2024-06-05 22:18 | XMS_ITS | CCD ---
Author Organization [facility] Inform ion Partnership [facility] Care Team Providers Care Sustainment Logistics Analyst Name Role Phone Marleny, Loni Unavailable Rashid Tracy Jr. Unavailable Tabitha Rizzo Unavailable Bakdeniss, Aziz Unavailable SCALDIONICIO, LONI Admitting Unavailable LONI FARMER Attending Unavailable DR NATHAN MCGUIRE Primary Care Unavailable MARLENY, LONI Consulting Unavailable BAKHOUS, AZIZ Admitting Unavailable BAKDENISS, AZIZ Attending Unavailable DR NATHAN MCGUIRE Primary [...] De Oliveira DO Attending Provider Agnes De Oliveira Attending Unavailable Agnes De Oliveira Admitting Unavailable Nathan Mcguire Primary Care Unavailable Allergies Allergy Classification Reported Allergen(s) Allergy Type Date of Onset Reaction(s) Facility (20 sources) Erythromycin Drug Allergy 08-06-19 23 Unknown [facility] Work Phone: (20 sources) Penicillin G Drug Allergy 02-26-20 Unknown, Convulsions [facility] (7 sources) Erythromycin Drug Allergy 02-26-[address] [facility] (7 sources) Penicillins Drug allergy (disorder) 04-29-19 [address] [facility] (9 sources) metFORMIN Drug Allergy 02-26-20 23 Unknown, Diarrhea [facility] (4 sources) Allergies Reconciled Propensity to adverse reactions Unknown [facility] Other (7 sources) Substance with penicillin structure and antibacterial mechanism of action (substance) Drug allergy Unknown [facility] Other (4 sources) patient allergy list reviewed by nurse or physicia Propensity to adverse reactions 04-06-19 Comment:Done [facility] Other (6 sources) Penicillins Drug Intolerance 08-06-19 Unknown [facility] (1 source) Erythromycin Drug Allergy 04-05-19 [facility] (1 source) Penicillins Drug allergy (disorder) 04-05-19 [facility] Medications Current Medications Medication Drug Class(es) Dates Sig (Normalized) Sig (Original) atorvastatin 20 mg oral tablet (20 sources) HMG-CoA Reductase Inhibitor Start: 11-24-2023 End: 12-28-2023 take 1 tablet by mouth once daily Atorvastatin 20 mg tablet Discontinued 0 .ROUTE .COMPLEX 90 November 24, 2023 12:38pm December 28, 2023 2:20pm TAKE 1 TABLET BY MOUTH EVERY DAY Start: 05-21-2022 End: 11-24-2023 take 1 tablet by mouth once daily Atorvastatin 20 mg tablet Active 20 MG PO Daily December 28, 2023 2:19pm benzonatate 200 mg oral capsule (3 sources) Non-narcotic Antitussive Start: 02-25-2023 take 1 capsule by mouth every eight hours Benzonatate 200 MG 1 capsule Orally Three times a day for 10 day(s) Feb, Active cholecalciferol 0.05 mg oral capsule (10 sources) Vitamin D Start: 04-05-2024 take 1 [...] Start: 02-25-2022 take 1 tablet by shwetha every twenty-four hours Farxiga 5 MG 1 [...] Aug, Active take 1 tablet by shwetha every twenty-four hours JARDIANCE 25 mg 1 tablet orally daily fo r days PAP- [employer]-- DENIED Active ferrous sulfate 325 mg oral tablet (15 sources) Start: 01-20-2023 take 1 tablet by mouth once daily ferrous sulfate 325 (65 Fe) MG tablet TAKE 1 TABLET BY MOUTH EVERY DAY FOR 90 DAYS 01/20/2023 Active Flash Glucose Scanning [place] (Freestyle Elana 2 [place]) misc (4 sources) Start: 10-25-2023 Flash Glucose Scanning [place] (Freestyle Elana 2 [place]) misc Active 0 .Route October 24, 2023 11:00pm As directed Start: 10-25-2023 Flash Glucose Scanning [place] (Freestyle Elana 2 [place]) misc Active 0 .ROUTE October 25, 2023 12:00am As directed Flash Glucose Sensor (Freest yle Elana 2 Sensor) kit (4 sources) Start: 10-25-2023 Flash Glucose Sensor (Freestyle Elana 2 Sensor) kit Active 0 .Route October 24, 2023 11:00pm As directed Start: 10-25-2023 Flash Glucose Sensor (Freestyle Elana 2 Sensor) kit Active 0 .ROUTE October 25, 2023 12:00am As directed FreeStyle Elana 2 [place] Systm - (20 sources) Start: 02-15-2020 FreeStyle Libr e 2 [place] Systm - as directed Feb, Active FreeStyle [...] 02/11/2024 Discontinued latanoprost 0.05 mg/ml ophthalmic solution (20 sources) Prostaglandin Analog Start: 05-05-2024 take 1 drop(s) into the eye(s) at bedtime latanoprost (Xalatan) 0.005 % ophthalmic solution 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, mild stage (CMS/HCC) INSTILL 1 DROP INTO BOTH EYES AT BEDTIME 2.5 mL 5 05/05/2024 Active Start: 02-07-2024 take 1 drop(s) into the eye(s) once daily Latanoprost 0.005 % drops Active 1 DROPS EYE-BOTH Daily February 07, 2024 11:43am Start: 05-12-2023 Latanoprost Ac tive DROPS OPHTHALMIC May 12, 2023 1:00am Start: 11-02-2022 End: 05-05-2024 take 1 drop(s) into the eye(s) at bedtime latanoprost (Xalatan) 0.005 % ophthalmic solution 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, mild stage (CMS/HCC) INSTILL 1 DROP INTO BOTH EYES AT BEDTIME 2.5 mL 5 10/29/2023 05/05/2024 Discontinued Start: 07-08-2022 End: 02-11-2024 take 1 drop(s) [...] MOUTH EVERY DAY FOR 90 DAYS Start: 07-12-2023 End: 10-25-2023 take 1 tablet by mouth once daily Lisinopril 10 mg tablet Discontinued 0 .ROUTE .COMPLEX July 12, 2023 3:18pm October 25, 2023 1:30pm TAKE 1 TABLET BY MOUTH EVERY DAY FOR 90 DAYS Start: 07-22-2022 End: 01-03-2024 take 1 tablet by mouth once daily Lisinopril 10 mg tablet Discontinued 10 MG PO Daily October 25, 2023 1:28pm January 03, 2024 9:01am ofloxacin 3 mg/ml ophthalmic solution (5 sources) [...] MG/1.5ML 1 mg Subcutaneous Once a week [facility] Aug, Active Ozempic (1 MG/DO SE) 2 MG/1.5ML 1 mg [facility] predniso[facility]ONE acetate 10 mg/ml ophthalmic suspension [...] MG/1.5ML 1 mg Subcutaneous Once a week [facility] Aug, Active Semaglutide 1 mg/dose (2 mg/1.5 mL) pen injector (4 sources) Start: 02-07-2024 inject 1 mg by [...] Active vitamin b12 0.1 mg oral tablet (18 sources) Vitamin B12 Start: 12-28-2023 Cyanocobalamin (Vitamin [...] U-100) 100 unit/mL (3 mL) insulin pen (5 sources) Start: 05-12-2023 End: 06-01-2023 inject 3 [...] 24 hr Discontinued 500 MG PO Daily 90 July 06, 2023 7:52am October 12, 2023 4:03pm Start: 07-29-2022 take 1 tablet by shwetha th every twenty-four hours in the morning metFORMIN XR (Glucophage-XR) 500 MG 24 hr tablet Take 500 mg by mouth in the morning. 07/29/2022 Active Start: 08-21-2020 take 2 tablets by mo uth every twenty-four hours metFORMIN HCl ER 500 [...] [Left upper quadrant pain] Episodic Administrative/social admission (18 sources) Dietary counseling and surveillance; Translations: [Patient encounter status] Onset: 11-27-2020 Resolved: 09-24-2021 Episodic Biliary tract disease (4 sources) Cholelithiasis without obstruction; Translations: [Calculus of gallbladder without cholecystitis without obstruction] Episodic Calculus of urinary tract (1 source) Calculus of kidney; Translations: [CALCULUS OF KIDNEY] Onset: 04-27-2022 Episodic Cataract (19 sources) Artificial lens present; Translations: [Presence of [...] Resolved: 09-24-2021 Chronic Fluid and electrolyte disorders (9 sources) Hyperkalemia; Translations: [Hyperkalemia] Episodic Genitourinary symptoms and ill-defined conditions (14 sources) Proteinuria, unspecified; Translations: [Microalbuminuria] Onset: 03-06-2021 Resolved: 09-24-2021 Episodic Glaucoma (14 sources) Glaucoma; Translations: [Unspecified glaucoma] Onset: 02-03-2023 05-12-2023 Chronic Immunizations and screening for infectious disease (5 sources) Encounter for screening for other viral diseases; Translations: [Vaccination given] Onset: 09-07-2021 Resolved: 09-07-2021 Episodic Menopausal disorders (8 sources) Postmenopausal bleeding; Translations: [Postmenopausal bleeding] Onset: 04-06-2014 Chronic Nutritional deficiencies (20 sources) Vitamin D deficiency; Translations: [Vitamin D deficiency, unspecified] Onset: 11-27-2020 Resolved: 09-24-2021 Chronic Nutritional deficiencies (11 sources) Deficiency of other specified B group vitamins; Translations: [Cobalamin deficiency] Onset: 07-19-2022 Episodic Other aftercare (20 sources) Long-term current use of insulin; 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] 05-12-2023 Episodic Other aftercare (13 sources) 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; Translations: [Long-term (current) use of insulin] Onset: 11-27-2020 Resolved: 09-24-2021 Episodic Other and unspecified benign neoplasm (2 sources) Benign tumor of soft tissue of back; Translations: [Other benign neoplasm of skin of trunk] 01-11-2024 Episodic Other endocrine disorders (15 sources) Hyperparathyroidism; Translations: [Hyperparathyroidism , unspecified] 05-31-2023 Chronic Other endocrine disorders (4 sources) Hyperparathyroidism, unspecified; Translations: [Hyperparathyroidism , unspecified] Chronic Other gastrointestinal disorders (2 sources) Diarrhea; Translations: [Diarrhea, unspecified] 03-07-2024 Episodic Other gastrointestinal disorders (2 sources) Diarrhea, unspecified; Translations: [Diarrhea] 03-07-2024 Episodic Other [...] nutritional; endocrine; and metabolic disorders (4 sources) Hyperuricemia without signs of inflammatory arthritis and tophaceous disease; Translations: [Other abnormal blood chemistry] Episodic Other nutritional; endocrine; and metabolic disorders (5 sources) Hyperuricemia; Translations: [Hyperuricemia without signs of inflammatory arthritis and tophaceous disease] 05-31-2023 Episodic Other screening for suspected conditions (not mental disorders or infectious disease) (9 sources) Mammography abnormal; Translations: [Unspecified abnormal mammogram] [...] for unspecified reasons] Episodic Residual codes; unclassified (5 sources) Body mass index 20-24 - normal; [...] KIDNEY DISEASE STAGE 3A] Onset: 04-22-2022 Other eye disorders (7 sources) Dry eyes; Translations: [Dry eye syndrome of bilateral lacrimal glands] Onset: 02-03-2023 02-03-2023 Episodic Other liver diseases (4 sources) Elevated levels [...] Test Name Value Interpretation Reference Range Facility Cholesterol in LDL Calc [Mas s/Vol]on 05-02-2024 Cholesterol in LDL [Mass/Vol] Cholesterol in LDL [Mass/volume] in Serum or Plasma by calculation [facility] Comment on above: <100 mg/dl [id number] 0-129 mg/dl NEAR OR ABOVE [id number] mg/dl BORDERLINE [id number] mg/dl HIGH>190 mg/dl VERY HIGH Cholesterol in VLDL Calc [Ma ss/Vol]on 05-02-2024 Cholesterol in VLDL [Mass/Vol] Cholesterol in VLDL [Mass/volume] in Serum or Plasma by calculation [facility] Erythrocyte distribution wid th Auto (RBC) [Ratio]on 05-02-2024 Erythrocyte distribution width (RBC) [Ratio] Erythrocyte distribution width [Ratio] by Automated count 11.0-15.0 [facility] Estimated glomerular filtrat ion rate (GFR) non- Americanon 05-02-2024 GFR/1.73 sq M.predicted among non-blacks MDRD (S/P/Bld) [Vol rate/Area] Estimated glomerular filtration rate (GFR) non- Low >=60 mL/min/1.7 3m 2 [facility] Hematocrit Auto (Bld) [Volum e fraction]on 05-02-2024 Hematocrit (Bld) [Volume fraction] Hematocrit [Volume Fraction] of Blood by Automated count Low 36.0-48.0 [facility] Hemoglobin [Mass/volume] in Bloodon 05-02-2024 Hemoglobin (Bld) [Mass/Vol] Hemoglobin [Mass/volume] in Blood Low 12.0-16.0 [facility] Laboratory - Chemistry and C hemistry - challengeon 05-02-2024 Albumin [Mass/Vol] 4.0 g/dL 3.4-5.0 [facility] Calcium [Mass/Vol] 9.3 mg/dL 8.5-10.1 [facility] Chloride [Moles/Vol] 106 mmol/L 98-107 [facility] Cholesterol [Mass/Vol] 185 mg/dL <=200 [facility] Cholesterol in HDL [Mass/Vol] 59 mg/dL 40-60 [facility] Comment on above: > or =60 mg/dl - LOW CARDIOVASCULAR RISK<40 mg/dl - HIGH CARDIOVASCULAR RISK CO2 [Moles/Vol] 22.1 mmol/L 21.0-32.0 [facility] Cobalamin (Vitamin B12) [Mass/Vol] 1270 pg/mL Abnormal 232-1245 [facility] Comment on above: Performed at: [address] [id number] Director: Aric Leone PhD, Phone: [phone] Creatinine [Mass/Vol] 1.57 mg/dL High 0.55-1.02 [facility] GFR/1.73 sq M.predicted MDRD (S/P/Bld) [Vol rate/Area] 39 mL/min/{1.73_m2} Low >=60 mL/min/1.7 3m 2 [facility] Glucose [Mass/Vol] 129 mg/dL High 74-106 [facility] Magnesium [Mass/Vol] 2.0 mg/dL 1.8-2.4 [facility] Potassium [Moles/Vol] 5.0 mmol/L 3.5-5.1 [facility] Sodium [Moles/Vol] 138 mmol/L 136-145 [facility] Triglyceride [Mass/Vol] 201 mg/dL High <=150 [facility] Urea nitrogen [Mass/Vol] 32.0 mg/dL High 7.0-18.0 [facility] Urea nitrogen/Creatinin e [Mass ratio] 20.4 mg/mg [facility] Leukocytes [#/volume] correc anabelle for nucleated erythrocytes in Blood by Automated counon 05-02-2024 WBC corrected for nucl RBC Auto (Bld) [#/Vol] Leukocytes [#/volume] corrected for nucleated erythrocytes in Blood by Automated coun 4.0-11.0 [facility] MCH Auto (RBC) [Entitic mass ]on 05-02-2024 MCH (RBC) [Entitic mass] MCH [Entitic mass] by Automated count 26.7-34.0 [facility] MCHC Auto (RBC) [Mass/Vol]on 05-02-2024 MCHC (RBC) [Mass/Vol] MCHC [Mass/volume] by Automated count 29.9-35.2 [facility] MCV Auto (RBC) [Entitic vol] on 05-02-2024 MCV (RBC) [Entitic vol] MCV [Entitic volume] by Automated count 81.0-99.0 [facility] No Panel Informationon 05-02 Folate 20.70 ng/mL 8.60-58.90 [facility] Phosphorus Level 3.5 mg/dL 2.6-4.7 [facility] Platelet mean volume Auto (B ld) [Entitic vol]on 05-02-2024 Platelet mean volume (Bld) [Entitic vol] Platelet mean volume [Entitic volume] in Blood by Automated count 9.5-13.5 [facility] Platelets Auto (Bld) [#/Vol] on 05-02-2024 Platelets (Bld) [#/Vol] Platelets [#/volume] in Blood by Automated count 150-450 [facility] RBC Auto (Bld) [#/Vol]on RBC (Bld) [#/Vol] Erythrocytes [#/volu me] in Blood by Automated count Low 4.20-5.40 [facility] Serum or plasma anion gap de terminationon 05-02-2024 Anion gap [Moles/Vol] Serum or plasma anion gap determination [facility] Serum or plasma total choles terol/high density lipoprotein (HDL) cholesterol mass mikey 05-02-2024 Cholesterol.total/ Cholesterol in HDL [Mass ratio] Serum or plasma total cholesterol/high density lipoprotein (HDL) cholesterol mass rat [facility] Comment on above: 3.3 - 4.4 LOW RISK4. 4 - 7.1 AVERAGE RISK7.1 - 11.0 MODERATE RISK>11.0 HIGH RISK Glucose Glucometer (BldC) [M ass/Vol]Ordered By: Agnes De Oliveira on 04-20-2024 Glucose [Mass/Vol] Capillary blood gluc ose measurement by glucometer (mass/volume) [facility] Comment on above: Random Glucose Refer ence Range is dependent on time and content of last meal. Glucose of more than 200 mg/dL in a nonstressed, ambulatory subject supports the diagnosis of Diabetes Mellitus. Glucose Poct Glucometerson 0 04-20-2024 Glucose [Mass/Vol] 166 mg/dL Normal [facility] Comment on above: Result Comment: [place] Glucose Reference Range is dependent on time and content of last meal. Glucose of more than 200 mg/dL in a nonstressed, ambulatory subject supports the diagnosis of Diabetes Mellitus. PERFORMED BY: [facility] [place] [address] PATHOLOGIST SUBWAY CONDUCTOR SHASHI DIAS M.D. Performed By: #### G AMOS #### Point of Care testing , Adam 04-20-2024 L -------- -------- Specimen: [id number] Received: 04/20/24 Status: LAVERNE Pickett Num: [id number] Spec Type: Surgical Subm Dr: Agnes De Oliveira DO Tissues: A Colon Biopsy (SIGMOID COLON POLYP) Procedures: WANDA/Keli Kerr/Robert L4 -------- Age/ Patient Sex Location Account Attending Physician -------- Libia Chen 73/[place] [id number] Agnes De Oliveira DO -------- SPEC NUM: [id number] RECD: 04/20/24 STATUS: LAVERNE PICKETT NUM: [id number] [place]: 04/20/[address] [facility] [address]: Agnes De Oliveira DO ENTERED: 04/20/[address] [facility] DR: LEANN TYPE: Surgical DEPT: S ENTERED BY: [id number] RECV BY: [id number] ORDERED: HE/2, Gross/Micro L4 ORDERED: HE/2, Gross/Micro L4 Pathological Diagnosis Sigmoid polyp: ? Polypoid fragment of colonic mucosa with surface hyperplastic changes ? No adenomatous changes are identified Clinical Information Diarrhea Gross Description Part A is received in formalin labeled with the patients name, date of , and sigmoid polyp is a nogueira-renee, focally erythematous, friable, 0.3 cm in greatest dimension polypoid fragment. The specimen is entirely submitted in a single cassette. (1, ns, [id number]) CPT Codes 25978 -------- -------- Specimen: [id number] Received: 04/20/24 Status: LAVERNE Carbajaljayy Num: [id number] Spec Type: Surgical Subm Dr: Agnes De Oliveira DO Tissues: A Colon Biopsy (SIGMOID COLON POLYP) Procedures: HE/2, Gross/Micro L4 -------- Patient: Libia Chen [id number] (Continued) -------- Signed (signature on file) Lemuel Sims MD 04/21/24 0948 Normal [facility] Ophthalmic OCT panelon 02-10 [facility] Right Eye Images reviewed and comparison [...] eyes (OU). Stable. No changes to treatment [facility] Radiology Study observation (narrative) [facility] Optical coherence tomography study reporton 02-11-2024 [facility] Radiology Study observation (narrative) [facility] HbA1c HPLC (Bld) [Mass fract ion]on 02-07-2024 HbA1c (Bld) [Mass fraction] Hemoglobin A1c/Hemoglobin.total in Blood by HPLC [facility] No Panel Informationon 02-06 Bedside Glucose 166 [facility] Erythrocyte distribution wid th Auto (RBC) [Ratio]on 12-21-2023 Erythrocyte distribution width (RBC) [Ratio] 13.2 % 11.0-15.0 [facility] Estimated glomerular filtrat ion rate (GFR) non- Americanon 12-21-2023 GFR/1.73 sq M.predicted among non-blacks MDRD (S/P/Bld) [Vol rate/Area] 30 mL/min/{1.73_m2} Low >=60 mL/min/1.7 3m 2 [facility] Hematocrit Auto (Bld) [Volum e fraction]on 12-21-2023 Hematocrit (Bld) [Volume fraction] 32.1 % Low 36.0-48.0 [facility] Hemoglobin [Mass/volume] in Bloodon 12-21-2023 Hemoglobin (Bld) [Mass/Vol] 10.1 g/dL Low 12.0-16.0 [facility] Iron binding capacity [Mass/ volume] in Serum or Plasmaon 12-21-2023 Iron binding capacity [Mass/Vol] 316.0 ug/dL 250.0-450. 0 [facility] Iron saturation [Mass Fracti on] in Serum or Plasmaon 12-21-2023 Iron saturation [Mass fraction] 25.0 % [facility] Laboratory - Chemistry and C hemistry - challengeon 12-21-2023 Albumin [Mass/Vol] 3.7 g/dL 3.4-5.0 [facility] Calcium [Mass/Vol] 8.9 mg/dL 8.5-10.1 [facility] Chloride [Moles/Vol] 108 mmol/L High 98-107 [facility] CO2 [Moles/Vol] 22.3 mmol/L 21.0-32.0 [facility] Creatinine [Mass/Vol] 1.66 mg/dL High 0.55-1.02 [facility] Ferritin [Mass/Vol] 216.0 ng/mL 8.0-252.0 [facility] GFR/1.73 sq M.predicted MDRD (S/P/Bld) [Vol rate/Area] 37 mL/min/{1.73_m2} Low >=60 mL/min/1.7 2 [facility] Glucose [Mass/Vol] 197 mg/dL High 74-106 [facility] Iron [Mass/Vol] 79.0 ug/dL 50.0-170.0 [facility] Magnesium [Mass/Vol] 2.0 mg/dL 1.8-2.4 [facility] Potassium [Moles/Vol] 4.5 mmol/L 3.5-5.1 [facility] Sodium [Moles/Vol] 142 mmol/L 136-145 [facility] Urate [Mass/Vol] 6.8 mg/dL High 2.6-6.0 [facility] Urea nitrogen [Mass/Vol] 32.0 mg/dL High 7.0-18.0 [facility] Urea nitrogen/Creatinin e [Mass ratio] 19.3 mg/mg [facility] Bilirubin Ql (U) Negative NEGATIVE [facility] Glucose (U) [Mass/Vol] mg/dL Abnormal NEGATIVE [facility] Ketones Ql (U) Negative NEGATIVE [facility] pH (U) 5.5 [pH] 5.0-9.0 [facility] Specific gravity (U) [Rel density] 1.015 1.005-1.02 5 [facility] Urobilinogen Qn (U) 0.2 {Michael'U}/dL 0.2-1.0 [facility] Laboratory - Specimen inform ationon 12-21-2023 Appearance (U) CLEAR CLEAR [facility] Color (U) LT. YELLOW YELLOW [facility] Laboratory - Urinalysison Leukocyte esterase Test strip Ql (U) SMALL Abnormal NEGATIVE [facility] Nitrite Ql (U) Negative NEGATIVE [facility] Protein (U) [Mass/Vol] 11.2 mg/dL <=11.9 [facility] Protein Ql (U) Negative NEG/TRACE [facility] Leukocytes [#/volume] correc anabelle for nucleated erythrocytes in Blood by Automated counon 12-21-2023 WBC corrected for nucl RBC Auto (Bld) [#/Vol] 8.8 10 3/uL 4.0-11.0 [facility] MCH Auto (RBC) [Entitic mass ]on 12-21-2023 MCH (RBC) [Entitic mass] 28.9 pg 26.7-34.0 [facility] MCHC Auto (RBC) [Mass/Vol]on 12-21-2023 MCHC (RBC) [Mass/Vol] 31.5 g/dL 29.9-35.2 [facility] MCV Auto (RBC) [Entitic vol] on 12-21-2023 MCV (RBC) [Entitic vol] 92.0 fL 81.0-99.0 [facility] Microalbumin [Mass/volume] i n Urineon 12-21-2023 Albumin DL <= 20 mg/L (U) [Mass/Vol] 1.8 mg/dL <=30.0 [facility] No Panel Informationon 12-20 Folate 15.90 ng/mL 8.60-58.90 [facility] Parathyroid Hormone (Intact) 50 pg/mL [facility] Comment on above: Performed at: [facility] [place], [place] [id number] Director: Aric Leone PhD, Phone: SLID Phosphorus Level 3.1 mg/dL 2.6-4.7 [facility] Vitamin B12 Level >2000 pg/mL Abnormal 232-1245 [facility] Comment on above: Performed at: [facility] [place], [place] [id number] Director: Aric Leone PhD, Phone: [phone] Urine Occult Blood Negative NEGATIVE [facility] Urine Random Creatinine 47.66 mg/dL 20.00-300. 00 [facility] Platelet mean volume Auto (B ld) [Entitic vol]on 12-21-2023 Platelet mean volume (Bld) [Entitic vol] 10.6 fL 9.5-13.5 [facility] Platelets Auto (Bld) [#/Vol] on 12-21-2023 Platelets (Bld) [#/Vol] 200 10 3/uL 150-450 [facility] RBC Auto (Bld) [#/Vol]on RBC (Bld) [#/Vol] 3.49 10 6/uL Low 4.20-5.40 [facility] Serum or plasma anion gap de terminationon 12-21-2023 Anion gap [Moles/Vol] 16.2 mmol/L [facility] Urine microalbumin/creatinin e mass ratioon 12-21-2023 Albumin/Creatinine DL <= 20 mg/L (U) [Mass ratio] 37.7 mg/g High 0.0-29.9 [facility] Comment on above: NO MICROALBUMINURIA 0-29 MG/GCLINICAL MICROALBUMINURIA 30-300 MG/GMACROALBUMINURIA >300 MG/G Urine protein/creatinine rat ioon 12-21-2023 Protein/Creatinine (U) [Ratio] 0.23 [facility] HbA1c HPLC (Bld) [Mass fract ion]on 10-25-2023 HbA1c (Bld) [Mass fraction] 7.0 % [facility] No Panel Informationon 10-24 Bedside Glucose 99 [facility] Automated urine specific gra vity by refractometryon 05-27-2023 Specific gravity Refractometry automated (U) [Rel density] 1.020 1.005-1.02 5 [facility] Bilirubin Auto test strip (U ) [Mass/Vol]on 05-27-2023 Bilirubin (U) [Mass/Vol] Negative NEGATIVE [facility] Cholesterol in LDL Calc [Mas s/Vol]on 05-27-2023 Cholesterol in LDL [Mass/Vol] 87.0 mg/dL [facility] Comment on above: <100 mg/dl [id number] 0-129 mg/dl NEAR OR ABOVE [id number] mg/dl BORDERLINE [id number] mg/dl HIGH>190 mg/dl VERY HIGH Cholesterol in VLDL Calc [Ma ss/Vol]on 05-27-2023 Cholesterol in VLDL [Mass/Vol] 30.6 mg/dL [facility] Color Auto (U)on 05-27-2023 Color (U) LT. YELLOW YELLOW [facility] Erythrocyte distribution wid th Auto (RBC) [Ratio]on 05-27-2023 Erythrocyte distribution width (RBC) [Ratio] 12.7 % 11.0-15.0 [facility] Estimated glomerular filtrat ion rate (GFR) non- Americanon 05-27-2023 GFR/1.73 sq M.predicted among non-blacks MDRD (S/P/Bld) [Vol rate/Area] 40 mL/min/{1.73_m2} >=60 [facility] Globulin Calc (S) [Mass/Vol] on 05-27-2023 Globulin (S) [Mass/Vol] 4.5 g/dL [facility] Hematocrit Auto (Bld) [Volum e fraction]on 05-27-2023 Hematocrit (Bld) [Volume fraction] 38.7 % 36.0-48.0 [facility] Hemoglobin [Mass/volume] in Bloodon 05-27-2023 Hemoglobin (Bld) [Mass/Vol] 11.9 g/dL 12.0-16.0 [facility] Iron binding capacity [Mass/ volume] in Serum or Plasmaon 05-27-2023 Iron binding capacity [Mass/Vol] 384.0 ug/dL 250.0-450. 0 [facility] Iron saturation [Mass Fracti on] in Serum or Plasmaon 05-27-2023 Iron saturation [Mass fraction] 16.7 % [facility] Ketones Auto test strip (U) [Mass/Vol]on 05-27-2023 Ketones (U) [Mass/Vol] Negative NEGATIVE [facility] Laboratory - Chemistry and C hemistry - challengeon 05-27-2023 Albumin [Mass/Vol] 4.1 g/dL 3.4-5.0 [facility] ALP [Catalytic activity/Vol] 102 U/L 46-116 [facility] ALT [Catalytic activity/Vol] 21 U/L 14-59 [facility] AST [Catalytic activity/Vol] 20 U/L 15-37 [facility] Bilirubin [Mass/Vol] 0.3 mg/dL 0.2-1.0 [facility] Calcium [Mass/Vol] 9.6 mg/dL 8.5-10.1 [facility] Chloride [Moles/Vol] 104 mmol/L 98-107 [facility] Cholesterol [Mass/Vol] 176 mg/dL <=200 [facility] Cholesterol in HDL [Mass/Vol] 59 mg/dL 40-60 [facility] Comment on above: > or =60 mg/dl - LOW CARDIOVASCULAR RISK<40 mg/dl - HIGH CARDIOVASCULAR RISK CO2 [Moles/Vol] 26.2 mmol/L 21.0-32.0 [facility] Cobalamin (Vitamin B12) [Mass/Vol] 5763.0 pg/mL 193.0-986. 0 [facility] Creatinine [Mass/Vol] 1.30 mg/dL 0.55-1.02 [facility] Ferritin [Mass/Vol] 101.0 ng/mL 8.0-252.0 [facility] GFR/1.73 sq M.predicted MDRD (S/P/Bld) [Vol rate/Area] 49 mL/min/{1.73_m2} >=60 [facility] Glucose [Mass/Vol] 107 mg/dL 74-106 [facility] Iron [Mass/Vol] 64.0 ug/dL 50.0-170.0 [facility] Magnesium [Mass/Vol] 2.1 mg/dL 1.8-2.4 [facility] Potassium [Moles/Vol] 4.0 mmol/L 3.5-5.1 [facility] Protein [Mass/Vol] 8.6 g/dL 6.4-8.2 [facility] Sodium [Moles/Vol] 142 mmol/L 136-145 [facility] Triglyceride [Mass/Vol] 153 mg/dL <=150 [facility] Urate [Mass/Vol] 6.9 mg/dL 2.6-6.0 [facility] Urea nitrogen [Mass/Vol] 20.0 mg/dL 7.0-18.0 [facility] Urea nitrogen/Creatinin e [Mass ratio] 15.4 mg/mg [facility] Laboratory - Urinalysison Protein (U) [Mass/Vol] 16.2 mg/dL <=11.9 [facility] Leukocytes [#/volume] correc anabelle for nucleated erythrocytes in Blood by Automated counon 05-27-2023 WBC corrected for nucl RBC Auto (Bld) [#/Vol] 8.6 10 3/uL 4.0-11.0 [facility] MCH Auto (RBC) [Entitic mass ]on 05-27-2023 MCH (RBC) [Entitic mass] 27.9 pg 26.7-34.0 [facility] MCHC Auto (RBC) [Mass/Vol]on 05-27-2023 MCHC (RBC) [Mass/Vol] 30.7 g/dL 29.9-35.2 [facility] MCV Auto (RBC) [Entitic vol] on 05-27-2023 MCV (RBC) [Entitic vol] 90.8 fL 81.0-99.0 [facility] No Panel Informationon 05-26 25-Hydroxy Vitamin D Total 57.6 ng/mL [facility] Comment on above: <20 ng/mL Vit D defi cient20-<30 ng/mL Vit D xcndtaytjjjc69-896 ng/mL Vit D sufficient>100 ng/mL Potential Toxicity Folate 15.70 ng/mL 8.60-58.90 [facility] Parathyroid Hormone (Intact) 31 pg/mL 15-65 [facility] Comment on above: Performed at: [facility] [place] [place] [id number] Director: Aric Leone PhD, Phone: [phone] Phosphorus Level 4.2 mg/dL 2.6-4.7 [facility] Urine Random Creatinine 73.96 mg/dL 20.00-300. 00 [facility] Platelet mean volume Auto (B ld) [Entitic vol]on 05-27-2023 Platelet mean volume (Bld) [Entitic vol] 10.6 fL 9.5-13.5 [facility] Platelets Auto (Bld) [#/Vol] on 05-27-2023 Platelets (Bld) [#/Vol] 188 10 3/uL 150-450 [facility] Protein Auto test strip (U) [Mass/Vol]on 05-27-2023 Protein (U) [Mass/Vol] Negative NEG/TRACE [facility] RBC Auto (Bld) [#/Vol]on RBC (Bld) [#/Vol] 4.26 10 6/uL 4.20-5.40 [facility] Serum or plasma albumin/glob ulin mass ratioon 05-27-2023 Albumin/Globulin [Mass ratio] 0.9 {ratio} [facility] Serum or plasma anion gap de terminationon 05-27-2023 Anion gap [Moles/Vol] 15.8 mmol/L [facility] Serum or plasma total choles terol/high density lipoprotein (HDL) cholesterol mass mikey 05-27-2023 Cholesterol.total/ Cholesterol in HDL [Mass ratio] 3.0 {ratio} [facility] Comment on above: 3.3 - 4.4 LOW RISK4. 4 - 7.1 AVERAGE RISK7.1 - 11.0 MODERATE RISK>11.0 HIGH RISK Specific gravity Auto test s trip (U) [Rel density]on 05-27-2023 Specific gravity (U) [Rel density] CLEAR CLEAR [facility] Urine glucose measurement by test strip (mass/volume)on 05-27-2023 Glucose Test strip (U) [Mass/Vol] >=1000 mg/dL NEGATIVE [facility] Urine hemoglobin detection b y automated test stripon 05-27-2023 Hemoglobin Auto test strip Ql (U) Negative NEGATIVE [facility] Urine nitrite detection by a utomated test stripon 05-27-2023 Nitrite Auto test strip Ql (U) Negative NEGATIVE [facility] Urine protein/creatinine rat ioon 05-27-2023 Protein/Creatinine (U) [Ratio] 0.22 [facility] Urobilinogen Auto test strip (U) [Mass/Vol]on 05-27-2023 Urobilinogen Qn (U) 0.2 {Michael'U}/dL 0.2-1.0 [facility] pH Auto test strip (U)on pH (U) 5.5 [pH] 5.0-9.0 [facility] HbA1c HPLC (Bld) [Mass fract ion]on 05-12-2023 HbA1c (Bld) [Mass fraction] 6.2 % [facility] No Panel Informationon 05-11 Bedside Glucose 122 [facility] A1C HEMOGLOBINon 12-14-2022 HbA1c (Bld) [Mass fraction] 6.3 % [facility] Other Glucose - FINGER STICKon Glucose [Mass/Vol] 133 mg/dL [facility] Other HbA1c (Bld) [Mass fraction]o n 12-14-2022 A1C HEMOGLOBIN [employer] Other A1C HEMOGLOBINon 09-09-2022 HbA1c (Bld) [Mass fraction] 6.5 % [facility] Other Glucose - FINGER STICKon Glucose [Mass/Vol] 107 mg/dL [facility] Other HbA1c (Bld) [Mass fraction]o n 09-09-2022 A1C HEMOGLOBIN [employer] Other PTH INTACTon 07-17-2022 PTH, Intact 68 pg/mL Critically high 15-65 [facility] Comment on above: Performed By: #### P THINT #### [facility] [address] [address] [address] Tim Moya HEMOGRAM AND PLATELon 2022 Hematocrit (Bld) [Volume fraction] 36.5 % Normal 36.0-48.0 [facility] Comment on above: Performed By: #### H H ####[facility] [address] [place] [address]Dr. Tim Moya Hemoglobin (Bld) [Mass/Vol] 11.7 g/dL Critically low 12.0-16.0 [facility] Comment on above: Performed By: #### H H ####[facility] [address] [place] [address]Dr. Tim Moya MCH (RBC) [Entitic mass] 28.3 pg Normal 26.7-34.0 [facility] Comment on above: Performed By: #### H H ####[facility] [address] [place] [address]Dr. Tim Moya MCHC (RBC) [Mass/Vol] 32.1 g/dL Normal 29.9-35.[address] [facility] Comment on above: Performed By: #### H H ####[facility] [address] [place] [address]Dr. Tim Moya MCV (RBC) [Entitic vol] 88.2 fL Normal 81.0-99.0 [facility] Comment on above: Performed By: #### H H ####[facility] [address] [place] [address]DrLinda Moya PLT 242 103/ul Normal 150-[address] [facility] Comment on above: Performed By: #### H H ####[facility] Q[address]ixcwfzu[address] [place] [address]Dr. Tim Moya RBC 4.14 106/ul Critically low 4.20-5.40 [facility] Comment on above: Performed By: #### H H ####[facility] [address] [place] [address]Dr. Tim Moya WBC 9.2 103/ul Normal 4.0-11.0 [facility] Comment on above: Performed By: #### H H ####[facility] [address] [place] [address]Dr. Tim Griffin MAGNESIUMon 07-16-2022 Magnesium [Mass/Vol] 2.4 mg/dL Normal 1.8-2.4 [facility] Comment on above: Performed By: #### C MP, PHOS, URIC, MG #### [facility] [address] [address] [address]Linda Moya PHOSPHORUSon 07-16-2022 Phosphate [Mass/Vol] 3.3 mg/dL Normal 2.6-4.7 [facility] Comment on above: Performed By: #### C MP, PHOS, URIC, MG ####[facility] [address] [place] [address]DrLinda Tim Griffin PROF 14(COMP METB)on 023 Albumin [Mass/Vol] 3.9 g/dL Normal 3.4-5.0 [facility] Comment on above: Performed By: #### C MP, PHOS, URIC, MG ####[facility] [address]gcdniph[address] [place] [address]DrLinda Tim Griffin Albumin/Globulin [Mass ratio] 0.8 {ratio} Normal [facility] Comment on above: Performed By: #### C MP, PHOS, URIC, MG ####[facility] [address] [place] [address]DrLinda Tim Griffin ALP [Catalytic activity/Vol] 107 U/L Normal 46-[address] [facility] Comment on above: Performed By: #### C MP, PHOS, URIC, MG ####[facility] [address]uc[address] [place] [address]Dr. Tim Moya ALT [Catalytic activity/Vol] 22 U/L Normal 14-[address] [facility] Comment on above: Performed By: #### C MP, PHOS, URIC, MG ####[facility] [address] [place] [address]Dr. Tim Moya Anion gap [Moles/Vol] 12.4 mmol/L Normal [facility] Comment on above: Performed By: #### C MP, PHOS, URIC, MG ####[facility] I[address] [place], [place] [address]Dr. Tim Moya AST [Catalytic activity/Vol] 19 U/L Normal 15-[address] [facility] Comment on above: Performed By: #### C MP, PHOS, URIC, MG ####[facility] [address] [place], [place] [address]Dr. Tim Moya Bilirubin [Mass/Vol] 0.2 mg/dL Normal 0.2-1.[address] [facility] Comment on above: Performed By: #### C MP, PHOS, URIC, MG ####[facility] Z[address]ys[address] [place], [place] [address]Dr. Tim Moya Calcium [Mass/Vol] 8.7 mg/dL Normal 8.5-10.1 [facility] Comment on above: Performed By: #### C MP, PHOS, URIC, MG ####[facility] Qkt[address]jzgh[address] [place] [address]Dr. Tim Moya Chloride [Moles/Vol] 108 mmol/L Critically high 98-[address] [facility] Comment on above: Performed By: #### C MP, PHOS, URIC, MG ####[facility] [address] [place] [address]Dr. Tim Moya CO2 [Moles/Vol] 26.1 mmol/L Normal 21.0-32.0 [facility] Comment on above: Performed By: #### C MP, PHOS, URIC, MG ####[facility] [address] [place] [address]Dr. Tim Moya Creatinine [Mass/Vol] 1.21 mg/dL Critically high 0.55-1.02 [facility] Comment on above: Performed By: #### C MP, PHOS, URIC, MG ####[facility] [address] [place] [address]Dr. Tim Moya EGFR-AF KENYAN 53 mL/min/1.73m2 Critically low >=60 [facility] Comment on above: Performed By: #### C MP, PHOS, URIC, MG ####[facility] Iseg[address]xq[address] [place] [address]Dr. Tim Moya EGFR-NON AF KENYAN 44 mL/min/1.73m2 Critically low >=60 [facility] Comment on above: Performed By: #### C MP, PHOS, URIC, MG ####[facility] Qcu[address]axapw[address] [place] [address]Dr. Tim Moya Globulin (S) [Mass/Vol] 4.9 g/dL Normal [facility] Comment on above: Performed By: #### C MP, PHOS, URIC, MG ####[facility] [address] [place] [address]Dr. Tim Moya Glucose [Mass/Vol] 94 mg/dL Normal 74-106 [facility] Comment on above: Performed By: #### C MP, PHOS, URIC, MG ####[facility] Ltzhwsrusm[address] [place] [address]Dr. Tim Moya Potassium [Moles/Vol] 4.5 mmol/L Normal 3.5-5.1 [facility] Comment on above: Performed By: #### C MP, PHOS, URIC, MG ####[facility] [address] [place] [address]Dr. Tim Moya Protein [Mass/Vol] 8.8 g/dL Critically high 6.4-8.2 [facility] Comment on above: Performed By: #### C MP, PHOS, URIC, MG ####[facility] [address] [place] [address]Dr. Tim Moya Sodium [Moles/Vol] 142 mmol/L Normal 136-145 [facility] Comment on above: Performed By: #### C MP, PHOS, URIC, MG ####[facility] [address] [place] [address]Dr. Tim Moya Urea nitrogen [Mass/Vol] 20.0 mg/dL Critically high 7.0-18.0 [facility] Comment on above: Performed By: #### C MP, PHOS, URIC, MG ####[facility] [address]miq[address] [place] [address]Dr. Tim Moya Urea nitrogen/Creatinin e [Mass ratio] 16.5 mg/mg Normal [facility] Comment on above: Performed By: #### C MP, PHOS, URIC, MG ####[facility] [address] [place] [address]Dr. Tim Moya UA RANDOMon 07-16-2022 Bilirubin Ql (U) Negative Normal NEGATIVE [facility] Comment on above: Performed By: #### U A #### [facility] [address] [place] [address] Dr. Tim Moya Clarity (U) CLOUDY Abnormal CLEAR [facility] Comment on above: Performed By: #### U A #### [facility] [address] [place] [address] Dr. Tim Moya Color (U) YELLOW Normal YELLOW [facility] Comment on above: Performed By: #### U A #### [facility] [address] [address] [address] Tim Moya Glucose Ql (U) 500 mg/dl Abnormal NEGATIVE [facility] Comment on above: Performed By: #### U A #### [facility] [address] [place] [address] Dr. Tim Moya Hemoglobin Ql (U) TRACE Abnormal NEGATIVE [facility] Comment on above: Performed By: #### U A #### [facility] [address] [address] [address] Tim Moya Ketones Ql (U) Negative Normal NEGATIVE [facility] Comment on above: Performed By: #### U A #### [facility] [address] [address] [address] Tim Moya LEUKOCYTES MODERATE Abnormal NEGATIVE [facility] Comment on above: Performed By: #### U A #### [facility] [address] [place] [address] Dr. Tim Moya Nitrite Ql (U) Negative Normal NEGATIVE [facility] Comment on above: Performed By: #### U A #### [facility] [address] [place] [address] Dr. Tim Moya pH (U) 6.0 [pH] Normal 5-[address] [facility] Comment on above: Performed By: #### U A #### [facility] [address] [place] [address] Dr. Tim Moya SPEC GRAVITY 1.010 Normal 1.005-<=1. 025 [facility] Comment on above: Performed By: #### U A #### [facility] [address] [place] [address] Dr. Tim Moya UA PROTEIN Negative Normal NEGATIVE/ TRACE [facility] Comment on above: Performed By: #### U A #### [facility] [address] [place] [address] Dr. Tim Moya Urobilinogen Qn (U) 0.2 {Michael'U}/dL Normal 0.2 - 1.[address] [facility] Comment on above: Performed By: #### U A #### [facility] [address] [place] [address] Dr. Tim Moya URIC ACID SERUMon 07-16-2022 Urate [Mass/Vol] 6.6 mg/dL Critically high 2.6-6.[address] [facility] Comment on above: Performed By: #### C MP, PHOS, URIC, MG ####[facility] [address] [place] [address]Dr. Tim Moya URINE T PROTEIN CREAT RATIOo n 07-16-2022 Protein (U) [Mass/Vol] 25.1 mg/dL Critically high <=12.[address] [facility] Comment on above: Performed By: #### U RTPCR #### [facility] [address] [place] [address] Dr. Tim Moya UR PROT CREAT RAT 0.72 Normal [facility] Comment on above: Performed By: #### U RTPCR #### [facility] [address] [place] [address] Dr. Tim Moya URINE CREAT 34.83 mg/dL Normal 20.00-300. 00 [facility] Comment on above: Performed By: #### U RTPCR #### [facility] [address] [place] [address] Dr. Tim Moya VITAMIN D 25 OHon 07-16-2022 VIT D 25-OH 31.0 ng/mL Normal [facility] Comment on above: Performed By: #### V ITAD #### [facility] [address] [place] [address] Dr. Tim Moya VIT D RANGES SEE BELOW Normal [facility] Comment on above: Result Comment: <20 ng/mL Vit D deficient 20 - <30 ng/mL Vit D insufficient 30 - 100 ng/mL Vit D sufficient >100 ng/mL Potential Toxicity Performed By: #### V ITAD #### [facility] [address] [place] [address] Dr. Tim Moya US KIDNEYSon 04-22-2022 US KIDNEYS EXAMINATION: [facility] H[facility]ORY: Chronic kidney disease stage 3a , [...] by: GABINO CORONADO Date: 2022-04-22 09:43 Normal [address] [facility] A1C HEMOGLOBINon 02-25-2022 HbA1c (Bld) [Mass fraction] 7.0 % [facility] Other Glucose - FINGER STICKon Glucose [Mass/Vol] 104 mg/dL [facility] [employer] Other HbA1c (Bld) [Mass fraction]o n 02-25-2022 A1C HEMOGLOBIN [facility] [employer] Other INSULIN AUTOANTIBODIESon Insulin Antibodies <5.0 Normal [facility] Comment on above: Result Comment: This test is also known as insulin autoantibody or IAA. This test was developed and its performance characteristics determined by [employer]. It has not been cleared or approved by the Food and Drug Administration. Reference Range: <5.0 Negative > or = 5.0 Positive Performed By: #### I AA #### [facility] [address] [address] [address] Tim Moya GLUTAMIN ACID DECARBOXYLASE (MICHAEL)on 11-22-2021 MICHAEL-65 <5.0 Normal 0.0-5.0 [facility] Comment on above: Performed By: #### G AD #### [facility] [address] [address] [address] Tim Moya C-PEPTIDE, SERUMon 2 C-Peptide, Serum 2.1 ng/mL Normal 1.1-4.4 [facility] Comment on above: Result Comment: C-Pe ptide reference interval is for fasting patients. Performed By: #### C PEPT #### [facility] [address] [place] [address] Dr. Tim Moya VIT D 25-OH LABCORPon 2021 Vitamin D, 25-Hydroxy 24.5 ng/mL Critically low 30.0-100.0 [facility] Comment on above: Result Comment: Ileana min D deficiency has been defined by the [place] [employer] and an Endocrine Society practice guideline as a level of serum 25-OH vitamin D less than 20 ng/mL (1,2). The Endocrine Society went on to further define vitamin D insufficiency as a level between 21 and 29 ng/mL (2). 1. IOM ([place] [employer]). 2010. Dietary reference intakes for calcium and D. [place]: The National Academies Press. 2. Yessenia MF, Tavia NC, Jacinda PALM, et al. Evaluation, treatment, and prevention of vitamin D deficiency: an Endocrine Society clinical practice guideline. JCEM. 2010; 96(7):1911-30. Performed By: #### V ITADLC #### [facility] [address] [address] [address] Tim Moya PROF 14(COMP METB)on 022 Albumin [Mass/Vol] 3.6 g/dL Normal 3.4-5.0 [facility] Comment on above: Performed By: #### C MP ####[facility] [address] [place] [address]DrLinda Moya Albumin/Globulin [Mass ratio] 0.8 {ratio} Normal [facility] Comment on above: Performed By: #### C MP ####[facility] [address] [place] [id number]. Tim Moya ALP [Catalytic activity/Vol] 116 U/L Normal 46-[address] [facility] Comment on above: Performed By: #### C MP ####[facility] [address] [place] [phone] Moya ALT [Catalytic activity/Vol] 42 U/L Normal 14-59 [facility] Comment on above: Performed By: #### C MP ####[facility] [address] [place] [phone] Moya Anion gap [Moles/Vol] 10.1 mmol/L Normal [facility] Comment on above: Performed By: #### C MP ####[facility] [address] [place] [phone] Moya AST [Catalytic activity/Vol] 39 U/L Critically high 15-37 [facility] Comment on above: Performed By: #### C MP ####[facility] [address] [place] [address]Dr. Tim Griffin Bilirubin [Mass/Vol] 0.2 mg/dL Normal 0.2-1.0 [facility] Comment on above: Performed By: #### C MP ####[facility] [address] [place] [address]Dr. Angelicavicki Griffin Calcium [Mass/Vol] 9.0 mg/dL Normal 8.5-10.1 [facility] Comment on above: Performed By: #### C MP ####[facility] [address] [place] [address]Dr. Tim Moya Chloride [Moles/Vol] 108 mmol/L Critically high 98-107 [facility] Comment on above: Performed By: #### C MP ####[facility] [address] [place] [address]Dr. Angelicavicki Griffin CO2 [Moles/Vol] 27.0 mmol/L Normal 21.0-32.0 [facility] Comment on above: Performed By: #### C MP ####[facility] [address] [place], [place] [address]Dr. Tim Griffin Creatinine [Mass/Vol] 1.01 mg/dL Normal 0.55-1.02 [facility] Comment on above: Performed By: #### C MP ####[facility] [address] [place] [address]Dr. Angelicavicki Griffin EGFR-AF KENYAN >60 Normal >=60 [facility] Comment on above: Performed By: #### C MP ####[facility] [id number] [place] [id number]. Tim Moya EGFR-NON AF KENYAN 54 mL/min/1.73m2 Critically low >=[address] [facility] Comment on above: Performed By: #### C MP ####[facility] [address] [place] [id number]. Tim Moya Globulin (S) [Mass/Vol] 4.4 g/dL Normal [facility] Comment on above: Performed By: #### C MP ####[facility] [address] [place] [phone]. Tim Moya Glucose [Mass/Vol] 120 mg/dL Critically high 74-106 [facility] Comment on above: Performed By: #### C MP ####[facility] [address] [place] [phone]. Tim Moya Potassium [Moles/Vol] 4.1 mmol/L Normal 3.5-5.1 [facility] Comment on above: Performed By: #### C MP ####[facility] [address] [place] [address]Dr. Tim Moya Protein [Mass/Vol] 8.0 g/dL Normal 6.4-8.2 [facility] Comment on above: Performed By: #### C MP ####[facility] [address] [place] [address]Dr. Tim Moya Sodium [Moles/Vol] 141 mmol/L Normal 136-145 [facility] Comment on above: Performed By: #### C MP ####[facility] [address] [place] [phone]. Tim Moya Urea nitrogen [Mass/Vol] 20.0 mg/dL Critically high 7.0-18.0 [facility] Comment on above: Performed By: #### C MP ####[facility] [id number] [place] [address]Dr. Tim Moya Urea nitrogen/Creatinin e [Mass ratio] 19.8 mg/mg Normal [facility] Comment on above: Performed By: #### C MP ####[facility] [id number] [place], [place] [address]Dr. Tim Moya A1C HEMOGLOBINon 09-24-2021 HbA1c (Bld) [Mass fraction] 5.9 % [facility] Other Glucose - FINGER STICKon Glucose [Mass/Vol] 95 mg/dL [facility] Other HbA1c (Bld) [Mass fraction]o n 09-24-2021 A1C HEMOGLOBIN [employer] Other COVID Quick Testingon 2021 Result Negative [facility] Other A1C HEMOGLOBINon 06-16-2021 HbA1c (Bld) [Mass fraction] 6.3 % [facility] Other Glucose - FINGER STICKon Glucose [Mass/Vol] 99 mg/dL [facility] Other HbA1c (Bld) [Mass fraction]o n 06-16-2021 A1C HEMOGLOBIN [employer] Other A1C HEMOGLOBINon 03-06-2021 HbA1c (Bld) [Mass fraction] 5.9 % [facility] Other Glucose - FINGER STICKon Glucose [Mass/Vol] 109 mg/dL [facility] Other HbA1c (Bld) [Mass fraction]o n 03-06-2021 A1C HEMOGLOBIN [employer] Other Ambulatory Clinical Summaryo n 12-02-2020 Ambulatory Clinical Summary {[id number]}CD:6143 68 Normal [facility] General Surgery Office/Clini c Noteon 12-01-2020 [...] mRNA-1273 vaccine 05/02/2020 Recorded patient seen 11/29/20 [facility] Comment on above: Result Comment: Elec tronically Signed By: ANDREA PETTY, Rigo Edwards\Date and Time Signed: 12/01/20 21:10 EDT Ambulatory Clinical Summaryo n 11-29-2020 Ambulatory Clinical Summary {[id number]}CD:6143 68 [facility] A1C HEMOGLOBINon 11-27-2020 HbA1c (Bld) [Mass fraction] 6.7 % [facility] [employer] Other Glucose - FINGER STICKon Glucose [Mass/Vol] 102 mg/dL [facility] [employer] Other HbA1c (Bld) [Mass fraction]o n 11-27-2020 A1C HEMOGLOBIN [facility] [employer] Other Outside Colonoscopyon 2020 Outside Colonoscopy [id number]:127 [facility] Pathology Noteon 11-08-2020 Pathology Note [id number]:127 [facility] Lab Reportson 11-05-2020 Lab Reports [id number]#[id number]:127 [facility] October 23, 2020 NATHAN MCGUIRE, [facility] [place] [address] Re: LIBIA CHEN Date of : 1950 [...] persist. Sincerely, Rigo Egan MD General Surgery Normal [facility] Consent for Procedure/Surger yon 10-21-2020 Consent for Procedure/Surgery [id number]:127 Normal [facility] Immunization Recordson 10-21 Immunization Records [id number]#[id number]:127 Normal [facility] Ambulatory Clinical Summaryo n 10-18-2020 Ambulatory Clinical Summary {[id number]}CD:6143 68 Normal [facility] General Surgery Office/Clini c Noteon 10-18-2020 [...] Stroke: Fath (more content not included)... Normal [facility] Comment on above: Result Comment: Elec tronically Signed By: ANDREA PETTY, Rigo Maher\laverne\Date and Time Signed: 10/18/20 13:50 EDT Physician Referralon 021 Physician Referral [id number]:127 Normal [facility] Vital Signs Date Time Vital Sign Value Performing Clinician Facility 05-03-2024 11:12-0500 Body height 162.56 cm Nathan Mcguire MD Work Phone: [facility] 05-03-2024 11:12-0500 Body mass index (BMI) [Ratio] 29.7 kg/m2 Nathan Mcguire MD Work Phone: [facility] 05-03-2024 11:12-0500 Body weight 78.47 kg Nathan Mcguire MD Work Phone: [facility] 05-03-2024 11:12-0500 Diastolic blood pressure 64 mm[Hg] Nathan Mcguire MD Work Phone: [facility] 05-03-2024 11:12-0500 Heart rate 68 /min Nathan Mcguire MD Work Phone: [facility] 05-03-2024 11:12-0500 Respiratory rate 16 /min Nathan Mcguire MD Work Phone: [facility] 05-03-2024 11:12-0500 SaO2% (BldA) [Mass fraction] 100 % Nathan Mcguire MD Work Phone: [facility] 05-03-2024 11:12-0500 Systolic blood pressure 105 mm[Hg] Nathan Mcguire MD Work Phone: [facility] 04-20-2024 10:05-0500 Diastolic blood pressure 58 mm[Hg] Nathan Mcguire MD Work Phone: [facility] 04-20-2024 10:05-0500 Heart rate 63 /min Nathan Mcguire MD Work Phone: [facility] 04-20-2024 10:05-0500 Respiratory rate 16 /min Nathan Mcguire MD Work Phone: [facility] 04-20-2024 10:05-0500 SaO2% (BldA) [Mass fraction] 100 % Nathan Mcguire MD Work Phone: [facility] 04-20-2024 10:05-0500 Systolic blood pressure 108 mm[Hg] Nathan Mcguire MD Work Phone: [facility] 04-20-2024 08:14-0500 Body height 162.56 cm Nathan Mcguire MD Work Phone: [facility] 04-20-2024 08:14-0500 Body weight 77.11 kg Nathan Mcguire MD Work Phone: [facility] 03-07-2024 10:18-0500 Body height 162.56 cm Nathan Mcguire MD Work Phone: [facility] 03-07-2024 10:18-0500 Body mass index (BMI) [Ratio] 29.7 kg/m2 Nathan Mcguire MD Work Phone: [facility] 03-07-2024 10:18-0500 Body weight 78.47 kg Nathan Mcguire MD Work Phone: [facility] 03-07-2024 10:18-0500 Diastolic blood pressure 62 mm[Hg] Nathan Mcguire MD Work Phone: [facility] 03-07-2024 10:18-0500 Heart rate 69 /min Nathan Mcguire MD Work Phone: [facility] 03-07-2024 10:18-0500 Systolic blood pressure 103 mm[Hg] Nathan Mcguire MD Work Phone: [facility] 02-07-2024 11:37-0500 Body height 162.56 cm Nathan Mcguire MD Work Phone: [facility] 02-07-2024 11:37-0500 Body mass index (BMI) [Ratio] 29.5 kg/m2 Nathan Mcguire MD Work Phone: [facility] 02-07-2024 11:37-0500 Body weight 78.18 kg Nathan Mcguire MD Work Phone: [facility] 02-07-2024 11:37-0500 Diastolic blood pressure 69 mm[Hg] Nathan Mcguire MD Work Phone: [facility] 02-07-2024 11:37-0500 Heart rate 66 /min Nathan Mcguire MD Work Phone: [facility] 02-07-2024 11:37-0500 Respiratory rate 18 /min Nathan Mcguire MD Work Phone: [facility] 02-07-2024 11:37-0500 SaO2% (BldA) [Mass fraction] 100 % Nathan Mcguire MD Work Phone: [facility] 02-07-2024 11:37-0500 Systolic blood pressure 120 mm[Hg] Nathan Mcguire MD Work Phone: [facility] 12-28-2023 11:36-0400 Body height 162.56 cm [facility] 12-28-2023 11:36-0400 Body mass index (BMI) [Ratio] 29.7 kg/m2 [facility] 12-28-2023 11:36-0400 Body temperature 97.7 [degF] [facility] 12-28-2023 11:36-0400 Body weight 78.64 kg [facility] 12-28-2023 11:36-0400 Diastolic blood pressure 68 mm[Hg] [facility] 12-28-2023 11:36-0400 Heart rate 78 /min [facility] 12-28-2023 11:36-0400 Respiratory rate 16 /min [facility] 12-28-2023 11:36-0400 SaO2% (BldA) [Mass fraction] 98 % [facility] 12-28-2023 11:36-0400 Systolic blood pressure 128 mm[Hg] [facility] 10-25-2023 14:13-0400 Body height 162.56 cm [facility] 10-25-2023 14:13-0400 Body mass index (BMI) [Ratio] 28.8 kg/m2 [facility] 10-25-2023 14:13-0400 Body weight 76.26 kg [facility] 10-25-2023 14:13-0400 Diastolic blood pressure 70 mm[Hg] [facility] 10-25-2023 14:13-0400 Heart rate 63 /min [facility] 10-25-2023 14:13-0400 Respiratory rate 18 /min [facility] 10-25-2023 14:13-0400 SaO2% (BldA) [Mass fraction] 98 % [facility] 10-25-2023 14:13-0400 Systolic blood pressure 117 mm[Hg] [facility] 06-01-2023 09:19-0400 Body height 162.56 cm [facility] 06-01-2023 09:19-0400 Body mass index (BMI) [Ratio] 27.4 kg/m2 [facility] 06-01-2023 09:19-0400 Body temperature 97.4 [degF] [facility] 06-01-2023 09:19-0400 Body weight 72.63 kg [facility] 06-01-2023 09:19-0400 Diastolic blood pressure 67 mm[Hg] [facility] 06-01-2023 09:19-0400 Heart rate 71 /min [facility] 06-01-2023 09:19-0400 Respiratory rate 16 /min [facility] 06-01-2023 09:19-0400 SaO2% (BldA) [Mass fraction] 98 % [facility] 06-01-2023 09:19-0400 Systolic blood pressure 126 mm[Hg] [facility] 05-12-2023 15:34-0500 Body height 162.56 cm [facility] 05-12-2023 15:34-0500 Body mass index (BMI) [Ratio] 28.2 kg/m2 [facility] 05-12-2023 15:34-0500 Body weight 74.61 kg [facility] 05-12-2023 15:34-0500 Diastolic blood pressure 73 mm[Hg] [facility] 05-12-2023 15:34-0500 Heart rate 68 /min [facility] 05-12-2023 15:34-0500 Respiratory rate 16 /min [facility] 05-12-2023 15:34-0500 SaO2% (BldA) [Mass fraction] 99 % [facility] 05-12-2023 15:34-0500 Systolic blood pressure 123 mm[Hg] [facility] 02-25-2023 10:15-0500 Body height 162.56 cm [facility] 02-25-2023 10:15-0500 Body weight 71.93 kg [facility] 02-25-2023 10:15-0500 Diastolic blood pressure 73 mm[Hg] [facility] 02-25-2023 10:15-0500 Systolic blood pressure 120 mm[Hg] [facility] 01-26-2023 11:00-0500 Body height 162.56 cm [facility] 01-26-2023 11:00-0500 Body weight 71.3 kg [facility] 01-26-2023 11:00-0500 Diastolic blood pressure 63 mm[Hg] [facility] 01-26-2023 11:00-0500 Systolic blood pressure 130 mm[Hg] [facility] 01-20-2023 10:20-0500 Body height 162.56 cm Homero Ellisons Other [employer] [facility] [employer] Other 01-20-2023 10:20-0500 Body mass index (BMI) [Ratio] 27.5 kg/m2 Homero Ellisons Other [employer] Other 01-20-2023 10:20-0500 Body temperature 97.2 [degF] Homero Ellisons Other [employer] Other 01-20-2023 10:20-0500 Body weight 72.67 kg Azzee Ellisons Other [employer] Other 01-20-2023 10:20-0500 Diastolic blood pressure 68 mm[Hg] Aziz Tinghous Other [employer] Other 01-20-2023 10:20-0500 Respiratory rate 18 /min Homero Maguirehous Other [employer] Other 01-20-2023 10:20-0500 SaO2% (BldA) [Mass fraction] 99 % Homero Kurtz Other [employer] Other 01-20-2023 10:20-0500 Systolic blood pressure 111 mm[Hg] Homero Kurtz Other [employer] Other 12-14-2022 09:45-0400 Body height 162.56 cm Loni Scally Other [employer] Other 12-14-2022 09:45-0400 Diastolic blood pressure 67 mm[Hg] Loni Scally Other [facility] Other 12-14-2022 09:45-0400 Respiratory rate 18 /min Loni Scally Other [facility] Other 12-14-2022 09:45-0400 SaO2% (BldA) [Mass fraction] 99 % Loni Scally Other [employer] Other 12-14-2022 09:45-0400 Systolic blood pressure 108 mm[Hg] Loni Scally Other [employer] Other 09-09-2022 10:45-0400 Body height 162.56 cm Loni Scally Other [facility] Other 09-09-2022 10:45-0400 Body mass index (BMI) [Ratio] 26.48 kg/m2 Loni Scally Other [employer] Other 09-09-2022 10:45-0400 Body weight 69.99 kg Loni Scally Other [facility] Other 09-09-2022 10:45-0400 Diastolic blood pressure 68 mm[Hg] Loni Scally Other [employer] Other 09-09-2022 10:45-0400 Respiratory rate 18 /min Loni Scally Other [facility] Other 09-09-2022 10:45-0400 SaO2% (BldA) [Mass fraction] 97 % Loni Scally Other [employer] Other 09-09-2022 10:45-0400 Systolic blood pressure 112 mm[Hg] Loni Scally Other [employer] Other 05-12-2022 13:30-0500 Body height 162.56 cm Loni Scally Other [employer] Other 05-12-2022 13:30-0500 Body mass index (BMI) [Ratio] 26.47 kg/m2 Loni Scally Other [facility] Other 05-12-2022 13:30-0500 Body weight 69.95 kg Loni Scally Other [employer] Other 05-12-2022 13:30-0500 Diastolic blood pressure 74 mm[Hg] Loni Scally Other [facility] Other 05-12-2022 13:30-0500 Respiratory rate 18 /min Loni Scally Other [employer] Other 05-12-2022 13:30-0500 SaO2% (BldA) [Mass fraction] 100 % Loni Scally Other [employer] Other 05-12-2022 13:30-0500 Systolic blood pressure 122 mm[Hg] Loni Scally Other [employer] Other 02-25-2022 12:15-0500 Body height 162.56 cm Loni Scally Other [employer] Other 02-25-2022 12:15-0500 Body mass index (BMI) [Ratio] 26.35 kg/m2 Loni Scally Other [employer] Other 02-25-2022 12:15-0500 Body weight 69.63 kg Loni Scally Other [employer] Other 02-25-2022 12:15-0500 Diastolic blood pressure 66 mm[Hg] Loni Scally Other [employer] Other 02-25-2022 12:15-0500 Respiratory rate 18 /min Loni Scally Other [employer] Other 02-25-2022 12:15-0500 SaO2% (BldA) [Mass fraction] 100 % Loni Scally Other [employer] Other 02-25-2022 12:15-0500 Systolic blood pressure 136 mm[Hg] Loni Scally Other [employer] Other 01-07-2022 14:20-0400 Body height 162.56 cm Homero Kurtz Other [facility] Other 01-07-2022 14:20-0400 Body mass index (BMI) [Ratio] 25.5 kg/m2 Homero Kurtz Other [facility] Other 01-07-2022 14:20-0400 Body temperature 96.6 [degF] Homero Kurtz Other [facility] Other 01-07-2022 14:20-0400 Body weight 67.4 kg Homero Kurtz Other [facility] Other 01-07-2022 14:20-0400 Diastolic blood pressure 74 mm[Hg] Homero Kurtz Other [facility] Other 01-07-2022 14:20-0400 Respiratory rate 18 /min Homero Kurtz Other [facility] Other 01-07-2022 14:20-0400 SaO2% (BldA) [Mass fraction] 99 % Homero Kurtz Other [facility] Other 01-07-2022 14:20-0400 Systolic blood pressure 125 mm[Hg] Homero Kurtz Other [employer] Other 09-24-2021 10:15-0400 Body height 162.56 cm Loni Scally Other [facility] Other 09-24-2021 10:15-0400 Body mass index (BMI) [Ratio] 24.27 kg/m2 Loni Scally Other [facility] Other 09-24-2021 10:15-0400 Body weight 64.14 kg Loni Scally Other [facility] Other 09-24-2021 10:15-0400 Diastolic blood pressure 66 mm[Hg] Loni Scally Other [facility] Other 09-24-2021 10:15-0400 Respiratory rate 18 /min Loni Scally Other [facility] Other 09-24-2021 10:15-0400 SaO2% (BldA) [Mass fraction] 100 % Loni Scally Other [facility] Other 09-24-2021 10:15-0400 Systolic blood pressure 111 mm[Hg] Loni Scally Other [facility] Other 06-16-2021 10:00-0400 Body height 162.56 cm Loni Scally Other [facility] Other 06-16-2021 10:00-0400 Body mass index (BMI) [Ratio] 24.58 kg/m2 Loni Scally Other [facility] Other 06-16-2021 10:00-0400 Body weight 64.96 kg Loni Scally Other [facility] Other 06-16-2021 10:00-0400 Diastolic blood pressure 68 mm[Hg] Loni Scally Other [facility] Other 06-16-2021 10:00-0400 Respiratory rate 18 /min Loni Scally Other [facility] Other 06-16-2021 10:00-0400 SaO2% (BldA) [Mass fraction] 100 % Loni Scally Other [facility] Other 06-16-2021 10:00-0400 Systolic blood pressure 126 mm[Hg] Loni Scally Other [facility] Other 03-06-2021 09:15-0500 Body height 162.56 cm Loni Scally Other [facility] Other 03-06-2021 09:15-0500 Body mass index (BMI) [Ratio] 25.52 kg/m2 Loni Scally Other [facility] Other 03-06-2021 09:15-0500 Body weight 67.45 kg Loni Scally Other [facility] Other 03-06-2021 09:15-0500 Diastolic blood pressure 83 mm[Hg] Loni Scally Other [facility] Other 03-06-2021 09:15-0500 Respiratory rate 18 /min Loni Scally Other [facility] Other 03-06-2021 09:15-0500 SaO2% (BldA) [Mass fraction] 100 % Loni Scally Other [facility] Other 03-06-2021 09:15-0500 Systolic blood pressure 138 mm[Hg] Loni Scally Other [facility] Other 11-27-2020 09:15-0400 Body height 162.56 cm Loni Scally Other [facility] Other 11-27-2020 09:15-0400 Body mass index (BMI) [Ratio] 26.38 kg/m2 Loin Scally Other [facility] Other 11-27-2020 09:15-0400 Body weight 69.72 kg Loni Scally Other [facility] Other 11-27-2020 09:15-0400 Diastolic blood pressure 76 mm[Hg] Loni Scally Other [facility] Other 11-27-2020 09:15-0400 Respiratory rate 18 /min Loni Scally Other [facility] Other 11-27-2020 09:15-0400 SaO2% (BldA) [Mass fraction] 99 % Loni Scally Other [facility] Other 11-27-2020 09:15-0400 Systolic blood pressure 129 mm[Hg] Loni Scally Other [facility] Other Encounters Encounter Date Encounter Type Care Provider Facility Start: 05-05-2024 End: 05-05-2024 Refill Cheri Parker DO Work Phone: [facility] Comment on above: 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, mild stage (CMS/HCC) Start: 05-03-2024 End: 05-03-2024 ambulatory Nathan Mcguire MD Work Phone: [facility] Work Phone: Start: 05-03-2024 End: 05-03-2024 Patient encounter procedure Nathan Mcguire MD Work Phone: [facility] Work Phone: Start: 05-02-2024 Non-patient / Non-visit Nathan Mcguire MD Work Phone: [facility] Work Phone: Start: 04-25-2024 Non-patient / Non-visit Nathan Mcguire MD Work Phone: [facility] Work Phone: Start: 04-20-2024 Non-patient / Non-visit Nathan Mcguire MD Work Phone: [facility] Work Phone: Start: 04-20-2024 End: 04-20-2024 Admission to same day surgery center Nathan Mcguire MD Work Phone: [facility] Work Phone: Start: 04-20-2024 End: 04-20-2024 ambulatory Nathan Mcguire MD Work Phone: [facility] Work Phone: Start: 03-07-2024 End: 03-07-2024 Patient encounter procedure Nathan Mcguire MD Work Phone: [facility] Work Phone: Start: 02-07-2024 End: 02-07-2024 Patient encounter procedure Nathan Mcguire MD Work Phone: [facility] Work Phone: Start: 01-11-2024 End: 01-11-2024 Bamboo flowsheet Flip A Felter 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 [employer]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 Work Phone: [facility] Start: 01-11-2024 End: 01-11-2024 Bamboo flowsheet Flip A Felter PERFORMING [address]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 Work Phone: [facility] Start: 01-11-2024 End: 01-11-2024 Office outpatient new 30 minutes Flip A Felter PERFORMING [address]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 Work Phone: [facility] Comment on above: Seborrheic keratosis (Primary Dx); Dilated pore of Ace of back Start: 01-11-2024 End: 01-11-2024 ambulatory FLIP CARCAMO Not Available Start: 12-28-2023 End: 12-28-2023 ambulatory [facility] Work Phone: Start: 12-28-2023 End: 12-28-2023 Patient encounter procedure [facility] Maria Elena Work Phone: Start: 12-21-2023 Non-patient / Non-visit [facility] Work Phone: Start: 10-29-2023 End: 10-29-2023 Refill Cheri Parker DO Work Phone: [facility] Comment on above: 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, mild stage (CMS/HCC) Start: 10-25-2023 End: 10-25-2023 ambulatory [facility] Work Phone: Start: 10-25-2023 End: 10-25-2023 Patient encounter procedure [facility] Work Phone: Start: 08-04-2023 End: 08-04-2023 ambulatory CHERI PARKER Not Available Start: 06-01-2023 End: 06-01-2023 ambulatory [facility] Work Phone: Start: 06-01-2023 End: 06-01-2023 Patient encounter procedure [facility] Work Phone: Start: 05-27-2023 Non-patient / Non-visit [facility] Work Phone: Start: 05-12-2023 End: 05-12-2023 Patient encounter procedure [facility] Work Phone: Start: 03-30-2023 End: 03-30-2023 ambulatory Loni Houser [facility] Other Start: 03-30-2023 Telephone encounter Loni Cathiedionicio [facility] Start: 03-02-2023 End: 03-02-2023 ambulatory Aziz Bakhous Other [facility] Other Start: 03-02-2023 Telephone encounter Aziz Bakhous [facility] Start: 02-25-2023 End: 02-25-2023 ambulatory Aziz Bakhous Other [facility] Other Start: 02-25-2023 Telephone encounter Aziz Bakhous [facility] Start: 02-25-2023 End: 02-25-[address] [facility] Work Phone: Start: 02-03-2023 End: 02-03-2023 ambulatory CHERI PARKER Not Available Start: 01-26-2023 End: 01-26-[address] [facility] Work Phone: Start: 01-20-2023 End: 01-20-2023 ambulatory Aziz Bakhous Other [facility] Other Start: 01-20-2023 Office outpatient vi sit 25 minutes Aziz Bakhous [facility] Start: 01-07-2023 End: 01-07-2023 ambulatory Aziz Bakhous Other [facility] Other Start: 01-07-2023 Telephone encounter Aziz Bakhous [facility] Start: 12-14-2022 (DM) Diabetes Loni Cathiedionicio [facility] Start: 12-14-2022 End: 12-14-2022 ambulatory Loniinés Farmer Other [facility] Other Start: 11-11-2022 End: 11-11-2022 ambulatory Loni Scally Other [facility] Other Start: 11-11-2022 Telephone encounter Loni Cathiely [facility] Start: 09-09-2022 (DM) Diabetes Loni Scally [facility] Start: 09-09-2022 End: 09-09-2022 ambulatory Loni Scally Other [facility] Other Start: 09-09-2022 Telephone encounter Loni Scally [facility] Start: 08-05-2022 End: 08-05-2022 ambulatory Loni Scally Other [facility] Other Start: 08-05-2022 Telephone encounter Loni Cathiely F [facility] Start: 07-16-2022 End: 07-17-2022 ambulatory AZIZ BAKHOUS Facility:[facility]1 Start: 05-22-2022 End: 05-22-2022 ambulatory Loni Scally Other [facility] Other Start: 05-22-2022 Telephone encounter Loni Cathiely [facility] Start: 05-12-2022 (DM) Diabetes Loni Scally [facility] Start: 05-12-2022 End: 05-12-2022 ambulatory Loni Scally Other [facility] Other Start: 05-08-2022 End: 05-08-2022 ambulatory Loni Scally Other [facility] Other Start: 05-08-2022 Telephone encounter Loni Cathiely [facility] Start: 05-07-2022 End: 05-07-2022 ambulatory Loni Scally Other [facility] Other Start: 05-07-2022 Telephone encounter Loni Hahn [facility] Start: 04-22-2022 End: 04-23-2022 ambulatory AZIZ BAKHOUS Facility:[facility] Start: 02-25-2022 (DM) Diabetes Loni [facility] Start: 02-25-2022 End: 02-25-2022 ambulatory Loni Farmer Other [facility] Other Start: 01-08-2022 End: 01-08-2022 ambulatory Loni Farmer Other [facility] Other Start: 01-08-2022 Telephone encounter [facility] Start: 01-07-2022 End: 01-07-2022 ambulatory [facility] Other [facility] Other Start: 01-07-2022 Office outpatient ne w 30 minutes Aziz [facility] Start: 11-20-2021 End: 11-21-2021 ambulatory LONI FARMER Facility:[facility]1 Start: 10-15-2021 End: 10-15-2021 ambulatory Loni Farmer Other [facility] Other Start: 10-15-2021 Nursing evaluation o f patient and report Loni [facility] Start: 09-26-2021 End: 09-26-2021 ambulatory Loni Farmer Other [facility] Other Start: 09-26-2021 Telephone encounter [facility]oni [facility] Start: 09-24-2021 (DM) Diabetes Loni [facility] Start: 09-24-2021 End: 09-24-2021 ambulatory Loni Farmer Other [facility] Other Start: 09-10-2021 End: 09-10-2021 ambulatory Loni Cathiely Other [facility] Other Start: 09-10-2021 Telephone encounter Loni Cathiely [facility] Start: 09-07-2021 End: 09-07-2021 ambulatory Tabitha So Other [facility] Other Start: 09-07-2021 Office outpatient vi sit 5 minutes Tabitha So [facility] Start: 06-24-2021 Adult health examination Lonikirk Brandly Other [facility] Other Start: 06-18-2021 End: 06-18-2021 ambulatory Loni Cathiely Other [facility] Other Start: 06-18-2021 Telephone encounter Loni Cathiely [facility] Start: 06-16-2021 (DM) Diabetes Loni Scally [facility] Start: 06-16-2021 End: 06-16-2021 ambulatory Loni Scally Other [facility] Other Start: 06-16-2021 Telephone encounter Loni Cathiely [facility] Start: 04-21-2021 End: 04-21-2021 ambulatory Loni Scally Other [facility] Other Start: 04-21-2021 Telephone encounter Loni Scally [facility] Start: 03-26-2021 End: 03-26-2021 ambulatory Loni Scally Other [facility] Other Start: 03-26-2021 Telephone encounter Loni Scally [facility] Start: 03-06-2021 (DM) Diabetes Loni Scally [facility] Start: 03-06-2021 End: 03-06-2021 ambulatory Loni Farmer Other [facility] Other Start: 12-04-2020 Telephone encounter [facility] Start: 11-27-2020 (DM) Diabetes Loni [facility] Procedures Date Procedure Procedure [...] Screening for malign ant neoplasm of colon [facility] Start: 08-11-2024 End: 08-11-2024 Patient encounter procedure 08/11/2024 9:30 AM EDT Office Visit [facility] [address] [place] [address] Cheri Parker, DO [address] [place] [address] [facility] Start: 04-20-2024 [facility] Start: 03-07-2024 Patient referral [facility] Work Phone: Start: 02-11-2024 End: 02-11-2024 Patient encounter procedure 02/11/2024 9:00 AM EST Office Visit [facility] [address] [place] [address] Cheri Parker, DO [address] [place] [address] [facility] Start: 01-11-2024 End: 01-11-2024 Patient encounter procedure 01/11/2024 9:55 AM EST [facility] [address] [place] [address] Flip Carcamo, PERFORMING ARTS ROAD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 [address] [place] [address] Arrived [facility] Comment on above: Arrived Start: 11-07-2023 Influenza vaccination Influenza Vacc ine (#1) [facility] Start: 12-16-2019 Pneumococcal Vaccine : 65+ Years (2 of 2 - PPSV23 or PCV20) Pneumococcal Vaccine: 65+ Years (2 of 2 - PPSV23 or PCV20) [facility] Start: 1991 Screening for malign ant neoplasm of breast Mammogram [facility] Start: 1950 Screening for malign ant neoplasm of colon [facility] Immunofixation for Urine [facility] Patient Education Colon polyps Diverticulosis Know your Meds [facility] Work Phone: Patient referral [facility] Work Phone: Renal function 1999 panel - Serum or Plasma [facility] Renal function 2000 panel - Serum or Plasma [facility] Renal function 1999 panel - Serum or Plasma [facility] Immunizations Immunization Date Immunization Notes Care Provider Jonatan renteria 01-11-2023 influenza virus vaccine, unspecified formulation Cheri Parker DO Work Phone: [facility] 01-22-2020 influenza virus vaccine, split virus (incl. purified surface antigen) Loni Farmer Other [facility] [employer] Other 01-22-2020 influenza virus vaccine, unspecified formulation [facility] 12-15-2018 influenza virus vaccine, split virus (incl. purified surface antigen) Loni Cathiedionicio Other [facility] [employer] Other 12-15-2018 influenza virus vaccine, unspecified formulation [facility] 12-15-2018 pneumococcal conjuga te vaccine, 13 valent Loni Cathiedionicio Other [facility] Payers Date Payer Category Payer Self-pay [id number] 2021 Private Health Insurance [employer] [id number] 2016 Medicare MEDICARE [id number] 1959 Medicare [id number] 1959 Unknown [id number] 1950 Unknown [id number] 1950 Unknown [id number] 1950 Unknown [id number] 593 1950 Unknown [id number] 1259 1950 Unknown [id number] 1259 1950 Unknown [id number] 1259 Unknown [id number] Social History Date Type Detail Facility Unknown if ever smoked [facility] Other Start: 08-04-2023 End: 02-11-2024 Sex Assigned At [employer] [facility] Other Start: 1950 Sex Assigned At Female F [facility] Start: 08-05-2022 End: 06-01-2023 Tobacco smoking status NHIS Never smoked tobacco (finding) [facility] Start: 08-05-2022 Tobacco use and exposure Smokeless tobacco non-user [facility] Start: 08-04-2023 End: 02-11-2024 History of Social function [facility] Start: 1950 Sex assigned at Not on file N [facility] Start: 04-20-2024 End: 05-03-2024 Sex Female (finding) [facility] Goals Date Patient Goal Desired Activity /State Clinical Notes 10-18-2020 to 04-20-2024 Cheri Parker, DO - 02/11/2024 9:00 AM EST Note Date & Type Note Facility 04-20-2024 Procedure note [facility] 04-20-2024 History and physi delbert note [facility] enter 02-11-2024 Note Right Eye Quality was good. Scan locations included subfoveal. Progression has worsened. Findings include abnormal foveal contour, intraretinal fluid. Left Eye Quality was good. Scan locations included subfoveal. Progression has worsened. Findings include abnormal foveal contour, intraretinal fluid, subretinal fluid. [facility] 02-11-2024 History of Presen t illness [...] laser capsulotomy, they are to notify their statistical financial analyst promptly if they have a significant change in symptoms, such as flashes of light (photopsia), an increase in floaters, loss of visual field or decrease in visual acuity. Dry eyes - Dry Eyes OU -- Environmental changes to minimize dryness and exposure and the use of artificial tears were recommended. 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 February 06 11:31am Nonproliferative diabetic retinopathy acute February 06 11:31am Type 2 diabetes mellitus with hyperglycemia acute February 07, 2024 11:31am Vitamin D deficiency acute Dece er 2023 11:31am Diarrhea acute March 07, 2024 10:07am Screening for colon cancer acute March 07, 024 10:07am [facility] Work Phone: 1(588) 846-186012-02-2024 Evaluation note* Diagnosis Onset Date Resolution Status Admit Date Diabetic macular edema acute De 2023 11:31am Dietary counseling and surveillance acute February 06 11:31am HTN (hypertension) acute Decemb er 2023 11:31am Hyperlipidemia acute February 062023 11:31am nursing home current use of insulin acu te February 07, 2024 11:31am Nonproliferative diabetic retinopathy acute February 06 11:31am Type 2 diabetes mellitus wit h hyperglycemia acute February 06 11:31am Vitamin D deficiency acute Dece mber 2023 11:31am Diarrhea acute March 07, 2024 10:07am Screening for colon cancer acute March 07, 2024 10:07am Anemia in chronic kidney disease acu te May 03, 2024 11:08am Chronic kidney disease, stage 3b acu te May 03, 2024 11:08am Diabetes mellitus type 2 in nonobese acute May 03, 2 025 11:08am Diabetic nephritis acute Februa ry 2024 11:08am Hyperkalemia acute April 11:08am Hyperparathyroidism acute Febru chel 2024 11:08am Hyperuricemia acute May 032024 11:08am Vitamin B12 deficiency acute Fe bruary 2024 11:08am Vitamin D deficiency acute Febr uary 2024 11:08am [facility] Work Phone: 1(282) 741-991111-05-2024 History of Present illness Narrative* JENNI Vivar - 01/11/2024 9:55 AM EST Lesions: Location: [...] for any new/changing lesions [id number] Evaluation note* Diagnosis Onset Date Resolution Status Chronic kidney disease, stage 3a acute Dietary counseling and surveillance acute HTN (hypertension) acute Hyperlipidemia acute Hypoglycemia associated with diabetes acute 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 acute Retinopathy acute Type 2 diabetes mellitus with hyperglycemia acute Vitamin D deficiency acute Anemia in chronic kidney disease acute Chronic kidney disease, stage 3b acute Diabetes mellitus type 2 in nonobese acute Diabetic nephritis acute Hyperkalemia acute Hyperparathyroidism acute Hyperuricemia acute Vitamin B12 deficiency acute Vitamin D deficiency acute [facility] Work Phone: 1(834) 304-394808-19-2024 Chief complaint+Reason for visit Narrative * Chief Complaint DMN f/u / meter Reason for Visit Chronic kidney disea se, stage 3a Dietary counseling and surveillance HTN (hypertension) Hyperlipidemia Hypoglycemia associated with diabetes 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 Retinopathy Type 2 diabetes mellitus with hyperglycemia Vitamin D deficiency [facility] Work Phone: 1(716) 355-583908-19-2024 Evaluation note* Diagnosis Onset Date Resolution Status Chronic kidney disease, stage 3a acute Dietary counseling and surveillance acute HTN (hypertension) acute Hyperlipidemia acute Hypoglycemia associated with diabetes acute nursing home current use of insulin acute Retinopathy acute Type 2 diabetes mellitus with hyperglycemia acute Vitamin D deficiency acute [facility] Work Phone: 1(663) 149-423003-26-2024 Evaluation note* Diagnosis Onset Date Resolution Status Chronic kidney disease, stage 3a acute Dietary counseling and surveillance acute HTN (hypertension) acute Hyperlipidemia acute Hypoglycemia associated with diabetes acute nursing home current use of insulin acute Retinopathy acute Type 2 diabetes mellitus with hyperglycemia acute Vitamin D deficiency acute Anemia in chronic kidney disease acute Chronic kidney disease, stage 3b acute Diabetes mellitus type 2 in nonobese acute Diabetic nephritis acute Hyperkalemia acute Hyperparathyroidism acute Hyperuricemia acute Vitamin B12 deficiency acute Vitamin D deficiency acute [facility] Work Phone: 1(379) 710-401512-21-2023 Evaluation note* Encounter Date Diagnosis Assessment Notes Treatment Notes Treatment Clinical Notes Feb, Chronic kidney disease, stage 3a (ICD-10 - N18.31) [facility] Other 11-15-2023 Evaluation note* Encounter Date Diagnosis [...] is she starts to have UTI symptoms. 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 ASSESSMENT: 1. 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 [facility] Other 07-20-2022 Evaluation note* Encounter Date Diagnosis [...] escalated Jardiance to 25 mg daily Sep, nursing home current us e of insulin (ICD-10 - [...] is seeing specialist referred by Keith cowan. 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 Research shows that stamina with the current regime may fatigue, as would outcomes and CGM is equitable compaired to disease instability. 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 , According to meter download LIBRE2 [id number]: Active 74%, Ave glucose 105, GMI 5.8% [...] with hx of baseline low BP. 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 [facility] Other 08-13-2021 NoteGastroenterology Upper Endoscopy, Adult Upper [...] including vitamins, herbs, eye drops, creams, and ipez-tkt-jwlaact medicines. ? Any problems you or family [...] tells you to take them. ? Taking osvh-xrd-buuhhmc medicines, vitamins, herbs, and supplements. General instructions [...] your health care provider. 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, mild stage (CMS/HCC) Bilateral posterior capsular opacification Unspecified after-cataract Dry eyes Unspecified tear film insufficiency documented in this encounter [facility] HealthcareEvaluation note* Diagnosis 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, mild stage (CMS/HCC) documented in this encounter [facility] HealthcareEvaluation note* Diagnosis 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, mild stage (CMS/HCC) documented in this encounter [facility] physical note Author Agnes De Oliveira [facility] Note Date/Time April 20, 2024 9:03am [facility] [address] [place] [address] Gastroenterology H&P Signed Patient: Libia Chen MR#: [id number] : 1950 Acct:[id number] Age/Sex: 73 / F Adm Date: 5 Loc: Room: Type: [facility] Attending Dr: Agnes De Oliveira DO Copies to: DO Nathan Briceno MD~ Date of Service: 04/20/2024 HISTORY & [...] by Agnes De Oliveira DO> 04/20/24 0903 [facility] Work Phone: Hispkuq general Narrative - Reported* Type Description Date Medical History type II diabetes Medical History Retinopathy Surgical History liver biopsy 2003 Surgical History Needle biopsy benign breast lum p 1997 Surgical History D&C Surgical History colonoscopy Hospitalization History See above Hospitalization History [employer] Other Hispncs general Narrative - Reported* Type Description Date Medical History type II diabetes Medical History Retinopathy- Diabeti c Macular Edema and Moderate Nonproliferative Diabetic Retinopathy-- [facility] and Dr. Parker Surgical History liver biopsy 2003 Surgical History Needle biopsy benign breast lum p 1997 Surgical History D&C Surgical History colonoscopy Hospitalization History See above Hospitalization History [employer] Other History general Narrative - Reported* Type Description Date Medical History type II diabetes Medical History Retinopathy- Diabeti c Macular Edema and Moderate Nonproliferative Diabetic Retinopathy-- [facility] and Dr. Parker Surgical History liver biopsy 2003 Surgical History Needle biopsy benign breast lum p 1997 Surgical History D&C Surgical History colonoscopy Surgical History cataract surg. left eye 023 Hospitalization History See above Hospitalization History [employer] Other History general Narrative - Reported* Type [...] 3 Hospitalization History See above Hospitalization History [employer] Other History general Narrative - Reported* Type [...] 3 Hospitalization History See above Hospitalization History [employer] Other Summary Purpose Family History Relationship Condition [...] kj itus with hyperglycemia (E11.65) Referral Organization [facility] Referring Provider First Name [facility]3] Referring Provider Last Name [facility] Referring Provider Specialty Nurse Pract itioner Referred Organization [facility] Nephrology Referred Provider More Sylvester Referred Address [address] ,[place],[address] Referred Provider Specialty Nephrology Referral Priority Routine General Notes Loni Burns 09/06 12:00:46 PM >Per Chasidy Maher send this to Radha Argueta and she will call the patient to schedule [place] 09/25/2021 12:07:04 PM >Sent to the above Radha Argueta 09/26/2021 10:58:29 AM >received today, sent P2P Radha Argueta 09/26/2021 12:00:45 PM >duplicate. closing Reason 01/07/2022 Referra l sent *Dr. Sylvester please: persistent microalbuminuria, normal BP, max SGLT2i Diagnosis 1 Microalbuminuria (R8 0.9) Diagnosis 2 Type 2 diabetes kj itus with hyperglycemia (E11.65) Referral Organization [facility] Referring Provider First Name Loni Referring Provider Last Name [facility] Referring Provider Specialty Nurse Pract itioner Referred Organization [facility] Nephrology Referred Address [address],[address] Referred Provider Specialty Nephrology Referral Priority Routine Referral Appointment Date 2022-01-07 General Notes Loni Burns 09/06 12:00:46 PM >Per Chasidy Maher send this to Radha Argueta and she will call the patient to schedule NiteshangelicaLoni 09/25/2021 12:07:04 PM >Sent to the ab Radha Argueta 09/26/2021 12:00:26 PM >pt scheduled Chief Complaint and Reason for Visit Chief Complaint Wellness Head Cold, Covid Negative Chief Complaint METER RENAL 4 month Follow up Reason for Visit Chronic kidney disea se, stage 3a Dietary counseling and surveillance HTN (hypertension) Hyperlipidemia Hypoglycemia associated with diabetes 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 Retinopathy Type 2 [...] HTN (hypertension) Hyperlipidemia Hypoglycemia associated with diabetes 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 Retinopathy Type 2 [...] 06 11:31am Dietary counseling and surveillance Dece [facility] 2023 11:31am HTN (hypertension) February 07, 2024 1 1:31am Hyperlipidemia February 07, 2024 1 1:31am nursing home current use of insulin [facility] 2023 11:31am Nonproliferative diabetic retinopathy De 2023 11:31am Type 2 diabetes mellitus with hyperglyce aysha February 07, 2024 11:31am Vitamin D deficiency February 07, 2024 11:31am Diarrhea March 07, 2024 10:07am Screening for colon cancer February 10:07am Chief Complaint Admit Date DMN f/u February 07, 2024 1 1:31am diarrhea March 07, 2024 10:07am Diarrhea April 20, 2024 8:01am Diarrhea April 20, 2024 9:03am Amb Documentation April 25, 2024 4:00pm RENAL 4 MONTH F/U May 03, 2024 11:08am Reason for Visit Admit Date Diabetic macular edema February 06 11:31am Dietary counseling and surveillance [facility] 2023 11:31am HTN (hypertension) February 07, 2024 1 1:31am Hyperlipidemia February 07, 2024 1 1:31am nursing home current use of insulin [facility] 2023 11:31am Nonproliferative diabetic retinopathy De [email or web address] 11:31am Type 2 diabetes mellitus with hyperglyce aysha February 07, 2024 11:31am Vitamin D deficiency February 07, 2024 11:31am Diarrhea March 07, 2024 10:07am Screening for colon cancer February 10:07am Anemia in chronic kidney disease uar y 2024 11:08am Chronic kidney disease, stage 3b [email or web address] 11:08am Diabetes mellitus type 2 in nonobese Feb ruary 2024 11:08am Diabetic nephritis May 03, 2024 11:08am Hyperkalemia May 03, 2024 11:08am Hyperparathyroidism May 03, 2024 11:08am Hyperuricemia May 03, 2024 11:08am Vitamin B12 deficiency May 03 11:08am Vitamin D deficiency May 03, 2024 11:08am Additional Source Comments INFORMATION SOURCE (unrecogn ized section and content) DATE CREATED AUTHOR 12/02/2020 [facility] DATE CREATED AUTHOR AUTHOR'S ORGANIZ ATION 07/20/2022 [facility] DATE CREATED AUTHOR AUTHOR'S ORGANIZ ATION 01/12/2024 [facility] EPIC DATE CREATED AUTHOR AUTHOR'S ORGANIZ ATION 04/29/2024 [facility] REASON FOR VISIT (unrecogniz ed [...] December 28, 2023 End: December 28, 2023 Sustainment Logistics Analyst Relationship Specialty Start Date End Date Rashid Tracy MD [address] [place] [phone] PCP - General 08/05/22 Sustainment Logistics Analyst Relationship Specialty Start Date End Date Rashid Tracy MD [address] [place] [phone] PCP - General 08/05/22 Sustainment Logistics Analyst Relationship Specialty Start Date End Date Rashid Tracy MD [address] [place] [phone] PCP - General 08/05/22 Sustainment Logistics Analyst Relationship Specialty Start Date End Date Rashid Tracy MD [address] [place] [phone] PCP - General 08/05/22 Team Status: Inactive Member Role Status Dates Nathan Mcguire MD Primary Care Provider Active Start: February 07, 2024 End: February 07, 2024 Loni Farmer APRN Attending Provider Active Start: February 07, 2024 End: February 07, 2024 Team Status: Inactive Member Role Status Dates Nathan Mcguire MD Primary Care Provide kate, Attending Provider Active Start: March 07, 2024 [...] Start: April 20, 2024 Agnes De Oliveira , Attending Provider, Other Provider Active Start: April 20, 2024 Team Status: Active Member Role Status Dates Nathan Mcguire MD Primary Care Provider Active Start: April 25, 2024 Lauren Renee Attending Provider Active Start: [facility] 2024 Team Status: Active Member Role Status Dates Nathan Mcguire MD Primary Care Provider Active Start: May 02, 2024 Homero Kurtz MD Attending Provider Active Star t: May 02, 2024 Team Status: Inactive Member Role Status Dates Nathan Mcguire MD Primary Care Provider Active Start: May 03, 2024 End: May 03, 2024 Homero Kurtz MD Attending Provider Active Star t: May 03, 2024 End: May 03, 2024 Sustainment Logistics Analyst Relationship Specialty Start Date End Date Rashid Tracy MD [address] [facility] [address] PCP - General 08/05/22 Goals (unrecognized section and content) Goals may [...] BE BASED ON THE PRIMARY CLINICAL RECORDS. [facility]. provides no warranty or guarantee of the accuracy or completeness of information in this document.
[2024-06-05 22:35] LABS: Glucometer 116 mg/dL (74-106)
[2024-06-06] VITALS (10 sets, daily range): BP systolic 127–155; BP diastolic 68–82; PULSE 70–90; TEMP 36.6–36.7; O2SAT 94–96
[2024-06-06] MEDS: 0.9 % SODIUM CHLORIDE 1,000 ML 125 ML IV (05:38)
[2024-06-06 06:11] LABS: Hematocrit 33.7 % (36.0-48.0); Hemoglobin 10.7 g/dL (12.0-16.0); Mean Corpuscular HGB Conc 31.8 g/dL (29.9-35.2); Mean Corpuscular Hemoglobin 28.2 pg (26.7-34.0); Mean Corpuscular Volume 88.7 fL (81.0-99.0); Mean Platelet Volume 10.6 fL (9.5-13.5); Platelet Count 166 10^3/uL (150-450); White Blood Count 9.9 10^3/uL (4.0-11.0)
[2024-06-06 06:52] LABS: Anion Gap 15.2; BUN Creatinine Ratio 25.7; Carbon Dioxide 23.5 mmol/L (21.0-32.0); Chloride 110 mmol/L (98-107); Estimated GFR (African America 45 (>=60 mL/min/1.73m^2); Estimated GFR (Non-African Ame 37 (>=60 mL/min/1.73m^2); Glucose 94 mg/dL (74-106); Potassium 4.7 mmol/L (3.5-5.1); Sodium 144 mmol/L (136-145)
[2024-06-06 07:43] LABS: Glucometer 91 mg/dL (74-106)
[2024-06-06] MEDS: ATORVASTATIN CALCIUM 20 MG TABLET PO (09:48)
[2024-06-06] MEDS: HEPARIN SODIUM (PORCINE) 5,000 UNIT/ML VIAL 5000 UNIT SUBQ (09:48)
[2024-06-06] MEDS: LATANOPROST 0.005% 2.5 ML BOTTLE 1 DROP OP (09:48)
[2024-06-06 11:07] LABS: Glucometer 90 mg/dL (74-106)
--- NOTE | 2024-06-06 11:20 | CM.NOTE ---
Rounds made with Dr. Wilson, pt will discharge to home today. Pt denies nay nausea this am. Pt was able to eat breakfast. Pt will need to f/u with PCP. Pt already has appt next week scheduled with lab manager.
--- NOTE | 2024-06-06 12:18 | P.HP_ITS ---
HPI H&P: HPI History of Present Illness Chief complaint: N/V Hyperkalemia Narrative: 73 y/o female to ER with nausea, vomiting, and diarrhea. Increased ozempic from 1 mg to 2 mg. About 4 hours after injection symptoms started. Initially frequent watery diarrhea and emesis. To ER due to symptoms and diarrhea resolved. Continued nausea. Labs showed elevated potassium and treated. Potassium remained elevated and given Lokelma and admitted. Started IV fluids and improved overnight. Nausea and emesis resolved. Normal appetite this am and able to eat without symptoms. No further diarrhea but passing flatus. Afebrile. Potassium normal this am. Opioid HPI Opioid Management Most Recent Pain and Opioid Data: Last Pain Assessment 06/06/24 11:00 Last ORT Total Score 0 06/05/24 22:24 06/05/24 Last ORT Risk Category Low Risk 06/05/24 22:24 06/05/24 Review of Systems ROS Constitutional Denies: fever, chills or fatigue Cardiovascular Denies: chest pain, palpitations or edema Respiratory Denies: shortness of breath, cough or wheezing Gastrointestinal Reports: nausea, vomiting and diarrhea; Denies: abdominal pain Genitourinary Denies: painful urination PFSH PFS Medical History (Updated 06/06/24 @ 09:32 by Gil Wilson MD) Skin tear of elbow without complication ?S51.019A - Laceration without foreign body of unspecified elbow, initial encounter (ICD-10) Contusion of elbow, right ?S50.01XA - Contusion of right elbow, initial encounter (ICD-10) Stage 3 chronic kidney disease ?N18.30 - Chronic kidney disease, stage 3 unspecified (ICD-10) Type 2 diabetes mellitus ?E11.9 - Type 2 diabetes mellitus without complications (ICD-10) Family History (Updated 06/05/24 @ 22:45 by Mitra Helms RN) Sister Parkinson disease Mother Liver cancer Father Emphysema lung Social History (Updated 06/05/24 @ 22:45 by Mitra Helms RN) Within the past year, how often did you have a drink containing alcohol: monthly or less Within the past year, how often did you have six or more drinks on one occasion: never Smoking status: Never smoker Second hand tobacco smoke exposure: No Non-prescribed substance use: denies use Known occupational exposures/hazards: No Highest level of school completed/degree received: Associate degree: occupational, technical, vocational program Do you want help with school or training: No Are you now , , , , never or living with a partner: In a typical week, how many times do you talk on the telephone with family, friends, or neighbors: 3 or more times per week How often do you get together with friends or relatives: once per week How often do you attend jainism or protestant services: 1-3 times per year Little interest or pleasure in doing things: not at all Feeling down, depressed, or hopeless: not at all Feel stressed/tense/nervous/anxious/difficulty sleeping: not at all Due to disability, difficulty making decisions: No Meds Home Medications and Allergies Home Medications ?Medication ?Instructions ?Recorded ?Confirmed ?Type atorvastatin 20 mg tablet 20 mg PO DAILY 07/23/23 06/05/24 History lisinopril 10 mg tablet 10 mg PO DAILY 07/23/23 06/05/24 History metformin 500 mg tablet 500 mg PO DAILY 07/23/23 06/05/24 History dapagliflozin propanediol 5 mg 5 mg PO DAILY 06/05/24 06/05/24 History tablet (Farxiga) latanoprost 0.005 % eye drops 1 drp ophthalmic (eye) DAILY 06/05/24 06/05/24 History semaglutide 2 mg/dose (8 mg/3 mL) 1 mg (0.375 mL) subcut QWEEK #0 mL 06/06/24 06/05/24 Rx subcutaneous pen injector (Ozempic) Allergies Allergy/AdvReac Type Severity Reaction Status Date / Time erythromycin base AdvReac Mild Verified 07/23/23 15:12 Penicillins AdvReac Mild Verified 07/23/23 15:12 Exam Constitutional Vital Signs, click to edit/add: Last Vital Signs Temp 98.1 F 06/06/24 07:00 Pulse 77 06/06/24 11:59 Resp 16 06/06/24 07:00 BP 155/68 H 06/06/24 07:00 Pulse Ox 96 06/06/24 07:00 O2 Del Method Room Air 06/06/24 07:00 Documenting provider has reviewed patient's vital signs: yes Common normals: no apparent distress, oriented x3 and alert HENMT Common normals: normocephalic Eye Common normals: PERRL and EOMs intact bilaterally Respiratory Common normals: normal respiratory effort and clear to auscultation bilaterally Cardio Common normals: regular rate, regular rhythm, no gallops, no murmurs and no rub GI Common normals: Normal to inspection, nondistended, normoactive bowel sounds present and non-tender Extremity Common normals: no pedal edema Results Labs Labs: Short CBC 06/05/24 06/06/24 Range/Units 17:11 06:03 WBC 10.1 9.9 (4.0-11.0) 10^3/uL Hgb 12.0 10.7 L (12.0-16.0) g/dL Hct 37.9 33.7 L (36.0-48.0) % Plt Count 187 166 (150-450) 10^3/uL BMP 06/05/24 06/05/24 06/06/24 17:11 20:02 06:03 Sodium 142 144 Potassium 5.8 H 5.7 H 4.7 Chloride 106 110 H Carbon Dioxide 19.6 L 23.5 BUN 46.0 H 36.0 H Creatinine 1.70 H 1.40 H Glucose 149 H 94 Calcium 10.1 9.0 Liver Function 06/05/24 Range/Units 17:11 Total Bilirubin 0.4 (0.2-1.0) mg/dL AST 22 (15-37) U/L ALT 19 (14-59) U/L Alkaline Phosphatase 102 (46-116) U/L Albumin 4.3 (3.4-5.0) g/dL Assessment and Plan Assessment and Plan (1) Nausea vomiting and diarrhea: (2) Acute hyperkalemia: (3) Medication side effect: (4) Type 2 diabetes mellitus with hyperglycemia: (5) Benign essential hypertension: (6) CKD stage 3b, GFR 30-44 ml/min: Plan Admitted with GI symptoms and likely related to increased dose of ozempic. Improved overnight and eating well. Potassium normal. Discharge home. Recommend decrease ozempic back to 1 mg and follow up with PCP in 1-2 weeks. Resume home medication as directed.
== END 2024-06-06 13:26 | disposition home or self-care (01) ==
LOC: ER 21:17 → MS 22:16
PROVIDERS: Nurse Practitioner Family; Registered Nurse; Admitting Provider Family Medicine; Emergency Provider Emergency Medicine; PCP Family Medicine; Visit Provider Family Medicine
DX: R11.2 Nausea with vomiting, unspecified (principal); E87.5 Hyperkalemia; R19.7 Diarrhea, unspecified; Z79.85 Long-term (current) use of injectable non-insulin antidiabetic drugs; T50.995A Adverse effect of other drugs, medicaments and biological substances, initial encounter; E11.65 Type 2 diabetes mellitus with hyperglycemia; I12.9 Hypertensive chronic kidney disease with stage 1 through stage 4 chronic kidney disease, or unspecified chronic kidney disease; E11.22 Type 2 diabetes mellitus with diabetic chronic kidney disease; N18.32 Chronic kidney disease, stage 3b
CPT/HCPCS: 36415; 80048; 80053; 82948; 83690; 84132; 85007; 85027; 87804; 93005; 96361; 96372; 96374; 96375; 99285; G0378; J1644; J1817; J2405

== ENCOUNTER 2024-10-26 10:54 | Outpatient (OUT) | payer MEDICARE, OTHER, SELFPAY ==
--- OUTSIDE RECORDS SUMMARY | 2024-10-26 10:59 | XMS_ITS | Clinical Summary ---
Author Organization [facility] Address [address] [place] [address] Care Team Providers Care Health Nurse Name Role Phone Rashid Tracy MD Primary Care Provider Allergies Active Allergy Reactions Criticality Noted Date Comments Erythromycin Unknown 08/05/2022 Penicillins Unknown 08/05/2022 Medications lisinopril 10 MG tablet Take 10 mg by mouth in the morning. 07/22/2022 Active metFORMIN XR (Glucophage-XR) 500 MG 24 hr tablet Take 500 mg by mouth in the morning. 07/29/2022 Active atorvastatin (Lipitor) 20 MG tablet Take 20 mg by mouth in the morning. 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, mild stage INSTILL 1 DROP INTO BOTH EYES AT BEDTIME 2.5 mL 5 05/05/2024 Active Active Problems Problem Noted Date Diagnosed Date Bilateral posterior capsular opacification 02/03 Dry eyes 02/03/2023 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, mild s tage 02/03/2023 Pseudophakia 08/26/2022 Moderate nonproliferative di abetic retinopathy of both eyes with macular edema associated with type 1 diabetes mellitus 08/05/2022 Resolved Problems Problem Noted Date Diagnosed Date Resolved Date Age-related nuclear cataract of both eyes 08/05/2022 02/03/2023 Encounters Date Type Department Care Team Description 09/14/2024 8:30 AM EDT Office Visit [facility] [address] [facility] [address] [place] [address] Raleigh Maravilla DPM Type 2 diabetes mellitus without complication, with long-term current use of insulin ([facility]) (Primary Dx); Pain due to onychomycosis of toenails of both feet 09/14/[address] [facility] [address] 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 (HCC) 08/11/2024 Bamboo flowsheet [facility] [address] [place] [phone] Renny Parker DO 08/11/2024 Travel 08/04/2024 Travel from Last 3 Months Social History Tobacco Use Types Packs/Day Years Used Date Smoking Tobacco: Never Smokeless Tobacco: Never Tobacco Cessation:Counseling Given: Yes Comments Unknown Sex and Gender Information Value Date Recorded Sex Assigned at Not on file Legal Sex Female 8:33 PM EDT Gender Identity Not on file Sexual Orientation Not on file Last Filed Vital Signs Vital Sign Reading Time Taken Comments Blood Pressure - - Pulse - - Temperature - - Respiratory Rate 18 09/14/2024 8:34 AM EDT Oxygen Saturation - - Inhaled Oxygen Concentration - - Weight 72.6 kg (160 lb) 09/14/2024 8:34 AM EDT Height 162.6 cm (5' 4 ) 09/14/2024 8:34 AM EDT Body Mass Index 27.46 09/14/2024 8:34 AM EDT Plan of Treatment Upcoming Encounters Date Type Department Care Team (Late st Contact Info) Description 12/14/2024 8:30 AM EDT Office Visit [facility] [address] [facility] [address] [place] [phone] Raleigh Maravilla, DPM [address] [facility] [address] [place] [address] 02/09/2025 8:30 AM EST Office Visit [facility] [address] [place] [phone] Renny Parker, [address] [place] [address] Health Maintenance Due Date Last Done Comments CT Colonography 1951 FIT-DNA 1951 FIT 1951 FOBT 1950 Sigmoidoscopy 1950 Mammogram 1991 Pneumococcal Vaccine: 65+ Ye ars (1 of 1 - PCV) 08/21/2001 Influenza Vaccine (#1) 2024 4, 01/11/2023, 02/03/2022, Additional history exists Colonoscopy 11/06/2030 11/06/2020 Colorectal Cancer Screening 11/06/2030 Procedures Procedure Name Priority Date/Time Associated Diagnosis Comments LEÓN VISUAL FIELD - OU - BOTH EYES Routine 08/11/2024 10:34 AM EDT 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 Progression has been stable. Foveal threshold was normal. Findings include normal observations, non-specific defects. Left Eye Reliability was borderline. Progression has been stable. Foveal threshold was normal. Findings include normal observations, non-specific defects. Renny Parker DO OPHTH VISUAL FIELD Final Re sult from Last 3 [place] [address] [employer] [place] Care Teams Health Nurse Relationship Specialty Start Date End Date Rashid Tracy MD [address] [place] [phone] PCP - General 08/05/22
--- OUTSIDE RECORDS SUMMARY | 2024-10-26 11:04 | XMS_ITS | CCD ---
Author Organization [facility] Care Team Providers Care Picker Tender Name Role Phone Loni Farmer Unavailable Rashid Tracy Jr. Unavailable [phone] Tabitha Rizzo Unavailable Bakakila Aziz Unavailable LONI FARMER Admitting Unavailable LONI FARMER Attending Unavailable DR NATHAN MCGUIRE Primary Care Unavailable SCALDIONICIO LONI Consulting Unavailable BAKHOUS, AZIZ Admitting Unavailable BAKDENISS, AZIZ Attending Unavailable DR NATHAN MCGUIRE Primary Care Unavailable GABINO CORONADO Consulting Unavailable BAKHOUS, AZIZ Consulting Unavailable BAKHOUS, AZIZ Admitting Unavailable BAKDENISS AZIZ Attending Unavailable DR NATHAN MCGURIE Primary Care Unavailable BAKHOUS, AZIZ Consulting Unavailable Rashid Tracy MD Primary Care Provider Nathan Mcguire MD Primary Care Provider Ly Agnes LOPEZ Attending Provider Agnes De Oliveira Attending Unavailable Agnes De Oliveira Admitting Unavailable Nathan Mcguire Primary Care Unavailable Nathan Mcguire MD Primary Care Provider [phone] Ly Agnes LOPEZ Attending Provider [phone] Rashid Tracy MD Primary Care Provider [phone] RALEIGH MARAVILLA Attending Unavailable RALEIGH MARAVILLA Attending Unavailable FLIP CARCAMO Attending Unavailable CHERI PARKER Attending Unavailable CHERI PARKER Attending Unavailable RALEIGH MARAVILLA Attending Unavailable Allergies Allergy Classification Reported Allergen(s) Allergy Type Date of Onset Reaction(s) Facility (20 sources) Erythromycin Drug Allergy 05-31-20 23 Unknown [facility] Work Phone: (20 sources) Penicillin G Drug Allergy 02-26-20 Unknown, Convulsions [facility] (9 sources) Erythromycin Drug Allergy 02-26-20 Rash [facility] (9 sources) Penicillins Drug allergy (disorder) 04-29-19 Convulsions [facility] (9 sources) metFORMIN Drug Allergy 02-26-20 Unknown, Diarrhea [facility] (4 sources) Allergies Reconciled Propensity to adverse reactions Unknown Vecast [facility] [employer] Other (7 sources) Substance with penicillin structure and antibacterial mechanism of action (substance) Drug allergy Unknown Vecast [facility] [employer] Other (4 sources) patient allergy list reviewed by nurse or physicia Propensity to adverse reactions 04-06-19 Comment:Done [employer] Other (17 sources) Penicillins Drug Intolerance 08-06-19 Unknown [facility] (1 source) Erythromycin Drug Allergy 04-05-19 [facility] (1 source) Penicillins Drug allergy (disorder) 04-05-19 [facility] Medications Current Medications Medication Drug Class(es) Dates Sig (Normalized) Sig (Original) atorvastatin 20 mg oral tablet (20 sources) HMG-CoA Reductase Inhibitor Start: 11-24-2023 End: 12-28-2023 take 1 tablet by mouth once daily Atorvastatin 20 mg tablet Discontinued 0 .ROUTE .COMPLEX 90 November 24, 2023 1:38pm December 28, 2023 3:20pm TAKE 1 TABLET BY MOUTH EVERY DAY Start: 05-21-2022 End: 05-22-2024 take 1 tablet by mouth in the morning atorvastatin (Lipitor) 20 MG tablet Take 20 mg by mouth in the morning. 05/21/2022 Active benzonatate 200 mg oral capsule (3 sources) Non-narcotic Antitussive Start: 02-25-2023 take 1 capsule by mouth every eight hours Benzonatate 200 MG 1 capsule Orally Three times a day for 10 day(s) Feb, Active cholecalciferol 0.05 mg oral capsule (14 sources) Vitamin D Start: 04-05-2024 take 1 capsule by mouth once daily Cholecalciferol (Vitamin D3) (Vitamin D3) 50 mcg (2,000 unit) capsule Active 50 MCG PO Daily April 05, 2024 1:00am Start: 05-12-2023 End: 04-05-2024 take 1 tablet by mouth once daily cholecalciferol (vitamin D3) Discontinued 1 TAB PO Daily May 12, 2023 1:00am April 05, 2024 12:13pm Start: 05-12-2023 End: 04-05-2024 take 1 tablet [...] 1 tablet Orally Once a day Active clindamycin 300 mg oral capsule (2 sources) Lincosamide Antibacterial Start: 06-22-2024 End: 07-02-2024 take 1 capsule by mouth in the morning, then take 1 capsule by mouth in the evening, then take 1 capsule by mouth at bedtime clindamycin (Cleocin) 300 MG capsule Indications: Abscess, toe, left Take 1 capsule (300 mg) by mouth in the morning and 1 capsule (300 mg) in the evening and 1 capsule (300 mg) before bedtime. Do all this for 10 days. 30 capsule 06/22/2024 07/02/2024 Active dapagliflozin 10 mg oral tablet (20 [...] Active ferrous sulfate 325 mg oral tablet (20 sources) Start: 06-21-2024 take 1 tablet by mouth every other day Ferrous Sulfate 325 mg (65 mg iron) tablet Active 325 MG PO .COMPLEX June 21, 2024 11:57am 325 mg orally every other day; Start: 01-20-2023 End: 06-21-2024 take 1 tablet by mouth once daily ferrous sulfate 325 (65 Fe) MG tablet TAKE 1 TABLET BY MOUTH EVERY DAY FOR 90 DAYS 01/20/2023 Active Flash Glucose Scanning Reade r (Freestyle Elana 2 [place]) misc (6 sources) Start: 10-25-2023 Flash Glucose Scanning Herbster (Freestyle Elana 2 Herb[place]) misc Active 0 .Route October 25, 2023 12:00am As directed Start: 10-25-2023 Flash Glucose Scanning Herbster (Freestyle Elana 2 [place]) misc Active 0 .Route October 24, 2023 11:00pm As directed Start: 10-25-2023 Flash Glucose Scanning Herbster (Freestyle Elana 2 Herbster) misc Active 0 .ROUTE October 25, 2023 12:00am As directed Flash Glucose Sensor (Freest yle Elana 2 Sensor) kit (6 sources) Start: 10-25-2023 Flash Glucose Sensor (Freestyle Elana 2 Sensor) kit Active 0 .Route October 25, 2023 12:00am As directed Start: 10-25-2023 Flash Glucose Sensor (Freestyle Elana 2 Sensor) kit Active 0 .Route October 24, 2023 11:00pm As directed Start: 10-25-2023 Flash Glucose Sensor (Freestyle Elana 2 Sensor) kit Active 0 .ROUTE October 25, 2023 12:00am As directed FreeStyle Elana 2 [place] Systm - (20 sources) Start: 02-15-2020 FreeStyle Libr e 2 [place] Systm - as directed Feb, Active FreeStyle [...] ophthalmic solution (20 sources) Prostaglandin Analog Start: 02-07-2024 take 1 drop(s) into the eye(s) once daily Latanoprost 0.005 % drops Active 1 DROPS EYE-BOTH Daily February 07, 2024 12:43pm Start: 05-12-2023 Latanoprost Ac tive DROPS OPHTHALMIC May 12, 2023 1:00am Start: 11-02-2022 End: 05-05-2024 take 1 drop(s) into the eye(s) at bedtime latanoprost (Xalatan) 0.005 % ophthalmic solution 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, mild stage INSTILL 1 DROP INTO BOTH EYES AT BEDTIME 2.5 mL 5 05/05/2024 Active Start: 07-08-2022 End: 02-11-2024 take 1 drop(s) into the eye(s) at bedtime latanoprost (Xalatan) 0.005 % ophthalmic solution APPLY 1 DROP INTO BOTH EYES AT BEDTIME 07/08/2022 02/11/2024 Discontinued lisinopril 10 mg oral tablet (20 sources) Angiotensin Converting Enzyme Inhibitor Start: 01-03-2024 End: 03-13-2024 take 1 tablet by mouth once daily Lisinopril 10 mg tablet Discontinued 0 .ROUTE .COMPLEX January 03, 2024 10:00am March 13, 2024 11:28am TAKE 1 TABLET BY MOUTH EVERY DAY FOR 90 DAYS Start: 07-12-2023 End: 10-25-2023 take 1 tablet by mouth once daily Lisinopril 10 mg tablet Discontinued 0 .ROUTE .COMPLEX July 12, 2023 4:18pm October 25, 2023 2:30pm TAKE 1 TABLET BY MOUTH EVERY DAY FOR 90 DAYS Start: 07-22-2022 End: 01-03-2024 take 1 tablet by mouth in the morning lisinopril 10 MG tablet Take 10 mg by mouth in the morning. 07/22/2022 Active ofloxacin 3 mg/ml ophthalmic solution (5 sources) [...] MG/1.5ML 1 mg Subcutaneous Once a week PAP [employer] Aug, Active Ozempic (1 MG/DO SE) 2 MG/1.5ML 1 mg Subcutaneous Once a week PAP Mirametrixisk Active prednisoLONE acetate 10 mg/ml ophthalmic suspension [...] 1 mg Subcutaneous Once a week PAP- twtMob Nordisk Aug, Active Semaglutide 1 mg/dose (2 mg/1.5 mL) pen injector (9 sources) Start: 06-21-2024 inject 1 mg by subcutaneous injection every week Semaglutide 1 mg/dose (2 mg/1.5 mL) pen injector Active 2 MG SUBCUT Once a week June 21, 2024 11:58am Start: 02-07-2024 End: 06-21-2024 inject 1 mg by subcutaneous injection every week Semaglutide 1 mg/dose (2 mg/1.5 mL) pen injector Discontinued 1 MG SUBCUT Once a week February 07, 2024 1:10pm June 21, 2024 11:58am Start: 02-07-2024 inject 1 mg by subcu taneous injection every week Semaglutide 1 mg/dose (2 mg/1.5 mL) pen injector Active 1 MG SUBCUT Once a week February 07, 2024 1:10pm Start: 02-07-2024 inject 1 mg by subcu taneous injection every week Semaglutide 1 mg/dose (2 mg/1.5 mL) pen injector Active 1 MG SUBCUT Once a week February 07, 2024 12:10pm Start: 05-12-2023 End: 02-07-2024 inject 1 mg by subcutaneous injection every week Semaglutide 1 mg/dose (2 mg/1.5 mL) pen injector Discontinued 1 MG SUBCUT Once a week May 12, 2023 1:00am February 07, 2024 1:15pm Start: 05-12-2023 End: 02-07-2024 inject 1 mg [...] Active vitamin b12 0.1 mg oral tablet (20 sources) Vitamin B12 Start: 12-28-2023 Cyanocobalamin (Vitamin B-12) 100 mcg tablet Active 100 MCG PO Every 48 hours December 28, 2023 3:38pm Start: 05-12-2023 End: 12-28-2023 take 1 tablet by mouth once daily Cyanocobalamin (Vitamin B-12) 100 mcg tablet Discontinued 100 MCG PO Daily May 12, 2023 1:00am December 28, 2023 3:38pm take 1 tablet by shwetha th every [...] U-100) 100 unit/mL (3 mL) insulin pen (7 sources) Start: 05-12-2023 End: 06-01-2023 inject 3 [...] MG PO Daily 90 July 06, 2023 8:52am October 12, 2023 5:03pm Start: 07-29-2022 take 1 tablet by shwetha th every twenty-four hours in the morning metFORMIN XR (Glucophage-XR) 500 MG 24 hr tablet Take 500 mg by mouth in the morning. 07/29/2022 Active Start: 08-21-2020 take 2 tablets by mo [facility] every twenty-four hours metFORMIN HCl [...] [Left upper quadrant pain] Episodic Administrative/social admission (20 sources) Dietary counseling and surveillance; Translations: [Patient encounter status] Onset: 11-27-2020 Resolved: 09-24-2021 Episodic Biliary tract disease (4 sources) Cholelithiasis without obstruction; Translations: [Calculus of gallbladder without cholecystitis without obstruction] Episodic Calculus of urinary tract (1 source) Calculus of kidney; Translations: [CALCULUS OF KIDNEY] Onset: 04-27-2022 Episodic Cataract (20 sources) Artificial lens present; Translations: [Presence of [...] Resolved: 09-24-2021 Chronic Fluid and electrolyte disorders (14 sources) Hyperkalemia; Translations: [Hyperkalemia] Episodic Genitourinary symptoms and ill-defined conditions (16 sources) Proteinuria, unspecified; Translations: [Microalbuminuria] Onset: 03-06-2021 Resolved: 09-24-2021 Episodic Glaucoma (20 sources) Glaucoma; Translations: [Unspecified glaucoma] Onset: 02-03-2023 05-12-2023 Chronic Immunizations and screening for infectious disease (5 sources) Encounter for screening for other viral diseases; Translations: [Vaccination given] Onset: 09-07-2021 Resolved: 09-07-2021 Episodic Menopausal disorders (8 sources) Postmenopausal bleeding; Translations: [Postmenopausal bleeding] Onset: 04-06-2014 Chronic Mycoses (4 sources) Pain in toe; Translations: [Tinea unguium] 06-30-2024 Episodic Nausea and vomiting (2 sources) Diarrhea and vomiting; Translations: [Vomiting, unspecified] 06-13-2024 Episodic Nutritional deficiencies (20 sources) Vitamin D deficiency; Translations: [Vitamin D deficiency, unspecified] Onset: 11-27-2020 Resolved: 09-24-2021 Chronic Nutritional deficiencies (15 sources) Deficiency of other specified B group vitamins; Translations: [Cobalamin deficiency] Onset: 07-19-2022 Episodic Other aftercare (20 sources) Long-term current use of insulin; Translations: [continuous churn buttermaker (current) use of insulin] 05-12-2023 Episodic Other aftercare (14 sources) continuous churn buttermaker (current) use of insulin; Translations: [Long-term (current) use of insulin] Onset: 11-27-2020 Resolved: 09-24-2021 Episodic Other and unspecified benign neoplasm (2 sources) Benign tumor of soft tissue of back; Translations: [Other benign neoplasm of skin of trunk] 01-11-2024 Episodic Other connective tissue disease (2 sources) Pain of toe of left foot; Translations: [Pain in left toe(s)] 06-22-2024 Episodic Other endocrine disorders (17 sources) Hyperparathyroidism; Translations: [Hyperparathyroidism , unspecified] 05-31-2023 Chronic Other endocrine disorders (6 sources) Hyperparathyroidism, unspecified; Translations: [Hyperparathyroidism , unspecified] Chronic Other gastrointestinal disorders (4 sources) Diarrhea; Translations: [Diarrhea, unspecified] 03-07-2024 Episodic [...] Chronic Other nutritional; endocrine; and metabolic disorders (6 sources) Hyperuricemia without signs of inflammatory arthritis and tophaceous disease; Translations: [Other abnormal blood chemistry] Episodic Other nutritional; endocrine; and metabolic disorders (7 sources) Hyperuricemia; Translations: [Hyperuricemia without signs of inflammatory arthritis and tophaceous disease] 05-31-2023 Episodic Other screening for suspected conditions (not mental disorders or infectious disease) (11 sources) Mammography abnormal; Translations: [Unspecified abnormal mammogram] Onset: 04-11-2014 03-07-2024 Episodic Other skin disorders (2 sources) Seborrheic keratosis; Translations: [Other seborrheic keratosis] 01-11-2024 Episodic Other skin disorders (2 sources) Ingrowing nail; Translations: [Ingrowing nail] 06-22-2024 Episodic Pancreatic disorders (not diabetes) (4 sources) [...] for unspecified reasons] Episodic Residual codes; unclassified (7 sources) Body mass index 20-24 - normal; Translations: [Body mass index (BMI) 24.0-24.9, adult] 05-12-2023 Episodic Retinal detachments; defects; vascular occlusion; and retinopathy (20 sources) Retinal disorder; 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] Onset: 11-27-2020 Resolved: 09-24-2021 Chronic Skin and subcutaneous tissue infections (4 sources) Abscess of toe of left foot; Translations: [Cutaneous abscess of left foot] 06-22-2024 Episodic Urinary tract infections (1 source) Urinary tract infection, site not specified Episodic Past or Other Problems Problem Classification Problem Date Documented Date Episodic/Chronic Chronic kidney disease (8 sources) Chronic kidney disease; Translations: [CHRONIC KIDNEY DISEASE STAGE 3A] Onset: 04-22-2022 Other eye disorders (19 sources) Dry eyes; Translations: [Dry eye syndrome [...] Test Name Value Interpretation Reference Range Facility Perimetry studyon 08-11-2024 [facility] Radiology Study observation (narrative) [facility] Erythrocyte distribution wid th Auto (RBC) [Ratio]on 06-06-2024 Erythrocyte distribution width (RBC) [Ratio] Erythrocyte distribution width [Ratio] by Automated count 11.0-15.0 [facility] Estimated glomerular filtrat ion rate (GFR) non- Americanon 06-06-2024 GFR/1.73 sq M.predicted among non-blacks MDRD (S/P/Bld) [Vol rate/Area] Estimated glomerular filtration rate (GFR) non- Low >=60 mL/min/1.[address] [facility] Hematocrit Auto (Bld) [Volum e fraction]on 06-06-2024 Hematocrit (Bld) [Volume fraction] Hematocrit [Volume Fraction] of Blood by Automated count Low 36.0-48.0 [facility] Hemoglobin [Mass/volume] in Bloodon 06-06-2024 Hemoglobin (Bld) [Mass/Vol] Hemoglobin [Mass/volume] in Blood Low 12.0-16.0 [facility] Laboratory - Chemistry and C hemistry - challengeon 06-06-2024 Calcium [Mass/Vol] 9.0 mg/dL 8.5-10.1 [facility] Chloride [Moles/Vol] 110 mmol/L High 98-107 [facility] CO2 [Moles/Vol] 23.5 mmol/L 21.0-32.0 [facility] Creatinine [Mass/Vol] 1.40 mg/dL High 0.55-1.02 [facility] GFR/1.73 sq M.predicted MDRD (S/P/Bld) [Vol rate/Area] 45 mL/min/{1.73_m2} Low >=60 mL/min/1.[address] [facility] Glucose [Mass/Vol] 94 mg/dL 74-106 [facility] Potassium [Moles/Vol] 4.7 mmol/L 3.5-5.1 [facility] Sodium [Moles/Vol] 144 mmol/L 136-145 [facility] Urea nitrogen [Mass/Vol] 36.0 mg/dL High 7.0-18.0 [facility] Urea nitrogen/Creatinine [Mass ratio] 25.7 mg/mg [facility] Leukocytes [#/volume] correc anabelle for nucleated erythrocytes in Blood by Automated counon 06-06-2024 WBC corrected for nucl RBC Auto (Bld) [#/Vol] Leukocytes [#/volume] corrected for nucleated erythrocytes in Blood by Automated coun 4.0-11.0 [facility] MCH Auto (RBC) [Entitic mass ]on 06-06-2024 MCH (RBC) [Entitic mass] MCH [Entitic mass] by Automated count 26.7-34.0 [facility] MCHC Auto (RBC) [Mass/Vol]on 06-06-2024 MCHC (RBC) [Mass/Vol] MCHC [Mass/volume] by Automated count 29.9-35.2 [facility] MCV Auto (RBC) [Entitic vol] on 06-06-2024 MCV (RBC) [Entitic vol] MCV [Entitic volume] by Automated count 81.0-99.0 [facility] Platelet mean volume Auto (B ld) [Entitic vol]on 06-06-2024 Platelet mean volume (Bld) [Entitic vol] Platelet mean volume [Entitic volume] in Blood by Automated count 9.5-13.5 [facility] Platelets Auto (Bld) [#/Vol] on 06-06-2024 Platelets (Bld) [#/Vol] Platelets [#/volume] in Blood by Automated count 150-450 [facility] RBC Auto (Bld) [#/Vol]on RBC (Bld) [#/Vol] Erythrocytes [#/volu me] in Blood by Automated count Low 4.20-5.40 [facility] Serum or plasma anion gap de terminationon 06-06-2024 Anion gap [Moles/Vol] Serum or plasma an ion gap determination [facility] Basophils/100 WBC Manual cnt (Bld)on 06-05-2024 Basophils/100 WBC (Bld) Basophils/100 leukocytes in Blood by Manual count Low 0.2-2.0 [facility] Eosinophils/100 WBC Manual c nt (Bld)on 06-05-2024 Eosinophils/100 WBC (Bld) Eosinophils/100 leukocytes in Blood by Manual count Low 0.9-7.0 [facility] Estimated glomerular filtrat ion rate (GFR) non- Americanon 06-05-2024 GFR/1.73 sq M.predicted among non-blacks MDRD (S/P/Bld) [Vol rate/Area] Estimated glomerular filtration rate (GFR) non- Low >=60 mL/min/1.[address] [facility] Globulin Calc (S) [Mass/Vol] on 06-05-2024 Globulin (S) [Mass/Vol] Serum globulin measurement by calculation (mass/volume) [facility] Laboratory - Chemistry and C hemistry - challengeon 06-05-2024 Potassium [Moles/Vol] 5.7 mmol/L High 3.5-5.1 [facility] Albumin [Mass/Vol] 4.3 g/dL 3.4-5.0 [facility] ALP [Catalytic activity/Vol] 102 U/L 46-116 [facility] ALT [Catalytic activity/Vol] 19 U/L 14-59 [facility] AST [Catalytic activity/Vol] 22 U/L 15-37 [facility] Bilirubin [Mass/Vol] 0.4 mg/dL 0.2-1.0 [facility] Calcium [Mass/Vol] 10.1 mg/dL 8.5-10.1 [facility] Chloride [Moles/Vol] 106 mmol/L 98-107 [facility] CO2 [Moles/Vol] 19.6 mmol/L Low 21.0-32.0 [facility] Creatinine [Mass/Vol] 1.70 mg/dL High 0.55-1.02 [facility] GFR/1.73 sq M.predicted MDRD (S/P/Bld) [Vol rate/Area] 36 mL/min/{1.73_m2} Low >=60 mL/min/1.[address] [facility] Glucose [Mass/Vol] 149 mg/dL High 74-106 [facility] Lipase [Catalytic activity/Vol] 86.0 U/L High 16.0-77.0 [facility] Protein [Mass/Vol] 9.1 g/dL High 6.4-8.2 [facility] Sodium [Moles/Vol] 142 mmol/L 136-145 [facility] Urea nitrogen [Mass/Vol] 46.0 mg/dL High 7.0-18.0 [facility] Urea nitrogen/Creatinine [Mass ratio] 27.1 mg/mg [facility] Laboratory - Hematology and Cell countson 06-05-2024 Lymphocytes/100 WBC (Bld) 16.0 % Low 20.5-60.0 [facility] Monocytes/100 WBC (Bld) 13.0 % High 1.7-12.0 [facility] No Panel Informationon 06-05 Absolute Basophils (Manual) 0.00 10 3/uL 0.00-0.10 [facility] Bedside Influenza Type A Antigen Negative [facility] Comment on above: Negative for Flu A p rotein antigen. Infection due to Flu Acannot be ruled out. Flu A antigen in the sample may bebelow the detection limit of the test. Bedside Influenza Type B Antigen Negative [facility] Comment on above: Negative for Flu B p rotein antigen. Infection due to Flu Bcannot be ruled out. Flu B antigen in the sample may bebelow the detection limit of the test. Eosinophils # (Manual) 0.00 10 3/uL 0.00-0.70 [facility] Lymphocytes # (Manual) 1.61 10 3/uL 1.20-3.80 [facility] Monocytes # (Manual) 1.31 10 3/uL High 0.30-0.80 [facility] Segmented Neutrophils # (Manual) 7.17 10 3/uL High 1.4-6.5 [facility] Segmented neutrophils/100 WB C Manual cnt (Bld)on 06-05-2024 Segmented neutrophils/100 WBC (Bld) Manual blood segmented neutrophils/100 leukocytes 43.0-75.0 [facility] Serum or plasma albumin/glob ulin mass ratioon 06-05-2024 Albumin/Globulin [Mass ratio] Serum or plasma albumin/globulin mass ratio [facility] Serum or plasma anion gap de terminationon 06-05-2024 Anion gap [Moles/Vol] Serum or plasma an ion gap determination [facility] Albumin [Mass/volume] in Ser um or Plasmaon 05-02-2024 Albumin [Mass/Vol] Albumin [Mass/volume ] in Serum or Plasma 2.9-4.4 [facility] Cholesterol in LDL Calc [Mas s/Vol]on 05-02-2024 Cholesterol in LDL [Mass/Vol] Cholesterol in LDL [Mass/volume] in Serum or Plasma by calculation [facility] Comment on above: <100 mg/dl [id number] 0-129 mg/dl NEAR OR ABOVE [id number] mg/dl BORDERLINE [id number] mg/dl HIGH>190 mg/dl VERY HIGH Cholesterol in VLDL Calc [Ma ss/Vol]on 05-02-2024 Cholesterol in VLDL [Mass/Vol] Cholesterol in VLDL [Mass/volume] in Serum or Plasma by calculation [facility] Erythrocyte distribution wid th Auto (RBC) [Ratio]on 05-02-2024 Erythrocyte distribution width (RBC) [Ratio] Erythrocyte distribution width [Ratio] by Automated count 11.0-15.0 [facility] Estimated glomerular filtrat ion rate (GFR) non- Americanon 05-02-2024 GFR/1.73 sq M.predicted among non-blacks MDRD (S/P/Bld) [Vol rate/Area] Estimated glomerular filtration rate (GFR) non- Low >=60 mL/min/1.[address] [facility] Hematocrit Auto (Bld) [Volum e fraction]on 05-02-2024 Hematocrit (Bld) [Volume fraction] Hematocrit [Volume Fraction] of Blood by Automated count Low 36.0-48.0 [facility] Hemoglobin [Mass/volume] in Bloodon 05-02-2024 Hemoglobin (Bld) [Mass/Vol] Hemoglobin [Mass/volume] in Blood Low 12.0-16.0 [facility] IgA [Mass/volume] in Serum o r Plasmaon 05-02-2024 IgA [Mass/Vol] IgA [Mass/volume] in Serum or Plasma Abnormal 64-422 [facility] IgG [Mass/volume] in Serum o r Plasmaon 05-02-2024 IgG [Mass/Vol] IgG [Mass/volume] in Serum or Plasma [phone] [facility] IgM [Mass/volume] in Serum o r Plasmaon 05-02-2024 IgM [Mass/Vol] IgM [Mass/volume] in Serum or Plasma 26-217 [facility] Immunofixation for Urineon 0 05-02-2024 Interpretation Immunofixation (U) [Interp] Immunofixation for Urine . [facility] Comment on above: No monoclonality det ected.Performed at: [facility] [address] [id number] Director: Aric Loene PhD, Phone: [phone] Laboratory - Chemistry and C hemistry - challengeon 05-02-2024 Albumin [Mass/Vol] 4.0 g/dL 3.4-5.0 [facility] Calcium [Mass/Vol] 9.3 mg/dL 8.5-10.1 [facility] Chloride [Moles/Vol] 106 mmol/L 98-107 [facility] Cholesterol [Mass/Vol] 185 mg/dL <=200 [facility] Cholesterol in HDL [Mass/Vol] 59 mg/dL 40-60 [facility] Comment on above: > or =60 mg/dl - LOW CARDIOVASCULAR RISK<40 mg/dl - HIGH CARDIOVASCULAR RISK CO2 [Moles/Vol] 22.1 mmol/L 21.0-32.0 [facility] Cobalamin (Vitamin B12) [Mass/Vol] 1270 pg/mL Abnormal 232-1245 [facility] Comment on above: Performed at: [facility] [address] [id number] Director: Aric Leone PhD, Phone: [phone] Creatinine [Mass/Vol] 1.57 mg/dL High 0.55-1.02 [facility] GFR/1.73 sq M.predicted MDRD (S/P/Bld) [Vol rate/Area] 39 mL/min/{1.73_m2} Low >=60 mL/min/1.[address] [facility] Glucose [Mass/Vol] 129 mg/dL High 74-106 [facility] Magnesium [Mass/Vol] 2.0 mg/dL 1.8-2.4 [facility] Potassium [Moles/Vol] 5.0 mmol/L 3.5-5.1 [facility] Sodium [Moles/Vol] 138 mmol/L 136-145 [facility] Triglyceride [Mass/Vol] 201 mg/dL High <=150 [facility] Urea nitrogen [Mass/Vol] 32.0 mg/dL High 7.0-18.0 [facility] Urea nitrogen/Creatinine [Mass ratio] 20.4 mg/mg [facility] Leukocytes [#/volume] correc anabelle for nucleated erythrocytes in Blood by Automated counon 05-02-2024 WBC corrected for nucl RBC Auto (Bld) [#/Vol] Leukocytes [#/volume] corrected for nucleated erythrocytes in Blood by Automated coun 4.0-11.0 [facility] MCH Auto (RBC) [Entitic mass ]on 05-02-2024 MCH (RBC) [Entitic mass] MCH [Entitic mass] by Automated count 26.7-34.0 [facility] MCHC Auto (RBC) [Mass/Vol]on 05-02-2024 MCHC (RBC) [Mass/Vol] MCHC [Mass/volume] by Automated count 29.9-35.2 [facility] MCV Auto (RBC) [Entitic vol] on 05-02-2024 MCV (RBC) [Entitic vol] MCV [Entitic volume] by Automated count 81.0-99.0 [facility] No Panel Informationon 05-02 Folate 20.70 ng/mL 8.60-58.90 [facility] Phosphorus Level 3.5 mg/dL 2.6-4.7 [facility] Protein Electrophoresis M-Jerman Not Observed g/dL Not Observed [facility] Protein Electrophoresis Note Comment . [facility] Comment on above: Protein electrophore sis scan will follow via computer,mail, or securities clerk delivery.Performed at: - [facility] [id number] Director: Aric Leone PhD, Phone: [phone] Platelet mean volume Auto (B ld) [Entitic vol]on 05-02-2024 Platelet mean volume (Bld) [Entitic vol] Platelet mean volume [Entitic volume] in Blood by Automated count 9.5-13.5 [facility] Platelets Auto (Bld) [#/Vol] on 05-02-2024 Platelets (Bld) [#/Vol] Platelets [#/volume] in Blood by Automated count 150-450 [facility] Protein [Mass/volume] in Ser um or Plasmaon 05-02-2024 Protein [Mass/Vol] Protein [Mass/volume ] in Serum or Plasma 6.0-8.5 [facility] RBC Auto (Bld) [#/Vol]on RBC (Bld) [#/Vol] Erythrocytes [#/volu me] in Blood by Automated count Low 4.20-5.40 [facility] Serum globulin measurement ( mass/volume)on 05-02-2024 Globulin (S) [Mass/Vol] Serum globulin measurement (mass/volume) Abnormal 2.2-3.9 [facility] Serum or plasma albumin/glob ulin mass ratioon 05-02-2024 Albumin/Globulin [Mass ratio] Serum or plasma albumin/globulin mass ratio 0.7-1.7 [facility] Serum or plasma alpha 1 glob ulin measurement by electrophoresis (mass/volume)on 05-02-2024 Alpha 1 globulin Elph [Mass/Vol] Serum or plasma alpha 1 globulin measurement by electrophoresis (mass/volume) 0.0-0.4 [facility] Serum or plasma alpha 2 glob ulin measurement by electrophoresis (mass/volume)on 05-02-2024 Alpha 2 globulin Elph [Mass/Vol] Serum or plasma alpha 2 globulin measurement by electrophoresis (mass/volume) 0.4-1.0 [facility] Serum or plasma anion gap de terminationon 05-02-2024 Anion gap [Moles/Vol] Serum or plasma an ion gap determination [facility] Serum or plasma beta globuli n measurement by electrophoresis (mass/volume)on 05-02-2024 Beta globulin Elph [Mass/Vol] Serum or plasma beta globulin measurement by electrophoresis (mass/volume) Abnormal 0.7-1.3 [facility] Serum or plasma gamma globul in measurement by electrophoresis (mass/volume)on 05-02-2024 Gamma globulin Elph [Mass/Vol] Serum or plasma gamma globulin measurement by electrophoresis (mass/volume) 0.4-1.8 [facility] Serum or plasma immunoelectr ophoresis interpretationon 05-02-2024 Interpretation IEP [Interp] Serum or plasma immunoelectrophoresis interpretation . [facility] Comment on above: No monoclonality det ected. Serum or plasma total choles terol/high density lipoprotein (HDL) cholesterol mass mikey 05-02-2024 Cholesterol.total/Chol esterol in HDL [Mass ratio] Serum or plasma total cholesterol/high density lipoprotein (HDL) cholesterol mass rat [facility] Comment on above: 3.3 - 4.4 LOW RISK4. 4 - 7.1 AVERAGE RISK7.1 - 11.0 MODERATE RISK>11.0 HIGH RISK Glucose Glucometer (BldC) [M ass/Vol]Ordered By: Agnes De Oliveira on 04-20-2024 Glucose [Mass/Vol] Capillary blood gluc ose measurement by glucometer (mass/volume) [facility] Comment on above: Random Glucose Refer ence Range is dependent on time and content of last meal. Glucose of more than 200 mg/dL in a nonstressed, ambulatory subject supports the diagnosis of Diabetes Mellitus. Glucose Poct Glucometerson 0 04-20-2024 Glucose [Mass/Vol] 166 mg/dL Normal [facility] Comment on above: Result Comment: [place] Glucose Reference Range is dependent on time and content of last meal. Glucose of more than 200 mg/dL in a nonstressed, ambulatory subject supports the diagnosis of Diabetes Mellitus. PERFORMED BY: [facility] [address] [place] [address] PATHOLOGIST WOMEN'S ACTIVITIES ADVISER SHASHI DIAS M.D. Performed By: #### G AMOS #### Point of Care testing , [facility] 04-20-2024 L ----- Specimen: [id number] Received: 04/20/24 Status: LAVERNE Pickett Num: [id number] Spec Type: Surgical Subm Dr: Agnes De Oliveira DO Tissues: A Colon Biopsy (SIGMOID COLON POLYP) Procedures: HE/2, Gross/Micro L4 Age/ Patient Sex Location Account Attending Physician Libia Chen/[place] [id number] Agnes De Oliveira DO SPEC NUM: [id number] RECD: 04/20/24 STATUS: LAVERNE PICKETT NUM: [id number] [place]: 04/20/[address]: Agnes De Oliveira DO ENTERED: 04/20/[address] [facility] [address]: SPEC TYPE: Surgical DEPT: S ENTERED BY: [id number] RECV BY: [id number] ORDERED: HE/2, Gross/Micro L4 ORDERED: HE/2, Gross/Micro [...] submitted in a single cassette. (1, ns, [id number]) CPT Codes 52407 Specimen: [id number] Received: 04/20/24 Status: LAVERNE Pickett Num: [id number] Spec Type: Surgical Subm Dr: Agnes De Oliveira DO Tissues: A Colon Biopsy (SIGMOID COLON POLYP) Procedures: WANDA/2, Gross/Micro L4 Patient: Libia Chen [id number] (Continued) Signed (signature on file) Lemuel Sims MD 04/21/24 0948 Normal [facility] Ophthalmic OCT panelon 02-10 [facility] Right Eye Images reviewed and comparison made [...] eyes (OU). Stable. No changes to treatment [facility] Radiology Study observation (narrative) [facility] Optical coherence tomography study reporton 02-11-2024 [facility] Study observation (narrative) [facility] HbA1c HPLC (Bld) [Mass fract ion]on 02-07-2024 HbA1c (Bld) [Mass fraction] Hemoglobin A1c/Hemoglobin.total in Blood by HPLC [facility] No Panel Informationon 02-[address] [facility] Erythrocyte distribution wid th Auto (RBC) [Ratio]on 12-21-2023 Erythrocyte distribution width (RBC) [Ratio] 13.2 % 11.0-15.0 [facility] Estimated glomerular filtrat ion rate (GFR) non- Americanon 12-21-2023 GFR/1.73 sq M.predicted among non-blacks MDRD (S/P/Bld) [Vol rate/Area] 30 mL/min/{1.73_m2} Low >=60 mL/min/1.[address] [facility] Hematocrit Auto (Bld) [Volum e fraction]on 12-21-2023 Hematocrit (Bld) [Volume fraction] 32.1 % Low 36.0-48.0 [facility] Hemoglobin [Mass/volume] in Bloodon 12-21-2023 Hemoglobin (Bld) [Mass/Vol] 10.1 g/dL Low 12.0-16.0 [facility] Iron binding capacity [Mass/ volume] in Serum or Plasmaon 12-21-2023 Iron binding capacity [Mass/Vol] 316.0 ug/dL 250.0-450. 0 [facility] Iron saturation [Mass Fracti on] in Serum or Plasmaon 12-21-2023 Iron saturation [Mass fraction] 25.0 % [facility] Laboratory - Chemistry and C hemistry - challengeon 12-21-2023 Albumin [Mass/Vol] 3.7 g/dL 3.4-5.0 [facility] Calcium [Mass/Vol] 8.9 mg/dL 8.5-10.1 [facility] Chloride [Moles/Vol] 108 mmol/L High 98-107 [facility] CO2 [Moles/Vol] 22.3 mmol/L 21.0-32.0 [facility] Creatinine [Mass/Vol] 1.66 mg/dL High 0.55-1.02 [facility] Ferritin [Mass/Vol] 216.0 ng/mL 8.0-252.0 [facility] GFR/1.73 sq M.predicted MDRD (S/P/Bld) [Vol rate/Area] 37 mL/min/{1.73_m2} Low >=60 mL/min/1.[address] [facility] Glucose [Mass/Vol] 197 mg/dL High 74-106 [facility] Iron [Mass/Vol] 79.0 ug/dL 50.0-170.0 [facility] Magnesium [Mass/Vol] 2.0 mg/dL 1.8-2.4 [facility] Potassium [Moles/Vol] 4.5 mmol/L 3.5-5.1 [facility] Sodium [Moles/Vol] 142 mmol/L 136-145 [facility] Urate [Mass/Vol] 6.8 mg/dL High 2.6-6.0 [facility] Urea nitrogen [Mass/Vol] 32.0 mg/dL High 7.0-18.0 [facility] Urea nitrogen/Creatinine [Mass ratio] 19.3 mg/mg [facility] Bilirubin Ql (U) Negative NEGATIVE [facility] Glucose (U) [Mass/Vol] mg/dL Abnormal NEGATIVE [facility] Ketones Ql (U) Negative NEGATIVE [facility] pH (U) 5.5 [pH] 5.0-9.0 [facility] Specific gravity (U) [Rel density] 1.015 1.005-1.[address] [facility] Urobilinogen Qn (U) 0.2 {Michael'U}/dL 0.2-1.0 [facility] Laboratory - Specimen inform ationon 12-21-2023 Appearance (U) CLEAR CLEAR [facility] Color (U) LT. YELLOW YELLOW [facility] Laboratory - Urinalysison Leukocyte esterase Test strip Ql (U) SMALL Abnormal NEGATIVE [facility] Nitrite Ql (U) Negative NEGATIVE [facility] Protein (U) [Mass/Vol] 11.2 mg/dL <=11.9 [facility] Protein Ql (U) Negative NEG/TRACE [facility] Leukocytes [#/volume] correc anabelle for nucleated erythrocytes in Blood by Automated counon 12-21-2023 WBC corrected for nucl RBC Auto (Bld) [#/Vol] 8.8 10 3/uL 4.0-11.0 [facility] MCH Auto (RBC) [Entitic mass ]on 12-21-2023 MCH (RBC) [Entitic mass] 28.9 pg 26.7-34.0 [facility] MCHC Auto (RBC) [Mass/Vol]on 12-21-2023 MCHC (RBC) [Mass/Vol] 31.5 g/dL 29.9-35.2 [facility] MCV Auto (RBC) [Entitic vol] on 12-21-2023 MCV (RBC) [Entitic vol] 92.0 fL 81.0-99.0 [facility] Microalbumin [Mass/volume] i n Urineon 12-21-2023 Albumin DL <= 20 mg/L (U) [Mass/Vol] 1.8 mg/dL <=30.0 [facility] No Panel Informationon 12-20 Folate 15.90 ng/mL 8.60-58.90 [facility] Parathyroid Hormone (Intact) 50 pg/mL [facility] Comment on above: Performed at: [employer] [place] [id number] Director: Aric Leone PhD, Phone: [phone] Phosphorus Level 3.1 mg/dL 2.6-4.7 [facility] Vitamin B12 Level >2000 pg/mL Abnormal 232-1245 [facility] Comment on above: Performed at: [place], [place] [id number] Director: Aric Leone PhD, Phone: [phone] Urine Occult Blood Negative NEGATIVE [facility] Urine Random Creatinine 47.66 mg/dL 20.00-300. 00 [facility] Platelet mean volume Auto (B ld) [Entitic vol]on 12-21-2023 Platelet mean volume (Bld) [Entitic vol] 10.6 fL 9.5-13.5 [facility] Platelets Auto (Bld) [#/Vol] on 12-21-2023 Platelets (Bld) [#/Vol] 200 10 3/uL 150-450 [facility] RBC Auto (Bld) [#/Vol]on RBC (Bld) [#/Vol] 3.49 10 6/uL Low 4.20-5.40 [facility] Serum or plasma anion gap de terminationon 12-21-2023 Anion gap [Moles/Vol] 16.2 mmol/L [facility] Urine microalbumin/creatinin e mass ratioon 12-21-2023 Albumin/Creatinine DL <= 20 mg/L (U) [Mass ratio] 37.7 mg/g High 0.0-29.9 [facility] Comment on above: NO MICROALBUMINURIA 0-29 MG/GCLINICAL MICROALBUMINURIA 30-300 MG/GMACROALBUMINURIA >300 MG/G Urine protein/creatinine rat ioon 12-21-2023 Protein/Creatinine (U) [Ratio] 0.23 [facility] HbA1c HPLC (Bld) [Mass fract ion]on 10-25-2023 HbA1c (Bld) [Mass fraction] 7.0 % [facility] No Panel Informationon 10-[address] [facility] Automated urine specific gra vity by refractometryon 05-27-2023 Specific gravity Refractometry automated (U) [Rel density] 1.020 1.005-1.[address] [facility] Bilirubin Auto test strip (U ) [Mass/Vol]on 05-27-2023 Bilirubin (U) [Mass/Vol] Negative NEGATIVE [facility] Cholesterol in LDL Calc [Mas s/Vol]on 05-27-2023 Cholesterol in LDL [Mass/Vol] 87.0 mg/dL [facility] Comment on above: <100 mg/dl [id number] 0-129 mg/dl NEAR OR ABOVE [id number] mg/dl BORDERLINE [id number] mg/dl HIGH>190 mg/dl VERY HIGH Cholesterol in VLDL Calc [Ma ss/Vol]on 05-27-2023 Cholesterol in VLDL [Mass/Vol] 30.6 mg/dL [facility] Color Auto (U)on 05-27-2023 Color (U) LT. YELLOW YELLOW [facility] Erythrocyte distribution wid th Auto (RBC) [Ratio]on 05-27-2023 Erythrocyte distribution width (RBC) [Ratio] 12.7 % 11.0-15.0 [facility] Estimated glomerular filtrat ion rate (GFR) non- Americanon 05-27-2023 GFR/1.73 sq M.predicted among non-blacks MDRD (S/P/Bld) [Vol rate/Area] 40 mL/min/{1.73_m2} >=60 [facility] Globulin Calc (S) [Mass/Vol] on 05-27-2023 Globulin (S) [Mass/Vol] 4.5 g/dL [facility] Hematocrit Auto (Bld) [Volum e fraction]on 05-27-2023 Hematocrit (Bld) [Volume fraction] 38.7 % 36.0-48.0 [facility] Hemoglobin [Mass/volume] in Bloodon 05-27-2023 Hemoglobin (Bld) [Mass/Vol] 11.9 g/dL 12.0-16.0 [facility] Iron binding capacity [Mass/ volume] in Serum or Plasmaon 05-27-2023 Iron binding capacity [Mass/Vol] 384.0 ug/dL 250.0-450. 0 [facility] Iron saturation [Mass Fracti on] in Serum or Plasmaon 05-27-2023 Iron saturation [Mass fraction] 16.7 % [facility] Ketones Auto test strip (U) [Mass/Vol]on 05-27-2023 Ketones (U) [Mass/Vol] Negative NEGATIVE [facility] Laboratory - Chemistry and C hemistry - challengeon 05-27-2023 Albumin [Mass/Vol] 4.1 g/dL 3.4-5.0 [facility] ALP [Catalytic activity/Vol] 102 U/L 46-116 [facility] ALT [Catalytic activity/Vol] 21 U/L 14-59 [facility] AST [Catalytic activity/Vol] 20 U/L 15-37 [facility] Bilirubin [Mass/Vol] 0.3 mg/dL 0.2-1.0 [facility] Calcium [Mass/Vol] 9.6 mg/dL 8.5-10.1 [facility] Chloride [Moles/Vol] 104 mmol/L 98-107 [facility] Cholesterol [Mass/Vol] 176 mg/dL <=200 [facility] Cholesterol in HDL [Mass/Vol] 59 mg/dL 40-60 [facility] Comment on above: > or =60 mg/dl - LOW CARDIOVASCULAR RISK<40 mg/dl - HIGH CARDIOVASCULAR RISK CO2 [Moles/Vol] 26.2 mmol/L 21.0-32.0 [facility] Cobalamin (Vitamin B12) [Mass/Vol] 5763.0 pg/mL 193.0-986. 0 [facility] Creatinine [Mass/Vol] 1.30 mg/dL 0.55-1.02 [facility] Ferritin [Mass/Vol] 101.0 ng/mL 8.0-252.0 [facility] GFR/1.73 sq M.predicted MDRD (S/P/Bld) [Vol rate/Area] 49 mL/min/{1.73_m2} >=60 [facility] Glucose [Mass/Vol] 107 mg/dL 74-106 [facility] Iron [Mass/Vol] 64.0 ug/dL 50.0-170.0 [facility] Magnesium [Mass/Vol] 2.1 mg/dL 1.8-2.4 [facility] Potassium [Moles/Vol] 4.0 mmol/L 3.5-5.1 [facility] Protein [Mass/Vol] 8.6 g/dL 6.4-8.2 [facility] Sodium [Moles/Vol] 142 mmol/L 136-145 [facility] Triglyceride [Mass/Vol] 153 mg/dL <=150 [facility] Urate [Mass/Vol] 6.9 mg/dL 2.6-6.0 [facility] Urea nitrogen [Mass/Vol] 20.0 mg/dL 7.0-18.0 [facility] Urea nitrogen/Creatinine [Mass ratio] 15.4 mg/mg [facility] Laboratory - Urinalysison Protein (U) [Mass/Vol] 16.2 mg/dL <=11.9 [facility] Leukocytes [#/volume] correc anabelle for nucleated erythrocytes in Blood by Automated counon 05-27-2023 WBC corrected for nucl RBC Auto (Bld) [#/Vol] 8.6 10 3/uL 4.0-11.0 [facility] MCH Auto (RBC) [Entitic mass ]on 05-27-2023 MCH (RBC) [Entitic mass] 27.9 pg 26.7-34.0 [facility] MCHC Auto (RBC) [Mass/Vol]on 05-27-2023 MCHC (RBC) [Mass/Vol] 30.7 g/dL 29.9-35.2 [facility] MCV Auto (RBC) [Entitic vol] on 05-27-2023 MCV (RBC) [Entitic vol] 90.8 fL 81.0-99.0 [facility] No Panel Informationon 05-26 25-Hydroxy Vitamin D Total 57.6 ng/mL [facility] Comment on above: <20 ng/mL Vit D defi cient20-<30 ng/mL Vit D cpetkrquvnri54-805 ng/mL Vit D sufficient>100 ng/mL Potential Toxicity Folate 15.70 ng/mL 8.60-58.90 [facility] Parathyroid Hormone (Intact) 31 pg/mL 15-65 [facility] Comment on above: Performed at: [employer] [address] [id number] Director: Aric Leone PhD, Phone: [phone] Phosphorus Level 4.2 mg/dL 2.6-4.7 [facility] Urine Random Creatinine 73.96 mg/dL 20.00-300. 00 [facility] Platelet mean volume Auto (B ld) [Entitic vol]on 05-27-2023 Platelet mean volume (Bld) [Entitic vol] 10.6 fL 9.5-13.5 [facility] Platelets Auto (Bld) [#/Vol] on 05-27-2023 Platelets (Bld) [#/Vol] 188 10 3/uL 150-450 [facility] Protein Auto test strip (U) [Mass/Vol]on 05-27-2023 Protein (U) [Mass/Vol] Negative NEG/TRACE [facility] RBC Auto (Bld) [#/Vol]on RBC (Bld) [#/Vol] 4.26 10 6/uL 4.20-5.40 [facility] Serum or plasma albumin/glob ulin mass ratioon 05-27-2023 Albumin/Globulin [Mass ratio] 0.9 {ratio} [facility] Serum or plasma anion gap de terminationon 05-27-2023 Anion gap [Moles/Vol] 15.8 mmol/L [facility] Serum or plasma total choles terol/high density lipoprotein (HDL) cholesterol mass mikey 05-27-2023 Cholesterol.total/Chol esterol in HDL [Mass ratio] 3.0 {ratio} [facility] Comment on above: 3.3 - 4.4 LOW RISK4. 4 - 7.1 AVERAGE RISK7.1 - 11.0 MODERATE RISK>11.0 HIGH RISK Specific gravity Auto test s trip (U) [Rel density]on 05-27-2023 Specific gravity (U) [Rel density] CLEAR CLEAR [facility] Urine glucose measurement by test strip (mass/volume)on 05-27-2023 Glucose Test strip (U) [Mass/Vol] >=1000 mg/dL NEGATIVE [facility] Urine hemoglobin detection b y automated test stripon 05-27-2023 Hemoglobin Auto test strip Ql (U) Negative NEGATIVE [facility] Urine nitrite detection by a utomated test stripon 05-27-2023 Nitrite Auto test strip Ql (U) Negative NEGATIVE [facility] Urine protein/creatinine rat ioon 05-27-2023 Protein/Creatinine (U) [Ratio] 0.22 [facility] Urobilinogen Auto test strip (U) [Mass/Vol]on 05-27-2023 Urobilinogen Qn (U) 0.2 {Michael'U}/dL 0.2-1.0 [facility] pH Auto test strip (U)on pH (U) 5.5 [pH] 5.0-9.0 [facility] HbA1c HPLC (Bld) [Mass fract ion]on 05-12-2023 HbA1c (Bld) [Mass fraction] 6.2 % [facility] No Panel Informationon 05-[address] [facility] A1C HEMOGLOBINon 12-14-2022 HbA1c (Bld) [Mass fraction] 6.3 % [employer] Other Glucose - FINGER STICKon Glucose [Mass/Vol] 133 mg/dL [employer] Other HbA1c (Bld) [Mass fraction]o n 12-14-2022 [facility] A1C HEMOGLOBINon 09-09-2022 HbA1c (Bld) [Mass fraction] 6.5 % [employer] Other Glucose - FINGER STICKon Glucose [Mass/Vol] 107 mg/dL [employer] Other HbA1c (Bld) [Mass fraction]o n 09-09-2022 A1C HEMOGLOBIN [facility] [employer] Other PTH INTACTon 07-17-2022 PTH, Intact 68 pg/mL Critically high 15-[address] [facility] Comment on above: Performed By: #### P THINT #### [facility] [address], [place] [address] Dr. Tim Moya HEMOGRAM AND PLATELon 2022 Hematocrit (Bld) [Volume fraction] 36.5 % Normal 36.0-48.0 [facility] Comment on above: Performed By: #### H H ####[facility] [address] [place] [address]DrLinda Moya Hemoglobin (Bld) [Mass/Vol] 11.7 g/dL Critically low 12.0-16.0 [facility] Comment on above: Performed By: #### H H ####[facility] [address] [place] [address]DrLinda Moya MCH (RBC) [Entitic mass] 28.3 pg Normal 26.7-34.0 [facility] Comment on above: Performed By: #### H H ####[facility] [address] [place] [id number] Moya MCHC (RBC) [Mass/Vol] 32.1 g/dL Normal 29.9-35.2 [facility] Comment on above: Performed By: #### H H ####[facility] [address] [place] [id number] Moya MCV (RBC) [Entitic vol] 88.2 fL Normal 81.0-99.0 [facility] Comment on above: Performed By: #### H H ####[facility] [address] [place] [id number] Moya PLT 242 103/ul Normal 150-450 [facility] Comment on above: Performed By: #### H H ####[facility] [address] [place] [id number]. Tim Moya RBC 4.14 106/ul Critically low 4.20-5.40 [facility] Comment on above: Performed By: #### H H ####[facility] [address] [place] [address]Dr. Tim Moya WBC 9.2 103/ul Normal 4.0-11.0 [facility] Comment on above: Performed By: #### H H ####[facility] [address] [place] [address]Dr. Tim Moya MAGNESIUMon 07-16-2022 Magnesium [Mass/Vol] 2.4 mg/dL Normal 1.8-2.4 [facility] Comment on above: Performed By: #### C MP, PHOS, URIC, MG #### [facility] [address] [place] [address] [address] Tim Moya PHOSPHORUSon 07-16-2022 Phosphate [Mass/Vol] 3.3 mg/dL Normal 2.6-4.7 [facility] Comment on above: Performed By: #### C MP, PHOS, URIC, MG ####[facility] [address] [place] [address]DrLinda Moya PROF 14(COMP METB)on 023 Albumin [Mass/Vol] 3.9 g/dL Normal 3.4-5.0 [facility] Comment on above: Performed By: #### C MP, PHOS, URIC, MG ####[facility] [address] [place] [address]DrLinda Moya Albumin/Globulin [Mass ratio] 0.8 {ratio} Normal [facility] Comment on above: Performed By: #### C MP, PHOS, URIC, MG ####[facility] [address] [place] [address]DrLinda Moya ALP [Catalytic activity/Vol] 107 U/L Normal 46-116 [facility] Comment on above: Performed By: #### C MP, PHOS, URIC, MG ####[facility] [address] [place] [address]Dr. Tim Moya ALT [Catalytic activity/Vol] 22 U/L Normal 14-59 [facility] Comment on above: Performed By: #### C MP, PHOS, URIC, MG ####[facility] [address] [place] [address]Dr. Tim Moya Anion gap [Moles/Vol] 12.4 mmol/L Normal Th [facility] Comment on above: Performed By: #### C MP, PHOS, URIC, MG ####[facility] [address] [place] [address]Dr. Tim Moya AST [Catalytic activity/Vol] 19 U/L Normal 15-37 [facility] Comment on above: Performed By: #### C MP, PHOS, URIC, MG ####[facility] [address] [place] [address]Dr. Tim Moya Bilirubin [Mass/Vol] 0.2 mg/dL Normal 0.2-1.0 [facility] Comment on above: Performed By: #### C MP, PHOS, URIC, MG ####[facility] [address] [place], [place] [address]Dr. Tim Moya Calcium [Mass/Vol] 8.7 mg/dL Normal 8.5-10.1 [facility] Comment on above: Performed By: #### C MP, PHOS, URIC, MG ####[facility] [address] [place] [address]Dr. Tim Moya Chloride [Moles/Vol] 108 mmol/L Critically high 98-107 [facility] Comment on above: Performed By: #### C MP, PHOS, URIC, MG ####[facility] [address] [place], [place] [address]Dr. Tim Moya CO2 [Moles/Vol] 26.1 mmol/L Normal 21.0-32.[address] [facility] Comment on above: Performed By: #### C MP, PHOS, URIC, MG ####[facility] [address] [place] [address]Dr. Yilan Moya Creatinine [Mass/Vol] 1.21 mg/dL Critically high 0.55-1.02 [facility] Comment on above: Performed By: #### C MP, PHOS, URIC, MG ####[facility] [address] [place] [address]Dr. Tim Moya EGFR-AF GREEK 53 mL/min/1.73m2 Critically low >=60 [facility] Comment on above: Performed By: #### C MP, PHOS, URIC, MG ####[facility] [address] [place] [address]Dr. Tim Moya EGFR-NON AF GREEK 44 mL/min/1.73m2 Critically low >=60 [facility] Comment on above: Performed By: #### C MP, PHOS, URIC, MG ####[facility] [address] [place] [address]Dr. Tim Moya Globulin (S) [Mass/Vol] 4.9 g/dL Normal [facility] Comment on above: Performed By: #### C MP, PHOS, URIC, MG ####[facility] [address] [place] [address]Dr. Tim Moya Glucose [Mass/Vol] 94 mg/dL Normal 74-106 [facility] Comment on above: Performed By: #### C MP, PHOS, URIC, MG ####[facility] [address] [place] [address]Dr. Tim Moya Potassium [Moles/Vol] 4.5 mmol/L Normal 3.5-5.1 [facility] Comment on above: Performed By: #### C MP, PHOS, URIC, MG ####[facility] [address] [place] [address]Dr. Tim Moya Protein [Mass/Vol] 8.8 g/dL Critically high 6.4-8.[address] [facility] Comment on above: Performed By: #### C MP, PHOS, URIC, MG ####[facility] [address] [place] [address]Dr. Tim Moya Sodium [Moles/Vol] 142 mmol/L Normal 136-145 [facility] Comment on above: Performed By: #### C MP, PHOS, URIC, MG ####[facility] [address] [place] [address]Dr. Tim Moya Urea nitrogen [Mass/Vol] 20.0 mg/dL Critically high 7.0-18.0 [facility] Comment on above: Performed By: #### C MP, PHOS, URIC, MG ####[facility] [address] [place] [address]Dr. Tim Moya Urea nitrogen/Creatinine [Mass ratio] 16.5 mg/mg Normal [facility] Comment on above: Performed By: #### C MP, PHOS, URIC, MG ####[facility] [address] [place] [address]Dr. Tim Moya UA RANDOMon 07-16-2022 Bilirubin Ql (U) Negative Normal NEGATIVE [facility] Comment on above: Performed By: #### U A #### [facility] [address] [place] [address] Dr. Tim Moya Clarity (U) CLOUDY Abnormal CLEAR [facility] Comment on above: Performed By: #### U A #### [facility] [address] [place] [address] Dr. Tim Moya Color (U) YELLOW Normal YELLOW [facility] Comment on above: Performed By: #### U A #### [facility] [address] [place] [address] Dr. Tim Moya Glucose Ql (U) 500 mg/dl Abnormal NEGATIVE [facility] Comment on above: Performed By: #### U A #### [facility] [address] [place] [address] Dr. Tim Moya Hemoglobin Ql (U) TRACE Abnormal NEGATIVE [facility] Comment on above: Performed By: #### U A #### [facility] [address] [place] [address] Dr. Tim Moya Ketones Ql (U) Negative Normal NEGATIVE [facility] Comment on above: Performed By: #### U A #### [facility] [address] [place], [place] [id number] Dr. Tim Moya LEUKOCYTES MODERATE Abnormal NEGATIVE [facility] Comment on above: Performed By: #### U A #### [facility] [address] [address] [address] Tim Moya Nitrite Ql (U) Negative Normal NEGATIVE [facility] Comment on above: Performed By: #### U A #### [facility] [address] [place] [address] Dr. Tim Moya pH (U) 6.0 [pH] Normal 5-9 [facility] Comment on above: Performed By: #### U A #### [facility] [address] [place] [address] Dr. Tim Moya SPEC GRAVITY 1.010 Normal 1.005-<=1. 025 [facility] Comment on above: Performed By: #### U A #### [facility] [address] [place] [address] Dr. Tim Moya UA PROTEIN Negative Normal NEGATIVE/ TRACE [facility] Comment on above: Performed By: #### U A #### [facility] [address] [place] [address] Dr. Tim Moya Urobilinogen Qn (U) 0.2 {Michael'U}/dL Normal 0.2 - 1. 0 [facility] Comment on above: Performed By: #### U A #### [facility] [address] [place] [address] Dr. Tim Moya URIC ACID SERUMon 07-16-2022 Urate [Mass/Vol] 6.6 mg/dL Critically high 2.6-6.0 [facility] Comment on above: Performed By: #### C MP, PHOS, URIC, MG ####[facility] [address] [place] [address]Dr. Tim Moya URINE T PROTEIN CREAT RATIOo n 07-16-2022 Protein (U) [Mass/Vol] 25.1 mg/dL Critically high <=12.0 [facility] Comment on above: Performed By: #### U RTPCR #### [facility] [address] [place] [address] Dr. Tim Moya UR PROT CREAT RAT 0.72 Normal [facility] Comment on above: Performed By: #### U RTPCR #### [facility] [address] [address] [address] Tim Moya URINE CREAT 34.83 mg/dL Normal 20.00-300. 00 [facility] Comment on above: Performed By: #### U RTPCR #### [facility] [address] [place] [address] Dr. Tim Moya VITAMIN D 25 OHon 07-16-2022 VIT D 25-OH 31.0 ng/mL Normal [facility] Comment on above: Performed By: #### V ITAD #### [facility] [address] [place] [address] Dr. Tim Moya VIT D RANGES SEE BELOW Normal [facility] Comment on above: Result Comment: <20 ng/mL Vit D deficient 20 - <30 ng/mL Vit D insufficient 30 - 100 ng/mL Vit D sufficient >100 ng/mL Potential Toxicity Performed By: #### V ITAD #### [facility] [address] [place] [address] Dr. Tim Moya US KIDNEYSon 04-22-2022 US KIDNEYS EXAMINATION: [facility] HISTORY: Chronic kidney disease stage 3a , [...] or significant atrophy. Electronically authenticated by: GABINO Montoya: 2022-04-22 09:43 Normal [facility] A1C HEMOGLOBINon 02-25-2022 HbA1c (Bld) [Mass fraction] 7.0 % [facility] [employer] Other Glucose - FINGER STICKon Glucose [Mass/Vol] 104 mg/dL [facility] [employer] Other HbA1c (Bld) [Mass fraction]o n 02-25-2022 A1C HEMOGLOBIN [facility] [employer] Other INSULIN AUTOANTIBODIESon Insulin Antibodies <5.0 Normal [facility] Comment on above: Result Comment: This test is also known as insulin autoantibody or IAA. This test was developed and its performance characteristics determined by [employer]. It has not been cleared or approved by the Food and Drug Administration. Reference Range: <5.0 Negative > or = 5.0 Positive Performed By: #### I AA #### [facility] [address] [place] [address] Dr. Tim Moya GLUTAMIN ACID DECARBOXYLASE (MICHAEL)on 11-22-2021 MICHAEL-65 <5.0 Normal 0.0-5.0 [facility] Comment on above: Performed By: #### G AD #### [facility] [address] [place] [address] Dr. Tim Moya C-PEPTIDE, SERUMon C-Peptide, Serum 2.1 ng/mL Normal 1.1-4.[address] [facility] Comment on above: Result Comment: C-Pe ptide reference interval is for fasting patients. Performed By: #### C PEPT #### [facility] [address] [place] [address] Dr. Tim Moya VIT D 25-OH [facility] 2021 Vitamin D, 25-Hydroxy 24.5 ng/mL Critically low 30.0-100.0 [facility] Comment on above: Result Comment: Ileana min D deficiency has been defined by the [employer] of Medicine and an Endocrine Society practice guideline as a level of serum 25-OH vitamin D less than 20 ng/mL (1,2). The Endocrine Society went on to further define vitamin D insufficiency as a level between 21 and 29 ng/mL (2). 1. IOM (Bradley of Medicine). 2010. Dietary reference intakes for calcium and D. [place]: The National Academies Press. 2. Yessenia MF, Tavia BROWN, Jacinda PALM, et al. Evaluation, treatment, and prevention of vitamin D deficiency: an Endocrine Society clinical practice guideline. JCEM. 2010; 96(7):1911-30. Performed By: #### V ITADLC #### [facility] [address] [address] [address] Tim Moya PROF 14(COMP METB)on 022 Albumin [Mass/Vol] 3.6 g/dL Normal 3.4-5.0 [facility] Comment on above: Performed By: #### C MP ####[facility] [address] [place] [address]Dr. Tim Moya Albumin/Globulin [Mass ratio] 0.8 {ratio} Normal [facility] Comment on above: Performed By: #### C MP ####[facility] [address] [place] [address]Dr. Tim Moya ALP [Catalytic activity/Vol] 116 U/L Normal 46-116 [facility] Comment on above: Performed By: #### C MP ####[facility] [address] [place] [address]Dr. Tim Moya ALT [Catalytic activity/Vol] 42 U/L Normal 14-59 [facility] Comment on above: Performed By: #### C MP ####[facility] [address] [place] [address]Dr. Tim Moya Anion gap [Moles/Vol] 10.1 mmol/L Normal [facility] Comment on above: Performed By: #### C MP ####[facility] [address] [place] [address]Dr. Tim Moya AST [Catalytic activity/Vol] 39 U/L Critically high 15-37 [facility] Comment on above: Performed By: #### C MP ####[facility] [address] [place] [id number]. Tim Moya Bilirubin [Mass/Vol] 0.2 mg/dL Normal 0.2-1.0 [facility] Comment on above: Performed By: #### C MP ####[facility] [address] [place] [id number]. Tim Moya Calcium [Mass/Vol] 9.0 mg/dL Normal 8.5-10.1 [facility] Comment on above: Performed By: #### C MP ####[facility] [address] [place] [id number]. Tim Moya Chloride [Moles/Vol] 108 mmol/L Critically high 98-107 [facility] Comment on above: Performed By: #### C MP ####[facility] [address] [place] [address]Dr. Tim Moya CO2 [Moles/Vol] 27.0 mmol/L Normal 21.0-32.[address] [facility] Comment on above: Performed By: #### C MP ####[facility] [address] [place] [id number]. Tim Moya Creatinine [Mass/Vol] 1.01 mg/dL Normal 0.55-1.02 [facility] Comment on above: Performed By: #### C MP ####[facility] [address] [place] [id number]. Tim Moya EGFR-AF GREEK >60 Normal >=[address] [facility] Comment on above: Performed By: #### C MP ####[facility] [address] [place] [id number]. Tim Moya EGFR-NON AF GREEK 54 mL/min/1.73m2 Critically low >=60 [facility] Comment on above: Performed By: #### C MP ####[facility] [address] [place], [place] [address]Dr. Tim Moya Globulin (S) [Mass/Vol] 4.4 g/dL Normal [facility] Comment on above: Performed By: #### C MP ####[facility] [address] [place] [id number]. Tim Moya Glucose [Mass/Vol] 120 mg/dL Critically high 74-[address] [facility] Comment on above: Performed By: #### C MP ####[facility] [address] [place] [address]Dr. Tim Moya Potassium [Moles/Vol] 4.1 mmol/L Normal 3.5-5.1 [facility] Comment on above: Performed By: #### C MP ####[facility] [address] [place] [id number]. Tim Moya Protein [Mass/Vol] 8.0 g/dL Normal 6.4-8.2 [facility] Comment on above: Performed By: #### C MP ####[facility] [address] [place] [address]Dr. Tim Moya Sodium [Moles/Vol] 141 mmol/L Normal 136-145 [facility] Comment on above: Performed By: #### C MP ####[facility] [address] [place] [id number]. Tim Moya Urea nitrogen [Mass/Vol] 20.0 mg/dL Critically high 7.0-18.0 [facility] Comment on above: Performed By: #### C MP ####[facility] [address] [place] [id number]. Tim Moya Urea nitrogen/Creatinine [Mass ratio] 19.8 mg/mg Normal [facility] Comment on above: Performed By: #### C MP ####[facility] [address] [place] [address]Dr. Tim Moya A1C HEMOGLOBINon 09-24-2021 HbA1c (Bld) [Mass fraction] 5.9 % [employer] Other Glucose - FINGER STICKon Glucose [Mass/Vol] 95 mg/dL [employer] Other HbA1c (Bld) [Mass fraction]o n 09-24-2021 A1C HEMOGLOBIN [facility] Other COVID Quick Testingon 2021 Result Negative [employer] Other A1C HEMOGLOBINon 06-16-2021 HbA1c (Bld) [Mass fraction] 6.3 % [employer] Other Glucose - FINGER STICKon Glucose [Mass/Vol] 99 mg/dL [employer] Other HbA1c (Bld) [Mass fraction]o n 06-16-2021 A1C HEMOGLOBIN [employer] Other A1C HEMOGLOBINon 03-06-2021 HbA1c (Bld) [Mass fraction] 5.9 % [employer] Other Glucose - FINGER STICKon Glucose [Mass/Vol] 109 mg/dL [employer] Other HbA1c (Bld) [Mass fraction]o n 03-06-2021 A1C HEMOGLOBIN [employer] Other Ambulatory Clinical Summaryo n 12-02-2020 Ambulatory Clinical Summary {[id number]}C [id number] Normal [facility] General Surgery Office/Clini c Noteon 12-01-2020 [...] data Procedure/Surgical History Colonoscopy (11/06/2020), EGD - Esophagogastroduodenoscop y (11/06/2020), Breast biopsy and related procedures (2010). [...] mRNA-1273 vaccine 05/02/2020 Recorded patient seen 11/29/20 [facility] Comment on above: Result Comment: Elec tronically Signed By: ANDREA PETTY, Rigo Edwards\Date and Time Signed: 12/01/20 21:10 EDT Ambulatory Clinical Summaryo n 11-29-2020 Ambulatory Clinical Summary {[id number]}C D:[id number] [facility] A1C HEMOGLOBINon 11-27-2020 HbA1c (Bld) [Mass fraction] 6.7 % [employer] Other Glucose - FINGER STICKon Glucose [Mass/Vol] 102 mg/dL [place] [employer] Other HbA1c (Bld) [Mass fraction]o n 11-27-2020 A1C HEMOGLOBIN [facility] [employer] Other Outside Colonoscopyon 2020 Outside Colonoscopy [id number]:12 7 [facility] Pathology Noteon 11-08-2020 Pathology Note [id number]:12 7 [facility] Lab Reportson 11-05-2020 Lab Reports [id number]:12 7 [facility] October 23, 2020 NATHAN MCGUIRE, [facility] [place] [address] Re: LIBIA CHEN Date of : 1950 [...] persist. Sincerely, Rigo Egan MD General Surgery [facility] Consent for Procedure/Surger yon 10-21-2020 Consent for Procedure/Surgery [id number]:12 7 Normal [facility] Immunization Recordson 10-21 Immunization Records [id number]#1.00CD:12 7 Normal [facility] Ambulatory Clinical Summaryo n 10-18-2020 Ambulatory Clinical Summary {[id number]}C D:[id number] Normal [facility] General Surgery Office/Clini c Noteon 10-18-2020 [...] Stroke: Fath (more content not included)... Normal [facility] Comment on above: Result Comment: Elec tronically Signed By: ANDREA PETTY, Rigo Maher\laverne\Date and Time Signed: 10/18/20 13:50 EDT Physician Referralon 021 Physician Referral [id number]:12 7 Normal [facility] Vital Signs Date Time Vital Sign Value Performing Clinician Facility 09-14-2024 08:34-0400 Body height 162.6 cm Raleigh Maravilla DPM Work Phone: [facility] 09-14-2024 08:34-0400 Body mass index (BMI) [Ratio] 27.46 kg/m2 Raleigh Brown DPM Work Phone: [facility] 09-14-2024 08:34-0400 Body weight 72.58 kg Raleigh Brown DPM Work Phone: [facility] 09-14-2024 08:34-0400 Respiratory rate 18 /min Raleigh Brown DPM Work Phone: [facility] 07-06-2024 09:28-0400 Body height 162.6 cm Raleigh Brown DPM Work Phone: [facility] 07-06-2024 09:28-0400 Body mass index (BMI) [Ratio] 27.46 kg/m2 Raleigh Brown DPM Work Phone: [facility] 07-06-2024 09:28-0400 Body weight 72.58 kg Raleigh Brown DPM Work Phone: [facility] 07-06-2024 09:28-0400 Respiratory rate 16 /min Raleihg Brown DPM Work Phone: [facility] 06-22-2024 13:58-0400 Body height 162.6 cm Raleigh Brown DPM Work Phone: [facility] 06-22-2024 13:58-0400 Body mass index (BMI) [Ratio] 27.46 kg/m2 Raleigh Brown DPM Work Phone: [facility] 06-22-2024 13:58-0400 Body weight 72.58 kg Raleigh Brown DPM Work Phone: [facility] 06-22-2024 13:58-0400 Respiratory rate 16 /min Raleigh Brown DPM Work Phone: [facility] 06-21-2024 11:50-0400 Body height 162.56 cm Nathan Mcguire MD Work Phone: [facility] 06-21-2024 11:50-0400 Body mass index (BMI) [Ratio] 29.1 kg/m2 Nathan Mcguire MD Work Phone: [facility] 06-21-2024 11:50-0400 Body weight 77 kg Nathan Mcguire MD Work Phone: [facility] 06-21-2024 11:50-0400 Diastolic blood pressure 65 mm[Hg] Nathan Mcguire MD Work Phone: [facility] 06-21-2024 11:50-0400 Heart rate 67 /min Nathan Mcguire MD Work Phone: [facility] 06-21-2024 11:50-0400 Respiratory rate 18 /min Nathan Mcguire MD Work Phone: [facility] 06-21-2024 11:50-0400 SaO2% (BldA) [Mass fraction] 100 % Nathan Mcguire MD Work Phone: [facility] 06-21-2024 11:50-0400 Systolic blood pressure 108 mm[Hg] Nathan Mcguire MD Work Phone: [facility] 06-13-2024 08:35-0400 Body height 162.56 cm Nathan Mcguire MD Work Phone: [facility] 06-13-2024 08:35-0400 Body mass index (BMI) [Ratio] 28.6 kg/m2 Nathan Mcguire MD Work Phone: [facility] 06-13-2024 08:35-0400 Body weight 75.74 kg Nathan Mcguire MD Work Phone: [facility] 06-13-2024 08:35-0400 Diastolic blood pressure 65 mm[Hg] Nathan Mcguire MD Work Phone: [facility] 06-13-2024 08:35-0400 Heart rate 75 /min Nathan Mcguire MD Work Phone: [facility] 06-13-2024 08:35-0400 Systolic blood pressure 107 mm[Hg] Nathan Mcguire MD Work Phone: [facility] 05-03-2024 11:12-0500 Body height 162.56 cm Nathan Mcguire MD Work Phone: [facility] 05-03-2024 11:12-0500 Body mass index (BMI) [Ratio] 29.7 kg/m2 Nathan Mcguire MD Work Phone: [facility] 05-03-2024 11:12-0500 Body weight 78.47 kg Nathan Mcguire MD Work Phone: [facility] 05-03-2024 11:12-0500 Diastolic blood pressure 64 mm[Hg] Nathan Mcguire MD Work Phone: [facility] 05-03-2024 11:12-0500 Heart rate 68 /min Nathan Mcguire MD Work Phone: [facility] 05-03-2024 11:12-0500 Respiratory rate 16 /min Nathan Mcguire MD Work Phone: [facility] 05-03-2024 11:12-0500 SaO2% (BldA) [Mass fraction] 100 % Nathan Mcguire MD Work Phone: [facility] 05-03-2024 11:12-0500 Systolic blood pressure 105 mm[Hg] Nathan Mcguire MD Work Phone: [facility] 04-20-2024 10:05-0500 Diastolic blood pressure 58 mm[Hg] Nathan Mcguire MD Work Phone: [facility] 04-20-2024 10:05-0500 Heart rate 63 /min Nathan Mcguire MD Work Phone: [facility] 04-20-2024 10:05-0500 Respiratory rate 16 /min Nathan Mcguire MD Work Phone: [facility] 04-20-2024 10:05-0500 SaO2% (BldA) [Mass fraction] 100 % Nathan Mcguire MD Work Phone: [facility] 04-20-2024 10:05-0500 Systolic blood pressure 108 mm[Hg] Nathan Mcguire MD Work Phone: [facility] 04-20-2024 08:14-0500 Body height 162.56 cm Nathan Mcguire MD Work Phone: [facility] 04-20-2024 08:14-0500 Body weight 77.11 kg Nathan Mcguire MD Work Phone: [facility] 03-07-2024 10:18-0500 Body height 162.56 cm Nathan Mcguire MD Work Phone: [facility] 03-07-2024 10:18-0500 Body mass index (BMI) [Ratio] 29.7 kg/m2 Nathan Mcguire MD Work Phone: [facility] 03-07-2024 10:18-0500 Body weight 78.47 kg Nathan Mcguire MD Work Phone: [facility] 03-07-2024 10:18-0500 Diastolic blood pressure 62 mm[Hg] Nathan Mcguire MD Work Phone: [facility] 03-07-2024 10:18-0500 Heart rate 69 /min Nathan Mcguire MD Work Phone: [facility] 03-07-2024 10:18-0500 Systolic blood pressure 103 mm[Hg] Nathan Mcguire MD Work Phone: [facility] 02-07-2024 11:37-0500 Body height 162.56 cm Nathan Mcguire MD Work Phone: [facility] 02-07-2024 11:37-0500 Body mass index (BMI) [Ratio] 29.5 kg/m2 Nathan Mcguire MD Work Phone: [facility] 02-07-2024 11:37-0500 Body weight 78.18 kg Nathan Mcguire MD Work Phone: [facility] 02-07-2024 11:37-0500 Diastolic blood pressure 69 mm[Hg] Nathan Mcguire MD Work Phone: [facility] 02-07-2024 11:37-0500 Heart rate 66 /min Nathan Mcguire MD Work Phone: [facility] 02-07-2024 11:37-0500 Respiratory rate 18 /min Nathan Mcguire MD Work Phone: [facility] 02-07-2024 11:37-0500 SaO2% (BldA) [Mass fraction] 100 % Nathan Mcguire MD Work Phone: [facility] 02-07-2024 11:37-0500 Systolic blood pressure 120 mm[Hg] Nathan Mcguire MD Work Phone: [facility] 12-28-2023 11:36-0400 Body height 162.56 cm [facility] 12-28-2023 11:36-0400 Body mass index (BMI) [Ratio] 29.7 kg/m2 [facility] 12-28-2023 11:36-0400 Body temperature 97.7 [degF] [facility] 12-28-2023 11:36-0400 Body weight 78.64 kg [facility] 12-28-2023 11:36-0400 Diastolic blood pressure 68 mm[Hg] [facility] 12-28-2023 11:36-0400 Heart rate 78 /min [facility] 12-28-2023 11:36-0400 Respiratory rate 16 /min [facility] 12-28-2023 11:36-0400 SaO2% (BldA) [Mass fraction] 98 % [facility] 12-28-2023 11:36-0400 Systolic blood pressure 128 mm[Hg] [facility] 10-25-2023 14:13-0400 Body height 162.56 cm [facility] 10-25-2023 14:13-0400 Body mass index (BMI) [Ratio] 28.8 kg/m2 [facility] 10-25-2023 14:13-0400 Body weight 76.26 kg [facility] 10-25-2023 14:13-0400 Diastolic blood pressure 70 mm[Hg] [facility] 10-25-2023 14:13-0400 Heart rate 63 /min [facility] 10-25-2023 14:13-0400 Respiratory rate 18 /min [facility] 10-25-2023 14:13-0400 SaO2% (BldA) [Mass fraction] 98 % [facility] 10-25-2023 14:13-0400 Systolic blood pressure 117 mm[Hg] [facility] 06-01-2023 09:19-0400 Body height 162.56 cm [facility] 06-01-2023 09:19-0400 Body mass index (BMI) [Ratio] 27.4 kg/m2 [facility] 06-01-2023 09:19-0400 Body temperature 97.4 [degF] [facility] 06-01-2023 09:19-0400 Body weight 72.63 kg [facility] 06-01-2023 09:19-0400 Diastolic blood pressure 67 mm[Hg] [facility] 06-01-2023 09:19-0400 Heart rate 71 /min [facility] 06-01-2023 09:19-0400 Respiratory rate 16 /min [facility] 06-01-2023 09:19-0400 SaO2% (BldA) [Mass fraction] 98 % [facility] 06-01-2023 09:19-0400 Systolic blood pressure 126 mm[Hg] [facility] 05-12-2023 15:34-0500 Body height 162.56 cm [facility] 05-12-2023 15:34-0500 Body mass index (BMI) [Ratio] 28.2 kg/m2 [facility] 05-12-2023 15:34-0500 Body weight 74.61 kg [facility] 05-12-2023 15:34-0500 Diastolic blood pressure 73 mm[Hg] [facility] 05-12-2023 15:34-0500 Heart rate 68 /min [facility] 05-12-2023 15:34-0500 Respiratory rate 16 /min [facility] 05-12-2023 15:34-0500 SaO2% (BldA) [Mass fraction] 99 % [facility] 05-12-2023 15:34-0500 Systolic blood pressure 123 mm[Hg] [facility] 02-25-2023 10:15-0500 Body height 162.56 cm [facility] 02-25-2023 10:15-0500 Body weight 71.93 kg [facility] 02-25-2023 10:15-0500 Diastolic blood pressure 73 mm[Hg] [facility] 02-25-2023 10:15-0500 Systolic blood pressure 120 mm[Hg] [facility] 01-26-2023 11:00-0500 Body height 162.56 cm [facility] 01-26-2023 11:00-0500 Body weight 71.3 kg [facility] 01-26-2023 11:00-0500 Diastolic blood pressure 63 mm[Hg] [facility] 01-26-2023 11:00-0500 Systolic blood pressure 130 mm[Hg] [facility] 01-20-2023 10:20-0500 Body height 162.56 cm [facility] Other [facility] Other 01-20-2023 10:20-0500 Body mass index (BMI) [Ratio] 27.5 kg/m2 [employer] Other [facility] Other 01-20-2023 10:20-0500 Body temperature 97.2 [degF] [employer] Other [facility] Other 01-20-2023 10:20-0500 Body weight 72.67 kg Aziz Edufiihous Other [facility] Other 01-20-2023 10:20-0500 Diastolic blood pressure 68 mm[Hg] [employer] Other [facility] Other 01-20-2023 10:20-0500 Respiratory rate 18 /min Homero Ellisons Other [facility] Other 01-20-2023 10:20-0500 SaO2% (BldA) [Mass fraction] 99 % Homero Ellisons Other [facility] Other 01-20-2023 10:20-0500 Systolic blood pressure 111 mm[Hg] Homero Ellisons Other [facility] Other 12-14-2022 09:45-0400 Body height 162.56 cm Loni Scally Other [facility] Other 12-14-2022 09:45-0400 Diastolic blood pressure 67 mm[Hg] Loni Scally Other [facility] Other 12-14-2022 09:45-0400 Respiratory rate 18 /min Loni Scally Other [facility] Other 12-14-2022 09:45-0400 SaO2% (BldA) [Mass fraction] 99 % Loni Scally Other [facility] Other 12-14-2022 09:45-0400 Systolic blood pressure 108 mm[Hg] Loni Scally Other [facility] Other 09-09-2022 10:45-0400 Body height 162.56 cm Loni Scally Other [facility] Other 09-09-2022 10:45-0400 Body mass index (BMI) [Ratio] 26.48 kg/m2 Loni Scally Other [facility] Other 09-09-2022 10:45-0400 Body weight 69.99 kg Loni Scally Other [facility] Other 09-09-2022 10:45-0400 Diastolic blood pressure 68 mm[Hg] Loni Scally Other [facility] Other 09-09-2022 10:45-0400 Respiratory rate 18 /min Loni Scally Other [facility] Other 09-09-2022 10:45-0400 SaO2% (BldA) [Mass fraction] 97 % Loni Scally Other [facility] Other 09-09-2022 10:45-0400 Systolic blood pressure 112 mm[Hg] Loni Scally Other [facility] Other 05-12-2022 13:30-0500 Body height 162.56 cm Loni Scally Other [facility] Other 05-12-2022 13:30-0500 Body mass index (BMI) [Ratio] 26.47 kg/m2 Loni Scally Other [facility] Other 05-12-2022 13:30-0500 Body weight 69.95 kg Loni Scally Other [facility] Other 05-12-2022 13:30-0500 Diastolic blood pressure 74 mm[Hg] Loni Scally Other [facility] Other 05-12-2022 13:30-0500 Respiratory rate 18 /min Loni Scally Other [facility] Other 05-12-2022 13:30-0500 SaO2% (BldA) [Mass fraction] 100 % Loni Scally Other [facility] Other 05-12-2022 13:30-0500 Systolic blood pressure 122 mm[Hg] Loni Scally Other [facility] Other 02-25-2022 12:15-0500 Body height 162.56 cm Loni Scally Other [facility] Other 02-25-2022 12:15-0500 Body mass index (BMI) [Ratio] 26.35 kg/m2 Loni Scally Other [facility] Other 02-25-2022 12:15-0500 Body weight 69.63 kg Loni Scally Other [facility] Other 02-25-2022 12:15-0500 Diastolic blood pressure 66 mm[Hg] Loni Scally Other [facility] Other 02-25-2022 12:15-0500 Respiratory rate 18 /min Loni Scally Other [facility] Other 02-25-2022 12:15-0500 SaO2% (BldA) [Mass fraction] 100 % Loni Scally Other [facility] Other 02-25-2022 12:15-0500 Systolic blood pressure 136 mm[Hg] Loni Scally Other [facility] Other 01-07-2022 14:20-0400 Body height 162.56 cm Azzee Ellisons Other [facility] Other 01-07-2022 14:20-0400 Body mass index (BMI) [Ratio] 25.5 kg/m2 Azzee Maguirehous Other [facility] Other 01-07-2022 14:20-0400 Body temperature 96.6 [degF] Homero Ellisons Other [facility] Other 01-07-2022 14:20-0400 Body weight 67.4 kg Homero Maguirehous Other [facility] Other 01-07-2022 14:20-0400 Diastolic blood pressure 74 mm[Hg] Aziz Terras Other [facility] Other 01-07-2022 14:20-0400 Respiratory rate 18 /min Homero Ellisons Other [facility] Other 01-07-2022 14:20-0400 SaO2% (BldA) [Mass fraction] 99 % Homero Maguirehous Other [facility] Other 01-07-2022 14:20-0400 Systolic blood pressure 125 mm[Hg] Aziz Bakhous Other [facility] Other 09-24-2021 10:15-0400 Body height 162.56 cm Lonikirk Branddionicio Other [facility] Other 09-24-2021 10:15-0400 Body mass index (BMI) [Ratio] 24.27 kg/m2 Loni Cathiely Other [facility] Other 09-24-2021 10:15-0400 Body weight 64.14 kg Loni Scally Other [facility] Other 09-24-2021 10:15-0400 Diastolic blood pressure 66 mm[Hg] Loni Scally Other [facility] Other 09-24-2021 10:15-0400 Respiratory rate 18 /min Loni Scally Other [facility] Other 09-24-2021 10:15-0400 SaO2% (BldA) [Mass fraction] 100 % Loni Scally Other [facility] Other 09-24-2021 10:15-0400 Systolic blood pressure 111 mm[Hg] Loni Scally Other [facility] Other 06-16-2021 10:00-0400 Body height 162.56 cm Loni Scally Other [facility] Other 06-16-2021 10:00-0400 Body mass index (BMI) [Ratio] 24.58 kg/m2 Loni Scally Other [facility] Other 06-16-2021 10:00-0400 Body weight 64.96 kg Loni Scally Other [facility] Other 06-16-2021 10:00-0400 Diastolic blood pressure 68 mm[Hg] Loni Scally Other [facility] Other 06-16-2021 10:00-0400 Respiratory rate 18 /min Loni Scally Other [facility] Other 06-16-2021 10:00-0400 SaO2% (BldA) [Mass fraction] 100 % Loni Scally Other [facility] Other 06-16-2021 10:00-0400 Systolic blood pressure 126 mm[Hg] Loni Scally Other [facility] Other 03-06-2021 09:15-0500 Body height 162.56 cm Loni Scally Other [facility] Other 03-06-2021 09:15-0500 Body mass index (BMI) [Ratio] 25.52 kg/m2 Loni Scally Other [facility] Other 03-06-2021 09:15-0500 Body weight 67.45 kg Loni Scally Other [facility] Other 03-06-2021 09:15-0500 Diastolic blood pressure 83 mm[Hg] Loni Scally Other [facility] Other 03-06-2021 09:15-0500 Respiratory rate 18 /min Loni Scally Other [facility] Other 03-06-2021 09:15-0500 SaO2% (BldA) [Mass fraction] 100 % Loni Scally Other [facility] Other 03-06-2021 09:15-0500 Systolic blood pressure 138 mm[Hg] Loni Scally Other [facility] Other 11-27-2020 09:15-0400 Body height 162.56 cm Loni Scally Other [facility] Other 11-27-2020 09:15-0400 Body mass index (BMI) [Ratio] 26.38 kg/m2 Loni Scally Other [facility] Other 11-27-2020 09:15-0400 Body weight 69.72 kg Loni Scally Other [facility] Other 11-27-2020 09:15-0400 Diastolic blood pressure 76 mm[Hg] Loni Scally Other [facility] Other 11-27-2020 09:15-0400 Respiratory rate 18 /min Loni Scally Other [facility] Other 11-27-2020 09:15-0400 SaO2% (BldA) [Mass fraction] 99 % Loni Scally Other [facility] Other 11-27-2020 09:15-0400 Systolic blood pressure 129 mm[Hg] Loni Scally Other [facility] Other Encounters Encounter Date Encounter Type Care Provider Facility Start: 09-14-2024 End: 09-14-2024 Bamboo flowsheet Raleigh Maravilla DPM Work Phone: [facility] Start: 09-14-2024 End: 09-14-2024 Bamboo flowsheet Raleigh Maravilla DPM Work Phone: [facility] Start: 09-14-2024 End: 09-14-2024 Patient encounter procedure Raleigh Maravilla DPM Work Phone: [facility] Comment on above: Type 2 diabetes kj itus without complication, with long-term current use of insulin (HCC) (Primary Dx); Pain due to onychomycosis of toenails of both feet Start: 09-14-2024 End: 09-14-2024 ambulatory RALEIGH MARAVILLA Not Available Start: 08-11-2024 End: 08-11-2024 Bamboo flowsheet Cheri Parker DO Work Phone: [facility] Start: 08-11-2024 End: 08-11-2024 Bamboo flowsheet Cheri Parker DO Work Phone: [facility] Start: 08-11-2024 End: 08-11-2024 ambulatory CHERI PARKER Not Available Start: 07-06-2024 End: 07-06-2024 Bamboo flowsphuc Maravilla DPM Work Phone: [facility] Start: 07-06-2024 End: 07-06-2024 Bamboo bakari Maravilla DPM Work Phone: [facility] Start: 07-06-2024 End: 07-06-2024 Office outpatient visit 15 minutes Raleigh Maravilla DPM Work Phone: [facility] Comment on above: Abscess, toe, left ( Primary Dx); Pain due to onychomycosis of toenails of both feet; Type 2 diabetes mellitus without complication, with long-term current use of insulin Start: 07-06-2024 End: 07-06-2024 ambulatory RALEIGH MARAVILLA Not Available Start: 06-22-2024 End: 06-22-2024 Bamboo bakari Maravilla DPM Work Phone: [facility] Start: 06-22-2024 End: 06-22-2024 Bamboo flowsphuc Maravilla DPM Work Phone: [facility] Start: 06-22-2024 End: 06-22-2024 Office outpatient new 30 minutes Raleigh Maravilla DPM Work Phone: [facility] Comment on above: Onychocryptosis (Mony doris Dx); Abscess, toe, left; Toe pain, left; Type 2 diabetes mellitus without complication, with long-term current use of insulin Start: 06-22-2024 End: 06-22-2024 ambulatory RALEIGH MARAVILLA Not Available Start: 06-21-2024 End: 06-21-2024 ambulatory Nathan Mcguire MD Work Phone: [facility] Work Phone: Start: 06-21-2024 End: 06-21-2024 Patient encounter procedure Nathan Mcguire MD Work Phone: [facility] Work Phone: Start: 06-13-2024 End: 06-13-2024 ambulatory Nathan Mcguire MD Work Phone: [facility] Work Phone: Start: 06-13-2024 End: 06-13-2024 Patient encounter procedure Nathan Mcguire MD Work Phone: [facility] Work Phone: Start: 06-06-2024 Non-patient / Non-visit Nathan Mcguire MD Work Phone: [facility] Work Phone: Start: 06-05-2024 Non-patient / Non-visit Nathan Mcguire MD Work Phone: [facility] Work Phone: Start: 05-05-2024 End: 05-05-2024 Refill Cheri Parker DO Work Phone: [facility] Comment on above: 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, mild stage (CMS/HCC) Start: 05-03-2024 End: 05-03-2024 ambulatory Nathan Mcguire MD Work Phone: [facility] Work Phone: Start: 05-03-2024 End: 05-03-2024 Patient encounter procedure Nathan Mcguire MD Work Phone: [facility] Work Phone: Start: 05-02-2024 Non-patient / Non-visit Nathan Mcguire MD Work Phone: [facility] Work Phone: Start: 04-25-2024 Non-patient / Non-visit Nathan Mcguire MD Work Phone: [facility] Work Phone: Start: 04-20-2024 Non-patient / Non-visit Nathan Mcguire MD Work Phone: [facility] Work Phone: Start: 04-20-2024 End: 04-20-2024 Admission to same day surgery center Nathan Mcguire MD Work Phone: [facility] Work Phone: Start: 04-20-2024 End: 04-20-2024 ambulatory aNthan Mcguire MD Work Phone: [facility] Work Phone: Start: 03-07-2024 End: 03-07-2024 Patient encounter procedure Nathan Mcguire MD Work Phone: [facility] Work Phone: Start: 02-11-2024 End: 02-11-2024 ambulatory CHERI PARKER Not Available Start: 02-07-2024 End: 02-07-2024 Patient encounter procedure Nathan Mcguire MD Work Phone: [facility] Work Phone: Start: 01-11-2024 End: 01-11-2024 Haseeb Carcamo [employer] Work Phone: [facility] Start: 01-11-2024 End: 01-11-2024 Bamboo flowsheet Flip A Felter [employer] Work Phone: [facility] Start: 01-11-2024 End: 01-11-2024 Office outpatient new 30 minutes Flip Seguraer [employer] Work Phone: [facility] Comment on above: Seborrheic keratosis (Primary Dx); Dilated pore of Ace of back Start: 01-11-2024 End: 01-11-2024 ambulatory FLIP A FELTER Not Available Start: 12-28-2023 End: 12-28-2023 ambulatory [facility] Work Phone: Start: 12-28-2023 End: 12-28-2023 Patient encounter procedure [facility] Alecia Work Phone: Start: 12-21-2023 Non-patient / Non-visit [facility] Work Phone: Start: 10-29-2023 End: 10-29-2023 Refill Cheri Parker DO Work Phone: [facility] Comment on above: 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, mild stage (CMS/HCC) Start: 10-25-2023 End: 10-25-2023 ambulatory [facility] Work Phone: Start: 10-25-2023 End: 10-25-2023 Patient encounter procedure [facility] Work Phone: Start: 06-01-2023 End: 06-01-2023 ambulatory [facility] Work Phone: Start: 06-01-2023 End: 06-01-2023 Patient encounter procedure [facility] Work Phone: Start: 05-27-2023 Non-patient / Non-visit [facility] Work Phone: Start: 05-12-2023 End: 05-12-2023 Patient encounter procedure [facility] Work Phone: Start: 03-30-2023 End: 03-30-2023 ambulatory Loni Farmer Other [facility] Other Start: 03-30-2023 Telephone encounter Loni [facility] Start: 03-02-2023 End: 03-02-2023 ambulatory Aziz Bakhous Other [facility] Other Start: 03-02-2023 Telephone encounter Aziz Bakhous [facility] Start: 02-25-2023 End: 02-25-2023 ambulatory Aziz Bakhous Other [facility] Other Start: 02-25-2023 Telephone encounter Aziz Bakhous [facility] Start: 02-25-2023 End: 02-25-2023 Patient encounter procedure [facility] Work Phone: Start: 01-26-2023 End: 01-26-2023 Patient encounter procedure [facility] Work Phone: Start: 01-20-2023 End: 01-20-2023 ambulatory Aziz Bakhous Other [facility] Other Start: 01-20-2023 Office outpatient vi sit 25 minutes Aziz Bakhous [facility] Start: 01-07-2023 End: 01-07-2023 ambulatory Aziz Bakhous Other [facility] Other Start: 01-07-2023 Telephone encounter Aziz Bakhous [facility] Start: 12-14-2022 (DM) Diabetes Lonikirk Farmer [facility] Start: 12-14-2022 End: 12-14-2022 ambulatory Loni Scally Other [facility] Other Start: 11-11-2022 End: 11-11-2022 ambulatory Loni Scally Other [facility] Other Start: 11-11-2022 Telephone encounter Loni Scally [facility] Start: 09-09-2022 (DM) Diabetes Loni Scally [facility] Start: 09-09-2022 End: 09-09-2022 ambulatory Loni Scally Other [facility] Other Start: 09-09-2022 Telephone encounter Loni Scally [facility] Start: 08-05-2022 End: 08-05-2022 ambulatory Loni Scally Other [facility] Other Start: 08-05-2022 Telephone encounter Loni Scally [facility] Start: 07-16-2022 End: 07-17-2022 ambulatory HOMERO BISHOP Facility:[facility] Start: 05-22-2022 End: 05-22-2022 ambulatory Loni Scally Other [facility] Other Start: 05-22-2022 Telephone encounter Loni Scally [facility] Start: 05-12-2022 (DM) Diabetes Loni Scally [facility] Start: 05-12-2022 End: 05-12-2022 ambulatory Loni Scally Other [facility] Other Start: 05-08-2022 End: 05-08-2022 ambulatory Loni Scally Other [facility] Other Start: 05-08-2022 Telephone encounter Loni Scally [facility] Start: 05-07-2022 End: 05-07-2022 ambulatory Loni Farmer Other [facility] Other Start: 05-07-2022 Telephone encounter Loni maher [facility] Start: 04-22-2022 End: 04-23-2022 ambulatory AZIZ BAKHOUS Facility:[facility] Start: 02-25-2022 (DM) Diabetes Loni [facility] Start: 02-25-2022 End: 02-25-2022 ambulatory Loni Farmer Other [facility] Other Start: 01-08-2022 End: 01-08-2022 ambulatory Loni Farmer Other [facility] Other Start: 01-08-2022 Telephone encounter Loni [facility] Start: 01-07-2022 End: 01-07-2022 ambulatory Aziz Bakhous Other [facility] Other Start: 01-07-2022 Office outpatient ne w 30 minutes Aziz Bakhous [facility] Start: 11-20-2021 End: 11-21-2021 ambulatory LONI FARMER Facility:[facility] Start: 10-15-2021 End: 10-15-2021 ambulatory Loni Farmer Other [facility] Other Start: 10-15-2021 Nursing evaluation o f patient and report Loni [facility] Start: 09-26-2021 End: 09-26-2021 ambulatory Loni Farmer Other [facility] Other Start: 09-26-2021 Telephone encounter Loni maher [facility] Start: 09-24-2021 (DM) Diabetes Loni Wharton[facility] Start: 09-24-2021 End: 09-24-2021 ambulatory Loni Scally Other [facility] Other Start: 09-10-2021 End: 09-10-2021 ambulatory Loni Scally Other [facility] Other Start: 09-10-2021 Telephone encounter Loni Scally [facility] Start: 09-07-2021 End: 09-07-2021 ambulatory Tabitha Rizzo Other [facility] Other Start: 09-07-2021 Office outpatient vi sit 5 minutes Tabitha Rizzo [facility] Start: 06-24-2021 Adult health examination Debor xavi Farmer Other [facility] Other Start: 06-18-2021 End: 06-18-2021 ambulatory Loni Scally Other [facility] Other Start: 06-18-2021 Telephone encounter Loni Scally [facility] Start: 06-16-2021 (DM) Diabetes Loni Scally [facility] Start: 06-16-2021 End: 06-16-2021 ambulatory Loni Scally Other [facility] Other Start: 06-16-2021 Telephone encounter Loni Scally [facility] Start: 04-21-2021 End: 04-21-2021 ambulatory Loni Scally Other [facility] Other Start: 04-21-2021 Telephone encounter Loni Scally [facility] Start: 03-26-2021 End: 03-26-2021 ambulatory Loni Scally Other [facility] Other Start: 03-26-2021 Telephone encounter Loni maher [facility] Start: 03-06-2021 (DM) Diabetes Loni Berrios [facility] Start: 03-06-2021 End: 03-06-2021 ambulatory Loni Farmer Other [facility] [employer] Other Start: 12-04-2020 Telephone encounter Rashid [facility] Start: 11-27-2020 (DM) Diabetes Loni Berrios [facility] Procedures Date Procedure Procedure Detail Performing Clinician Start: 08-11-2024 Visual field xm uni/bi w/interp extended exam Cheri Parker DO Work Phone: Start: 08-11-2024 End: 08-11-2024 [facility]ph medical xm&eval comprhnsv estab pt 1/> 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, mild stage Cheri Parker DO Work Phone: Comment on above: 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 , mild stage (Primary Dx); Bilateral posterior capsular opacification; Dry eyes; 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 (CMS/HCC) Start: 04-20-2024 Princess Mcguire MD Work Phone: Start: 02-11-2024 End: 02-11-2024 Computerized ophthalmic imaging optic nerve Cheri Parker DO Work Phone: Start: 02-11-2024 End: 02-11-2024 [facility] medical xm&eval comprhnsv estab pt 1/> Moderate [...] Screening for malign ant neoplasm of colon [facility] Start: 02-09-2025 End: 02-09-2025 Patient encounter procedure 02/09/2025 8:30 AM EST [facility] [address] [place] [address] Cheri Parker DO [address] [place] [address] [facility] Start: 12-14-2024 End: 12-14-2024 Patient encounter procedure 12/14/2024 8:30 AM EDT Office Visit [facility] [address] [facility] [address] [place] [address] Raleigh Maravilla, DPKiersten [address] [facility] [address] [place] [address] [facility] Start: 11-06-2024 Influenza vaccination Influenza Vacc ine (#1) [facility] Start: 09-14-2024 End: 09-14-2024 Patient encounter procedure [facility] Comment on above: Type 2 diabetes kj itus without complication, with long-term current use of insulin (HCC) (Primary Dx); Pain due to onychomycosis of toenails of both feet Start: 08-11-2024 End: 08-11-2024 Patient encounter procedure 08/11/2024 9:30 AM EDT Office Visit [facility] [address] [place] [address] Cheri Parker, DO [address] [place] [address] [facility] Start: 07-06-2024 End: 07-06-2024 Patient encounter procedure 07/06/2024 9:20 AM EDT Office Visit [facility] [address] [email or web address] [address] [place] [id number] Raleigh Maravilla DPM [address] [address] Abscess, toe, left (Primary Dx); Pain due to onychomycosis of toenails of both feet; Type 2 diabetes mellitus without complication, with long-term current use of insulin [facility] Comment on above: Abscess, toe, left ( Primary Dx); Pain due to onychomycosis of toenails of both feet; Type 2 diabetes mellitus without complication, with long-term current use of insulin Start: 06-22-2024 End: 06-22-2024 Patient encounter procedure 06/22/2024 1:50 PM EDT Office Visit [facility] [address] [facility] [[email or web address] [address] [place] [id number] Raleigh Maravilla DPM [address] [address] Arrived [facility] Comment on above: Arrived Start: 04-20-2024 [facility] Start: 03-07-2024 Patient referral [facility] Work Phone: Start: 02-11-2024 End: 02-11-2024 Patient encounter procedure 02/11/2024 9:00 AM EST Office Visit [facility] [address] [place] [id number] Cheri Parker, DO [address] [place] [address] [facility] Start: 01-11-2024 End: 01-11-2024 Patient encounter procedure 01/11/2024 9:55 AM EST [facility] [address] [place] [phone] Flip Carcamo, [employer] [address] [place], [place] [id number] Arrived [facility] DERM Comment on above: Arrived Start: 11-07-2023 Influenza vaccination Influenza Vacc ine (#1) [facility] Start: 12-16-2019 Pneumococcal Vaccine : 65+ Years (2 of 2 - PPSV23 or PCV20) Pneumococcal Vaccine: 65+ Years (2 of 2 - PPSV23 or PCV20) [facility] Start: 08-21-2001 Pneumococcal Vaccine : 65+ Years (1 of 1 - PCV) Pneumococcal Vaccine: 65+ Years (1 of 1 - PCV) [facility] Start: 1991 Screening for malign ant neoplasm of breast Mammogram [facility] Start: 1950 Screening for malign ant neoplasm of colon [facility] Immunofixation for Urine [facility] Patient Education Colon polyps [facility]iculosis [facility]: [facility] Work Phone: Renal function 1999 panel - Serum or Plasma [facility] Renal function 1999 panel - Serum or Plasma [facility] Renal function 1999 panel - Serum or Plasma [facility] Immunizations Immunization Date Immunization Notes Care Provider Fa cility 02-02-2024 influenza virus vaccine, unspecified formulation Raleigh Maravilla DPM Work Phone: [facility] 01-11-2023 influenza virus vaccine, unspecified formulation Cheri Parker DO Work Phone: [facility] 01-22-2020 influenza virus vaccine, split virus (incl. purified surface antigen) Loni Farmer Other [facility] [employer] Other 01-22-2020 influenza virus vaccine, unspecified formulation [facility] 12-15-2018 influenza virus vaccine, split virus (incl. purified surface antigen) Loni Farmer Other [facility] [employer] Other 12-15-2018 influenza virus vaccine, unspecified formulation [facility] 12-15-2018 pneumococcal conjuga te vaccine, 13 valent Loni Farmer Other [facility] Payers Date Payer Category Payer Self-pay [id number] 2021 Private Health Insurance [employer] [place] [id number] 2016 Medicare MEDICARE [id number] 1959 Medicare [id number] 1959 Unknown [id number] 1950 Unknown [id number] 2.16.840.1.566545.3.579.2. 593 1950 Unknown [id number] 2.16.840.1.585349.3.579.2. 593 1950 Unknown [id number] 2.16.840.1.348871.3.579.2. 593 1950 Unknown [id number] 2.16.840.1.136974.3.579.2. 1259 1950 Unknown [id number] 2.16.840.1.313566.3.579.2. 1259 1950 Unknown [id number] 2.16.840.1.194955.3.579.2. 1259 1950 Unknown [id number] 2.16.840.1.005048.3.579.2. 1259 1950 Unknown [id number] 2.16.840.1.780534.3.579.2. 1259 1950 Unknown [id number] 2.16.840.1.191090.3.579.2. 1259 Unknown [id number] [id number]. 531 Social History Date Type Detail Facility Unknown if ever smoked [employer] Other Start: 08-04-2023 End: 08-11-2024 Sex Assigned At [employer] Other Start: 1950 Sex Assigned At Female F [facility] Start: 08-05-2022 End: 06-01-2023 Tobacco smoking status NHIS Never smoked tobacco (finding) [facility] Start: 08-05-2022 Tobacco use and exposure Smokeless tobacco non-user [facility] Start: 08-04-2023 End: 08-11-2024 History of Social function [facility] Start: 1950 Sex assigned at Not on file [facility] Start: 04-20-2024 End: 06-21-2024 Sex Female (finding) [facility] Goals Date Patient Goal Desired Activity /State Clinical Notes 10-18-2020 to 09-14-2024 Raleigh Maravilla, DPM - 09/14/2024 8:30 AM Jesús Parker, DO - 08/11/2024 9:30 AM Dorie Maravilla, ARNIEM - 07/06/2024 9:20 AM Dorie Maravilla, ARNIEM - 06/22/2024 1:50 PM EDT Note Date & Type Note Facility 09-14-2024 History of Presen t illness Narrative Patient: Libia Chen : 1950 PCP: Rashid Tracy MD SUBJECTIVE Patient presents today with a CC of elongated, thick nails. Pt states nails have been elongated and thick for many years and cause pain with ambulation in shoegear. Pt has tried previous treatment with minimal relief. Pt presents today for nail care and treatment. Patient is DM2 Allergies: Allergies Allergen Reactions Erythromycin Unknown Penicillins Unknown Past Medical History: Past Medical History: Diagnosis Date Cataract Chronic kidney disease Diabetic retinopathy (HCC) Medications: Current Outpatient Medications: atorvastatin (Lipitor) 20 MG tablet, Take 20 mg by mouth in the morning., Disp: , Rfl: ferrous sulfate 325 (65 Fe) MG tablet, TAKE 1 TABLET BY MOUTH EVERY DAY FOR 90 DAYS, Disp: , Rfl: latanoprost (Xalatan) 0.005 % ophthalmic solution, INSTILL 1 DROP INTO BOTH EYES AT BEDTIME, Disp: 2.5 mL, Rfl: 5 lisinopril 10 MG tablet, Take 10 mg by mouth in the morning., Disp: , Rfl: metFORMIN XR (Glucophage-XR) 500 MG 24 hr tablet, Take 500 mg by mouth in the morning., Disp: , Rfl: ROS: General: denies fever, chills, fatigue, malaise OBJECTIVE LE EXAM: DERM: Elongated thick yellow crumbly nails digits 1 through 10 with positive hair growth VASC: Palpable pedal pulses bilaterally NEURO: 5.07 [place] Philomena monofilament test positive to digits and forefoot bilaterally 125Hz tuning fork positive to 1st MPJ bilaterally ORTHO: Positive pain on palpation to toenails of the left 1,2,3,4,5 toes and right 1,2,3,4,5 toes ASSESSMENT 1. Type 2 diabetes mellitus without complication, with long-term current use of insulin ([facility]) 2. Pain due to onychomycosis of toenails of both feet PLAN Discussed proper foot care with patient today. Debride nails in length and thickness digits 1 through 10 Patient educated today on proper diabetic foot care including monitoring feet daily for any signs of infection openings in the skin or irregularities to both feet. Patient had a diabetic neurological exam today to both their feet and discussed proper shoe gear. Raleigh Maravilla DPM documented in this encounter [facility] 08-11-2024 Note Right Eye Reliability was borderline. Progression has been stable. Foveal threshold was normal. Findings include normal observations, non-specific defects. Left Eye Reliability was borderline. Progression has been stable. Foveal threshold was normal. Findings include normal observations, non-specific defects. [facility] 08-11-2024 History of Presen t illness Narrative Images from the original note were not included. 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 Dry eyes - Dry Eyes OU -- Environmental changes to minimize dryness and exposure and the use of artificial tears were recommended. documented in this encounter [facility] 07-06-2024 History of Presen t illness Narrative Patient: Libia Chen : 1950 PCP: Rashid Tracy MD SUBJECTIVE This is a 73 y.o. female that presents today 14 d s/p incision and drainage of abcess with nail avulsion to the left 3rd toenail Pt states that they have been following all post op instructions and have been taking antibiotic as prescribed. Pt denies n/f/v/c and has negative pain at post op site. Pt presents today for postoperative follow up. Patient presents today with a CC of elongated, thick nails. Pt states nails have been elongated and thick for many years and cause pain with ambulation in shoegear. Pt has tried previous treatment with minimal relief. Pt presents today for nail care and treatment. Patient is DM2 Allergies: Allergies Allergen Reactions Erythromycin Unknown Penicillins Unknown Past Medical History: Past Medical History: Diagnosis Date Cataract Chronic kidney disease Diabetic retinopathy (CMS/HCC) Medications: Current Outpatient Medications: atorvastatin (Lipitor) 20 MG tablet, Take 20 mg by mouth in the morning., Disp: , Rfl: clindamycin (Cleocin) 300 MG capsule, Take 1 capsule (300 mg) by mouth in the morning and 1 capsule (300 mg) in the evening and 1 capsule (300 mg) before bedtime. Do all this for 10 days., Disp: 30 capsule, Rfl: 0 ferrous sulfate 325 (65 Fe) MG tablet, TAKE 1 TABLET BY MOUTH EVERY DAY FOR 90 DAYS, Disp: , Rfl: latanoprost (Xalatan) 0.005 % ophthalmic solution, INSTILL 1 DROP INTO BOTH EYES AT BEDTIME, Disp: 2.5 mL, Rfl: 5 lisinopril 10 MG tablet, Take 10 mg by mouth in the morning., Disp: , Rfl: metFORMIN XR (Glucophage-XR) 500 MG 24 hr tablet, Take 500 mg by mouth in the morning., Disp: , Rfl: ROS: General: denies fever, chills, fatigue, malaise GI: denies loose or watery stool on antibiotic OBJECTIVE LE EXAM: DERM: Negative erythema, negative drainage from the left 3rd toenail. Elongated thick yellow crumbly nails digits 1 through 9 with positive hair growth VASC: Palpable pedal pulses bilaterally NEURO: 5.07 [place] Philomena monofilament test positive to digits and forefoot bilaterally 125Hz tuning fork positive to 1st MPJ bilaterally ORTHO: Minimal pain on palpation to the left 3rd digit Positive pain on palpation nails 1 through 9 ASSESSMENT 14 d s/p I&D of abscess to the left 3rd toe 1. Abscess, toe, left 2. Pain due to onychomycosis of toenails of both feet 3. Type 2 diabetes mellitus without complication, with long-term current use of insulin PLAN Pt to d/c abx. Patient to continue with OTC oral anti - inflammatories as needed for pain. Pt to keep DSD on area of interest while in shoegear, otherwise may expose to air in a clean environment. Discussed proper foot care with patient today. Debride nails in length and thickness digits 1 through 9 Patient educated today on proper diabetic foot care including monitoring feet daily for any signs of infection openings in the skin or irregularities to both feet. Patient had a diabetic neurological exam today to both their feet and discussed proper shoe gear. Raleigh Maravilla DPM documented in this encounter [facility] 06-22-2024 History of Presen t illness Narrative Patient: Libia Chen : 1950 PCP: Rashid Tracy MD SUBJECTIVE This is a 73 y.o. female that presents today with a CC of ingrowing left 3rd digit toenail Pt states problem has been present for the past few weeks. Pt has noticed positive drainage to the affected area and states pain is achey in nature. Treatments have consisted of soaking and trying to remove the ingrown nail on their own with no relief. Patient has had longstanding issue with ingrowing nail and presents today for treatment Patient is type 2 diabetic Allergies: Allergies Allergen Reactions Erythromycin Unknown Penicillins Unknown Past Medical History: Past Medical History: Diagnosis Date Cataract Chronic kidney disease Diabetic retinopathy ([facility]/HCC) Medications: Current Outpatient Medications: atorvastatin (Lipitor) 20 MG tablet, Take 20 mg by mouth in the morning., Disp: , Rfl: ferrous sulfate 325 (65 Fe) MG tablet, TAKE 1 TABLET BY MOUTH EVERY DAY FOR 90 DAYS, Disp: , Rfl: latanoprost (Xalatan) 0.005 % ophthalmic solution, INSTILL 1 DROP INTO BOTH EYES AT BEDTIME, Disp: 2.5 mL, Rfl: 5 lisinopril 10 MG tablet, Take 10 mg by mouth in the morning., Disp: , Rfl: metFORMIN XR (Glucophage-XR) 500 MG 24 hr tablet, Take 500 mg by mouth in the morning., Disp: , Rfl: Social History: Social History Socioeconomic History Marital status: Spouse name: Not on file Number of children: Not on file Years of education: Not on file Highest education level: Not on file Occupational History Not on file Tobacco Use Smoking status: Never Smokeless tobacco: Never Substance and Sexual Activity Alcohol use: Not on file Drug use: Not on file Sexual activity: Not on file Other Topics Concern Not on file Social History Narrative Not on file Social Drivers of Health Financial Resource Strain: Not on file Food Insecurity: Not on file Transportation Needs: Not on file Physical Activity: Not on file Stress: Not on file Social Connections: Not on file Intimate Partner Violence: Not on file Housing Stability: Not on file ROS: General: denies fever, chills, fatigue, malaise Gastrointestinal: denies abdominal pain, ulcers, or changes in appetite or bowel habits Musculoskeletal: denies arthritis, denies loss of strength, pain to hip, knees, back Cardiovascular: denies CP, palpitations, irregular rhythms OBJECTIVE LE EXAM: DERM: Positive erythema and slight watery drainage from the left 3rd toenail with hair growth noted to b/l feet. VASC: Palpable pedal pulsed b/l with warm to cool tibia to toes b/l NEURO: 5.07 [place] Philomena monofilament test positive to digits and forefoot bilaterally 125Hz tuning fork positive to 1st MPJ bilaterally ORTHO: Ankle ROM less than 10 degrees b/l. Positive pain on palpation to left 3rd digit nail ASSESSMENT 1. Abscess, toe, left 2. Onychocryptosis 3. Toe pain, left 4. Type 2 diabetes mellitus without complication, with long-term current use of insulin PLAN Patient to continue with oral anti - inflammatories as needed for pain and recommended OTC medications such as tylenol or Ibuprofen Discussed possible treatment options including a permanent nail avulsion and patient may consider in the future. Performed I and D of abcess with total removal of nail to access infection to the left 3rd toenail. Pt informed of risks and benefits of procedure including infection,pain,bleeding, reoccurance. Pt consents. Next, 3cc of xylocaine 2% plain injected into affected digit for anesthesia. The affected toe was prepped and draped in usual sterile manner and offending nail was removed with minimal blood loss and positive serosanguinous drainage noted. Wound then was flushed with NSS and DSD applied to digit. Pt is to have a prescription for an antibiotic. Patient educated today on proper diabetic foot care including monitoring feet daily for any signs of infection openings in the skin or irregularities to both feet. Patient had a diabetic neurological exam today to both their feet and discussed proper shoe gear. Raleigh Maravilla DPM documented in this encounter [facility] 05-03-2024 Evaluation note Diagnosis Onset Date Resolution Anemia in chronic kidney disease acute May 03, 2024 11:08am Chronic kidney disease, stage 3b acute May 03, 2024 11:08am Diabetes mellitus type 2 in nonobese acute May 03, 2024 11:08am Diabetic nephritis acute Februa 5 11:08am Hyperkalemia acute April 11:08am Hyperparathyroidism acute Febr2024 11:08am Hyperuricemia acute May 032024 11:08am Vitamin B12 deficiency acute Fe 2024 11:08am Vitamin D deficiency acute Febr uary 2024 11:08am [facility] Work Phone: 1(771) 240-228602-26-2025 Evaluation note* Diagnosis Onset Date Resolution Status Admit Date Anemia in chronic kidney disease acu te May 03, 2024 11:08am Chronic kidney disease, stage 3b acu te May 03, 2024 11:08am Diabetes mellitus type 2 in nonobese acute May 03, 11:08am Diabetic nephritis acute 2024 11:08am Hyperkalemia acute April 11:08am Hyperparathyroidism acute Febr2024 11:08am Hyperuricemia acute May 032024 11:08am Vitamin B12 deficiency acute Fe 2024 11:08am Vitamin D deficiency acute Febr uary 2024 11:08am Diabetes mellitus type 2 in nonobese acute June 13, 2024 8:30am Hyperkalemia acute June 13, 8:30am Vomiting and diarrhea acute Jun 8:30am Diabetic macular edema acute Ap ril 2024 11:25am Dietary counseling and surveillance acute June 21, 2024 11:25am HTN (hypertension) acute June 21, 2024 11:25am Hyperlipidemia acute June 11:25am continuous churn buttermaker current use of insulin acu te June 21, 2024 11:25am Nonproliferative diabetic retinopathy acute June 21, 2024 11:25am Type 2 diabetes mellitus wit h hyperglycemia acute June 21, 2024 11:25am Vitamin D deficiency acute Apri l 2024 11:25am [facility] Work Phone: 1(543) 633-703902-13-[address] [address] Colonoscopy Procedure Report Signed Patient: Libia Chen Sommer MR#: [id number] : 1950 Acct:[id number] Age/Sex: 73 / F Adm Date: 5 Loc: Room: Type: [facility] Attending Dr: Agnes De Oliveira DO Copies to: DO Nathan Briceno MD~ Colonoscopy Date/Provider 04/20/2024 Agnes De Oliveira DO Narrative Procedure: Colonoscopy with cold snare Indication: Screening for colon cancer. Last colonoscopy greater than 10 years ago Pre-operative diagnosis: Screening for colon cancer Post-operative diagnosis: One polyp removed with cold snare, diverticulosis in the left colon, otherwise normal colon. Sedation: propofol per anesthesia dept O2 oximetry, hemodynamic monitoring was performed pre, during, and post procedure. Patient was identified, H&P completed, patient was given full explanation of the procedure as well as associatedrisks and written consent wasobtained prior to procedure. Patient expressed complete understanding of the procedure as well as alternatives to the procedure and to anesthesia and agreed to proceed with the procedure as indicated. Patient was immediately reassessed prior to IV sedation. Under IV sedation, patient was placed in the left lateral decubitus position. Digital rectal exam was performed and normal. Colonoscope was inserted and passed proximally to the cecum, which was identified by the ileocecal valve, appendiceal orifice and cecal floor. Colonoscope was slowly withdrawnwith the findings as below. [place] bowel prep score was adequate. Findings: Cecum: Normal. Ascending colon: Normal. Hepatic flexure: Normal. Transverse colon: Normal. Splenic flexure: Normal. Descending colon: Normal. Sigmoid colon: 5 mm sessile polyp removed with cold snare, retrieved, and sent to pathology. Mild diverticulosis. Rectum: Normal. Retroflexed views: normal Biopsy taken: Yes Complications: None EBL: Minimal Recommendations: -Repeat colonoscopy in 5 yrs -Follow up pathology -Fiber rich diet -Continue present medications -Follow up in the office -Follow up with PCP Following a period of recovery, patient was seen and given full explanation of the procedure. Patient tolerated the procedure well and will be discharged in satisfactory, stable condition. Agnes De Oliveira DO Documented By: Agnes De Oliveira DO 04/20/24 0903 Signed By: 04/20/[address] [facility]02-13-2025 [place] [address] Gastroenterology H&P Signed Patient: Libia Chen MR#: [id number] : 1950 Acct:[id number] Age/Sex: 73 / F Adm Date: Loc: Room: Type: [facility] Attending Dr: Agnes De Oliveira DO Copies to: DO Nathan Briceno MD~ Date of Service: 04/20/2024 HISTORY & PHYSICAL: Patient's history with special attention to the cardiovascular, pulmonary systems and the current problem was reviewed with the patient immediately prior to the procedure. Present medications and doses reviewed in the EMR. Allergies and pertinent laboratory tests were also re viewedat this time in the EMR. The physical [...] EMR Documented By: Agnes De Oliveira DO 04/20/24901 Signed By: 04/20/24902 [facility]12-06-2024 NoteRight Eye Quality was good. Scan locations included subfoveal. Progression has worsened. Findings include abnormal foveal contour, intraretinal fluid. Left Eye Quality was good. Scan locations included subfoveal. Progression has worsened. Findings include abnormal foveal contour, intraretinal fluid, subretinal fluid.[facility] [id number] History of Present illness Narrative * Cheri Parker, DO - 02/11/2024 9:00 AM EST Images from the original note were not included. Assessment/Plan Diagnoses and all orders for this visit: Moderate nonproliferative diabetic retinopathy of both eyes with macular edema associated with type1 diabetes mellitus (CMS/HCC) - Discussed the pathophysiology of diabetes and its effect on the eye. Stressed the importance of strong glucose control. Advised of importance of at least yearly dilated examinations, but to contactus immediately for any problems or concerns. Cont [...] laser capsulotomy, they are to notify their canvas products sales representative promptly if they have a significant change in symptoms, such as flashes of light (photopsia), an increase in floaters, loss of visual field or decrease in visual acuity. Dry eyes - Dry Eyes OU -- Environmental changes to minimize dryness and exposure and the use of artificial tears were recommended. documented in this encounterCass [facility] [id number] Evaluation note* Diagnosis Onset Date Resolution Status Admit Date Diabetic macular edema acute De cem2023 11:31am Dietary counseling and surveillance acute February 06 11:31am HTN (hypertension) acute Decemb er 2023 11:31am Hyperlipidemia acute February 062023 11:31am halfway current use of insulin acu te February 07, 2024 11:31am Nonproliferative diabetic retinopathy acute February 06 11:31am Type 2 diabetes mellitus wit h hyperglycemia acute February 06 11:31am Vitamin D deficiency acute Dece mber 2023 11:31am Diarrhea acute March 07, 2024 10:07am Screening for colon cancer acute March 07, 2024 10:07am [facility] Work Phone: 1(637) 825-807612-02-2024 Evaluation note* Diagnosis Onset Date Resolution Status Admit Date Diabetic macular edema acute De 2023 11:31am Dietary counseling and surveillance acute February 06 11:31am HTN (hypertension) acute Decemb er 2023 11:31am Hyperlipidemia acute February 062023 11:31am halfway current use of insulin acu te February [...] 11:08am Hyperkalemia acute April 11:08am Hyperparathyroidism acute Febr chel2024 11:08am Hyperuricemia acute May 032024 11:08am Vitamin B12 deficiency acute Fe bruary 2024 11:08am Vitamin D deficiency acute Febr uary 2024 11:08am [facility] Work Phone: 1(366) 371-321511-05-2024 History of Present illness Narrative* JENNI Vivar [...] for any new/changing lesions documented in this encounterCass Medical [id number] Evaluation note* Diagnosis Onset Date Resolution Status Chronic kidney disease, stage 3a acute Dietary counseling and surveillance acute HTN (hypertension) acute Hyperlipidemia acute Hypoglycemia associated with diabetes acute halfway current use of insulin acute Retinopathy acute Type 2 diabetes mellitus with hyperglycemia acute Vitamin D deficiency acute Anemia in chronic kidney disease acute Chronic kidney disease, stage 3b acute Diabetes mellitus type 2 in nonobese acute Diabetic nephritis acute Hyperkalemia acute Hyperparathyroidism acute Hyperuricemia acute Vitamin B12 deficiency acute Vitamin D deficiency acute [facility] Work Phone: 1(541) 115-149208-19-2024 Chief complaint+Reason for visit Narrative * Chief Complaint DMN f/u / meter Reason for Visit Chronic kidney disea se, stage 3a Dietary counseling and surveillance HTN (hypertension) Hyperlipidemia Hypoglycemia associated with diabetes continuous churn buttermaker current use of insulin Retinopathy Type 2 diabetes mellitus with hyperglycemia Vitamin D deficiency [facility] Work Phone: 1(539) 406-928308-19-2024 Evaluation note* Diagnosis Onset Date Resolution Status Chronic kidney disease, stage 3a acute Dietary counseling and surveillance acute HTN (hypertension) acute Hyperlipidemia acute Hypoglycemia associated with diabetes acute continuous churn buttermaker current use of insulin acute Retinopathy acute Type 2 diabetes mellitus with hyperglycemia acute Vitamin D deficiency acute [facility] Work Phone: 1(330) 159-939703-26-2024 Evaluation note* Diagnosis Onset Date Resolution Status Chronic kidney disease, stage 3a acute Dietary counseling and surveillance acute HTN (hypertension) acute Hyperlipidemia acute Hypoglycemia associated with diabetes acute halfway current use of insulin acute Retinopathy acute Type 2 diabetes mellitus with hyperglycemia acute Vitamin D deficiency acute Anemia in chronic kidney disease acute Chronic kidney disease, stage 3b acute Diabetes mellitus type 2 in nonobese acute Diabetic nephritis acute Hyperkalemia acute Hyperparathyroidism acute Hyperuricemia acute Vitamin B12 deficiency acute Vitamin D deficiency acute [facility] Work Phone: [phone]) 871-219812-21-2023 Evaluation note* Encounter Date Diagnosis Assessment Notes Treatment Notes Treatment Clinical Notes Feb, Chronic kidney disease, stage 3a (ICD-10 - N18.31) [facility] [employer] Other 11-15-2023 Evaluation note* Encounter Date Diagnosis [...] is she starts to have UTI symptoms. [employer] Other 10-09-2023 Evaluation note* Encounter Date Diagnosis [...] escalated Jardiance to 25 mg daily Dec, halfway current use of insulin (ICD-10 - Z79.4) [...] compaired to disease instability. 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 ASSESSMENT: 1550 blood glucose 82 given [...] escalated Jardiance to 25 mg daily May, halfway current us e of insulin (ICD-10 - [...] compaired to disease instability. 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 [place] [employer] Other 07-20-2022 Evaluation note* Encounter Date Diagnosis [...] escalated Jardiance to 25 mg daily Sep, continuous churn buttermaker current us e of insulin (ICD-10 - [...] compaired to disease instability. 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 , According to meter download [id number]: Active 74%, Ave glucose 105, GMI 5.8% [...] None needed at this time per patient 22 Sep, 2021 Vitamin D deficiency (ICD-10 - E55.9) Learning [...] with hx of baseline low BP. Nov, halfway current use of insulin (ICD-10 - Z79.4) [...] compaired to disease instability. 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 [employer] Other 08-13-2021 NoteGastroenterology Upper Endoscopy, Adult Upper [...] including vitamins, herbs, eye drops, creams, and murz-sre-dquglew medicines. ? Any problems you or family [...] tells you to take them. ? Taking bwtb-min-bbmwpja medicines, vitamins, herbs, and supplements. 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, mild stage (CMS/HCC) [facility] Diagnosis Onychocryptosis- Primary Ingrowing nail Abscess, toe, left Toe pain, left Pain in soft tissues of limb Type 2 diabetes mellitus without complication, with long-term current use of insulin [facility] Diagnosis Abscess, toe, left- Primary Pain due to onychomycosis of toenails of both feet Type 2 diabetes mellitus without complication, with long-term current use of insulin [facility] Diagnosis 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 Note Date/Time April 20, 2024 9:03am [facility] [address] [place] [address] Gastroenterology H&P Signed Patient: Libia Chen MR#: [id number] : 1950 Acct:[id number] Age/Sex: 73 / F Adm Date: Loc: Room: Type: [facility] Attending Dr: Agnes De Oliveira DO Copies [...] by Agnes De Oliveira DO> 04/20/24 0903 [facility] Work Phone: History general Narrative - Reported* Type Description Date Medical History type II diabetes Medical History Retinopathy Surgical History liver biopsy 2003 Surgical History Needle biopsy benign breast lum p 1997 Surgical History D&C Surgical History colonoscopy Hospitalization History See above Hospitalization History Patient Communicator Other History general Narrative - Reported* Type Description Date Medical History type II diabetes Medical History Retinopathy- Diabeti c Macular Edema and Moderate Nonproliferative Diabetic Retinopathy-- CC and Dr. Parker Surgical History liver biopsy 2003 Surgical History Needle biopsy benign breast lum p 1997 Surgical History D&C Surgical History colonoscopy Hospitalization History See above Hospitalization History Patient Communicator Other History general Narrative - Reported* Type [...] Hospitalization History See above Hospitalization History [facility] Other History general Narrative - Reported* Type [...] Hospitalization History See above Hospitalization History [facility] Other Hisyali general Narrative - Reported* Type Description Date [...] 3 Hospitalization History See above Hospitalization History Patient Communicator Other Summary Purpose Family History No Family [...] Date/ Time Advance Directives No February 2:14pm Advance Directive Response Recorded Date/ Time Advance Directives No June 06 11:00am Reason for Referral Reason DUPLICATE persiste nt microalbuminuria, GFR below 60 with reasonable glycemic control. On Jardiance Diagnosis 1 Type 2 diabetes kj itus with hyperglycemia (E11.65) Referral Organization [facility] Referring Provider First Name Loni Referring Provider Last Name Cathie Referring Provider Specialty Nurse Pract itioner Referred Organization [facility] Nephrology Referred Provider More Sylvester Referred Address [address] ,[place],[address] Referred Provider Specialty Nephrology Referral Priority Routine [...] kj itus with hyperglycemia (E11.65) Referral Organization [facility] Referring Provider First Name Loni Referring Provider Last Name Deirdre Referring Provider Specialty Nurse Pract itioner Referred Organization [facility] Nephrology Referred Address [address] ,[place],[address] Referred Provider Specialty Nephrology Referral Priority Routine [...] HTN (hypertension) Hyperlipidemia Hypoglycemia associated with diabetes continuous churn buttermaker current use of insulin Retinopathy Type 2 [...] HTN (hypertension) Hyperlipidemia Hypoglycemia associated with diabetes continuous churn buttermaker current use of insulin Retinopathy Type 2 [...] 06 11:31am Dietary counseling and surveillance Dece [facility] 2023 11:31am HTN (hypertension) February 07, 2024 1 1:31am Hyperlipidemia February 07, 2024 1 1:31am continuous churn buttermaker current use of insulin [facility] 2023 11:31am Nonproliferative diabetic retinopathy [facility] 11:31am Type 2 diabetes mellitus with [...] February 06 11:31am Dietary counseling and surveillance [facility] 2023 11:31am HTN (hypertension) February 07, 2024 1 1:31am Hyperlipidemia February 07, 2024 1 1:31am continuous churn buttermaker current use of [facility] 11:31am Nonproliferative diabetic retinopathy De cember 2023 11:31am Type 2 diabetes mellitus with hyperglyce aysha February 07, 2024 11:31am Vitamin D deficiency February 07, 2024 11:31am Diarrhea March 07, 2024 10:07am Screening for colon cancer February 10:07am Anemia in chronic kidney disease 2024 11:08am Chronic kidney disease, stage 3b y 2024 11:08am Diabetes mellitus type 2 in nonobese [facility] 2024 11:08am Diabetic nephritis May 03, 2024 11:08am Hyperkalemia May 03, 2024 11:08am Hyperparathyroidism May 03, 2024 11:08am Hyperuricemia May 03, 2024 11:08am Vitamin B12 deficiency May 03 11:08am Vitamin D deficiency May 03, 2024 11:08am Chief Complaint Admit Date Diarrhea April 20, 2024 8:01am Diarrhea April 20, 2024 9:03am Amb Documentation April 25, 2024 4:00pm RENAL 4 MONTH F/U May 03, 2024 11:08am Hospital Patient F/U June 13, 2024 8:3 0am Reason for Visit Admit Date Anemia in chronic kidney disease y 2024 11:08am Chronic kidney disease, stage 3b 2024 11:08am Diabetes mellitus type 2 in nonobese [facility] 2024 11:08am Diabetic nephritis May 03, 2024 11:08am Hyperkalemia May 03, 2024 11:08am Hyperparathyroidism May 03, 2024 11:08am Hyperuricemia May 03, 2024 11:08am Vitamin B12 deficiency May 03 11:08am Vitamin D deficiency May 03, 2024 11:08am Chief Complaint Admit Date Diarrhea April 20, 2024 8:01am Diarrhea April 20, 2024 9:03am Amb Documentation April 25, 2024 4:00pm RENAL 4 MONTH F/U May 03, 2024 11:08am Hospital Patient F/U June 13, 2024 8:3 0am 3 month-DMN f/u-METER June 21, 2024 1 1:25am Reason for Visit Admit Date Anemia in chronic kidney disease 2024 11:08am Chronic kidney disease, stage 3b 2024 11:08am Diabetes mellitus type 2 in nonobese Feb ruary 2024 11:08am Diabetic nephritis May 03, 2024 11:08am Hyperkalemia May 03, 2024 11:08am Hyperparathyroidism May 03, 2024 11:08am Hyperuricemia May 03, 2024 11:08am Vitamin B12 deficiency May 03 11:08am Vitamin D deficiency May 03, 2024 11:08am Diabetes mellitus type 2 in nonobese Apr [place] 2024 8:30am Hyperkalemia June 13, 2024 8:30 am Vomiting and diarrhea June 13, 2024 8: 30am Diabetic macular edema June 21, 2024 11:25am Dietary counseling and surveillance Apri l 2024 11:25am HTN (hypertension) June 21, 2024 11: 25am Hyperlipidemia June 21, 2024 11: 25am halfway current use of insulin June 062024 11:25am Nonproliferative diabetic retinopathy Ap ril 2024 11:25am Type 2 diabetes mellitus with hyperglyce aysha June 21, 2024 11:25am Vitamin D deficiency June 21, 2024 11 :25am Additional Source Comments INFORMATION SOURCE (unrecogn ized section and content) DATE CREATED AUTHOR 12/02/2020 [facility] DATE CREATED AUTHOR AUTHOR'S ORGANIZ ATION 07/20/2022 [facility] [place] [facility] DATE CREATED AUTHOR AUTHOR'S ORGANIZ ATION 04/29/2024 [facility] DATE CREATED AUTHOR AUTHOR'S ORGANIZ ATION 09/18/2024 [facility] EPIC REASON FOR VISIT (unrecogniz ed section and content) Reason Comments Suspicious Skin Lesion Reason Comments Retinopathy Glaucoma Reason Comments Med Refill Reason Comments Toenail Problem Nail fungus Reason Comments Follow-up 14d s/p lt 3rd avuls ion DM Foot [facility] Dm nail care Reason Comments Glaucoma Reason Comments [facility] Care Teams (unrecognized sec tion and content) [...] Provider Active Start: May 27, 2023 Homero Bishop MD Attending Provider Active Star t: May 27, 2023 Team Status: Inactive Member Role Status Dates Nathan Mcguire MD Primary Care Provider Active Start: June 01, 2023 End: June 01, 2023 Homero Bishop MD Attending Provider Active Star t: June [...] Provider Active Start: December 21, 2023 Homero Bishop MD Attending Provider Active Star t: December 21, 2023 Team Status: Inactive Member Role Status Dates Nathan Mcguire MD Primary Care Provider Active Start: December 28, 2023 End: December 28, 2023 Homero Bishop MD Attending Provider Active Star t: December 28, 2023 End: December 28, 2023 Picker Tender Relationship Specialty Start Date End Date Rashid Tracy MD [address] [place] [address] PCP - General 08/05/22 Picker Tender Relationship Specialty Start Date End Date Rashid Tracy MD [address] [place] [address] PCP - General 08/05/22 Picker Tender Relationship Specialty Start Date End Date Rashid Tracy MD [address] [place] [address] PCP - General 08/05/22 Picker Tender Relationship Specialty Start Date End Date Rashid Tracy MD [address] [place] [address] PCP - General 08/05/22 Team Status: [...] 2024 Lauren Renee Attending Provider Active Start: Loida carlisle 2024 Team Status: Active Member Role Status Dates Nathan Mcguire MD Primary Care Provider Active Start: May 02, 2024 Homero Bishop MD Attending Provider Active Star t: May 02, 2024 Team Status: Inactive Member Role Status Dates Nathan Mcguire MD Primary Care Provider Active Start: May 03, 2024 End: May 03, 2024 Homero Bishop MD Attending Provider Active Star t: May 03, 2024 End: May 03, 2024 Picker Tender Relationship Specialty Start Date End Date Rashid Tracy MD [address] [place] [phone] PCP - General 08/05/22 Team Status: Active Member Role Status Dates Nathan Mcguire MD Primary Care Provider Active Start: June 05, 2024 Esperanza Vargas NP-C Attending Provider Active S tart: June 05, 2024 Team Status: Active Member Role Status Dates Nathan Mcguire MD Primary Care Provide r, Attending Provider Active Start: June 06, 2024 Team Status: Inactive Member Role Status Dates Nathan Mcguire MD Primary Care Provide r, Attending Provider Active Start: June 13, 2024 End: June 13, 2024 Team Status: Inactive Member Role Status Dates Nathan Mcguire MD Primary Care Provider Active Start: June 21, 2024 End: June 21, 2024 Loni Farmer APRN Attending Provider Active Start: June 21, 2024 End: June 21, 2024 Picker Tender Relationship Specialty Start Date End Date Rashid Tracy MD [address] [place] [address] PCP - General 08/05/22 Picker Tender Relationship Specialty Start Date End Date Rashid Tracy MD [address] [place] [address] PCP - General 08/05/22 Picker Tender Relationship Specialty Start Date End Date Rashid Tracy MD [address] [place] [phone] PCP - General 08/05/22 Picker Tender Relationship Specialty Start Date End Date Rashid Tracy MD [address] [place] [address] PCP - General 08/05/22 Picker Tender Relationship Specialty Start Date End Date Rashid Tracy MD [address] [place] [address] PCP - General 08/05/22 Picker Tender Relationship Specialty Start Date End Date Rashid Tracy MD [address] [place] [address] PCP - General 08/05/22 Goals (unrecognized section [...] BE BASED ON THE PRIMARY CLINICAL RECORDS. [facility] [employer] [facility]. provides no warranty or guarantee of the accuracy or completeness of information in this document.
[2024-10-26 11:36] LABS: Glucose Urine UA >=1000 mg/dL (NEGATIVE)
[2024-10-26 11:36] LABS: Hematocrit 33.9 % (36.0-48.0); Hemoglobin 10.8 g/dL (12.0-16.0); Mean Corpuscular HGB Conc 31.9 g/dL (29.9-35.2); Mean Corpuscular Hemoglobin 28.6 pg (26.7-34.0); Mean Corpuscular Volume 89.9 fL (81.0-99.0); Platelet Count 172 10^3/uL (150-450); Red Blood Count 3.77 10^6/uL (4.20-5.40); White Blood Count 7.8 10^3/uL (4.0-11.0)
[2024-10-26 12:37] LABS: Protein Creatinine Ratio Urine 0.41; Total Protein Urine Random <6.0 mg/dL (<=11.9)
[2024-10-26 12:38] LABS: Albumin Level 4.0 g/dL (3.4-5.0); Anion Gap 10.1; Blood Urea Nitrogen 38.0 mg/dL (7.0-18.0); Calcium 9.2 mg/dL (8.5-10.1); Carbon Dioxide 25.2 mmol/L (21.0-32.0); Chloride 110 mmol/L (98-107); Estimated GFR (African America 39 (>=60 mL/min/1.73m^2); Estimated GFR (Non-African Ame 32 (>=60 mL/min/1.73m^2); Glucose 167 mg/dL (74-106); Magnesium 2.3 mg/dL (1.8-2.4); Potassium 5.3 mmol/L (3.5-5.1); Sodium 140 mmol/L (136-145); Uric Acid 8.7 mg/dL (2.6-6.0)
[2024-10-26 12:43] LABS: Iron 58.0 ug/dL (50.0-170.0); Percent Iron Saturation 17.3 %; Total Iron Binding Capacity 335.0 ug/dL (250.0-450.0)
[2024-10-26 13:12] LABS: Ferritin 122.0 ng/mL (8.0-252.0); Folate 11.10 ng/mL (8.60-58.90)
[2024-10-27 04:08] LABS: Vitamin B12 698 pg/mL (232-1245)
== END 2024-10-26 10:55 | disposition home or self-care (01) ==
LOC: LAB 10:57
PROVIDERS: PCP Family Medicine; Visit Provider Internal Medicine Nephrology
DX: E87.5 Hyperkalemia (principal); N18.32 Chronic kidney disease, stage 3b; E79.0 Hyperuricemia without signs of inflammatory arthritis and tophaceous disease; E21.3 Hyperparathyroidism, unspecified; E11.21 Type 2 diabetes mellitus with diabetic nephropathy; E11.9 Type 2 diabetes mellitus without complications; D63.1 Anemia in chronic kidney disease
CPT/HCPCS: 36415; 80069; 81003; 82306; 82570; 82607; 82728; 82746; 83540; 83550; 83735; 83970; 84156; 84550; 85027